=== PATIENT | female | born 1980 | race Caucasian/White ===

== ENCOUNTER → 2023-04-18 | Outpatient (CLI) | payer OTHER, SELFPAY ==
--- NOTE | 2023-04-18 13:20 | US_ITS ---
INDICATION: MENORRHAGIA EXAMINATION: Ultrasound US Pelvis Non OB Complete With Transvaginal Imaging TECHNIQUE: Transabdominal and transvaginal pelvic ultrasound was performed. Grayscale, spectral waveform, and color flow Doppler evaluation of the adnexa. COMPARISON: None. FINDINGS: UTERUS: Anteverted. The uterus measures 9.3 x 5.4 x 4.7 cm. Heterogenous myometrium with focal hypoechoic lesions, likely fibroids measuring up to 1 cm and 0.8 cm. Cervical nabothian cysts present. The endometrial stripe measures 8 mm in AP diameter which is within normal limits. RIGHT OVARY: 3.1 x 2.1 x 1.7 cm. Non-enlarged, normal echogenicity. No Doppler waveforms obtained. LEFT OVARY: 4.0 x 3.7 x 3.0 cm.. Largely cystic lesion with internal echogenic focus measuring up to 3.0 cm. No Doppler waveforms obtained. FREE FLUID: None. US/Pelvic (Non ) IMPRESSION: Fibroid uterus. Cystic lesion left ovary measuring up to 3.0 cm. Findings may represent a hemorrhagic cyst but dermoid cannot be entirely excluded. Recommend short-term sonographic follow-up in 4-6 weeks. Otherwise chronic logical consultation may be useful. Electronically Signed: Bartolome Cristobal MD at 17:03 EDT ,
== END | disposition home or self-care (01) ==
PROVIDERS: PCP Student in an Organized Health Care Education/Training Program; Referring Provider Obstetrics & Gynecology Gynecology; Visit Provider Obstetrics & Gynecology Gynecology
DX: N92.0 Excessive and frequent menstruation with regular cycle (principal); N93.0 Postcoital and contact bleeding
CPT/HCPCS: 76830; 76856

== ENCOUNTER → 2023-05-31 | Outpatient (CLI) | payer OTHER, SELFPAY ==
--- NOTE | 2023-05-31 08:21 | US_ITS ---
STUDY: ULTRASOUND OF THE FEMALE PELVIS - COMPLETE REASON FOR EXAM: Female, 42 years old. lto cyst f/u LMP: Unknown TECHNIQUE: Transabdominal and Transvaginal TECHNICAL QUALITY: Adequate. COMPARISON: Comparison is made with prior study dated April 18, 2023. FINDINGS: The uterus is anteverted and is in a midline position. The uterus measures 9.3 cm x 5.3 cm x 5.3 cm. There is a Nabothian cyst of the cervix. The endometrium measures 8 mm in thickness, and is heterogeneous (striated). There is no demonstrated endometrial mass. 2 subcentimeter fibroids are seen within the body of the uterus. I.U.D. - The patient does not have an I.U.D. The right ovary is visualized. The right ovary measures 1.9 cm x 1.7 cm x 1.8 cm. There is no right ovarian cyst or ovarian mass. There is no visualized right adnexal mass or complex lesion. There is normal arterial and normal venous vascularity. The left ovary is visualized. The left ovary measures 3.2 cm x 2.5 cm x 2.6 cm. A dominant follicle is seen in the left ovary. It measures 1.6 cm x 1.4 cm x 1.4 cm. There is no visualized left adnexal mass or complex lesion. There is normal arterial and normal venous vascularity. There is no fluid in the cul-de-sac. The pre void volume of the bladder was 137 ml. US/Pelvic (Non ) IMPRESSION: Interval decrease in size of the left ovarian cyst. A dominant follicle is seen measuring 1.6 x 1.4 cm x 1.4 cm. Electronically Signed: Albert Hughes MD at 8:47 EDT ,
== END | disposition home or self-care (01) ==
PROVIDERS: PCP Student in an Organized Health Care Education/Training Program; Referring Provider Obstetrics & Gynecology Gynecology; Visit Provider Obstetrics & Gynecology Gynecology
DX: N92.0 Excessive and frequent menstruation with regular cycle (principal); N83.202 Unspecified ovarian cyst, left side
CPT/HCPCS: 76830; 76856

== ENCOUNTER 2023-12-07 07:02 | Day surgery (SDC) | payer OTHER, SELFPAY ==
--- NOTE | 2023-11-28 10:07 | EKG12_ITS ---
Test Reason : PRE OP Blood Pressure : / mmHG Vent. Rate : 082 BPM Atrial Rate : 082 BPM P-R Int : 134 ms QRS Dur : 076 ms QT Int : 380 ms P-R-T Axes : 026 017 013 degrees QTc Int : 443 ms Normal sinus rhythm Normal ECG Confirmed by Moe Watkins ([id number]), commissioning editor LAZARUS MACE ([id number]) on 11/29/2023 6:36:21 AM Referred By: Natasha Kohli Confirmed By:Moe Watkins
[2023-11-28 11:15] LABS: Hematocrit 40.6 % (37-47); Hemoglobin 13.7 g/dL (12.0-15.0); Mean Corp Hgb Conc 33.7 g/dL (32-36); Mean Corpuscular Hgb 32.7 pg (27.0-32.0); Mean Corpuscular Volume 96.9 fL (81-99); Mean Platelet Vol. 10.1 fl (6.2-12.0); Platelet Count 236 K/mm3 (150-450); RBC Distribution Width CV 12.1 % (11.6-14.6); RBC Distribution Width SD 42.8 fl (35.1-43.9); Red Blood Count 4.19 M/mm3 (4.2-5.4); White Blood Count 7.8 K/mm3 (4.4-11.0)
[2023-11-28 11:24] LABS: Prothrombin Time (Protime)PT. 13.1 SECONDS (11.7-14.9)
[2023-11-28 11:41] LABS: AST(SGOT) 179 U/L (15-37); Alanine Aminotransfer ALT/SGPT 196 U/L (13-56); Albumin, Serum 4.4 g/dL (3.2-5.0); Alkaline Phosphatase 80 U/L (45-117); Anion Gap 8 (5-15); BUN 11 mg/dL (7-18); BUN/Creat Ratio 14.1 RATIO (10-20); Bilirubin, Direct 0.47 mg/dL (0.00-0.30); Calcium,Total 9.6 mg/dL (8.5-10.1); Chloride 101 mmol/L (98-107); Creatinine, Serum 0.78 mg/dL (0.55-1.02); EST Glomerular Filtration Rate 87 mL/min (>60); Est Glom Filt Rate - Afr Amer 105 mL/min (>60); Globulin 3.7 g/dL (2.2-4.2); Glucose 95 mg/dL (74-106); Magnesium 1.8 mg/dL (1.6-2.6); Potassium 3.6 mmol/L (3.5-5.1); Protein, Total 8.1 g/dL (6.4-8.2); Sodium Level 135 mmol/L (136-145)
--- NOTE | 2023-11-29 17:05 | HP.PCM.OB_ITS ---
History and Physical Date of Admission: 12/07/23 Pre-Op History and Physical HPI: The patient is a 43 year old female presenting for pre-operative visit. She is scheduled for TLH, Bilateral salpingectomy, cystoscopy, for Adenomyosis, AUB, Uterine Fibroids on 12/07/23. Procedure discussed along with risks, benefits and complications. Other alternatives discussed for management. Consent form signed? Yes. PAST MEDICAL HISTORY Diagnosis Date ? Appendicitis 1999 ? CVA (cerebral vascular accident) (HCC) unknown when ? Gallstones PAST SURGICAL HISTORY Procedure Laterality Date ? APPENDECTOMY 1999 Current Outpatient Medications Medication Sig Dispense Refill ? lisinopril (ZESTRIL) 20 mg tablet Take 1 tablet by mouth once daily. 90 tablet 1 ? Ascorbic Acid (VITAMIN C) 1,000 mg tablet Take 1,000 mg by mouth once daily. ? Folic Acid 20 mg cap Take 1 capsule by mouth once daily. ? Magnesium 250 mg tab Take 250 mg by mouth once daily. ? ALPRAZolam (XANAX) 0.5 mg tablet Take 1 tablet by mouth at bedtime as needed for up to 90 days. 30 tablet 2 ? omeprazole (PRILOSEC) 10 mg capsule Take 1 capsule by mouth once daily. 30 capsule 3 ? aspirin, enteric coated (ASPIRIN, ENTERIC COATED) 81 mg EC tablet Take 81 mg by mouth once daily. ? Biotin 10 mg tab Take by mouth. No current facility-administered medications for this visit. ALLERGIES: Amitriptyline, Bactrim [Sulfamethoxazole-Trimethoprim], Melatonin, Nifedipine, Prednisone, Sertraline, Sulfa (Sulfonamide Antibiotics), and Beta- Blockers (Beta-Adrenergic Blocking Agts) PERSONAL HISTORY: Social History Tobacco Use ? Smoking status: Former Types: Cigarettes Quit date: 2002 Years since quittin.2 ? Smokeless tobacco: Never Vaping Use ? Vaping Use: Never used Substance Use Topics ? Alcohol use: Yes ? Drug use: Never FAMILY HISTORY: FAMILY HISTORY Problem Relation Age of Onset ? Cancer Father CLS, stable ? Bipolar disorder Mother ? Heart disease Paternal Grandfather ? Hypertension Paternal Grandfather ? No Ocular Disease No Family History REVIEW OF SYMPTOMS: negative except as noted above PHYSICAL EXAMINATION: VITALS: Blood pressure 134/60, height 5' 5 (1.651 m), weight 168 lb (76.2 kg), last menstrual period 11/16/2023. GENERAL: The patient is well nourished, well hydrated in no acute distress. , The patient is oriented to time, place, and person. NECK: full range of motion LUNGS: Clear to auscultation bilaterally. no wheezes, rhonchi or rales HEART: Normal heart sounds and No murmurs or gallops IMPRESSION: 43yo with AUB, Adenomyosis, Fibroid uterus PLAN: TLH, Hysteroscopy, cystoscopy Pt has been counseled on risks/benefits and alternatives of surgery including but not limited to anesthesia, bleeding, infection, injury to pelvic structures including bowel, bladder, ureters and vessels. Pt wishes to proceed with surgery at this time. Risk for transfusion reviewed. Risk for cuff dehiscence and other post op complications reviewed. Pre and post op instructions reviewed I have reviewed and updated past medical and surgical history, medications and allergies Natasha Kohli MD
[2023-12-07] VITALS (19 sets, daily range): BP systolic 82–131; BP diastolic 60–96; PULSE 70–132; RESP 11–28; TEMP 36.1–37.2; O2SAT 90–100; BMI 27.3
[2023-12-07] MEDS: Magnesium 2 GM for ERAS IV (07:50)
[2023-12-07] MEDS: Phenazopyridine 95 MG Tablet 190 MG PO (07:50)
[2023-12-07] MEDS: Gabapentin 600 MG Tablet PO (07:50)
[2023-12-07] MEDS: Acetaminophen 500 MG Tablet 1000 MG PO (07:50)
[2023-12-07] MEDS: Celecoxib 200 MG Capsule 400 MG PO (07:50)
[2023-12-07 07:55] LABS: Internal QC Validated? YES +Cl - CLEAR BKGD; Record Kit Lot#,Urine Preg HCG0000718086
[2023-12-07 07:58] LABS: Pregnancy, Urine Negative Negative
[2023-12-07] MEDS: Lactated Ringers 1,000 ML 15 ML IV ×2 (08:18→10:16)
[2023-12-07] MEDS: Enoxaparin 40 MG/0.4 ML Syringe SC (08:20)
--- NOTE | 2023-12-07 08:47 | OP.PCM_ITS ---
Report of Operation Date of Procedure: 12/07/23 Pre-Operative Diagnosis: AUB, Adenomyosis, Fibroid Uterus Post-Operative Diagnosis: same Surgery/Procedure Performed:: TLH, Bilateral salpingectomy, Cystoscopy Description of Surgical Findings:: normal tubes and ovaries bilaterally. Dr. Sidhu assisted in manipulation of camera and retraction of tissue. There was no qualified resident. Surgeon: Natasha Kohli nitroglycerin supervisor: Mary Sidhu Type of Anesthesia: General and Local Special Medications: 0.5% marcaine Specimen's removed: uterus, cervix, bilateral fallopian tubes Drains: none Estimated Blood Loss (mL): 25 Fluids Replaced: 1300 Description of Procedure: Patient take to OR and prepped and draped in usual sterile fashion in dorsal lithotomy position with her arms tucked in a neurologically safe and neutral position. The uterus sounded to 8.5 cm. The m48/m60 tank driver uterine manipulator was sutured into place at 3/9:00 position and ugarte were placed. Attention was turned to the abdomen. All port sites were infiltrated with 0.5% marcaine before the incisions were made. The anterior abdominal wall was tented up with towel clamps and using a direct entry approach a 5 mm intraumbili axel port was placed. Intraperitoneal placement was confirmed with the laparoscope and the pneumoperitoneum was created. The patient was placed in Trendelenburg and 5 mm right and left lower quadrant ports were placed under direct visualization. Air seal rapid insufflator was used. The bowel was swept away. Ovaries appeared normal. The mesosalpinx starting at fimbriated end were grasped, clamped, sealed and transected with the Ligasure. The round ligaments were divided. The anterior peritoneum was dissected down to create the bladder flap with blunt dissection and the LigaSure. The uterine arteries were isolated, clamped, sealed and cut. There was minimal back bleeding from the uterus. Straight bites on uterine artieries performed to drop them off the cuff. The m48/m60 tank driver was used as guide to create colpotomy using monopolar tip of ligasure. once specimen was removed attention was turned to vaginal portion. The specimen was handed off. The cuff was closed with interrupted 0-vicryl figure of 8 sutures. Cystoscopy was performed bilateral ureters were visualized with good efflux. bladder was intact. ugarte replaced and sponge stick placed in vagina. The pneumoperitoneum was recreated and the cuff and pedicles were hemostatic. Hemoblast was placed over cuff and pedicles. The skin incisions were closed with skin glue and 3-0 monocryl in the LLQ port site. The vaginal sweep was completed by me. Grafts/Implants Used: none Grafts/Implants Used: none Procedure Start Time: 09:15 Procedure Stop Time: 10:34 Complications none Admit VTE Documentation VTE Present on Admission: Yes VTE Mechan Device Prophylaxis: SCD's VTE Pharm Prophylaxis ordered?: Yes
--- NOTE | 2023-12-07 09:00 | HYST_PTH ---
PATIENT: ASHANTI HOBBS LOC: [facility] [place] U#:[id number] AGE/SX: 43/F ROOM: RE12/07/[address]: Dr. Natasha Cruz, MDDOB: 1980 BED: DIS: 12/07/2023 SPEC #: [id number] RECD: 12/07/23 13:03 STATUS: [place] #: [id number] IMTIAZ: 12/07/23 09:[address]: Natasha Cruz DEPT: SURGICAL PATHOLOGY RECD BY: Shannan Escamilla ENTERED: 12/07/23 13:32 SP TYPE: HYSTERECT OTHR DR: Dr. Ezequiel Zazutea, DO Tissues: Uterus, NOS Procedures: Surgery Specimen Level V HEADER OPERATION: Hysterectomy. TLH, Bilateral salpingectomy, cystoscopy PRE-OP DIAGNOSIS: Adenomyosis, AUB, uterine fibroids TISSUE SUBMITTED: Uterus, cervix, bilateral tubes MICROSCOPIC DIAGNOSIS Uterus, hysterectomy: Cervix - Nabothian cysts and mild chronic inflammation. Endometrium - Proliferative endometrium. Myometrium - Leiomyoma and adenomyosis. Right and left fallopian tube - Complete cross sections of fallopian tubes One benign para tubal cyst. CHRIS/ 12/08/23 MICROSCOPIC DESCRIPTION Slides are reviewed. GROSS DESCRIPTION Received in fixative is one container labeled with the patient's name and designated uterus, cervix, bilateral tubes. The specimen consists of a hysterectomy specimen consisting of uterus with cervix and detached bilateral fallopian tubes. The uterus with cervix weighs 107 gm and measures 9.5 x 7.5 x 5.0 cm. The serosal surface is bartholomew glistening. The ectocervical mucosa is unremarkable. The external os is oval in contour. The endocervical canal measures 3.0 cm in length and the endocervical mucosa is bartholomew glistening and unremarkable. The triangular endometrial cavity measures 4.5 cm in length and 3.0 cm in width. The endometrium is bartholomew, glistening with out any mass lesions and measures 0.1 cm in thickness. Section of the uterine wall reveal a nodular mass measuring 1.0cm in diameter. Uterine wall measures up to 2.0cm in thickness. Right lateral wall, a bartholomew nodule is noted measuring 0.5cm in diameter. Sections of this nodule reveal bartholomew-white solid cut surfaces. Fallopian tubes are not identified as right or left and measures 5.0cm in length and 0.5cm in diameter and 6.5cm in length and 0.5cm in diameter. Fimbrial end is identified. Sections reveal unremarkable cut surfaces. A paratubal cyst is noted adjacent to one fallopian tube measuring 0.8cm in greatest dimension. Crutch Maker sections are submitted in nine cassettes as follows: 1 - anterior cervix, 2 - posterior cervix, 3 & 4 - anterior uterine wall, 5 & 6 - posterior uterine wall, 7- intramural nodular mass at the lateral wall of the uterus both masses are submitted in entirety, 8- one fallopian tube with adjacent paratubal cyst, 9- second fallopian tube SJ: 12/07/23 TC:1 CPT: 01156
[2023-12-07] MEDS: Cefazolin 2 GM in 0.9% Normal Saline (100mL Bag) 100 ML IV (09:10)
[2023-12-07] MEDS: Bupivacaine Mpf 0.5% 30 ML VIAL (09:15)
[2023-12-07 09:28] LABS: Bedside Glucose 105 mg/dL (74-106)
[2023-12-07] MEDS: Ondansetron 4 MG/2 ML Vial IV (10:30)
--- NOTE | 2023-12-07 10:35 | DCINST_ITS ---
Discharge Instructions Diet Discharge Diet: No restrictions Activity Discharge Activity: May Not Drive (while taking narcotics. may drive when pain controlled. ) and May Shower May shower in (days): 1 May resume sexual activity in: 6-8 weeks Weight Bearing Status: Full weight bearing Lifting Restrictions: 20 Additional Activity Instructions:: NOTHING IN THE VAGINA x 6-8 weeks. Dressing / Incision Call your doctor if your incision/area has: Continuous Slow Oozing, Sudden Increased Bleeding, Increased Pain/ Swelling, Increased Redness, Foul Smelling Discharge and Swelling at the incision site Call your doctor if you observe: Fever of 101 or Higher, Inability to have a bowel movement, Using more than 1 pad per hour and Uncontrolled pain Change Dressing in: leave in place till F/U (you have skin glue over incision sites- do not pick off) Cleanse incision/area with: Soap & Water, Keep Dressing Clean & Dry and - (you may let soap and water run over incision sites and dab dry. ) Follow Up Care Please Follow Up With: Natasha Kohli MD When: 2 weeks as scheduled for post op visit Test Results: Test results from this visit will be discussed in further detail at your follow- up appointment, if applicable. Discharge Plan Admission Attending Provider: Natasha Kohli Primary Care Provider: Ezequiel Zazueta Discharge Orders/Prescriptions Prescriptions: New oxycodone-acetaminophen 5-325 mg Tablet 1 - 2 tab PO Q6H PRN PRN (Reason: Pain Score 4-10) 5 Days Qty: 10 0RF ibuprofen 600 mg tablet 600 mg PO Q6H PRN PRN (Reason: Pain) Qty: 30 0RF simethicone 80 mg tablet,chewable 80 mg PO BID Qty: 30 0RF docusate sodium [Colace] 100 mg capsule 100 mg PO BID Qty: 30 0RF Continued alprazolam 0.5 mg tablet 0.5 mg PO DAILY lisinopril 20 mg tablet 20 mg PO DAILY omeprazole 10 mg capsule,delayed release(DR/EC) 10 mg PO DAILY biotin-folic acid-B compC-zinc 3-0.8 mg tablet 1 tab PO DAILY Referrals / Follow Up: Ezequiel Zazueta DO [Primary Care Provider] - Disposition Disposition (needs filled in before D/C Order can be placed): Home, Self Care
== END 2023-12-07 16:33 | disposition home or self-care (01) ==
LOC: SDC 07:04 → AC 07:12
PROVIDERS: Anesthesiology; PCP Student in an Organized Health Care Education/Training Program; Referring Provider Obstetrics & Gynecology; Visit Provider Obstetrics & Gynecology
PROC: 0UT94ZZ Resection of Uterus, Percutaneous Endoscopic Approach (ICD-10-PCS; CPT 58571; principal; 2023-12-07 08:40)
DX: N88.8 Other specified noninflammatory disorders of cervix uteri (principal); N93.9 Abnormal uterine and vaginal bleeding, unspecified; D25.9 Leiomyoma of uterus, unspecified; N80.03 Adenomyosis of the uterus; Z87.891 Personal history of nicotine dependence; Z79.899 Other long term (current) drug therapy; F41.9 Anxiety disorder, unspecified; K21.9 Gastro-esophageal reflux disease without esophagitis; I10 Essential (primary) hypertension; N83.8 Other noninflammatory disorders of ovary, fallopian tube and broad ligament; Z86.73 Personal history of transient ischemic attack (TIA), and cerebral infarction without residual deficits
CPT/HCPCS: 58571; 00840; 36415; 80048; 80076; 81025; 82962; 83735; 85027; 85610; 85730; 86850; 86900; 86901; 88307; 93005; J7120; J1940; J2405

== ENCOUNTER 2024-09-29 10:13 | Emergency (ER) | payer OTHER, SELFPAY ==
[2024-09-29 10:15] VITALS: BP 120/99; PULSE 100; RESP 18; TEMP 36.3; O2SAT 100; BMI 23.1
[2024-09-29 10:52] LABS: Bedside Glucose 94 mg/dL (74-106)
--- NOTE | 2024-09-29 10:56 | EX.ED.DYSGE1 ---
HPI History of Present Illness Chief Complaint: Numb/Ting Informant: patient Onset/Context/Timing Onset: Today Context: Sudden Onset Timing: Continuous Quality: Numbness and weakness Location: Right hand and forearm Worsened by: Nothing Relieved by: Nothing Narrative Narrative: Patient presents with right hand weakness that began this morning. Patient states that she woke up with numbness and weakness in her right forearm and hand at approximately 3:30 AM. Patient states it has been constant all morning. Patient denies any extremity weakness in her upper arm or shoulder. Patient denies any headaches. Patient states nothing makes her symptoms better and nothing makes them worse. Patient denies any paresthesias or weakness of her left upper extremity or bilateral lower extremities. [facility] Medical History (Updated 09/29/24 @ 12:[address] Vineet Esteves, DO) Wears glasses Anxiety Alcohol use Migraine headache TIA (transient ischemic attack) Vestibular neuritis Vertigo Gastric reflux Smoker Hypertension Home Medications ?Medication ?Instructions ?Recorded ?Last Taken ?Type alprazolam 0.5 mg tablet 0.5 mg PO DAILY 11/23/23 12/06/23 History biotin-folic acid-vitamin B 1 tab PO DAILY 11/23/23 12/07/23 History complex with C-zinc 3 mg-0.8 mg tablet lisinopril 20 mg tablet 20 mg PO DAILY 11/23/23 12/07/23 History omeprazole 10 mg capsule,delayed 10 mg PO DAILY 11/23/23 12/07/23 History release docusate sodium 100 mg capsule 100 mg PO BID #30 caps 12/07/23 Unknown Rx (Colace) ibuprofen 600 mg tablet 600 mg PO Q6H PRN PRN Pain #30 12/07/23 Unknown Rx TABLETS oxycodone-acetaminophen 5 mg-325 1 - 2 tab PO Q6H PRN PRN Pain 12/07/23 Unknown Rx mg tablet Score 4-10 5 days #10 tabs simethicone 80 mg chewable tablet 80 mg PO BID #30 tabs 12/07/23 Unknown Rx topiramate 50 mg tablet 50 mg PO Q12H weight loss 09/29/24 Unknown History Allergy/AdvReac Type Severity Reaction Status Date / Time Beta-Blockers Allergy Severe Other Verified 09/29/24 10:18 (Beta-Adrenergic Bloc prednisone Allergy Severe Hives Verified 09/29/24 10:18 Sulfa (Sulfonamide Allergy Severe Hives Verified 09/29/24 10:18 Antibiotics) sulfamethoxazole (From Allergy Severe Hives Verified 09/29/24 10:18 Bactrim) trimethoprim (From Bactrim) Allergy Severe Hives Verified 09/29/24 10:18 melatonin AdvReac Intermediate Nausea/Vom/ Verified 09/29/24 10:18 Diarrhea Serotonin 5HT-3 Antagonists AdvReac Intermediate Other Verified 09/29/24 10:18 Surgical History (Updated 09/29/24 @ 10:[address] Vineet Esteves, ) History of hysterectomy History of dental surgery Hx of wisdom tooth extraction Hx of appendectomy Social History Smoking Status: Current some day smoker tobacco type: cigarettes ROS ROS ED Constitutional Constitutional ED: Denies chills or fever(s) Eyes Eyes: Denies blurry vision or change in vision ENT ENT ED: Reports rhinorrhea; Denies sore throat Cardiovascular Cardiovascular: Denies chest pain or palpitations Respiratory/Chest Respiratory/Chest: Denies cough or dyspnea Gastrointestinal Gastrointestinal: Denies nausea or vomiting Genitourinary Genitourinary ED: Denies dysuria or hematuria Musculoskeletal Musculoskeletal: Denies back pain or neck pain Integumentary Denies abscess or rash Neurologic Neurologic: Reports paresthesias RUE; Denies headache(s) or weakness Allergic/Immunologic Allergic/Immunologic ED: Denies mouth swelling or urticaria EXAM Physical Exam Const Vital Signs: 09/29/24 10:15 09/29/24 12:14 Temperature 97.3 F L Temperature Source Temporal Pulse Rate 100 67 Respiratory Rate 18 Blood Pressure 120/99 H 112/83 H Blood Pressure Mean 106 92 Pulse Ox 100 Oxygen Delivery Method Room Air Positive well nourished and well developed General Appearance ED: well developed and NAD HEENT Reports moist mucous membranes Neck supple and no JVD Resp normal respiratory effort and clear to auscultation bilaterally Cardio regular rate and regular rhythm GI non-tender and non-distended Palpation: soft Neuro oriented x3, CN's II-XII intact bilaterally and no sensory deficits noted Neuro Narrative: There is decreased strength with managing partner and palmar abductors on the right. Strength is 5/5 in the bicep and tricep on the right. Strength is 5/5 left upper extremity and bilateral lower extremities. There are no sensory deficits noted. Sensorium / Orientation: alert Psych mental status grossly normal MDM MDM MDM Narrative Medical decision making narrative: Differential diagnosis includes peripheral neuropathy, cervical radiculopathy, electrolyte abnormality, and stroke. CT scan of the brain will be obtained to assess for stroke and intracranial bleeding. CT scan of the cervical spine will be obtained to assess for cervical radiculopathy. CBC will be obtained to assess for leukocytosis and anemia. Basic metabolic profile will be obtained to assess for electrolyte abnormality and renal function. Lab Data Attestation: I reviewed the patient's lab results. Lab results narrative: CBC was reviewed. There is a mild anemia with a hemoglobin of 11.3 and hematocrit 34.5. Basic metabolic profile was reviewed. Potassium is low at 2.7. The remainder is within normal limits. BGT was reviewed and was normal at 94. Labs: Laboratory Results - last 24 hr 09/29/24 09/29/24 10:33 10:43 WBC 6.8 RBC 3.33 L Hgb 11.3 L Hct 34.5 L MCV 103.6 H MCH 33.9 H MCHC 32.8 RDW Std Deviation 50.2 H RDW Coeff of Amish 13.2 Plt Count 154 MPV 9.9 Immature Gran % (Auto) 0.300 Neut % (Auto) 68.2 Lymph % (Auto) 24.9 [place] % (Auto) 4.7 Eos % (Auto) 1.3 Baso % (Auto) 0.6 Absolute Neuts (auto) 4.6 Absolute Lymphs (auto) 1.69 Nucleated RBC % 0 Sodium 140 Potassium 2.7 L* Chloride 107 Carbon Dioxide 20.0 L Anion Gap 13 BUN 11 Creatinine 0.69 Estim Creat Clear Calc 99.43 Est GFR (MDRD) Af Amer 120 Est GFR (MDRD) Non-Af 99 BUN/Creatinine Ratio 16.0 Glucose 109 H Calcium 8.4 L POC Glucose 94 Radiography Diagnostic Testing: Clinical Impression(s) from Imaging Studies Brain CT 09/29/24 11:03 IMPRESSION: No CT evidence of acute intracranial pathology. Reading Location: [facility] Cervical Spine CT 09/29/24 11:04 IMPRESSION: No acute CT process in the cervical spine. One or more dose reduction techniques were used (e.g., Automated exposure control, adjustment of the mA and/or kV according to patient size, use of iterative reconstruction technique). Reading Location: [facility] CT scan of the brain was obtained. There is no acute intracranial abnormality. This was interpreted by the radiologist and was also independently reviewed by myself. CT scan of the cervical spine was obtained. There is no acute fracture or spondylolisthesis. There is no soft tissue swelling. This was interpreted by the radiologist and was also independently reviewed by myself. Treatment and Re-Evaluation :: Patient was given a dose of oral and IV potassium here. Patient was advised of her findings. Patient was advised that this is most likely a neuropraxia and that it should resolve. Follow-up with her primary care physician in 5 to 7 days. Patient was instructed to return if worse in any way. Patient understood and was agreeable with the plan. All questions were answered. Discharge Plan Triage Chief Complaint: Numb/Ting ED Provider: Vineet Esteves Dx/Rx/DC Orders Clinical Impression: Neuropraxia of right upper extremity, Hypokalemia Instructions: ED Hypokalemia, ED Neuropathy, Peripheral Prescriptions: No Action alprazolam 0.5 mg tablet 0.5 mg PO DAILY lisinopril 20 mg tablet 20 mg PO DAILY omeprazole 10 mg capsule,delayed release(DR/EC) 10 mg PO DAILY biotin-folic acid-B compC-zinc 3-0.8 mg tablet 1 tab PO DAILY oxycodone-acetaminophen 5-325 mg Tablet 1 - 2 tab PO Q6H PRN PRN (Reason: Pain Score 4-10) 5 Days Qty: 10 0RF ibuprofen 600 mg tablet 600 mg PO Q6H PRN PRN (Reason: Pain) Qty: 30 0RF simethicone 80 mg tablet,chewable 80 mg PO BID Qty: 30 0RF docusate sodium [Colace] 100 mg capsule 100 mg PO BID Qty: 30 0RF topiramate 50 mg tablet 50 mg PO Q12H Primary Care Provider: Ezequiel Zazueta Referrals: Ezequiel Zazueta DO [Primary Care Provider] - Print Language: Malaysian Disposition Disposition: Home, Self Care
--- NOTE | 2024-09-29 11:03 | CT_ITS ---
EXAM: BRAIN/HEAD WITHOUT CONTRAST CLINICAL HISTORY: Trauma COMPARISON: None. TECHNIQUE: Noncontrast images of the head with multiplanar reconstructions. Dose reduction techniques were used including intermediate exposure control (AEC),iterative reconstruction technique, and/or mA and/or KV dose adjustments based on patient's size. FINDINGS: CT HEAD FINDINGS: No acute intracranial hemorrhage, mass, mass effect, midline shift or pathologic extra-axial fluid collection. No hydrocephalus. Age- appropriate cerebral volume and white matter. Visualized paranasal sinuses and mastoid air cells are clear. The calvarium is grossly intact. CT/Brain/Head without Contrast IMPRESSION: No CT evidence of acute intracranial pathology. Reading Location: [facility]
--- NOTE | 2024-09-29 11:04 | CT_ITS ---
PROCEDURE: SPINE CERVICAL WITHOUT CONTRAS REASON FOR EXAM: Trauma TECHNIQUE: Cervical spine CT without contrast. COMPARISON: None. FINDINGS: Alignment: Normal Vertebrae: No acute fracture Soft Tissues: Unremarkable C1-2: Normal alignment. Dens appears intact. C2-3: Unremarkable C3-4: Unremarkable C4-5: Unremarkable C5-6: Unremarkable C6-7: Unremarkable C7-T1: Unremarkable CT/Spine Cervical without Contras IMPRESSION: No acute CT process in the cervical spine. One or more dose reduction techniques were used (e.g., Automated exposure contr ol, adjustment of the mA and/or kV according to patient size, use of iterative reconstruction technique). Reading Location: [facility]
[2024-09-29 11:22] LABS: Absolute Lymphocyte Count 1.69 X10^3/uL (0.83-4.51); Absolute Neutrophil Count 4.6 X10^3/uL (2.0-7.7); Basophil# 0.04 X10^3/uL; Basophil% 0.6 % (0-1); Eosinophil# 0.09 X10^3/uL; Eosinophils% 1.3 % (0-5); Hematocrit 34.5 % (37-47); Hemoglobin 11.3 g/dL (12.0-15.0); Lymphocyte # 1.69 X10^3/ul (0.83-4.51); Lymphocyte % 24.9 % (19-41); Mean Corp Hgb Conc 32.8 g/dL (32-36); Mean Corpuscular Hgb 33.9 pg (27.0-32.0); Mean Corpuscular Volume 103.6 fL (81-99); Mean Platelet Vol. 9.9 fl (6.2-12.0); Monocyte# 0.32 X10^3/uL; Monocyte% 4.7 % (0-10); NRBC Flagged by Analyzer 0 % (0-5); Neutrophil # 4.63 X10^3/uL (2.7-7.7); Neutrophil % 68.2 % (47-70); Platelet Count 154 K/mm3 (150-450); RBC Distribution Width CV 13.2 % (11.6-14.6); RBC Distribution Width SD 50.2 fl (35.1-43.9); Red Blood Count 3.33 M/mm3 (4.2-5.4); White Blood Count 6.8 K/mm3 (4.4-11.0)
[2024-09-29 11:26] LABS: Anion Gap 13 (5-15); BUN 11 mg/dL (7-18); Calcium,Total 8.4 mg/dL (8.5-10.1); Chloride 107 mmol/L (98-107); Creatinine, Serum 0.69 mg/dL (0.55-1.02); EST Glomerular Filtration Rate 99 mL/min (>60); Est Glom Filt Rate - Afr Amer 120 mL/min (>60); Estimated Creatinine Clearance 99.43 ml/min; Glucose 109 mg/dL (74-106); Potassium 2.7 mmol/L (3.5-5.1); Sodium Level 140 mmol/L (136-145)
--- NOTE | 2024-09-29 11:49 | ED.RN ---
pt refused CT scan d/t severe claustrophobia. Dr. Esteves notified
[2024-09-29 12:14] VITALS: BP 112/83; PULSE 67
[2024-09-29] MEDS: Potassium Chloride 10mEq/100mL 10 MEQ/100 ML IV.SOLN. 100 MEQ IV BOLUS (12:35)
[2024-09-29] MEDS: Potassium Chloride Oral Tablet 20 MEQ 40 MEQ PO (12:35)
[2024-09-29 13:40] VITALS: BP 106/84; PULSE 90; RESP 15; TEMP 36.6; O2SAT 100
== END 2024-09-29 13:45 | disposition home or self-care (01) ==
PROVIDERS: Emergency Provider Emergency Medicine; PCP Student in an Organized Health Care Education/Training Program; Visit Provider Emergency Medicine
DX: G56.91 Unspecified mononeuropathy of right upper limb (principal); E87.6 Hypokalemia; I10 Essential (primary) hypertension; F17.210 Nicotine dependence, cigarettes, uncomplicated; Z79.899 Other long term (current) drug therapy
CPT/HCPCS: 70450; 72125; 80048; 82962; 85025; 96365; 99282; A4216

== ENCOUNTER 2024-10-17 15:00 | Outpatient (RCR) | payer OTHER, SELFPAY ==
--- NOTE | 2024-10-11 08:27 | HP.OTEVAL_ITS ---
Patient's Visit Information Visit Information Visit Information: ASHANTI HOBBS is a 44 year old F, referred to Occupational Therapy by Dr. Ryder Bell, , with a diagnosis of radial nerve lesion. Date of Evaluation: 10/09/24 Occupational Therapist: Linette Florez, LIZBETH/Fabrice, CHT Subjective Subjective: This 44 year old female was seen for OT eval with dx of right radial nerve lesion. pt states she woke up with the inability to move her right arm 09/28/24. pt states she thought it would go away. went to ER had MRI done. Went to see Dr. bell and was referred to OT. pts insurance does not cover OT services pt is self-pay- pt currently has not use of right UE due to radial nerve compression. pt also reports pain and shooting pains that do not go away with alive or Tylenol Pain right UE: Current Pain Intensity: 7 Pain Intensity Range: 4 and 7 ROM ROM Comments: pt demo full right shoulder and elbow ROM. forearm supination and pronation limited no wrist ext therapist holding wrist in N and supporting MCP at N pt demo min ability to extend digits at PIP Level no thumb extension ability at this time. Quick DASH-Disab of Arm,Shoulder& Hand Quick DASH Score: [id number] Goals Goal:ROM equal to unaffected hand: Yes Goal:Rn Maternal Child/Pinch strength at least 75% of unaffected hand: Yes Goal:No pain with affected hand use: Yes Goal:PIP Circumferences equal to unaffected hand: Yes Goal:Full use of affected hand in daily activities including work: Yes Other Goal: orthosis use: pt will demo understanding of using a variety of bracing to support wrist/ digits to decrease risk of extensor mechanisms from stretching out by end of 2nd session. pt will demo understanding of radial nerve glides to support movement/health of tissue around nerve by end of 3rd visit. Rehabilitation General Assessment: pt demo with positive radial nerve lesion and demo need for skilled OT services 2-3 x week for 12 weeks. Due to pts limited functional use of right dominate hand /grasp/pinch pt demo need of custom low profile orthosis to support wrist- and assist in partial grasp/pinch of right dominate hand for increase use with ADLs. Today therapist sam. wrist cock up for pt to wear at night also gave pt soft wrist cock-up for pt to interchange between the two as the orthosis one is very ridged. Therapist ed. pt on dx and recovery- pt emotional and reports frustration. therapist attempted to work with pt in POC- will use US for increase circulation, bracing and use of radial nerve palsy orthosis. pt demo understanding and agree to POC. Due to pts insurance does not cover Occupational therapy services pt is self pay- therapist will guide pt in radial neve glides soft tissue mobility and what to expect at nerve heals. Pt demo understanding and agree to POC. Rehabilitation Potential: Good Anticipated Interventions Anticipated Interventions: A/AAROM/PROM, Strengthening, Triggerpoint Release, Modalities, Orthoses, Joint Protection/Energy Conservation, Ergonomic Education, Education re assistive Equipment, Education re Diagnosis, Caregiver Training and Home Program Other Interventions: nerve glides Visit Plan Frequency: 2-3x /Week Duration: 3 Months General Plan: get pt in low profile radial nerve palsy orthosis- ed. pt on supporting wrist/digits to avoid extensor mechanism from stretching ed. pt on symptoms and or movement of radial nerve return Radial neve glides strengthen when appropriate TEXT: Thank you for the opportunity to evaluate your patient. For Medicare and Medicare HMO plans, please review the plan of care and approve it. It will need to be FAXED BACK to us at [phone] for Medicare purposes. Please let me know if there are questions or concerns regarding this plan of care. Physician Demarco schwarz: Date:
--- NOTE | 2024-11-20 16:19 | HP.OTDCNRP_ITS ---
Patient Information Patient Information: ASHANTI HOBBS was seen in my office for initial evaluation on 10/09/24. The following Plan of Care was established for this patient: POC Established Initial Frequency: 2-3x /Week Initial Duration: 3 Months Plan: radial nerve glide US x 50% 10 min 1.2 3.3 mhz to right forearm dorsal Anticipated Interventions Anticipated Interventions: A/AAROM/PROM, Strengthening, Triggerpoint Release, Modalities, Orthoses, Joint Protection/Energy Conservation, Ergonomic Education, Education re assistive Equipment, Education re Diagnosis, Caregiver Training and Home Program Other Interventions: nerve glides Last Seen Last Seen: This patient was last seen in our office 10/17/24. Pertinent comments regarding their Occupational therapy will appear below: pts insurance did not cover Occupational therapy services - therapist spoke with pt following her nerve conduction test and she was going to have an PT eval to cont.with her care as this is covered with her insurance. This center did provide pt with Benik radial nerve palsy orthosis she picked up on 11/01/24 and was to take it to the [facility] [place] to have fitted for her. pt is d.c from OT services as this is not covered by her insurance. At this point I will be discontinuing this patient from occupational therapy. I would be happy to see this patient again in the future if found appropriate by the physician. Thank you! Linette Florez, OTR/L, CHT
== END 2024-10-17 19:00 | disposition home or self-care (01) ==
LOC: OT 15:00
PROVIDERS: PCP Student in an Organized Health Care Education/Training Program; Referring Provider Student in an Organized Health Care Education/Training Program; Visit Provider Student in an Organized Health Care Education/Training Program
DX: G56.31 Lesion of radial nerve, right upper limb (principal)
CPT/HCPCS: 97035; 97140; 97166; 97530; 97760

== ENCOUNTER → 2024-12-10 | Outpatient (CLI) | payer OTHER, SELFPAY | END | disposition home or self-care (01) | LOC: LABSPEC 15:26 | PROVIDERS: PCP Student in an Organized Health Care Education/Training Program | DX: J01.90 Acute sinusitis, unspecified (principal) | CPT/HCPCS: 87070; 87077; 87186; 87205 ==

== ENCOUNTER → 2025-05-01 | Outpatient (CLI) | payer OTHER, SELFPAY ==
[2025-05-01 12:19] LABS: Glucose, Dipstick Normal (Normal); Ketone-Dipstick Negative (Negative); Leukocyte Esterase-Dipstick Negative /ul (Negative); Nitrite-Dipstick Negative (Negative); Occult Blood-Urine 10 /ul (Negative); Protein-Dipstick 15 mg/dl (Negative); Specific Gravity, Urine 1.025 (1.002-1.030); Urine Bilirubin Dipstick Negative (Negative)
[2025-05-01 12:21] LABS: Color, Urine Yellow (Yellow)
== END | disposition home or self-care (01) ==
PROVIDERS: PCP Student in an Organized Health Care Education/Training Program; Referring Provider Anesthesiology Pain Medicine; Visit Provider Anesthesiology Pain Medicine
DX: F11.20 Opioid dependence, uncomplicated (principal)
CPT/HCPCS: 81002

== ENCOUNTER 2025-05-05 03:02 | Emergency (ER) | payer OTHER, SELFPAY ==
[2025-05-05] VITALS (7 sets, daily range): BP systolic 103–117; BP diastolic 77–99; PULSE 60–111; RESP 10–17; TEMP 36.5–36.8; O2SAT 92–100; BMI 22.7
--- NOTE | 2025-05-05 03:07 | EKG12_ITS ---
Test Reason : DYSRHYTHMIA Blood Pressure : */* mmHG Vent. Rate : 72 BPM Atrial Rate : 72 BPM P-R Int : 148 ms QRS Dur : 80 ms QT Int : 428 ms P-R-T Axes : 36 22 36 degrees QTcB Int : 468 ms Normal sinus rhythm Normal ECG Confirmed by Moe Watkins ([id number]), newspaper photo editor MALLORY BECKWITH ([id number]) on 05/06/2025 10:17:37 AM Referred By: Confirmed By: Moe Watkins
--- OUTSIDE RECORDS SUMMARY | 2025-05-05 03:38 | XMS RPT_ITS | CCD ---
Author Organization [facility] Care Team Providers Care Production Coordinator Name Role Phone Arlyn Sprague PA-C Primary Care Provider [phone] PHYSICIAN, NONE Primary Care Unavailable HELLEN HERNANDEZ MD Attending Unavailable PHYSICIAN, NONE Primary Care Unavailable HELLEN HERNANDEZ MD Attending Unavailable HELLEN HERNANDEZ MD Attending Unavailable PHYSICIAN, NONE Primary Care Unavailable PHYSICIAN, NONE Primary Care Physician Unavailab Ezequiel Cagle DO Primary Care Provider Dr. Ezequiel Zazueta Primary Care Provider Dr. Moe Watkins Attending Provider Dr. Natasha Carlos Referring Provider Ezequiel Zazueta DO Primary Care Provider Selvin ASSISTANT THERAPY AIDE.Nichol BROOKS Unavailable Adela ASSISTANT THERAPY AIDE.Conor BROOKS Unavailable Dr. Ezequiel Zazueta DO Primary Care Provider [phone] Dr. Vineet Esteves DO Attending Provider Dr. Vineet Esteves DO Emergency Provider Dr. Ryder Ruth DO Attending Provider Dr. Ryder Ruth DO Referring Provider Vineet Wade Attending Provider Vineet Wade Referring Provider RYDER NEWTON Referring Unavailabl e EZEQUIEL ZAZUETA Primary Care Unavailable RYDER NEWTON Referring Unavailabl e EZEQUIEL ZAZUETA Primary Care Unavailable RYDER [place] Referring Unavailabl e ZAZUETA, EZEQUIEL L Primary Care Unavailable Katelin ASSISTANT THERAPY AIDE.GEOCHEMICAL MANAGER, Meghna Bruce Unavailable [phone] Zazueta, Ezequiel Primary Care Unavailable Ryder Ruth Referring Unavailable Ryder Ruth Attending Unavailable Zazueta, Ezequiel Primary Care Unavailable Vineet Esteves Attending Unavailable BasalAngie kelly Referring Unavailable BasaliAngie Attending Unavailable Zazueta, Ezequiel Primary Care Unavailable Zazueta, Ezequiel Primary Care Unavailable Lopez Vineet Referring Unavailable LopezVineet Attending Unavailable NICHOL MONTALVO Referring Unavailabl e ZAZUETA, EZEQUIEL L Primary Care Unavailable NICHOL MONTALVO Attending Unavailabl e ZAZUETA, EZEQUIEL L Primary Care Unavailable CONOR CHAPMAN Attending Unavailable ZAZUETA, EZEQUIEL L Primary Care Unavailable NATASHA DAVILA Attending Unavail able ZAZUETA, EZEQUIEL L Primary Care Unavailable ZAZUETA, EZEQUIEL L Primary Care Unavailable RYDER NEWTON Attending Unavailabl e SELF Referring Unavailable ADELACONOR HAMPTON Referring Unavailable ZAZUETA, EZEQUIEL L Primary Care Unavailable ZAZUETA, EZEQUIEL L Primary Care Unavailable KATELIN, MEGHNA BRUCE Referring Unavailable ZAZUETA, EZEQUIEL L Primary Care Unavailable NATASHA DAVILA Attending Unavail able KATELIN, MEGHNA BRUCE Attending Unavailable ZAZUETA, EZEQUIEL L Primary Care Unavailable ZAZUETA, EZEQUIEL L Primary Care Unavailable RYDER NEWTON Attending UnavailMEÑO Guerra Attending Unavailable ZAZUETA, EZEQUIEL L Primary Care Unavailable SELF Referring Unavailable ZAZUETA, EZEQUIEL L Primary Care Unavailable RYDER NE[place]ON Attending Unavailabl e ZAZUETA, EZEQUIEL L Primary Care Unavailable NATASHA DAVILA Attending Unavail able RYDER NEWTON Attending Unavailabl e SELF Referring Unavailable ZAZUETA, EZEQUIEL L Primary Care Unavailable Allergies Allergy Classification Reported Allergen(s) Allergy Type Date of Onset Reaction(s) Facility (20 sources) Sulfamethoxazole / Trimethoprim; Translations: [sulfamethoxazole-t rimethoprim] Drug Allergy 04-03-20 23 Weal (disorder), Swelling (morphologic abnormality), [facility] (20 sources) Sulfonamides (Antibiotic); Translations: [sulfa drugs] Drug allergy 04-03-20 23 Weal (disorder), Swelling (finding), [facility] (20 sources) predniSONE; Translations: [PREDNISONE] Drug Allergy 04-03-20 23 Other: See Comments [facility] (20 sources) Amitriptyline; Translations: [AMITRIPTYLINE] Drug Allergy 12-30-19 Other: See Comments [facility] (20 sources) beta-Blocking agent; Translations: [BETA-BLOCKERS (BETA-ADRENERGIC BLOCKING AGTS)] Drug Allergy 09-05-19 19 Other: See Comments, Swelling [facility] (20 sources) Melatonin; Translations: [MELATONIN] Drug Allergy 03-19-20 Other: See Comments [facility] (20 sources) NIFEdipine; Translations: [NIFEDIPINE] Drug Allergy 03-19-20 Other: See Comments [facility] (20 sources) Sertraline; Translations: [SERTRALINE] Drug Allergy 06-30-20 Other: See Comments [facility] (3 sources) Adrenergic Beta-Antagonists Allergy to substance 12-07-[address] [facility] Comment on above: TACHYCARDIA (3 sources) Sulfamethoxazole Drug Allergy 12-07-19 [facility] (5 sources) Sulfonamides (Antibiotic); Translations: [SULFA (SULFONAMIDE ANTIBIOTICS)] Allergy to substance 04-03-20 [facility] (3 sources) Trimethoprim Drug Allergy 12-07-19 [facility] (3 sources) Serotonin 5HT-3 Antagonists Propensity to adverse reactions 12-07-[address] [facility] Comment on above: INSANITY AGITATED (2 sources) Sulfamethoxazole / Trimethoprim; Translations: [SULFAMETHOXAZOLE-T RIMETHOPRIM] Drug Allergy 04-03-20 [facility] Other [facility] (5 sources) hydrOXYzine; Translations: [HYDROXYZINE] Drug Allergy 01-30-20 Diarrhea [facility] (1 source) Adrenergic Beta-Antagonists Drug allergy (disorder) 09-29-19 [facility] (1 source) Melatonin Drug Allergy 09-29-19 [facility] (1 source) predniSONE Drug Allergy 09-29-19 [facility] (1 source) Serotonin Drug Allergy 09-29-19 [facility] (1 source) Sulfamethoxazole Drug Allergy 09-29-19 [facility] (1 source) Sulfonamides (Antibiotic) Drug allergy (disorder) 09-29-19 [facility] (1 source) Trimethoprim Drug Allergy 09-29-19 [facility] Medications Current Medications Medication Drug Class(es) Dates Sig (Normalized) Sig (Original) acetaminophen 325 mg oral capsule (4 sources) take 1 capsule by mouth four times daily acetaminophen 325 mg cap Take 1 capsule by mouth four times daily. Active acetaminophen 325 mg / oxyCODONE hydrochloride 5 mg oral tablet (3 sources) Opioid Agonist Start: 12-07-2023 take 1-2 tablets by mouth every six hours as needed for pain Oxycodone-Acetamino phen 5-325 mg Tablet Active 1 - 2 {tbl} PO EVERY 6 HOURS NEEDED as needed for Pain Score 4-10 10 December 07, 2023 Start: 12-07-2023 take 1 tablet by corbin th every six hours as needed Oxycodone-Acetaminophen Active 1 - 2 TABLET PO EVERY 6 HOURS NEEDED 10 December 07, 2023 amoxicillin 500 mg oral capsule (3 sources) Penicillin-class Antibacterial Start: 11-07-2023 End: 11-17-2023 take 1 capsule by mouth twice daily amoxicillin (AMOXIL) 500 mg capsule Indications: Strep throat Take 1 capsule by mouth two times a day for 10 days. 20 capsule 0 11/07/2023 11/17/2023 Active Comment on above: Take 1 capsule by mo ut two times a day for 10 days. amoxicillin 875 mg / clavulanate 125 mg oral tablet (2 sources) Penicillin-class Antibacterial Start: 01-07-2024 End: 01-17-2024 amoxicillin-clavu lanate potassium (AUGMENTIN) 875-125 mg per tablet Take 1 tablet by mouth two times a day for 10 days. FOR 10 DAYS. 20 tablet 0 01/07/2024 01/17/2024 Active aspirin 81 mg chewable tablet (20 sources) Platelet Aggregation Inhibitor, Nonsteroidal Anti-inflammatory Drug Start: 01-31-2023 take 1 mg by mouth once daily aspirin 81 mg oral tablet, chewable mg = tab(s), Chewed, qDay, 0 Refill(s) Start Date: 01/31/23 Status: Ordered End: 01-29-2025 take 1 tablet by mouth once daily aspirin, enteric coated (ASPIRIN, ENTERIC COATED) 81 mg EC tablet Take 81 mg by mouth once daily. 01/29/2025 Discontinued (Discontinued by another Health Care Provider) Comment on above: Take 81 mg by mouth once daily. benoxinate hydrochloride 4 mg/ml / fluorescein sodium 2.5 mg/ml ophthalmic solution (1 source) Diagnostic Dye Start: 04-18-2023 End: 04-18-2023 fluorescein-lindsay xinate 0.25-0.4 % 1 Drop (FLURESS) biotin 1 mg oral tablet (20 sources) take 1 tablet by mouth once daily Biotin 1 mg tab Take 1 tablet by mouth once daily. Active End: 04-02-2024 Biotin 10 mg tab Take by corbin . 0 04/02/2024 Discontinued Comment on above: Take by mouth. Biotin-Folic Acid-B Compc-Zinc (1 source) Start: 11-23-19 take 1 tablet by mouth once daily Biotin-Folic Acid-B Compc-Zinc Active 1 TABLET PO DAILY November 23, 2023 12:00am Biotin-Folic Acid-B Compc-Zinc 3-0.8 mg tablet (2 sources) Start: 11-23-19 take 3 tablets by mouth once daily Biotin-Folic Acid-B Compc-Zinc 3-0.8 mg tablet Active 1 {tbl} PO DAILY November 23, 2023 12:00am calcium citrate 315 mg oral tablet (1 source) Start: 02-01-20 calcium (as calcium citrate) 315 mg oral tablet Oral, BID, 0 Refill(s) Start Date: 01/31/23 Status: Ordered Zyrtec (1 source) Histamine-1 Receptor Antagonist Start: 02-01-20 ZyrTEC qDay, 0 Refill(s) Start Date: 01/31/23 Status: Ordered ciprofloxacin 500 mg oral tablet (1 source) Quinolone Antimicrobial Start: 07-05-20 End: 07-08-20 24 take 1 tablet by mouth twice daily ciprofloxacin HCl (CIPRO) 500 mg tablet Take 1 tablet by mouth two times a day for 3 days. 6 tablet 07/05/2024 07/08/2024 Active docusate sodium 100 mg oral capsule (3 sources) Start: 12-07-19 take 1 capsule by mouth twice daily Docusate Sodium (Colace) 100 mg capsule Active 100 mg PO TWICE A DAY December 07, 2023 12:00am doxycycline hyclate 100 mg oral tablet (3 sources) Tetracycline-class Drug Start: 04-23-20 End: 04-30-20 take 1 tablet by mouth twice daily doxycycline (VIBRA-TABS) 100 mg tablet Take 1 tablet by mouth two times a day for 7 days. 14 tablet 04/23/2024 04/30/2024 Active DULoxetine 30 mg delayed release oral capsule (4 sources) Serotonin and Norepinephrine Reuptake Inhibitor Start: 01-30-20 End: 07-28-20 take 1 capsule by mouth once daily DULoxetine (CYMBALTA) 30 mg capsule Indications: PREETI (generalized anxiety disorder) , Sleep disturbances Take 1 capsule by mouth once daily. 90 capsule 1 01/29/2025 07/28/2025 Active folic acid 20 mg oral capsule (20 sources) End: 04-25-20 take 1 capsule by mouth once daily Folic Acid 20 mg cap Take 1 capsule by mouth once daily. 04/25/2024 Discontinued Comment on above: Take 1 capsule by [facility] once daily. ibuprofen 600 mg oral tablet (3 sources) Nonsteroidal Anti-inflammatory Drug Start: 12-07-19 take 1 tablet by mouth every six hours as needed for pain Ibuprofen 600 mg tablet Active 600 mg PO EVERY 6 HOURS NEEDED as needed for Pain December 07, 2023 12:00am magnesium oxide 250 mg oral tablet (1 source) Start: 02-01-20 take 1 mg by mouth once daily Magnesium 250 mg tablet mg = tab(s), Oral, qDay, 0 Refill(s) Start Date: 01/31/23 Status: Ordered metroNIDAZOLE 500 mg oral tablet (1 source) Nitroimidazole Antimicrobial Start: 12-23-19 End: 12-30-19 take 1 tablet by mouth twice daily metroNIDAZOLE (FLAGYL) 500 mg tablet Take 1 tablet by mouth two times a day for 7 days. 14 tablet 0 12/23/2023 12/30/2023 Active mupirocin 0.02 mg/mg topical ointment (3 sources) RNA Synthetase Inhibitor Antibacterial Start: 04-23-20 End: 04-28-20 mupirocin (BACTROBAN) 2 % ointment Apply to affected area three times a day for 5 days. 30 g 04/23/2024 04/28/2024 Active naltrexone hydrochloride 50 mg oral tablet (4 sources) Opioid Antagonist Start: 03-26-20 25 take 1 tablet by mouth once daily naltrexone 50 mg tablet Take 1 tablet by mouth once daily. 03/26/2025 Active Start: 01-29-2025 End: 02-28-2025 take 1 tablet by mouth once daily naltrexone 50 mg tablet Indications: will need managed by alcohol abuse counseling program or psychiatry Take 1 tablet by mouth once daily. 0 01/29/2025 02/28/2025 Active omeprazole 10 mg delayed release oral capsule (20 sources) Proton Pump Inhibitor Start: 06-05-2023 End: 03-11-2025 take 1 capsule by mouth once daily omeprazole (PRILOSEC) 10 mg capsule Take 1 capsule by mouth once daily. 90 capsule 1 09/12/2024 Active Start: 01-31-2023 take 1 capsule by [facility] once daily omeprazole 40 mg oral delayed release capsule TAKE 1 CAPSULE BY MOUTH EVERY DAY Start Date: 01/31/23 Status: Ordered End: 06-02-2023 take 1 capsule by mouth once daily omeprazole (PRILOSEC) 10 mg capsule Take 10 mg by mouth once daily. 0 06/02/2023 Discontinued Comment on above: Take 10 mg by mouth once daily. Take 1 capsule by [facility] once daily. phenazopyridine hydrochloride 200 mg oral tablet (3 sources) Start: 07-05-20 End: 09-12-19 take 1 tablet by mouth every eight hours as needed phenazopyridine (PYRIDIUM) 200 mg tablet Take 1 tablet by mouth three times a day as needed for pain. 6 tablet 07/05/2024 09/12/2024 Discontinued simethicone 80 mg chewable tablet (3 sources) Start: 12-07-19 24 take 1 tablet by mouth twice daily Simethicone 80 mg tablet,chewable Active 80 mg PO TWICE A DAY December 07, 2023 12:00am topiramate 50 mg oral tablet (20 sources) Start: 09-29-19 25 take 1 tablet by mouth every twelve hours Topiramate 50 mg tablet Active 50 mg PO Q12H September 29, 2024 1:00am Start: 02-12-2024 End: 10-28-2025 take 1 tablet by mouth twice daily topiramate (TOPAMAX) 50 mg tablet Take 1 tablet by mouth two times a day. 180 tablet 1 05/01/2025 10/28/2025 Active Start: 01-01-2024 End: 03-31-2024 take 1 tablet by mouth once daily at bedtime topiramate (TOPAMAX) 50 mg tablet Take 1 tablet by mouth daily at bedtime. 90 tablet 0 01/01/2024 02/12/2024 Discontinued traMADol hydrochloride 50 mg oral tablet (1 source) Opioid Agonist Start: 04-25-2024 End: 04-30-2024 take 1 tablet by mouth twice daily as needed for pain traMADol (ULTRAM) 50 mg tablet Indications: Blister of toe of left foot, subsequent encounter Take 1 tablet by mouth two times a day as needed for pain for up to 5 days. 10 tablet 04/25/2024 04/30/2024 Active traZODone hydrochloride 50 mg oral tablet (4 sources) Serotonin Reuptake Inhibitor Start: 01-29-2025 End: 07-28-2025 take 1-2 tablets by mouth once daily at bedtime traZODone (DESYREL) 50 mg tablet Indications: PREETI (generalized anxiety disorder) , Sleep disturbances Take 1-2 tablets by mouth daily at bedtime. 180 tablet 1 01/29/2025 07/28/2025 Active triamcinolone acetonide 1 mg/ml topical cream (13 sources) Corticosteroid Start: 04-03-2024 End: 09-12-2024 triamcinolone acetonide (KENALOG) 0.1 % cream Indications: Irritant contact dermatitis, unspecified trigger Apply 1 application to affected area three times a day. Apply sparingly to area for rash/itching. 60 g 1 04/03/2024 09/12/2024 Discontinued valACYclovir 1000 mg oral tablet (20 sources) Herpesvirus Nucleoside Analog DNA Polymerase Inhibitor, Herpes Simplex Virus Nucleoside Analog DNA Polymerase Inhibitor, Herpes Zoster Virus Nucleoside Analog DNA Polymerase Inhibitor Start: 05-20-2024 End: 09-18-2024 take 2 tablets by mouth twice daily valACYclovir (VALTREX) 1 gram tablet Take 2 tablets by mouth two times a day. For 1 day. 4 tablet 2 09/18/2024 Active 24 hr venlafaxine 37.5 mg extended release oral capsule (1 source) Serotonin and Norepinephrine Reuptake Inhibitor Start: 01-31-2023 take 1 capsule by mouth once daily venlafaxine 37.5 mg oral capsule, extended release TAKE 1 CAPSULE BY MOUTH EVERY DAY Start Date: 01/31/23 Status: Ordered Completed/Discontinued Medications Medication Drug Class(es) Dates Sig (Normalized) Sig (Original) ALPRAZolam 0.5 mg oral tablet (20 sources) Benzodiazepine Start: 10-02-2024 End: 03-31-2025 take 2 tablets by mouth once daily as needed ALPRAZolam (XANAX) 0.5 mg tablet Indications: Panic attacks , Sleep disturbances , Hand weakness Take 2 tablets by mouth once daily as needed for up to 180 days. 90 tablet 1 10/02/2024 01/29/2025 Discontinued (Discontinued by another Health Care Provider) Start: 02-11-2024 End: 04-10-2024 take 1 tablet by mouth every 30 days at bedtime as needed ALPRAZolam (XANAX) 0.5 mg tablet Indications: Sleep disturbances , Panic attacks Take 1 tablet by mouth at bedtime as needed for up to 30 days. 30 tablet 0 03/11/2024 04/03/2024 Discontinued Start: 11-23-2023 End: 02-03-2024 take 1 tablet by mouth every twenty-four hours as needed for anxiety and anxiety ALPRAZolam (XANAX) 0.5 mg tablet Indications: Situational anxiety Take 1 tablet by mouth at bedtime as needed for up to 30 days. 30 tablet 1 01/04/2024 02/03/2024 Active Start: 11-23-2023 End: 03-11-2025 take 1 tablet by mouth once daily as needed ALPRAZolam (XANAX) 0.5 mg tablet Indications: Panic attacks , Sleep disturbances Take 1 tablet by mouth once daily as needed for up to 180 days. 90 tablet 1 09/12/2024 10/02/2024 Discontinued Start: 09-14-2023 End: 12-13-2023 take 1 tablet by mouth at bedtime as needed ALPRAZolam (XANAX) 0.5 mg tablet Indications: Multiple environmental allergies , Sleep disturbances Take 1 tablet by mouth at bedtime as needed for up to 90 days. 30 tablet 2 09/14/2023 12/13/2023 Active Start: 04-03-2023 End: 09-30-2023 take 0.5 tablet by mouth at bedtime as needed ALPRAZolam (XANAX) 0.5 mg tablet Indications: Panic attacks Take 0.5 tablets by mouth at bedtime as needed (for panic attacks as needed) for up to 180 days. 10 tablet 0 04/03/2023 09/30/2023 Active End: 04-03-2023 take 0.25 mg by mouth every twenty-four hours as needed ALPRAZolam (XANAX) 0.5 mg tablet Take 0.25 mg by mouth at bedtime as needed (for panic attacks as needed). 0 04/03/2023 Discontinued Comment on above: Take 0.25 mg by mout h at bedtime as needed (for panic attacks as needed). Take 0.5 tablets by mouth at bedtime as needed (for panic attacks as needed) for up to 180 days. Take 1 tablet by corbin th at bedtime as needed for up to 90 days. ascorbic acid 1000 mg oral tablet (20 sources) Vitamin C End: 04-02-20 take 1 tablet by mouth once daily Ascorbic Acid (VITAMIN C) 1,000 mg tablet Take 1,000 mg by mouth once daily. 0 04/02/2024 Discontinued Comment on above: Take 1,000 mg by corbin th once daily. gabapentin 100 mg oral capsule (5 sources) Anti-epileptic Agent Start: 11-08-19 End: 05-06-20 take 1 capsule by mouth three times daily gabapentin (NEURONTIN) 100 mg capsule Indications: Pain of right upper extremity Take 1 capsule by mouth three times a day for 180 days. 90 capsule 5 11/07/2024 12/09/2024 Discontinued (Changing Therapy/Dosage Form) hydrOXYzine hydrochloride 50 mg oral tablet (14 sources) Antihistamine Start: 11-29-19 24 End: 04-02-20 take 1 tablet by mouth every eight hours as needed hydrOXYzine HCl (ATARAX) 50 mg tablet Take 1 tablet by mouth three times a day as needed for anxiety. 30 tablet 0 11/29/2023 04/02/2024 Discontinued Comment on above: Take 1 tablet by corbin th three times a day as needed for anxiety. lisinopril 20 mg oral tablet (20 sources) Angiotensin Converting Enzyme Inhibitor Start: 07-05-20 End: 01-30-20 take 1 tablet by mouth once daily lisinopril (ZESTRIL) 20 mg tablet Indications: Hypertension, essential take 1 tablet by mouth once daily 90 tablet 1 12/25/2024 01/29/2025 Discontinued (Discontinued by another Health Care Provider) Start: 06-05-2023 take 1 tablet by corbin th once daily lisinopril (ZESTRIL) 20 mg tablet Indications: Hypertension, essential Take 1 tablet by mouth once daily. 30 tablet 1 06/05/2023 Active Start: 01-31-2023 End: 06-02-2023 take 1 tablet by mouth once daily lisinopril 20 mg oral tablet TAKE 1 TABLET BY MOUTH EVERY DAY Start Date: 01/31/23 Status: Ordered Comment on above: Take 20 mg by mouth once daily. Take 1 tablet by corbin th once daily. TAKE 1 TABLET BY OCRBIN TH EVERY DAY Magnesium (20 sources) End: 01-29-2025 take 1 tablet by mouth once daily Magnesium 250 mg tab Take 250 mg by mouth once daily. 01/29/2025 Discontinued (Discontinued by Patient) take 1 tablet by mouth once galina y Magnesium 250 mg tab Take 250 mg by mouth once daily. Active take 1 tablet by mouth once galina y Magnesium 250 mg tab Take 250 mg by mouth once daily. 0 Active Comment on above: Take 250 mg by mouth once daily. Naloxone (1 source) Opioid Antagonist End: 01-29-2025 naloxone HCl (NALOXONE, BULK, MISC) 01/29/2025 Discontinued (Duplicate Entry) Niacinamide (4 sources) End: 05-01-2025 niacinamide (NICOTINAMIDE MISC) 250 mg two times a day. 05/01/2025 Discontinued niacinamide (NEREIDA OTINAMIDE MISC) 250 mg two times a day. Active pregabalin 100 mg oral capsule (12 sources) Start: 12-16-2024 End: 06-14-2025 take 1 capsule by mouth three times daily pregabalin (LYRICA) 100 mg capsule Indications: Radial nerve palsy, right , Pain of right upper extremity Take 1 capsule by mouth three times a day for 180 days. 90 capsule 5 12/16/2024 05/01/2025 Discontinued Start: 12-09-2024 End: 01-08-2025 take 1 capsule by mouth three times daily pregabalin (LYRICA) 50 mg capsule Indications: Abnormal EMG , Radial nerve palsy, right Take 1 capsule by mouth three times a day for 30 days. 90 capsule 12/09/2024 12/16/2024 Discontinued Problems Active Problems Problem Classification Problem Date Documented Date Episodic/Chronic Acute cerebrovascular disease (1 source) Cerebrovascular accident 01-31-2023 Chronic Alcohol-related disorders (2 sources) Alcohol abuse; Translations: [Alcohol abuse, uncomplicated] Onset: 05-01-2025 01-29-2025 Chronic Allergic reactions (1 source) Irritant contact dermatitis; Translations: [Irritant contact dermatitis, unspecified cause] 04-03-2024 Episodic Anxiety disorders (20 sources) Generalized anxiety disorder; Translations: [Panic attack] Onset: 12-06-2023 01-31-2023 Chronic Benign neoplasm of uterus (2 sources) Uterine leiomyoma; Translations: [Leiomyoma of uterus, unspecified] 10-30-2023 Episodic Blindness and vision defects (3 sources) Bilateral regular astigmatism; Translations: [Regular astigmatism, bilateral] 04-18-2023 Episodic Cardiac dysrhythmias (20 sources) Irregular heart beat; Translations: [Cardiac arrhythmia, unspecified] Onset: 01-17-2022 01-17-2022 Chronic Conditions associated with dizziness or vertigo (2 sources) Vertigo; Translations: [Dizziness and giddiness] Episodic Disorders of lipid metabolism (20 sources) Mixed hyperlipidemia; Translations: [Mixed hyperlipidemia] Onset: 12-06-2023 12-06-2023 Chronic Endometriosis (2 sources) Uterine adenomyosis; Translations: [Adenomyosis] 10-30-2023 Chronic Esophageal disorders (4 sources) Gastroesophageal reflux disease without esophagitis; Translations: [Gastro-esophageal reflux disease without esophagitis] Onset: 07-05-2024 01-01-2024 Chronic Essential hypertension (13 sources) Hypertensive disorder; Translations: [Essential hypertension] Onset: 07-05-2024 01-31-2023 Chronic Genitourinary symptoms and ill-defined conditions (5 sources) Dysuria; Translations: [Dysuria] Onset: 05-01-2025 07-05-2024 Episodic Headache; including migraine (1 source) Headache; Translations: [Nonintractable headache, unspecified chronicity pattern, unspecified headache type] Episodic Inflammation; infection of eye (except that caused by tuberculosis or sexually transmitteddisease) (1 source) Bilateral punctate keratitis of eyes; 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, bilateral] 04-18-2023 Chronic Menstrual disorders (3 sources) Excessive and frequent menstruation with regular cycle; Translations: [Menorrhagia] Onset: 01-31-2023 Chronic Other aftercare (1 source) Long-term current use of drug therapy; Translations: [Other fci (current) drug therapy] 10-29-2024 Episodic Other aftercare (1 source) Other fci (current) drug therapy; Translations: [Encounter for long-term (current) use of medications] Onset: 05-01-2025 Episodic Other circulatory disease (1 source) History of cerebrovascular accident without residual deficits; Translations: [Personal history of transient ischemic attack (TIA), and cerebral infarction without residual deficits] 04-03-2023 Episodic Other connective tissue disease (2 sources) Weakness of hand; Translations: [Other symptoms and signs involving the musculoskeletal system] 10-02-2024 Episodic Other connective tissue disease (2 sources) Pain in right arm; Translations: [Pain in right arm] 11-07-2024 Episodic Other connective tissue disease (1 source) Disorder of shoulder; Translations: [Other muscle spasm] 12-09-2024 Episodic Other female genital disorders (2 sources) Postcoital and contact bleeding; Translations: [Postcoital and contact bleeding] Onset: 01-31-2023 Chronic Other female genital disorders (1 source) Postcoital bleeding; Translations: [Postcoital and contact bleeding] Chronic Other female genital disorders (4 sources) Abnormal uterine bleeding; Translations: [Abnormal uterine and vaginal bleeding, unspecified] 10-25-2023 Chronic Other female genital disorders (1 source) Vaginal discharge; Translations: [Other specified noninflammatory disorders of vagina] 12-22-2023 Episodic Other hematologic conditions (1 source) Hematocrit - PCV abnormal; Translations: [Other abnormality of red blood cells] 01-04-2024 Episodic Other injuries and conditions due to external causes (2 sources) Injury of nerve of upper extremity; Translations: [Injury of unspecified nerve at shoulder and upper arm level, right arm, initial encounter] 10-07-2024 Episodic Other liver diseases (20 sources) Elevated liver enzymes level; Translations: [Abnormal levels of other serum enzymes] Onset: 12-06-2023 04-19-2023 Episodic Other nervous system disorders (6 sources) Right radial neuropathy; 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, right upper limb] 10-28-2024 Chronic Other nervous system disorders (1 source) Radial neuropathy; 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, unspecified upper limb] 11-08-2024 Chronic Other nervous system disorders (3 sources) Right radial nerve palsy; 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, right upper limb] 12-09-2024 Chronic Other nervous system disorders (2 sources) Lesion of radial nerve, right upper limb; Translations: [Radial neuropathy, right] Onset: 11-08-2024 Chronic Other nervous system disorders (3 sources) Postoperative pain ; Translations: [Other acute postprocedural pain] 12-07-2023 Episodic Other nutritional; endocrine; and metabolic disorders (6 sources) Body mass index 25-29 - overweight; Translations: [Overweight] 01-01-2024 Episodic Other screening for suspected conditions (not mental disorders or infectious disease) (20 sources) Encounter for screening for malignant neoplasm of cervix; Translations: [Thyroid function tests abnormal] Onset: 01-31-2023 Episodic Other skin disorders (1 source) Non-scarring alopecia; Translations: [Nonscarring hair loss, unspecified] Episodic Other skin disorders (1 source) Eruption; Translations: [Rash and other nonspecific skin eruption] 04-23-2024 Episodic Residual codes; unclassified (1 source) Viral syndrome; Translations: [Other general symptoms and signs] 11-07-2023 Episodic Residual codes; unclassified (3 sources) Postoperative state; Translations: [Other specified postprocedural states] 12-22-2023 Episodic Residual codes; unclassified (6 sources) Disturbance in sleep behavior; Translations: [Sleep disorder, unspecified] 03-11-2024 Episodic Residual codes; unclassified (2 sources) Personal history of other medical treatment; Translations: [Other follow-up examination] Onset: 05-01-2025 01-29-2025 Episodic Substance-related disorders (1 source) Opioid dependence, uncomplicated; Translations: [Opioid dependence, uncomplicated] Onset: 05-01-2025 Chronic Superficial injury; contusion (1 source) Blister of foot; Translations: [Blister (nonthermal), left lesser toe(s), subsequent encounter] 04-25-2024 Episodic Past or Other Problems Problem Classification Problem Date Documented Date Episodic/Chronic Fluid and electrolyte disorders (4 sources) Hypokalemia; Translations: [Hypokalemia] Onset: 10-02-2024 10-02-2024 Episodic Malaise and fatigue (20 sources) Fatigue; Translations: [Other fatigue] Onset: 12-06-2023 12-06-2023 Episodic Other connective tissue disease (1 source) Other symptoms and signs involving the musculoskeletal system; Translations: [Hand weakness] Onset: 10-28-2024 Episodic Other hematologic conditions (20 sources) MCV - raised; Translations: [Other abnormality of red blood cells] Onset: 12-06-2023 12-06-2023 Episodic Other hematologic conditions (1 source) Other abnormality of red blood cells; Translations: [Elevated MCV] Onset: 12-06-2023 Episodic Other liver diseases (1 source) Abnormal levels of other serum enzymes; Translations: [Elevated liver enzymes] Onset: 12-06-2023 Episodic Other nervous system disorders (1 source) Anesthesia of skin; Translations: [Anesthesia of skin] Onset: 10-16-2024 Episodic Other nutritional; endocrine; and metabolic disorders (1 source) Overweight; Translations: [Overweight (BMI 25.0-29.9)] Onset: 07-05-2024 Episodic Other upper respiratory infections (3 sources) Streptococcal sore throat; Translations: [Streptococcal pharyngitis] Onset: 12-16-2024 11-07-2023 Episodic Residual codes; unclassified (1 source) Sleep disorder, unspecified; Translations: [Sleep disturbances] Onset: 10-02-2024 Episodic Unclassified (1 source) Patient encounter status 11-26-2024 Results Test Name Value Interpretation Reference Range Facility [id number] 05-02-2025 [facility] Misc. 2 COMMENT Normal . [facility] Comment on above: Order Comment: [id number] 1 OPIATE UR RT Result Comment: Test Ordered: [id number] Opiates, Urine Opiates Negative ng/mL UI Reference Range: Rchpal=734 Opiate test includes Codeine, Morphine, Hydromorphone, Hydrocodone. Performed at: [facility] [address] [place], [place] [address] Director Of Valuation: Jasmeet Viera PhD, Phone: [phone] Performed at: [facility] [address] [id number] Director Of Valuation: Ruddy Roque PhD, Phone: [phone] Performed By: #### L 400.2010, L3410.9994 #### [facility] [address] [place], [address] 25(OH)D3 [facility] 2024 25-hydroxyvitamin D3 [Mass/Vol] 90.9 ng/mL High 31.0-80.0 [facility] Comment on above: Order Comment: Speci men Type: BLOOD SPECIMEN Ordering Facility: Address: [address] [place] [address] Result Comment: Clas sification of 25 [place] Vitamin D status: Deficiency/Insufficiency: < or = 30 ng/ml. Sufficiency/Optimal Levels: 31-80 ng/mL Toxicity: > 100 ng/mL. Test performed by chemiluminescent immunoassay. Performed By: #### 1 989-3 #### [facility] CLIA [id number] [address] [place] [address] [place] Bacteria Ur Culton 5 Bacteria identified Cx Nom (U) ORGANISM ID: 1 10,000 -<50,000 CFU/ml Streptococcus agalactiae (group b streptococcus) Susceptibility testing not performed on beta hemolytic streptococci due to predictable susceptibility to penicillin and other beta lactams. For testing, call Microbiology within 72 hours. Normal [facility] Comment on above: Performed By: #### 6 30-4 ####[facility] [id number] [place] [address] [place] CBC W Auto Differential pane l (Bld)on 05-01-2025 Basophils (Bld) [#/Vol] 0.05 10*3/uL Normal <0.11 [facility] Comment on above: Order Comment: Speci men Type: BLOOD SPECIMENOrdering Facility: Address: [address] [place] [address] Performed By: #### 5 7021-8 ####[facility] SILVERWNCLIA [id number] [place] [address] [place] Basophils/100 WBC (Bld) 0.7 % Normal [facility] Comment on above: Order Comment: Speci men Type: BLOOD SPECIMENOrdering Facility: Address: [address] [place] [address] Performed By: #### 5 7021-8 ####[facility] H[facility]ITALLYNNELIA [id number] [place] [address] [place] Differential cell count method Nom (Bld) Auto Normal [facility] Comment on above: Order Comment: Speci men Type: BLOOD SPECIMENOrdering Facility: Address: [address] [place] [address] Performed By: #### 5 7021-8 ####[facility]IA [id number] [place] [address] [place] Eosinophils (Bld) [#/Vol] 0.09 10*3/uL Normal <0.46 [facility] Comment on above: Order Comment: Speci men Type: BLOOD SPECIMENOrdering Facility: Address: [address] [place] [address] Performed By: #### 5 7021-8 ####[facility] MILLWNCLIA [id number] [place] [address] [place] Eosinophils/100 WBC (Bld) 1.2 % Normal [facility] Comment on above: Order Comment: Speci men Type: BLOOD SPECIMENOrdering Facility: Address: [address] [place] [address] Performed By: #### 5 7021-8 ####[facility] MILLBLACKWATERNCLIA [id number] [place] [address] [place] Erythrocyte distribution width (RBC) [Ratio] 12.6 % Normal 11.5-15.0 [facility] Comment on above: Order Comment: Speci men Type: BLOOD SPECIMENOrdering Facility: Address: [address] [place] [address] Performed By: #### 5 7021-8 ####[facility]ITALCARL [id number] [place] [address] [place] Hematocrit (Bld) [Volume fraction] 39.0 % Normal 36.0-46.0 [facility] Comment on above: Order Comment: Speci men Type: BLOOD SPECIMENOrdering Facility: Address: [address] [place] [address] Performed By: #### 5 7021-8 ####[facility]PITALORI [id number] [place] [address] [place] Hemoglobin (Bld) [Mass/Vol] 13.2 g/dL Normal 11.5-15.5 [facility] Comment on above: Order Comment: Speci men Type: BLOOD SPECIMENOrdering Facility: Address: [address] [place] [address] Performed By: #### 5 7021-8 ####[facility] HOSPITALGRETEL [id number] [place] [address] [place] Immature granulocytes (Bld) [#/Vol] 0.03 10*3/uL Normal <0.10 [facility] Comment on above: Order Comment: Speci men Type: BLOOD SPECIMENOrdering Facility: Address: [address] [place] [address] Performed By: #### 5 7021-8 ####[facility] HOSPITALNCLI [id number] [place] [address] [place] Immature granulocytes/100 WBC (Bld) 0.4 % Normal [facility] Comment on above: Order Comment: Speci men Type: BLOOD SPECIMENOrdering Facility: Address: [address] [place] [address] Performed By: #### 5 7021-8 ####[facility] [id number] [place] [address] [place] Lymphocytes (Bld) [#/Vol] 2.36 10*3/uL Normal 1.00-4.00 [facility] Comment on above: Order Comment: Speci men Type: BLOOD SPECIMENOrdering Facility: Address: [address] [place] [address] Performed By: #### 5 7021-8 ####[facility] [id number] [place] [address] [place] Lymphocytes/100 WBC (Bld) 31.7 % Normal [facility] Comment on above: Order Comment: Speci men Type: BLOOD SPECIMENOrdering Facility: Address: [address] [place] [address] Performed By: #### 5 7021-8 ####[facility] [id number] [place] [address] [place] MCH (RBC) [Entitic mass] 31.1 pg Normal 26.0-34.0 [facility] Comment on above: Order Comment: Speci men Type: BLOOD SPECIMENOrdering Facility: Address: [address] [place] [address] Performed By: #### 5 7021-8 ####[facility] [id number] [place] [address] [place] MCHC (RBC) [Mass/Vol] 33.8 g/dL Normal 30.5-36.0 [facility] Comment on above: Order Comment: Speci men Type: BLOOD SPECIMENOrdering Facility: Address: [address] [place] [address] Performed By: #### 5 7021-8 ####[facility]ITALA [id number] [place] [address] [place] MCV (RBC) [Entitic vol] 92.0 fL Normal 80.0-100.0 [facility] Comment on above: Order Comment: Speci men Type: BLOOD SPECIMENOrdering Facility: Address: [address] [place] [address] Performed By: #### 5 7021-8 ####[facility] [id number] [place] [address] [place] Monocytes (Bld) [#/Vol] 0.57 10*3/uL Normal <0.87 [facility] Comment on above: Order Comment: Speci men Type: BLOOD SPECIMENOrdering Facility: Address: [address] [place] [address] Performed By: #### 5 7021-8 ####[facility] [id number] [place] [address] [place] Monocytes/100 WBC (Bld) 7.7 % Normal [facility] Comment on above: Order Comment: Speci men Type: BLOOD SPECIMENOrdering Facility: Address: [address] [place] [address] Performed By: #### 5 7021-8 ####[facility] HOSPITALLIA [id number] [place] [address] [place] Neutrophils (Bld) [#/Vol] 4.35 10*3/uL Normal 1.45-7.50 [facility] Comment on above: Order Comment: Speci men Type: BLOOD SPECIMENOrdering Facility: Address: [address] [place] [address] Performed By: #### 5 7021-8 ####[facility] HOSPITALNCLIA [id number] [place] [address] [place] Neutrophils/100 WBC (Bld) 58.3 % Normal [facility] Comment on above: Order Comment: Speci men Type: BLOOD SPECIMENOrdering Facility: Address: [address] [place] [address] Performed By: #### 5 7021-8 ####[facility] SILVERBLACKWATERGRETEL [id number] [place] [address] [place] Nucleated RBC (Bld) [#/Vol] 10*3/uL Normal <0.01 [facility] Comment on above: Order Comment: Speci men Type: BLOOD SPECIMENOrdering Facility: Address: [address] [place] [address] Performed By: #### 5 7021-8 ####[facility] HOSPITALLYNNEHank [id number] [place] [address] [place] Nucleated RBC/100 WBC (Bld) [Ratio] 0.0 /100 WBC Normal [facility] Comment on above: Order Comment: Speci men Type: BLOOD SPECIMENOrdering Facility: Address: [address] [place] [address] Performed By: #### 5 7021-8 ####[facility] HOSPITALGRETEL [id number] [place] [address] [place] Platelet mean volume (Bld) [Entitic vol] 9.0 fL Normal 9.0-12.7 [facility] Comment on above: Order Comment: Speci men Type: BLOOD SPECIMENOrdering Facility: Address: [address] [place] [address] Performed By: #### 5 7021-8 ####[facility] HOSPITALNCLIA [id number] [place] [address] [place] Platelets (Bld) [#/Vol] 252 10*3/uL Normal 150-400 [facility] Comment on above: Order Comment: Speci men Type: BLOOD SPECIMENOrdering Facility: Address: [address] [place] [address] Performed By: #### 5 7021-8 ####[facility] HOSPITALNCLIA [id number] [place] [address] [place] RBC (Bld) [#/Vol] 4.24 10*6/uL Normal 3.90-5.20 [facility] Comment on above: Order Comment: Speci men Type: BLOOD SPECIMENOrdering Facility: Address: [address] [place] [address] Performed By: #### 5 7021-8 ####[facility] HOSPITALNCLIA [id number] [place] [address] [place] WBC (Bld) [#/Vol] 7.45 10*3/uL Normal 3.70-11.00 [facility] Comment on above: Order Comment: Speci men Type: BLOOD SPECIMENOrdering Facility: Address: [address] [place] [address] Performed By: #### 5 7021-8 ####[facility] HOSPITALNCLIA [id number] [place] [address] [place] CNOVon 05-01-2025 CNOV Office Visit (OBGYWM) ---- RENEE GALLARDO ([id number]) 1980 F [place] Date Time Provider Department 05/01/25 9:50 AM NATASHA DAVILA OBGYWGallito During your visit today, we recorded the following information about you: Pulse Blood pressure Weight 82/minute 116/78 62.1 kg Natasha Davila MD 05/01/2025 11:27 AM Signed Some documentation from previous visit of 10/29/2024 was copied and pasted, documentation has been reviewed and edited as necessary for today's visit. Patient Summary: Renee is a 44 year old Female who presents for follow-up evaluation of obesity/weight management to treat and prevent related co-morbidities. In our previous visits we have discussed lifestyle intervention including a nutrition recommendations and physical activity optimization. Her last office visit was 6 months ago. Assessment/plan from last visit: -reviewed importance of regular meals- focusing on balanced nutrition 90g / day - discussed only taking evening dose as needed of topiramate - continue lisinopril for HTN - follow up with PCP for routine care and medication adjustments as needed - weight maintenance at this time - repeat CMP ordered today- check LFTs and kidney function - stress- discussed finding alternatives to manage -Topiramate refills ordered- doing well. - continue xanax for anxiety per pcp, - continue with licensed life and health agent Interval History PT specifies the following items as new or significant updates since the last appointment: -has stopped drinking ETOH completely- went to a rehab and is feeling great. Was put on naltrexone. Wonders if she should stay on it. - is worried naltrexone will make her lose too much weight - feels like she has more energy - doing yoga 4 x day - struggling with protein b/c she does not crave it. Loves whole foods- fruits and vegetables. - happy that weight is staying stable. -c/o urinary frequency - no pain no fevers. Weight loss since last vist: 5 lbs Total weight lost 33 lbs - Last Wt 05/01/25: 137 lb 10/29/24: 142 lb 07/05/24 : 149 lb 04/02/24: 161 lb 02/12/24 : 168 lb Starting weight: 01/01/24 : 170 lb (77.1 kg) Goal weight: - 15 lbs weight loss -20 lbs 5% weight loss = 162 lbs, 10% weight loss = 153 lbs 19%= 137lb Anti-obesity medications: Topiramate. Benefit:decreased food craving , decreased ETOH Adverse effects: none Naltrexone only -managed by psychiatry Benefit: ETOH Adverse effects:none Weight promoting medications: alprazolam Previous Diet (initial appointment): Wakes up: Drinkes water all day- 6 large aldo's. Latte occasionally once per week Does not eat breakfast Lunch- salad, lean protein, rice, quinoa, soap, fish, Snacks- fruit, anya, dried pineapple, sesame sticks Dinner 5:30-7:30- meat, veggie, pasta (one per week) Snacks: cheese Diet/Nutrition overview: Fluids: water, 4-5 ETOH drinks mixed with Juices. Quality of diet: 24hr recall suggests healthy diet. Characterization of diet:skip meals. Sandstone Inspector Repairer of impaired eating habits:denies Eating Disorder no Preferred foods: Cravings: guamanian food Dietary changes: (cell core, digestive warrior) B - smoothie with fruit, vegetables, protein powder plant - banana- pb, green smoothie, mixed greens S - L - fruits and vegetables S - D - same - vegetable or salad S - Fluids - water , ETOH at times Eating 3 meals a day, including breakfast Increasing servings of fruit Increasing servings of vegetables Controlling portions Limiting processed foods Increasing protein Reducing carbohydrates Current Barriers: none Exercise: still moving during the day- but no dedicated exercise Stress: stable Sleep: improved- 8-10 hrs - decreased but better than was at - 3-4 hours. RYAN NO ; CPAP NO stable- HAS ANIMALS that move and wake her up all night CrCl cannot be calculated (Patient's most recent lab result is older than the maximum 180 days allowed.). PAST MEDICAL HISTORY Diagnosis Date 1999 CVA (cerebral vascular accident) (HCC) unknown when Gallstones Current Outpatient Medications Medication Sig Dispense Refill naltrexone 50 mg tablet Take 1 tablet by mouth once daily. acetaminophen 325 mg cap Take 1 capsule by mouth four times daily. Biotin 1 mg tab Take 1 tablet by mouth once daily. DULoxetine (CYMBALTA) 30 mg capsule Take 1 capsule by mouth once daily. 90 capsule 1 traZODone (DESYREL) 50 mg tablet Take 1-2 tablets by mouth daily at bedtime. 180 tablet 1 valACYclovir (VALTREX) 1 gram tablet Take 2 tablets by mouth two times a day. For 1 day. 4 tablet 2 omeprazole (PRILOSEC) 10 mg capsule Take 1 capsule by mouth once daily. 90 capsule 1 topiramate (TOPAMAX) 50 mg tablet Take 1 tablet by mouth two times a day. 180 tablet 1 No current facility-administer ed medications for this visit. ROS- denies Brain fog, paraesthesia (more content not included)... Normal [facility] Comprehensive metabolic 2000 panelon 05-01-2025 Albumin [Mass/Vol] 4.7 g/dL Normal 3.9-4.9 [facility] Comment on above: Order Comment: Speci men Type: BLOOD SPECIMENOrdering Facility: Address: [address] [place] [address] Performed By: #### 2 4323-8 ####[facility] MILLTOWNCLIA [id number] [place] [address] [place] ALP [Catalytic activity/Vol] 56 U/L Normal 34-123 [facility] Comment on above: Order Comment: Speci men Type: BLOOD SPECIMENOrdering Facility: Address: [address] [place] [address] Performed By: #### 2 4323-8 ####[facility] MILLTOWNCLIA [id number] [place] [address] [place] ALT [Catalytic activity/Vol] 12 U/L Normal 7-38 [facility] Comment on above: Order Comment: Speci men Type: BLOOD SPECIMENOrdering Facility: Address: [address] [place] [address] Performed By: #### 2 4323-8 ####[facility] ZEYNEP MILLTOWNCLIA [id number] [place] [address] [place] Anion gap [Moles/Vol] 8 mmol/L Normal 8-15 [facility] Comment on above: Order Comment: Speci men Type: BLOOD SPECIMENOrdering Facility: Address: [address] [place] [address] Performed By: #### 2 4323-8 ####[facility] [id number] [place] [address] [place] AST [Catalytic activity/Vol] 13 U/L Normal 13-35 [facility] Comment on above: Order Comment: Speci men Type: BLOOD SPECIMENOrdering Facility: Address: [address] [place] [address] Performed By: #### 2 4323-8 ####[facility] [id number] [place] [address] [place] Bilirubin [Mass/Vol] 0.4 mg/dL Normal 0.2-1.3 [facility] Comment on above: Order Comment: Speci men Type: BLOOD SPECIMENOrdering Facility: Address: [address] [place] [address] Performed By: #### 2 4323-8 ####[facility] [id number] [place] [address] [place] Calcium [Mass/Vol] 10.0 mg/dL Normal 8.5-10.2 [facility] Comment on above: Order Comment: Speci men Type: BLOOD SPECIMENOrdering Facility: Address: [address] [place] [address] Performed By: #### 2 4323-8 ####[facility]ITALA [id number] [place] [address] [place] Chloride [Moles/Vol] 107 mmol/L Normal 98-107 [facility] Comment on above: Order Comment: Speci men Type: BLOOD SPECIMENOrdering Facility: Address: [address] [place] [address] Performed By: #### 2 4323-8 ####[facility] HOSPITALLIA [id number] [place] [address] [place] CO2 [Moles/Vol] 22 mmol/L Normal 22-30 [facility] Comment on above: Order Comment: Speci men Type: BLOOD SPECIMENOrdering Facility: Address: [address] [place] [address] Performed By: #### 2 4323-8 ####[facility] SILVERWNCLIA [id number] [place] [address] [place] Creatinine [Mass/Vol] 0.75 mg/dL Normal 0.58-0.96 [facility] Comment on above: Order Comment: Speci men Type: BLOOD SPECIMENOrdering Facility: Address: [address] [place] [address] Performed By: #### 2 4323-8 ####[facility] HOSPITALNCLIHank [id number] [place] [address] [place] eGFRcr SerPlBld CKD-EPI 2020 102 mL/min/1.73m??? Normal >=60 [facility] Comment on above: Order Comment: Speci men Type: BLOOD SPECIMENOrdering Facility: Address: [address] [place] [address] Result Comment: Tennille mated Glomerular Filtration Rate (eGFR) is calculated using the 2020 CKD-EPI creatinine equation. This equation utilizes serum creatinine, sex, and age as parameters. The creatinine assay has traceable calibration to isotope dilution-mass spectrometry. Refer to KDIGO guidelines for clinical interpretation. In patients with unstable renal function, e.g. those with acute kidney injury, the eGFR may not accurately reflect actual GFR. Performed By: #### 2 4323-8 ####[facility] HOSPITALNCLIA [id number] [place] [address] [place] Glucose [Mass/Vol] 92 mg/dL Normal 74-99 [facility] Comment on above: Order Comment: Speci men Type: BLOOD SPECIMENOrdering Facility: Address: [address] [place] [address] Result Comment: The [place] Diabetes Association (ADA) provides guidance for cutoff values for fasting glucose and random glucose. The ADA defines fasting as no caloric intake for at least 8 hours. Fasting plasma glucose results between 100 to 125 mg/dL indicate increased risk for diabetes (prediabetes). Fasting plasma glucose results greater than or equal to 126 mg/dL meet the criteria for diagnosis of diabetes. In the absence of unequivocal hyperglycemia, results should be confirmed by repeat testing. In a patient with classic symptoms of hyperglycemia or hyperglycemic crisis, random plasma glucose results greater than or equal to 200 mg/dL meet the criteria for diagnosis of diabetes. Reference: Standards of Medical Care in Diabetes 2016, [place] Diabetes Association. Diabetes Care. 2016.39(Suppl 1). Performed By: #### 2 4323-8 ####[facility] ZEYNEP MILLTOWNCLIA [id number] [place] [address] [place] Potassium [Moles/Vol] 3.8 mmol/L Normal 3.7-5.1 [facility] Comment on above: Order Comment: Speci men Type: BLOOD SPECIMENOrdering Facility: Address: [address] [place] [address] Performed By: #### 2 4323-8 ####[facility] MILLTOWNCLIA [id number] [place] [address] [place] Protein [Mass/Vol] 6.9 g/dL Normal 6.3-8.0 [facility] Comment on above: Order Comment: Speci men Type: BLOOD SPECIMENOrdering Facility: Address: [address] [place] [address] Performed By: #### 2 4323-8 ####[facility] MILLTOWNCLIA [id number] [place] [address] [place] Sodium [Moles/Vol] 137 mmol/L Normal 136-144 [facility] Comment on above: Order Comment: Speci men Type: BLOOD SPECIMENOrdering Facility: Address: [address] [place] [address] Performed By: #### 2 4323-8 ####[facility] MILLTOWNCLIA [id number] [place] [address] [place] Urea nitrogen [Mass/Vol] 12 mg/dL Normal 7-21 [facility] Comment on above: Order Comment: Roni cassidy Type: BLOOD SPECIMENOrdering Facility: Address: [address] [place] [address] Performed By: #### 2 4323-8 ####[facility] ZEYNEP [facility] [id number] [place] [address] [place] HbA1c (Bld)on 05-01-2025 Average glucose Estimated from glycated hemoglobin (Bld) [Mass/Vol] 100 mg/dL Normal [facility] Comment on above: Order Comment: Roni cassidy Type: BLOOD SPECIMENOrdering Facility: Address: [address] [place] [address] Result Comment: eAG: (Estimated average glucose) is a calculated value from HgbA1c and is retail service representative of the average blood glucose level in the last 2-3 month period. Performed By: #### 5 5454-3 ####[facility] LAB[facility] [id number] [place] [address] [place] HbA1c (Bld) [Mass fraction] 5.1 % Normal 4.3-5.6 [facility] Comment on above: Order Comment: Roni cassidy Type: BLOOD SPECIMENOrdering Facility: Address: [address] [place] [address] Result Comment: Amer [place] Diabetes Association guidelines indicate that patients with HgbA1c in the range 5.7-6.4% are at increased risk for development of diabetes, and intervention by lifestyle modification may be beneficial. HgbA1c greater or equal to 6.5% is considered diagnostic of diabetes. Performed By: #### 5 5454-3 ####[facility] [id number] [place] [id number] [place] Iron and Iron binding capaci ty panelon 05-01-2025 Iron [Mass/Vol] 61 ug/dL Normal 41-186 [facility] Comment on above: Order Comment: Speci men Type: BLOOD SPECIMEN Ordering Facility: Address: [address] [place] [address] Performed By: #### 1 989-3 #### [facility] CLIA [id number] [address] [place] [address] [place] Iron binding capacity [Mass/Vol] 232 ug/dL Normal 232-386 [facility] Comment on above: Order Comment: Speci men Type: BLOOD SPECIMEN Ordering Facility: Address: [address] [place] [address] Performed By: #### 1 989-3 #### [facility] CLIA [id number] [address] [place] [address] [place] Iron/TIBC [Molar ratio] 26.3 % Normal 15.0-57.0 [facility] Comment on above: Order Comment: Speci men Type: BLOOD SPECIMEN Ordering Facility: Address: [address] [place] [address] Performed By: #### 1 989-3 #### [facility] CLIA [id number] [address] [place] [address] [place] Lipid 1996 panelon 5 Cholesterol [Mass/Vol] 186 mg/dL Normal <200 [facility] Comment on above: Order Comment: Speci men Type: BLOOD SPECIMEN Ordering Facility: Address: [address] [place] [address] Result Comment: <200 mg/dL, Desirable 200-239 mg/dL, Borderline high >239 mg/dL, High Performed By: #### 1 989-3 #### [facility] CLIA [id number] [address] [place] [address] [place] Cholesterol in HDL [Mass/Vol] 63 mg/dL Normal >39 [facility] Comment on above: Order Comment: Speci men Type: BLOOD SPECIMEN Ordering Facility: Address: [address] [place] [address] Result Comment: 40-5 9 mg/dL, Acceptable >59 mg/dL, High: Negative risk factor for coronary heart disease <40 mg/dL, Low: Positive risk factor for coronary heart disease Performed By: #### 1 989-3 #### [facility] CLIA [id number] [address] [place] [address] [place] Cholesterol in LDL [Mass/Vol] 110 mg/dL High <100 [facility] Comment on above: Order Comment: Roni cassidy Type: BLOOD SPECIMEN Ordering Facility: Address: [address] [place] [address] Result Comment: <100 mg/dL, Optimal 100-129 mg/dL, Near optimal/above optimal 130-159 mg/dL, Borderline high 160-189 mg/dL, High >189 mg/dL, Very high Secondary prevention optimal LDL Cholesterol levels are recommended to be <70 mg/dL LDL cholesterol is calculated using the Mckeon-NIH equation. Performed By: #### 1 989-3 #### [facility] CLIA [id number] [address] [place] [address] [place] Cholesterol in LDL/Cholesterol in HDL [Mass ratio] 1.75 {ratio} Normal <2.54 [facility] Comment on above: Order Comment: Roni cassidy Type: BLOOD SPECIMEN Ordering Facility: Address: [address] [place] [address] Result Comment: Colin walton: 1. National Cholesterol Education Program ATP III Guideline At-A-Glance Quick Desk Reference: National Heart, Lung, and Blood [place]. National Institutes of Health. 2001: NIH Publication No. 01-3305. 2. An International Atherosclerosis Society position paper: global recommendations for the management of dyslipidemia: executive summary, Atherosclerosis. 2014: 232(2):410-413. Performed By: #### 1 989-3 #### [facility] CLIA [id number] [address] [place] [address] [place] Cholesterol in VLDL [Mass/Vol] 12 mg/dL Normal <30 [facility] Comment on above: Order Comment: Speci men Type: BLOOD SPECIMEN Ordering Facility: Address: [address] [place] [address] Performed By: #### 1 989-3 #### [facility] CLIA [id number] [address] [place] [address] [place] Cholesterol non HDL [Mass/Vol] 123 mg/dL Normal <130 [facility] Comment on above: Order Comment: Speci men Type: BLOOD SPECIMEN Ordering Facility: Address: [address] [place] [address] Result Comment: <130 mg/dL, Optimal 130-159 mg/dL, Near optimal/above optimal 160-189 mg/dL, Borderline high 190-219 mg/dL, High >219 mg/dL, Very high Secondary prevention optimal non HDL Cholesterol levels are recommended to be <100 mg/dL Performed By: #### 1 989-3 #### [facility] CLIA [id number] [address] [place] [address] [place] Cholesterol.total/Erma sterol in HDL [Mass ratio] 2.95 {ratio} Normal <5.10 [facility] Comment on above: Order Comment: Speci men Type: BLOOD SPECIMEN Ordering Facility: Address: [address] [place] [address] Performed By: #### 1 989-3 #### [facility] CLIA [id number] [address] [place] [address] [place] FASTING TIME 12 hrs Normal [facility] Comment on above: Order Comment: Speci men Type: BLOOD SPECIMEN Ordering Facility: Address: [address] [place] [address] Performed By: #### 1 989-3 #### [facility] CLIA [id number] [address] [place], [place] [address] [place] Triglyceride [Mass/Vol] 72 mg/dL Normal <150 [facility] Comment on above: Order Comment: Speci men Type: BLOOD SPECIMEN Ordering Facility: Address: [address] [place] [address] Result Comment: <150 mg/dL, Normal 150-199 mg/dL, Borderline high 200-499 mg/dL, High >499 mg/dL, Very high Performed By: #### 1 989-3 #### [facility] CLIA [id number] [address] [place] [address] [place] TSH SerPl-aCncon 05-01-2025 TSH Qn 0.691 m[IU]/L Normal 0.270-4.200 [facility] Comment on above: Order Comment: Roni cassidy Type: BLOOD SPECIMEN Ordering Facility: Address: [address] [place] [address] Result Comment: If t he patient is , TSH reference range varies by gestational period: First Trimester (weeks 9-12): 0.180-2.990 mIU/L Second Trimester: 0.110-3.980 mIU/L Third Trimester: 0.480-4.710 mIU/L Nathan Avina et al. A Practical Approach for the Verifications and Determination of Site- and Trimester-Specific Reference Intervals for Thyroid Function tests in . Thyroid, 2019:29:3:412-420. Tyson Telles, et al. 2017 Guidelines of the [place] Thyroid Association for the Diagnosis and Management of Thyroid Disease during and the . Thyroid, 2017:27:3:315-389. Performed By: #### 1 989-3 #### [facility] CLIA [id number] [address] [place] [address] [place] UA DIP, URINE (POC)on 2024 BILIRUBIN UA (POCT) Negative Negative [facility] CLARITY UA (POCT) Clear [facility] COLOR UA (POCT) Yellow [facility] GLUCOSE UA (POCT) Negative Negative mg/dL [facility] Hemoglobin Ql (U) [facility] Interpretation and review of laboratory results Abnormal [facility] KETONE UA (POCT) Negative Negative mg/dL [facility] LEUKOCYTES UA (POCT) Trace Abnormal Negative [facility] NITRITE UA (POCT) Negative Negative [facility] PH UA (POCT) 6.0 4.5 - 8.0 [facility] Protein Ql (U) Negative Negative mg/dL [facility] SPECIFIC GRAVITY UA (POCT) 1.025 1.005 - 1.030 [facility] UROBILINOGEN UA (POCT) 0.2 Elinor l E.U./dL [facility] Location:[facility], [address], [place], [address] [facility] POINT OF CARE [facility] Urinalysis, Routine (Dipstic k)on 05-01-2025 Clarity (U) Clear Normal Clear [facility] Comment on above: Order Comment: Urine , Random Performed By: #### L 400.2010, L3410.9994 #### [facility] [address] [place], [address] Color (U) Yellow Normal Yellow [facility] Comment on above: Order Comment: Urine , Random Performed By: #### L 400.2010, L3410.9994 #### [facility] [address] [place], [address] BILIRUBIN URINE Negative Normal Negative [facility] Comment on above: Order Comment: Urine , Random Performed By: #### L 400.2010, L3410.9994 #### [facility] [address] [place], [address] GLUCOSE, UR Normal Normal Normal [facility] Comment on above: Order Comment: Urine , Random Performed By: #### L 400.2010, L3410.9994 #### [facility] [address] [place], [address] KETONE UR Negative Normal Negative [facility] Comment on above: Order Comment: Urine , Random Performed By: #### L 400.2010, L3410.9994 #### [facility] [address] [place], [address] LEUK ESTERASE Negative Normal Negative [facility] Comment on above: Order Comment: Urine , Random Performed By: #### L 400.2010, L3410.9994 #### [facility] [address] [place], [address] Nitrite Ql (U) Negative Normal Negative [facility] Comment on above: Order Comment: Urine , Random Performed By: #### L 400.2010, L3410.9994 #### [facility] [address] [place], [address] OCCULT BLOOD-UR 10 /ul Abnormal Negative [facility] Comment on above: Order Comment: Urine , Random Performed By: #### L 400.2010, L3410.9994 #### [facility] [address] [place], [address] pH UR 6.0 Normal 5.0 - 8.0 [facility] Comment on above: Order Comment: Urine , Random Performed By: #### L 400.2010, L3410.9994 #### [facility] [address] [place], [address] PROT DIPSTX 15 mg/dl Abnormal Negative [facility] Comment on above: Order Comment: Urine , Random Performed By: #### L 400.2010, L3410.9994 #### [facility] [address] [place], [address] SP.GR. DIPSTX 1.025 Normal 1.002-1.030 [facility] Comment on above: Order Comment: Urine , Random Performed By: #### L 400.2010, L3410.9994 #### [facility] [address] [place], [address] UROBILI Normal Normal Normal [facility] Comment on above: Order Comment: Urine , Random Performed By: #### L 400.2010, L3410.9994 #### [facility] [address] [place], [address] Vit B12 SerPl-mCncon 025 Cobalamin (Vitamin B12) [Mass/Vol] 583 pg/mL Normal 232-1245 [facility] Comment on above: Order Comment: Speci men Type: BLOOD SPECIMEN Ordering Facility: Address: [address] [place] [address] Performed By: #### 1 989-3 #### [facility] CLIA [id number] [address] [place] [address] [facility] CNOVon 01-29-2025 CNOV Office Visit (FAMPWS) ---- RENEE GALLARDO ([id number]) 1980 F [place] Date Time Provider Department 01/29/25 10:00 AM MEGHNA THOMASON During your visit today, we recorded the following information about you: Pulse Respiration Blood pressure Weight 84/minute 12/minute 100/62 64.6 kg Meghna Thomason APRN.GEOCHEMICAL MANAGER 01/29/2025 1:44 PM Signed This is a 44 year old female who presents today with: wellness visit, discuss naltrexone prescribing HISTORY OF PRESENT ILLNESS: Renee is a 44-year-old female, with a history of alcohol use disorder, anxiety, and radial nerve palsy, presenting for a well visit and transition of care following a rehabilitation stay. Renee was discharged yesterday from a 3-week stay at [facility]. She is currently taking Cymbalta, which was initiated during her stay as a replacement for Xanax. She is also taking naltrexone, which is part of her discharge plan. Discharge notes and medication list reconciled with mimoOn list. She has a follow-up plan with her marketing database coordinator which included meetings and mental health counseling per patient. . She is trying to get in touch with [facility] for psychiatric follow-up. She reports that her alcohol use is a byproduct of emotional issues, and she is focusing on addressing these underlying issues. States I dont plan on drinking for a very long time. She denies any current use of Xanax and prefers to stay that way. She was taking trazodone 50 mg at bedtime for sleep and anxiety, with an additional 50 mg if still awake after an hour during her stay and wishes to continue (this was not on discharge med list but she did call nurse at [facility] and we verified doses she was on). Neuro/[place]- She has a history of radial nerve palsy and is under the care of Dr Posada (ortho) and Dr Newton (neuro), Her Lyrica dosage was increased to 100 mg TID on December 16, but she is currently taking 50 mg TID, which she reports is effective. She has a brace on her right wrist currently History of increased BMI: Carlos for weight management (next appt April)- has her on topiramate for decreased frood craving and decreased ETOH. Starting weight was 170# a year ago, she's now 142#. PDMP report reviewed Alprazolam is for panic attacks and insomnia (last filled in October for 60 tabs- no longer taking this, was started on cymbalta and took trazodone at rehabilitation and wants to continue this instead of alprazolam) Pregabalin 50mg three times daily (last filled 01/21 for 90 caps- never filled the 100mg order increase) Librium 18 day (3 day) supply January 08, for alcohol rehabilitation, no longer taking. PAST MEDICAL HISTORY: PAST MEDICAL HISTORY Diagnosis Date Appendicitis 1999 CVA (cerebral vascular accident) (HCC) unknown when Gallstones PAST SURGICAL HISTORY Procedure Laterality Date APPENDECTOMY 1999 HYSTERECTOMY 12/07/2023 [facility], cystoscopy SALPINGECTOMY Bilateral 12/07/2023 ALLERGIES Amitriptyline, Bactrim [Sulfamethoxazole-T rimethoprim], Hydroxyzine, Melatonin, Nifedipine, Prednisone, Sertraline, Sulfa (Sulfonamide Antibiotics), and Beta-Blockers (Beta-Adrenergic Blocking Agts) MEDICATIONS Current Outpatient Medications Medication Sig acetaminophen 325 mg cap Take 1 capsule by mouth four times daily. pregabalin (LYRICA) 100 mg capsule Take 1 capsule by mouth three times a day for 180 days. (Patient taking differently: Take 50 mg by mouth three times a day.) topiramate (TOPAMAX) 50 mg tablet Take 1 tablet by mouth two times a day. valACYclovir (VALTREX) 1 gram tablet Take 2 tablets by mouth two times a day. For 1 day. omeprazole (PRILOSEC) 10 mg capsule Take 1 capsule by mouth once daily. niacinamide (NICOTINAMIDE MISC) 250 mg two times a day. Biotin 1 mg tab Take 1 tablet by mouth once daily. DULoxetine (CYMBALTA) 30 mg capsule Take 1 capsule by mouth once daily. naltrexone 50 mg tablet Take 1 tablet by mouth once daily. traZODone (DESYREL) 50 mg tablet Take 1-2 tablets by mouth daily at bedtime. No current facility-administer ed medications for this visit. FAMILY HISTORY Problem Relation Age of Onset Cancer Father CLS, stable Bipolar disorder Mother Heart disease Paternal Grandfather Hypertension Paternal Grandfather No Ocular Disease No Family History Social History Tobacco Use Smoking status: Some Days Current packs/day: 0.00 Types: Cigarettes Last attempt to quit: 2002 Years since quittin.4 Smokeless tobacco: Never Vaping Use Vaping status: Never Used Substance Use Topics Alcohol use: Yes Drug use: Never REVIEW OF SYSTEMS PAIN ASSESSMENT: HISTORY OF CHRONIC PAIN OR CURRENTLY BEING TREATED FOR A CHRONIC PAIN CONDITION: Yes, CONDITION: right radial nerve palsy TREATING PROVIDER: Dr Newton (neuro), Dr Posada (ortho) DURATION: Sep 2024 LAST SEE (more content not included)... Normal [facility] 01-23-2025 [facility] Telephone (FAMPWS) ---- RENEE GALLARDO ([id number]) 1980 F [place] Date Time Provider Department 01/23/25 EZEQUIEL ZAZUETA [facility] During your visit today, we recorded the following information about you: Becky Yost 01/23/2025 3:34 PM Signed Patient calling in asking if office is able to prescribe her Naltrexone for her. She made an appt with Meghna Katelin for 01/30/25 just in case this is something she can prescribe. Please review and advise patient, she states it is okay to leave detailed voicemail. Becky Barger Ritika January 23, 2025 3:34 PM Shilpa Means LPN 01/27/2025 10:28 AM Signed Left detailed message on pts voice mail which pt states was ok to. With our phone number for any questions. Florinda Hull RN 01/27/2025 2:44 PM Signed Patient returns call and message below reviewed. Patient currently in-patient for alcohol detoxification. Discharging tomorrow. No longer takes benzodiazepines and Lyrica was prescribed as it is less likely to cause relapse as previous medication prescribed for nerve pain (reviewed notes but not see mention of this). Patient reports not sure of current dose of naltrexone prescribed. Will know when discharged. If provider is still uncomfortable would like to know who would be recommended to prescribe treatment. (I believe [facility] has been recommended to patients before). Florinda Hull RN Allergies As of Date: 01/23/2025 Noted Allergy Reaction AMITRIPTYLINE 12/29/2021 14 - Other: See Comments Comments: Nausea, diarrhea, dizziness Nausea, diarrhea, dizziness BACTRIM (SULFAMETHOXAZOLE-T RIMETH*04/03/2023 4 - Hives Comments: SWELLING AND HIVES MELATONIN 03/19/2020 14 - Other: See Comments NIFEDIPINE 03/19/2020 14 - Other: See Comments PREDNISONE 04/03/2023 14 - Other: See Comments Comments: HEART RACING SWEATING SERTRALINE 06/30/2018 14 - Other: See Comments SULFA (SULFONAMIDE ANTIBIOTICS) 04/03/2023 4 - Hives Comments: SWELLING BETA-BLOCKERS (BETA-ADRENERGIC BL*09/05/2018 14 - Other: See Comments 7 - Swelling Date Reviewed: 12/09/2024 Reviewed by: Meño Posada MD - Fully Assessed Reason for Visit: Patient Question [6087] Prescriptions as of 01/29/2025 - niacinamide (NICOTINAMIDE MISC) 250 mg two times a day. - acetaminophen 325 mg cap Take 1 capsule by mouth four times daily. - Biotin 1 mg tab Take 1 tablet by mouth once daily. - pregabalin (LYRICA) 100 mg capsule Take 1 capsule by mouth three times a day for 180 days. - topiramate (TOPAMAX) 50 mg tablet Take 1 tablet by mouth two times a day. - valACYclovir (VALTREX) 1 gram tablet Take 2 tablets by mouth two times a day. For 1 day. - omeprazole (PRILOSEC) 10 mg capsule Take 1 capsule by mouth once daily. Problem List As Of Date 01/23/2025 Noted Resolved Irregular heart beat [I49.9] 01/17/2022 Hyperlipidemia, mixed [E78.2] 12/06/2023 Borderline abnormal thyroid function test [R94.*12/06/2023 Elevated liver enzymes [R74.8] 12/06/2023 Situational anxiety [F41.8] 12/06/2023 Elevated MCV [R71.8] 12/06/2023 Fatigue [R53.83] 12/06/2023 Encounter Status:Closed by SHILPA MEANS on 01/27/25 [facility] Sofia 12-13-2024 [facility] Telephone (KEVINWS) ---- RENEE GALLARDO ([id number]) 1980 F [place] Date Time Provider Department 12/13/24 MEÑO POSADA During your visit today, we recorded the following information about you: Irene Garcia 12/13/2024 10:44 AM Signed Patient wanting to know if she is allowed to increased regiment for Lyrica from 3 to 4 times per day. Please contact patient to advise. Sangeetha Eric MA 12/16/2024 9:50 AM Signed Meño Posada MD You; [facility] days ago No, but the dosage can be increased if she is finding the medication helpful and more tolerable than Neurontin. BP Sangeetha Eric MA 12/16/2024 9:50 AM Signed I called and spoke with the patient. Message given from Dr. Posada. Patient states that she is not feeling like she needs to increase the dosage right now. The arm is feeling better. She will call back if she feels the need for an increase. Allergies As of Date: 12/13/2024 Noted Allergy Reaction AMITRIPTYLINE 12/29/2021 14 - Other: See Comments Comments: Nausea, diarrhea, dizziness Nausea, diarrhea, dizziness BACTRIM (SULFAMETHOXAZOLE-T RIMETH*04/03/2023 4 - Hives Comments: SWELLING AND HIVES MELATONIN 03/19/2020 14 - Other: See Comments NIFEDIPINE 03/19/2020 14 - Other: See Comments PREDNISONE 04/03/2023 14 - Other: See Comments Comments: HEART RACING SWEATING SERTRALINE 06/30/2018 14 - Other: See Comments SULFA (SULFONAMIDE ANTIBIOTICS) 04/03/2023 4 - Hives Comments: SWELLING BETA-BLOCKERS (BETA-ADRENERGIC BL*09/05/2018 14 - Other: See Comments 7 - Swelling Date Reviewed: 12/09/2024 Reviewed by: Meño Posada MD - Fully Assessed Reason for Visit: Medication Question [1478] Prescriptions as of 12/16/2024 - pregabalin (LYRICA) 50 mg capsule Take 1 capsule by mouth three times a day for 30 days. - topiramate (TOPAMAX) 50 mg tablet Take 1 tablet by mouth two times a day. - ALPRAZolam (XANAX) 0.5 mg tablet Take 2 tablets by mouth once daily as needed for up to 180 days. - valACYclovir (VALTREX) 1 gram tablet Take 2 tablets by mouth two times a day. For 1 day. - omeprazole (PRILOSEC) 10 mg capsule Take 1 capsule by mouth once daily. - lisinopril (ZESTRIL) 20 mg tablet Take 1 tablet by mouth once daily. - Magnesium 250 mg tab Take 250 mg by mouth once daily. - aspirin, enteric coated (ASPIRIN, ENTERIC COATED) 81 mg EC tablet Take 81 mg by mouth once daily. Problem List As Of Date 12/13/2024 Noted Resolved Irregular heart beat [I49.9] 01/17/2022 Hyperlipidemia, mixed [E78.2] 12/06/2023 Borderline abnormal thyroid function test [R94.*12/06/2023 Elevated liver enzymes [R74.8] 12/06/2023 Situational anxiety [F41.8] 12/06/2023 Elevated MCV [R71.8] 12/06/2023 Fatigue [R53.83] 12/06/2023 Encounter Status:Closed by SANGEETHA ERIC on 12/16/24 [facility] Telephone (NENMMN) ---- RENEE GALLARDO ([id number]) 1980 F [place] Date Time Provider Department 12/13/24 ARINA FERNÁNDEZ NEOHMN During your visit today, we recorded the following information about you: Arina Fernández RN 12/13/2024 10:42 AM Signed Pt called regarding todays appt I called her She is asking what the course of action is for todays appointment Asking about MRI orders/botox and cortisol injections Reporting much pain with situation Message forwarded to Dr Lamar Fernández RN B[facility] [place] Arina Fernández RN 12/13/2024 11:[address] Newton willing to change to VV per pt request Pt aware and grateful for change in appt type Dr Bowen will message his schedulers to adjust appointment Arina Fernández RN [facility] [place] Allergies As of Date: 12/13/2024 Noted Allergy Reaction AMITRIPTYLINE 12/29/2021 14 - Other: See Comments Comments: Nausea, diarrhea, dizziness Nausea, diarrhea, dizziness BACTRIM (SULFAMETHOXAZOLE-T RIMETH*04/03/2023 4 - Hives Comments: SWELLING AND HIVES MELATONIN 03/19/2020 14 - Other: See Comments NIFEDIPINE 03/19/2020 14 - Other: See Comments PREDNISONE 04/03/2023 14 - Other: See Comments Comments: HEART RACING SWEATING SERTRALINE 06/30/2018 14 - Other: See Comments SULFA (SULFONAMIDE ANTIBIOTICS) 04/03/2023 4 - Hives Comments: SWELLING BETA-BLOCKERS (BETA-ADRENERGIC BL*09/05/2018 14 - Other: See Comments 7 - Swelling Date Reviewed: 12/09/2024 Reviewed by: Meño Posada MD - Fully Assessed Prescriptions as of 12/16/2024 - pregabalin (LYRICA) 50 mg capsule Take 1 capsule by mouth three times a day for 30 days. - topiramate (TOPAMAX) 50 mg tablet Take 1 tablet by mouth two times a day. - ALPRAZolam (XANAX) 0.5 mg tablet Take 2 tablets by mouth once daily as needed for up to 180 days. - valACYclovir (VALTREX) 1 gram tablet Take 2 tablets by mouth two times a day. For 1 day. - omeprazole (PRILOSEC) 10 mg capsule Take 1 capsule by mouth once daily. - lisinopril (ZESTRIL) 20 mg tablet Take 1 tablet by mouth once daily. - Magnesium 250 mg tab Take 250 mg by mouth once daily. - aspirin, enteric coated (ASPIRIN, ENTERIC COATED) 81 mg EC tablet Take 81 mg by mouth once daily. Problem List As Of Date 12/13/2024 Noted Resolved Irregular heart beat [I49.9] 01/17/2022 Hyperlipidemia, mixed [E78.2] 12/06/2023 Borderline abnormal thyroid function test [R94.*12/06/2023 Elevated liver enzymes [R74.8] 12/06/2023 Situational anxiety [F41.8] 12/06/2023 Elevated MCV [R71.8] 12/06/2023 Fatigue [R53.83] 12/06/2023 Encounter Status:Closed by ARINA FERNÁNDEZ on 12/16/24 Normal [facility] Nasopharyngeal Cultureon NAC Staphylococcus aureus Amount Growth Rare Staphylococcus aureus: REACTION cefOXitin Susc Islt Doxycycline Islt TAMI <=0.5 S Clindamycin Islt TAMI 0.25 S Clindamycin.induced Susc Islt NEG Erythromycin Islt TAMI <=0.25 S Gentamicin Islt TAMI <=0.5 S Linezolid Islt TAMI 2 S Moxifloxacin Islt TAMI <=0.25 S Oxacillin Susc Islt 1 S Tetracycline Islt TAMI <=1 S TMP SMX Islt TAMI <=10 S Vancomycin Islt TAMI 1 S Normal [facility] Comment on above: Performed By: #### M 100.1999, M100.2500 ####[facility] [address] [place], [address] Gram Stainon 12-11-2024 GS Positive Normal [facility] Comment on above: Performed By: #### M 100.1999, M100.2500 ####[facility] [address] [place], [address] Gram stainOrdered By: Vineet thakkar on 12-10-2024 Microscopic observation Gram stain Nom (Unsp spec) [facility] Nasopharyngeal cultureOrdere d By: Vineet Lopez on 12-10-2024 Nasopharyngeal Culture Staphylococcus aureus Abnormal [facility] CNOVon 12-09-2024 CNOV Office Visit (TOLU) ---- RENEE GALLARDO ([id number]) 1980 F [place] Date Time Provider Department 12/09/24 1:30 PM MEÑO POSADA During your visit today, we recorded the following information about you: Meño Posada MD 12/09/2024 3:35 PM Signed Meño Posada MD Department of Orthopaedics Orthopaedics [address] [facility] [address] Dept: [phone] Dept December 09, 2024 CHIEF COMPLAINT: Pain, Numbness, and New of the Right Hand HPI Renee is a 44-year-old female presenting with right upper extremity weakness and tremors. Renee reports waking up on 2 with right upper extremity weakness, pain, and tremors. She initially thought she might have had a stroke but noted no other symptoms such as speech difficulties or gait abnormalities. She attempted to shake it awake but was unsuccessful, leading her to seek emergency care. She denies any prior issues with the arm and states she slept in her usual position, which she has maintained for 40 years. She mentions being told she missed a nerve cue or pain cue during sleep. She has been working with a diagnosis of radial nerve palsy and has undergone an EMG, which reportedly showed impingement high up in the arm. She has had virtual visits with a neuromuscular specialist, who indicated that the EMG did not show significant nerve damage but did describe it as a bad case. She reports persistent tremors in the arm, which she has been told is a sign of recovery. However, she also experiences hiccuping in the shoulder when the arm tremors subside. She was prescribed gabapentin approximately one month ago but dislikes how it makes her feel. She has been taking 100 mg, sometimes two at a time, usually at night. She inquires about switching to Lyrica. She also reports severe pain in the entire arm, which sometimes causes the left hand to shake. She describes the pain as feeling like bones that are muscles and states it keeps her up all night, affecting her mental well-being. She also mentions experiencing teeth chattering. She has been alternating between heat and ice for pain management. Will continue to monitor patient for Abnormal emg Radial nerve palsy, right (primary encounter diagnosis) Pain in right arm Muscle spasm of right shoulder, patient to schedule visit as per follow up discussed. ASSESSMENT: G56.31 Radial nerve palsy, right (primary encounter diagnosis) R94.131 Abnormal EMG M79.601 Pain in right arm M62.838 Muscle spasm of right shoulder 1. Abnormal EMG (R94.131) Radial nerve palsy, right (G56.31) EMG indicates severe radial nerve palsy with specific location of impingement identified. No radial nerve function observed with loss of wrist and thumb extension, and inability to functionally extend digits. Intact flexion of wrist and digits. Sensation intact in median and ulnar nerves with intact motor function of the thumb and without any intrinsic weakness. Contralateral side has normal shoulder, elbow, and wrist motion. Normal shoulder, elbow, wrist, and finger motor function at 5 out of 5. - Ordered ultrasound of the radial nerve to assess for potential mechanical entrapment or space-occupying lesion. - Discussed possibility of spontaneous resolution within the typical timeframe of 3 months. - Consider MRI if ultrasound findings suggest mechanical entrapment. - Follow-up with Dr. Newton to be rescheduled after ultrasound results are available. 2. Pain in right arm (M79.601) Severe pain reported throughout the entire arm, interfering with sleep and daily activities. Currently on gabapentin 100 mg, which is not well-tolerated due to sedation. - Discontinue gabapentin. - Initiate Lyrica at a moderate dose, prescription sent to [facility]. - Advised patient to use heat or ice as needed for comfort. 3. Muscle spasm of right shoulder (M62.838) Involuntary spasms observed in the right shoulder and trapezius, as well as various parts of the right extremity, including the brachium and forearm. Spasms may be compensatory due to radial nerve dysfunction. - Monitor for changes post-ultrasound and Lyrica initiation. - Reassess after ultrasound results to determine if further intervention is needed. FOLLOW UP INSTRUCTIONS: As above OBJECTIVE: Ms. Renee Gallardo is a pleasant 44 year old in no apparent distress. Gen:LMP 11/16/2023 nl development, non obese, no deformities ENT: Normocephalic, normal hearing, moist mucosa CV: Pulses:Radial= 2+ and symmetric, capillary refill < 2 secs, no peripheral edema/varicosities Skin: no rash, bruising or lesions. Good turgor. Psych: cooperative and appropriate, alert and oriented x 3, good mood and affect. Musculoskeletal: - Musculoskeletal: - Right Upper Extremity: - Involuntary spasms of the shoulder, trapezius, brac (more content not included)... Normal [facility] 12-09-2024 [facility] Telephone (RULTTB) ---- RENEE GALLARDO ([id number]) 1980 F [place] Date Time Provider Department 12/09/24 CHICHO POWELL During your visit today, we recorded the following information about you: Chicho Powell 12/09/2024 3:24 PM Addendum Visit Type: ANY MSK Visit Length: 45, 50 OR 60 MINUTES Order Name/Protocol: US NERVE RT; EVAL RT RADIAL NERVE AT LEVEL OF HUMERUS+FOREARM Preferred Provider: N/A Comment: Please ask if the patient has ever had any prior surgery to their RT ARM/FOREARM/WRIST/H AND. If so, upgrade the visit type to an MSK1 and notate the surgical hx in the Appointment Note. Location: Depending on the surgical hx, this patient can have this exam performed at any of our four locations. Slot held: N/A Roseline Guy 12/09/2024 3:42 PM Signed PT scheduled for MSK US on 12/26/24 at 8:15 AM at [facility] Simon 12/26/2024 7:02 AM Signed Patient called the MSK US Department back on 4:30 pm at 4:55PM to reschedule an appointment. Please give this patient a call back to ensure that they receive an appointment. Roseline Guy 12/26/2024 9:50 AM Signed Called patient on December 26, 2024 at 9:50 AM to schedule their MSK US exam. No answer, left VM, 1st attempt. Roseline Guy 12/27/2024 9:11 AM Addendum Called patient on December 27, 2024 at 9:11 AM to schedule their MSK US exam. No answer, left VM, 2nd attempt. Roseline Guy 12/30/2024 9:24 AM Signed Called patient on December 30, 2024 at 9:23 AM to schedule their MSK US exam. No answer, left VM, 3rd attempt. Allergies As of Date: 12/09/2024 Noted Allergy Reaction AMITRIPTYLINE 12/29/2021 14 - Other: See Comments Comments: Nausea, diarrhea, dizziness Nausea, diarrhea, dizziness BACTRIM (SULFAMETHOXAZOLE-T RIMETH*04/03/2023 4 - Hives Comments: SWELLING AND HIVES MELATONIN 03/19/2020 14 - Other: See Comments NIFEDIPINE 03/19/2020 14 - Other: See Comments PREDNISONE 04/03/2023 14 - Other: See Comments Comments: HEART RACING SWEATING SERTRALINE 06/30/2018 14 - Other: See Comments SULFA (SULFONAMIDE ANTIBIOTICS) 04/03/2023 4 - Hives Comments: SWELLING BETA-BLOCKERS (BETA-ADRENERGIC BL*09/05/2018 14 - Other: See Comments 7 - Swelling Date Reviewed: 12/09/2024 Reviewed by: Meño Posada MD - Fully Assessed Reason for Visit: Appointment Rescheduled [1024] Prescriptions as of 12/30/2024 - lisinopril (ZESTRIL) 20 mg tablet take 1 tablet by mouth once daily - pregabalin (LYRICA) 100 mg capsule Take 1 capsule by mouth three times a day for 180 days. - topiramate (TOPAMAX) 50 mg tablet Take 1 tablet by mouth two times a day. - ALPRAZolam (XANAX) 0.5 mg tablet Take 2 tablets by mouth once daily as needed for up to 180 days. - valACYclovir (VALTREX) 1 gram tablet Take 2 tablets by mouth two times a day. For 1 day. - omeprazole (PRILOSEC) 10 mg capsule Take 1 capsule by mouth once daily. - Magnesium 250 mg tab Take 250 mg by mouth once daily. - aspirin, enteric coated (ASPIRIN, ENTERIC COATED) 81 mg EC tablet Take 81 mg by mouth once daily. Problem List As Of Date 12/09/2024 Noted Resolved Irregular heart beat [I49.9] 01/17/2022 Hyperlipidemia, mixed [E78.2] 12/06/2023 Borderline abnormal thyroid function test [R94.*12/06/2023 Elevated liver enzymes [R74.8] 12/06/2023 Situational anxiety [F41.8] 12/06/2023 Elevated MCV [R71.8] 12/06/2023 Fatigue [R53.83] 12/06/2023 Encounter Status:Closed by ROSELINE GUY on 12/09/24 [facility] CNTHERAPYon 11-25-2024 CNTHERAPY OT/PT/Speech Visit (LDPT) ---- RENEE GALLARDO ([id number]) 1980 F [place] Date Time Provider Department 11/25/24 8:30 AM REAL DEAN LDPT Date Time Provider Department Center 11/25/2024 8:30 AM [id number], CHET LDPT [facility] Reason for Visit: Physical Therapy [503] PT Discharge [752] Primary Visit Diagnosis:Radial neuropathy, right [G56.31] Allergies As of Date: 11/25/2024 Noted Allergy Reaction AMITRIPTYLINE 12/29/2021 14 - Other: See Comments Comments: Nausea, diarrhea, dizziness Nausea, diarrhea, dizziness BACTRIM (SULFAMETHOXAZOLE-T RIMETH*04/03/2023 4 - Hives Comments: SWELLING AND HIVES MELATONIN 03/19/2020 14 - Other: See Comments NIFEDIPINE 03/19/2020 14 - Other: See Comments PREDNISONE 04/03/2023 14 - Other: See Comments Comments: HEART RACING SWEATING SERTRALINE 06/30/2018 14 - Other: See Comments SULFA (SULFONAMIDE ANTIBIOTICS) 04/03/2023 4 - Hives Comments: SWELLING BETA-BLOCKERS (BETA-ADRENERGIC BL*09/05/2018 14 - Other: See Comments 7 - Swelling Date Reviewed: 10/29/2024 Reviewed by: Donte Bentley MA - Fully Assessed Prescriptions as of 01/28/2025 - lisinopril (ZESTRIL) 20 mg tablet take 1 tablet by mouth once daily - pregabalin (LYRICA) 100 mg capsule Take 1 capsule by mouth three times a day for 180 days. - topiramate (TOPAMAX) 50 mg tablet Take 1 tablet by mouth two times a day. - ALPRAZolam (XANAX) 0.5 mg tablet Take 2 tablets by mouth once daily as needed for up to 180 days. - valACYclovir (VALTREX) 1 gram tablet Take 2 tablets by mouth two times a day. For 1 day. - omeprazole (PRILOSEC) 10 mg capsule Take 1 capsule by mouth once daily. - Magnesium 250 mg tab Take 250 mg by mouth once daily. - aspirin, enteric coated (ASPIRIN, ENTERIC COATED) 81 mg EC tablet Take 81 mg by mouth once daily. Normal [facility] OT D/C of Non Returning Pton 03-26-2025 OT D/C of Non Returning Pt [facility] Occupational [facility] [address] [place] [address] / REHABILITATION SERVICES DISCHARGE SUMMARY MR#: [id number] Acct: [id number] Name: RENEE GALLARDO Rep #: [id number] : 1980 44 From: Linette Florez OTR/L, CHT Referring Dr.: Dr. Ryder Ruth, Status: REG RCR Eval Date: Discharge Date: Patient Information Patient Information: RENEE GALLARDO was seen in my office for initial evaluation on 10/09/24. The following Plan of Care was established for this patient: POC Established Initial Frequency: 2-3x /Week Initial Duration: 3 Months Plan: radial nerve glide US x 50% 10 min 1.2 3.3 mhz to right forearm dorsal Anticipated Interventions Anticipated Interventions: A/AAROM/PROM, Strengthening, Triggerpoint Release, Modalities, Orthoses, Joint Protection/Energy Conservation, Ergonomic Education, Education re assistive Equipment, Education re Diagnosis, Caregiver Training and Home Program Other Interventions: nerve glides Last Seen Last Seen: This patient was last seen in our office 10/17/24. Pertinent comments regarding their Occupational therapy will appear below: pts insurance did not cover Occupational therapy services - therapist spoke with pt following her nerve conduction test and she was going to have an PT eval to cont.with her care as this is covered with her insurance. This center did provide pt with Benik radial nerve palsy orthosis she picked up on 11/01/24 and was to take it to the [facility] therapy center to have fitted for her. pt is d.c from OT services as this is not covered by her insurance. At this point I will be discontinuing this patient from occupational therapy. I would be happy to see this patient again in the future if found appropriate by the physician. Thank you! LIZBETH Romano/Fabrice, CHT 11/20/24 [id number] CC: Dr. Ezequiel Zazueta DO; Dr. Ryder Ruth DO MK Signed Normal [facility] CNTHERAPYon 11-15-2024 CNTHERAPY OT/PT/Speech Visit (LDPT) ---- RENEE GALLARDO ([id number]) 1980 F [place] Date Time Provider Department 11/15/24 12:45 PM REAL DEAN LDPT Date Time Provider Department Center 11/15/2024 12:45 PM [id number], CHET LDPT [facility] Reason for Visit: Physical Therapy [503] Primary Visit Diagnosis:Radial neuropathy, right [G56.31] Allergies As of Date: 11/15/2024 Noted Allergy Reaction AMITRIPTYLINE 12/29/2021 14 - Other: See Comments Comments: Nausea, diarrhea, dizziness Nausea, diarrhea, dizziness BACTRIM (SULFAMETHOXAZOLE-T RIMETH*04/03/2023 4 - Hives Comments: SWELLING AND HIVES MELATONIN 03/19/2020 14 - Other: See Comments NIFEDIPINE 03/19/2020 14 - Other: See Comments PREDNISONE 04/03/2023 14 - Other: See Comments Comments: HEART RACING SWEATING SERTRALINE 06/30/2018 14 - Other: See Comments SULFA (SULFONAMIDE ANTIBIOTICS) 04/03/2023 4 - Hives Comments: SWELLING BETA-BLOCKERS (BETA-ADRENERGIC BL*09/05/2018 14 - Other: See Comments 7 - Swelling Date Reviewed: 10/29/2024 Reviewed by: Donte Bentley MA - Fully Assessed Prescriptions as of 11/15/2024 - gabapentin (NEURONTIN) 100 mg capsule Take 1 capsule by mouth three times a day for 180 days. - topiramate (TOPAMAX) 50 mg tablet Take 1 tablet by mouth two times a day. - ALPRAZolam (XANAX) 0.5 mg tablet Take 2 tablets by mouth once daily as needed for up to 180 days. - valACYclovir (VALTREX) 1 gram tablet Take 2 tablets by mouth two times a day. For 1 day. - omeprazole (PRILOSEC) 10 mg capsule Take 1 capsule by mouth once daily. - lisinopril (ZESTRIL) 20 mg tablet Take 1 tablet by mouth once daily. - Magnesium 250 mg tab Take 250 mg by mouth once daily. - aspirin, enteric coated (ASPIRIN, ENTERIC COATED) 81 mg EC tablet Take 81 mg by mouth once daily. Normal [facility] CNTHERAPYon 11-08-2024 CNTHERAPY OT/PT/Speech Visit (LDPT) ---- RENEE GALLARDO ([id number]) 1980 F [place] Date Time Provider Department 11/08/24 1:30 PM REAL DEAN LDPT Date Time Provider Department Center 11/08/2024 1:30 PM [id number], CHET LDPT [facility] Reason for Visit: PT Eval [747] Visit Diagnosis:Radial neuropathy, right [G56.31] Allergies As of Date: 11/08/2024 Noted Allergy Reaction AMITRIPTYLINE 12/29/2021 14 - Other: See Comments Comments: Nausea, diarrhea, dizziness Nausea, diarrhea, dizziness BACTRIM (SULFAMETHOXAZOLE-T RIMETH*04/03/2023 4 - Hives Comments: SWELLING AND HIVES MELATONIN 03/19/2020 14 - Other: See Comments NIFEDIPINE 03/19/2020 14 - Other: See Comments PREDNISONE 04/03/2023 14 - Other: See Comments Comments: HEART RACING SWEATING SERTRALINE 06/30/2018 14 - Other: See Comments SULFA (SULFONAMIDE ANTIBIOTICS) 04/03/2023 4 - Hives Comments: SWELLING BETA-BLOCKERS (BETA-ADRENERGIC BL*09/05/2018 14 - Other: See Comments 7 - Swelling Date Reviewed: 10/29/2024 Reviewed by: Donte Bentley MA - Fully Assessed Prescriptions as of 11/08/2024 - gabapentin (NEURONTIN) 100 mg capsule Take 1 capsule by mouth three times a day for 180 days. - topiramate (TOPAMAX) 50 mg tablet Take 1 tablet by mouth two times a day. - ALPRAZolam (XANAX) 0.5 mg tablet Take 2 tablets by mouth once daily as needed for up to 180 days. - valACYclovir (VALTREX) 1 gram tablet Take 2 tablets by mouth two times a day. For 1 day. - omeprazole (PRILOSEC) 10 mg capsule Take 1 capsule by mouth once daily. - lisinopril (ZESTRIL) 20 mg tablet Take 1 tablet by mouth once daily. - Magnesium 250 mg tab Take 250 mg by mouth once daily. - aspirin, enteric coated (ASPIRIN, ENTERIC COATED) 81 mg EC tablet Take 81 mg by mouth once daily. Normal [facility] 10-29-2024 [facility] Office Visit (OBGYWM) ---- RENEE GALLARDO ([id number]) 1980 F [place] Date Time Provider Department 10/29/24 9:50 AM NATASHA DAVILA OBGYWM During your visit today, we recorded the following information about you: Pulse Blood pressure Weight 95/minute 136/86 64.4 kg Natasha Davila MD 10/29/2024 12:26 PM Signed Some documentation from previous visit of 07/05/2024 was copied and pasted, documentation has been reviewed and edited as necessary for today's visit. Patient Summary: Renee is a 44 year old Female who presents for follow-up evaluation of obesity/weight management to treat and prevent related co-morbidities. In our previous visits we have discussed lifestyle intervention including a nutrition recommendations and physical activity optimization. Her last office visit was 4 months ago. Assessment/plan from last visit: - Routine exercise reviewed- discussed tracker - ETOH and impact on health- working with licensed life and health agent and still cutting back. Discussed topiramate off label use for weight loss and ETOH- can increase but at this time doing well will keep at current dose. - LABS today from PCP - Discussed adding in Protein shake for breakfast - Poor sleep reviewed and impact it has on health/weight - continue lisinopril for HTN -Topiramate refills given Interval History PT specifies the following items as new or significant updates since the last appointment: - under a lot of stress right now but feels she is coping ok - has had some ETOH but feels she is doing well at controlling - sometimes scale gets down to 137lbs and she feels that is too thin for her- likes to be around 142lb - does not always take evening dose - still seeing licensed life and health agent - having right hand- radial neuropathy - painful Weight loss since last vist: 7 lbs Total weight lost 28 lbs - Last Wt 10/29/24: 142 lb 07/05/24 : 149 lb 04/02/24: 161 lb 02/12/24 : 168 lb Starting weight: 01/01/24 : 170 lb (77.1 kg) Goal weight: - 15 lbs weight loss -20 lbs 5% weight loss = 162 lbs, 10% weight loss = 153 lbs Anti-obesity medications: Topiramate. Benefit:decreased food craving , decreased ETOH Adverse effects: none Weight promoting medications: alprazolam Previous Diet (initial appointment): Wakes up: Drinkes water all day- 6 large aldo's. Latte occasionally once per week Does not eat breakfast Lunch- salad, lean protein, rice, quinoa, soap, fish, Snacks- fruit, anya, dried pineapple, sesame sticks Dinner 5:30-7:30- meat, veggie, pasta (one per week) Snacks: cheese Diet/Nutrition overview: Fluids: water, 4-5 ETOH drinks mixed with Juices. Quality of diet: 24hr recall suggests healthy diet. Characterization of diet:skip meals. Sandstone Inspector Repairer of impaired eating habits:denies Eating Disorder no Preferred foods: Cravings: guamanian food Dietary changes: (cell core, digestive warrior) B - smoothie with fruit, vegetables, protein powder plant - banana- pb, green smoothie, mixed greens S - L - not always, but tuna salad, apples, dill, dried cranberries, esteban crackers - roasted cauliflower emelia and lentin soups S - D - same - vegetable or salad with lean meat , Soup and fish , salami and cheese, crackers S - Fluids - water , ETOH at times Eating 3 meals a day, including breakfast Increasing servings of fruit Increasing servings of vegetables Controlling portions Limiting processed foods Increasing protein Reducing carbohydrates Current Barriers: none Exercise: still moving during the day- but no dedicated exercise Stress: stable Sleep: decreased but better than was at - 3-4 hours. RYAN NO ; CPAP NO stable- HAS ANIMALS that move and wake her up all night CrCl cannot be calculated (Patient's most recent lab result is older than the maximum 180 days allowed.). PAST MEDICAL HISTORY Diagnosis Date 1999 CVA (cerebral vascular accident) (HCC) unknown when Gallstones Current Outpatient Medications Medication Sig Dispense Refill ALPRAZolam (XANAX) 0.5 mg tablet Take 2 tablets by mouth once daily as needed for up to 180 days. 90 tablet 1 valACYclovir (VALTREX) 1 gram tablet Take 2 tablets by mouth two times a day. For 1 day. 4 tablet 2 omeprazole (PRILOSEC) 10 mg capsule Take 1 capsule by mouth once daily. 90 capsule 1 topiramate (TOPAMAX) 50 mg tablet Take 1 tablet by mouth two times a day. 180 tablet 1 lisinopril (ZESTRIL) 20 mg tablet Take 1 tablet by mouth once daily. 90 tablet 1 Magnesium 250 mg tab Take 250 mg by mouth once daily. (Patient not taking: Reported on 10/02/2024) aspirin, enteric coated (ASPIRIN, ENTERIC COATED) 81 mg EC tablet Take 81 mg by mouth once daily. No current facility-administer ed medications for this visit. ROS- denies Brain fog, paraesthesia , no stomach pain ROS/Fam Hx pertaining to AOMs: GEN: Fatigue:yes CV: h/o palp (more content not included)... Normal [facility] EMG(NEURO/NI)on 10-28-2024 Results can be seen in attached scanned documents. If you are a patient reviewing this test result, call the doctor who ordered the test with any questions. [facility] OT General Evaluationon 09-28 OT General Evaluation [facility] Occupational Therapy [facility] [address] [place] [address]. [address] [place] [address] / REHABILITATION SERVICES INITIAL EVALUATION MR#: [id number] Acct: [id number] Name: RENEE GALLARDO Rep #: [id number] : 1980 44 From: Linette NIEVES/Fabrice, ARIELT Referring Dr.: Dr. Ryder Ruth DO Status: REG RCR Insurance: [facility] [place] [id number] Eval Date: [facility] PACKAGE PLAN Patient's Visit Information Visit Information Visit Information: RENEE GALLARDO is a 44 year old F, referred to Occupational Therapy by Dr. Ryder Ruth DO, with a diagnosis of radial nerve lesion. Date of Evaluation: 10/09/24 Occupational Therapist: LIZBETH Romano/Fabrice, CHT Subjective Subjective: This 44 year old female was seen for OT eval with dx of right radial nerve lesion. pt states she woke up with the inability to move her right arm 09/28/24. pt states she thought it would go away. went to ER had MRI done. Went to see Dr. ruth and was referred to OT. pts insurance does not cover OT services pt is self-pay- pt currently has not use of right UE due to radial nerve compression. pt also reports pain and shooting pains that do not go away with alive or Tylenol Pain right UE: Current Pain Intensity: 7 Pain Intensity Range: 4 and 7 ROM ROM Comments: pt demo full right shoulder and elbow ROM. forearm supination and pronation limited no wrist ext therapist holding wrist in N and supporting MCP at N pt demo min ability to extend digits at PIP Level no thumb extension ability at this time. Quick DASH-Disab of Arm,Shoulder Hand Quick DASH Score: 93.3325 Goals Goal:ROM equal to unaffected hand: Yes Goal:Plumbing Warehouse Helper/Pinch strength at least 75% of unaffected hand: Yes Goal:No pain with affected hand use: Yes Goal:PIP Circumferences equal to unaffected hand: Yes Goal:Full use of affected hand in daily activities including work: Yes Other Goal: orthosis use: pt will demo understanding of using a variety of bracing to support wrist/ digits to decrease risk of extensor mechanisms from stretching out by end of 2nd session. pt will demo understanding of radial nerve glides to support movement/health of tissue around nerve by end of 3rd visit. Rehabilitation General Assessment: pt demo with positive radial nerve lesion and demo need for skilled OT services 2-3 x week for 12 weeks. Due to pts limited functional use of right dominate hand /grasp/pinch pt demo need of custom low profile orthosis to support wrist- and assist in partial grasp/pinch of right dominate hand for increase use with ADLs. Today therapist sam. wrist cock up for pt to wear at night also gave pt soft wrist cock-up for pt to interchange between the two as the orthosis one is very ridged. Therapist ed. pt on dx and recovery- pt emotional and reports frustration. therapist attempted to work with pt in POC- will use US for increase circulation, bracing and use of radial nerve palsy orthosis. pt demo understanding and agree to POC. Due to pts insurance does not cover Occupational therapy services pt is self pay- therapist will guide pt in radial neve glides soft tissue mobility and what to expect at nerve heals. Pt demo understanding and agree to POC. Rehabilitation Potential: Good Anticipated Interventions Anticipated Interventions: A/AAROM/PROM, Strengthening, Triggerpoint Release, Modalities, Orthoses, Joint Protection/Energy Conservation, Ergonomic Education, Education re assistive Equipment, Education re Diagnosis, Caregiver Training and Home Program Other Interventions: nerve glides Visit Plan Frequency: 2-3x /Week Duration: 3 Months General Plan: get pt in low profile radial nerve palsy orthosis- ed. pt on supporting wrist/digits to avoid extensor mechanism from stretching ed. pt on symptoms and or movement of radial nerve return Radial neve glides strengthen when appropriate TEXT: Thank you for the opportunity to evaluate your patient. For Medicare and Medicare HMO plans, please review the plan of care and approve it. It will need to be FAXED BACK to us at [phone] for Medicare purposes. Please let me know if there are questions or concerns regarding this plan of care. Physician Signature: __Date: 10/11/24 0827 CC: Dr. Ezequiel Zazueta DO; Dr. Ryder Ruth DO MK Signed For Medicare only, by signing this I certify the plan of care. _ Physicians Signature Date Normal [facility] CNOVon 10-02-2024 CN Office Visit (FAMPWS) ---- RENEE GALLARDO ([id number]) 1980 F Date Time Provider Department 10/02/24 1:00 PM [facility] During your visit today, we recorded the following information about you: Pulse Respiration Blood pressure Weight 90/minute 12/minute 112/62 64.9 kg Nichol Montalvo, LARISSA.GEOCHEMICAL MANAGER 10/02/2024 2:30 PM Signed Chief Complaint Patient presents with: hospital f/up HPI Renee Gallardo is a 44 year old female who presents here today for Above Complaints. Renee is an established patient of Dr. Marbin DO. Concerns today... ER follow-up --- [facility] ER visit on 09/29 d/t random R hand weakness. Woke up at 330 am with this. ER completed CT brain and CT cervical spine that were normal. CBC showed mild anemia of hgb 11.3. BMP was normal besides potassium of 2.7. Was replenished and discharged. Dx with neuropraxia. Today in office.. Pt reports hand weakness is the same as before. 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 No other neuro deficits. No weakness above the hand. No fall or injury. Pt does report increase in stressors and ER had told her this could be contributing. Reports dog is dying and numerous family member/friends being dx with cancer. Current utilizing rx of xanax 0.5 mg daily as needed. Has tried 6-7 different antidepressant (SSRI AND SNRIs) with no relief or unable to tolerate. Xanax works well for pt but she does feel like life is throwing a lot at her recently. Pt reports not taking potassium supplement, even since ER discharge. Does have supplement at home. Past medical history, appointments, medications, allergies reviewed. Previous Medical History PAST MEDICAL HISTORY Diagnosis Date Appendicitis 1999 CVA (cerebral vascular accident) (HCC) unknown when Gallstones Previous Surgical History PAST SURGICAL HISTORY Procedure Laterality Date APPENDECTOMY 1999 HYSTERECTOMY 12/07/2023 TLH, cystoscopy SALPINGECTOMY Bilateral 12/07/2023 Family History FAMILY HISTORY Problem Relation Age of Onset Cancer Father CLS, stable Bipolar disorder Mother Heart disease Paternal Grandfather Hypertension Paternal Grandfather No Ocular Disease No Family History Patient Allergies ALLERGIES Allergen Reactions Amitriptyline Other: See Comments Nausea, diarrhea, dizziness Nausea, diarrhea, dizziness Bactrim [Sulfametho* Hives SWELLING AND HIVES Melatonin Other: See Comments Nifedipine Other: See Comments Prednisone Other: See Comments HEART RACING SWEATING Sertraline Other: See Comments Sulfa (Sulfonamide * Hives SWELLING Beta-Blockers (Beta* Other: See Comments, Swelling Current Medications Current Outpatient Medications on File Prior to Visit Medication Sig valACYclovir (VALTREX) 1 gram tablet Take 2 tablets by mouth two times a day. For 1 day. ALPRAZolam (XANAX) 0.5 mg tablet Take 1 tablet by mouth once daily as needed for up to 180 days. omeprazole (PRILOSEC) 10 mg capsule Take 1 capsule by mouth once daily. topiramate (TOPAMAX) 50 mg tablet Take 1 tablet by mouth two times a day. lisinopril (ZESTRIL) 20 mg tablet Take 1 tablet by mouth once daily. aspirin, enteric coated (ASPIRIN, ENTERIC COATED) 81 mg EC tablet Take 81 mg by mouth once daily. Magnesium 250 mg tab Take 250 mg by mouth once daily. (Patient not taking: Reported on 10/02/2024) No current facility-administer ed medications on file prior to visit. Social History Social History Tobacco Use Smoking status: Former Current packs/day: 0.00 Types: Cigarettes Quit date: 2002 Years since quittin.1 Smokeless tobacco: Never Vaping Use Vaping status: Never Used Substance Use Topics Alcohol use: Yes Drug use: Never REVIEW OF SYSTEMS: as above Reviewed relevant PMHx, PSHx, Social Hx, current medications and allergies. Review of Symptoms REVIEW OF SYSTEMS See HPI. EXAM: BP 112/62 (BP Site: Left Arm, BP Position: Sitting, BP Cuff Size: Regular Adult) Pulse 90 Resp 12 Wt 64.9 kg (143 lb) LMP 11/16/2023 SpO2 98% BMI 23.80 kg/m? General Appearance: Well appearing, alert, in no acute distress, well-hydrated, well nourished.. Skin: Skin color, texture, turgor normal, no suspicious rashes or lesions. Head: Normocephalic, no masses, lesions, tenderness or abnormalities. Extremities: No deformities, edema, skin discoloration, clubbing or cyanosis. Good capillary refill. , Positive findings: joint location: R hand weakness. Peripheral Pulses: Normal, Capillary refill <2secs, strong peripheral pulses. Neurologic: Positive findings: decreased strength with baffle installer to R hand with muscular weakness 2/5. Strength 5/5 in bicep, tricep on the right and 5/5 entire LUE. Health Maintenance List Hepatitis B Vaccine(1 of 3 - 19+ 3-dose series) Never done Kyree (more content not included)... Normal [facility] Absolute neutrophil countOrd ered By: Vineet Esteves on 09-29-2024 Neutrophils (Bld) [#/Vol] 4.6 10*3/uL 2.0-7.7 [facility] Basic Metabolic Profile (BMP )on 09-29-2024 BUN/CRE 16.0 RATIO Normal 10-20 [facility] Comment on above: Performed By: #### L 500.2500, L100.0100 #### [facility] [address] [place], [address] CA,Total 8.4 mg/dL Low 8.5-10.1 [facility] Comment on above: Performed By: #### L 500.2500, L100.0100 #### [facility] [address] [place], [address] Chloride [Moles/Vol] 107 mmol/L Normal 98-107 [facility] Comment on above: Performed By: #### L 500.2500, L100.0100 #### [facility] [address] [place], [address] CO2 [Moles/Vol] 20.0 mmol/L Low 21.0-32.0 [facility] Comment on above: Performed By: #### L 500.2500, L100.0100 #### [facility] [address] [place], [address] Creatinine [Mass/Vol] 0.69 mg/dL Normal 0.55-1.02 [facility] Comment on above: Result Comment: The validity of the calculated GFR GFRAA in patients over 70 years has not been determined. Clinical correlation is essential. Performed By: #### L 500.2500, L100.0100 #### [facility] [address] [place], [address] ECRCL 99.43 ml/min Normal [facility] Comment on above: Performed By: #### L 500.2500, L100.0100 #### [facility] [address] [place], [address] EST GFR - AA 120 mL/min Normal >60 [facility] Comment on above: Result Comment: Afri can [place] GFR Calc Performed By: #### L 500.2500, L100.0100 #### [facility] [address] [place], [address] GAP 13 Normal 5-15 [facility] Comment on above: Performed By: #### L 500.2500, L100.0100 #### [facility] [address] [place], [address] GFR/1.73 sq M.predicted among non-blacks MDRD (S/P/Bld) [Vol rate/Area] 99 mL/min/{1.73_m2} Normal >60 [facility] Comment on above: Result Comment: Non- GFR Calc Performed By: #### L 500.2500, L100.0100 #### [facility] [address] [place], [address] Glucose [Mass/Vol] 109 mg/dL High 74-106 [facility] Comment on above: Result Comment: Fast ing Glucose result from 100 to 125 mg/dL suggests IMPAIRED HOMEOSTASIS per A.D.A. criteria. Performed By: #### L 500.2500, L100.0100 #### [facility] [address] [place], [address] Potassium [Moles/Vol] 2.7 mmol/L Invalid Interpretation Code 3.5-5.1 [facility] Comment on above: Result Comment: Crit ical Result(s) Called at: 11:25:22 09/29/2024 by: Erica Carlisle to Hina. Results read back by same. Performed By: #### L 500.2500, L100.0100 #### [facility] [address] [place], [address] Sodium [Moles/Vol] 140 mmol/L Normal 136-145 [facility] Comment on above: Performed By: #### L 500.2500, L100.0100 #### [facility] [address] [place], [address] Urea nitrogen [Mass/Vol] 11 mg/dL Normal 7-18 [facility] Comment on above: Performed By: #### L 500.2500, L100.0100 #### [facility] [address] [place], [address] Basophil percentageOrdered B y: Vineet Linn on 09-29-2024 Basophils/100 WBC (Bld) 0.6 % 0-1 [facility] Bedside Glucoseon 09-29-2024 FINGERSTICK GLU 94 mg/dL Normal 74-106 [facility] Comment on above: Result Comment: ROSELYN HAYLEE OF PATIENT CARE PER NURSING PROTOCOL Performed By: #### L 501.080 #### [facility] [address] [place], [place], [id number] Blood urea nitrogen (BUN)/cr eatinine ratioOrdered By: Vineet Esteves on 09-29-2024 Urea nitrogen/Creatinine [Mass ratio] 16.0 mg/mg 10-20 [facility] Brain/Head without Contrasto n 09-29-2024 Brain/Head without Contrast [facility] Imaging Services [address] [place] [address] Brain/Head without Contrast MR#: [id number] Acct: [id number] Name: RENEE GALLARDO Rep #: [id number] : 1980 F 44 From: Chaz Phillips MD PCP: Dr. Ezequiel Zazueta DO Status: REG ER Study: Brain/Head without Contrast Date of Exam: 10/22 Exam# [id number] Ordering Dr: Vineet Esteves DO EXAM: BRAIN/HEAD WITHOUT CONTRAST CLINICAL HISTORY: Trauma COMPARISON: None. TECHNIQUE: Noncontrast images of the head with multiplanar reconstructions. Dose reduction techniques were used including intermediate exposure control (AEC),iterative reconstruction technique, and/or mA and/or KV dose adjustments based on patient's size. FINDINGS: CT HEAD FINDINGS: No acute intracranial hemorrhage, mass, mass effect, midline shift or pathologic extra-axial fluid collection. No hydrocephalus. Age- appropriate cerebral volume and white matter. Visualized paranasal sinuses and mastoid air cells are clear. The calvarium is grossly intact. CT/Brain/Head without Contrast IMPRESSION: No CT evidence of acute intracranial pathology. Reading Location: [facility] CC: Dr. Vineet Esteves DO; Dr. Ezequiel Zazueta DO Conciliator: Signed Normal [facility] CBC W/Diff, Automatedon Absolute Lymph 1.69 X10 3/uL Normal 0.83-4.51 [facility] Comment on above: Performed By: #### L 500.2500, L100.0100 #### [facility] [address] [place], [address] Absolute Neut 4.6 X10 3/uL Normal 2.0-7.7 [facility] Comment on above: Performed By: #### L 500.2500, L100.0100 #### [facility] [address] [place], [address] Basophils/100 WBC (Bld) 0.6 % Normal 0-1 [facility] Comment on above: Performed By: #### L 500.2500, L100.0100 #### [facility] [address] [place], [address] Eosinophils/100 WBC (Bld) 1.3 % Normal 0-5 [facility] Comment on above: Performed By: #### L 500.2500, L100.0100 #### [facility] [address] [place], [address] Erythrocyte distribution width (RBC) [Ratio] 13.2 % Normal 11.6-14.6 [facility] Comment on above: Performed By: #### L 500.2500, L100.0100 #### [facility] [address] [place], [address] Hematocrit (Bld) [Volume fraction] 34.5 % Low 37-47 [facility] Comment on above: Performed By: #### L 500.2500, L100.0100 #### [facility] [address] [place], [address] Hemoglobin (Bld) [Mass/Vol] 11.3 g/dL Low 12.0-15.0 [facility] Comment on above: Performed By: #### L 500.2500, L100.0100 #### [facility] [address] [place], [address] IG% 0.300 Normal 0.0-0.9 [facility] Comment on above: Result Comment: IG% - Immature Granulocytes (promyelocytes, myelocytes and metamyelocytes) > 1% indicates that a LEFT SHIFT is Present. Performed By: #### L 500.2500, L100.0100 #### [facility] [address] [place], [address] Lymphocytes/100 WBC (Bld) 24.9 % Normal 19-41 [facility] Comment on above: Performed By: #### L 500.2500, L100.0100 #### [facility] [address] [place], [address] MCH (RBC) [Entitic mass] 33.9 pg High 27.0-32.0 [facility] Comment on above: Performed By: #### L 500.2500, L100.0100 #### [facility] [address] [place], [address] MCHC (RBC) [Mass/Vol] 32.8 g/dL Normal 32-36 [facility] Comment on above: Performed By: #### L 500.2500, L100.0100 #### [facility] [address] [place], [address] MCV (RBC) [Entitic vol] 103.6 fL High 81-99 [facility] Comment on above: Performed By: #### L 500.2500, L100.0100 #### [facility] [address] [place], [address] Monocytes/100 WBC (Bld) 4.7 % Normal 0-10 [facility] Comment on above: Performed By: #### L 500.2500, L100.0100 #### [facility] [address] [place], [address] Neutrophils/100 WBC (Bld) 68.2 % Normal 47-70 [facility] Comment on above: Performed By: #### L 500.2500, L100.0100 #### [facility] [address] [place], [address] Nucleated RBC (Bld) [#/Vol] 0 10*3/uL Normal 0-5 [facility] Comment on above: Performed By: #### L 500.2500, L100.0100 #### [facility] [address] [place], [address] Platelet mean volume (Bld) [Entitic vol] 9.9 fL Normal 6.2-12.0 [facility] Comment on above: Performed By: #### L 500.2500, L100.0100 #### [facility] [address] [place], [address] Platelets (Bld) [#/Vol] 154 10*3/uL Normal 150-450 [facility] Comment on above: Performed By: #### L 500.2500, L100.0100 #### [facility] [address] [place], [address] RBC (Bld) [#/Vol] 3.33 10*6/uL Low 4.2-5.4 [facility] Comment on above: Performed By: #### L 500.2500, L100.0100 #### [facility] [address] [place], [address] RDW SD 50.2 fl High 35.1-43.9 [facility] Comment on above: Performed By: #### L 500.2500, L100.0100 #### [facility] [address] [place], [address] WBC (Bld) [#/Vol] 6.8 10*3/uL Normal 4.4-11.0 [facility] Comment on above: Performed By: #### L 500.2500, L100.0100 #### [facility] [address] [place], [address] Carbon dioxide measurementOr dered By: Vineet Esteves on 09-29-2024 CO2 [Moles/Vol] 20.0 mmol/L Low 21.0-32.0 [facility] Chloride measurementOrdered By: Vineet Esteves on 09-29-2024 Chloride [Moles/Vol] 107 mmol/L 98-107 [facility] Emergency Department Summary on 09-29-2024 Emergency Department Summary [facility] Medical Records Department [address] [place] [address] Emergency Department Summary 09/29/24 MR#: [id number] Acct: [id number] Name: RENEE GALLARDO Rep #: [id number] : 1980 44 From: Vineet Esteves DO PCP: Dr. Ezequiel Zazueta DO Status:DEP ER Location: ED HPI History of Present Illness Chief Complaint: Numb/Ting Informant: patient Onset/Context/Timin g Onset: Today Context: Sudden Onset Timing: Continuous Quality: Numbness and weakness Location: Right hand and forearm Worsened by: Nothing Relieved by: Nothing Narrative Narrative: Patient presents with right hand weakness that began this morning. Patient states that she woke up with numbness and weakness in her right forearm and hand at approximately 3:30 AM. Patient states it has been constant all morning. Patient denies any extremity weakness in her upper arm or shoulder. Patient denies any headaches. Patient states nothing makes her symptoms better and nothing makes them worse. Patient denies any paresthesias or weakness of her left upper extremity or bilateral lower extremities. [facility] Medical History (Updated 09/29/24 @ 12:[address] Vineet Esteves, DO) Wears glasses Anxiety Alcohol use Migraine headache TIA (transient ischemic attack) Vestibular neuritis Vertigo Gastric reflux Smoker Hypertension Home Medications ???Medication ???Instructions ???Recorded ???Last Taken ???Type alprazolam 0.5 mg tablet 0.5 mg PO DAILY 11/23/23 12/06/23 History biotin-folic acid-vitamin B 1 tab PO DAILY 11/23/23 12/07/23 H istory complex with C-zinc 3 mg-0.8 mg tablet lisinopril 20 mg tablet 20 mg PO DAILY 11/23/23 12/07/23 H istory omeprazole 10 mg capsule,delayed 10 mg PO DAILY 11/23/23 12/07/23 H istory release docusate sodium 100 mg capsule 100 mg PO BID #30 caps 12/07/23 Un known Rx (Colace) ibuprofen 600 mg tablet 600 mg PO Q6H PRN PRN Pain #30 07/21 Unknown Rx TABLETS oxycodone-acetamino phen 5 mg-325 1 - 2 tab PO Q6H PRN PRN Pain 11/26 09/20 Unknown Rx mg tablet Score 4-10 5 days #10 tabs simethicone 80 mg chewable tablet 80 mg PO BID #30 tabs 12/07/23 Un known Rx topiramate 50 mg tablet 50 mg PO Q12H weight loss 09/29/24 Unknown History Allergy/AdvReac Type Severity Reaction Status Date / Time Beta-Blockers Allergy Severe Other Verified 09/29/24 10:18 (Beta-Adrenergic Bloc prednisone Allergy Severe Hives Verified 09/29/24 10:18 Sulfa (Sulfonamide Allergy Severe Hives Verified 09/29/24 10:18 Antibiotics) sulfamethoxazole (From Allergy Severe Hives Verified 09/29/24 10:18 Bactrim) trimethoprim (From Bactrim) Allergy Severe Hives Verified 09/29/24 10:18 melatonin AdvReac Intermediate Nausea/Vom/ Verified 09/29/24 10:18 Diarrhea Serotonin 5HT-3 Antagonists AdvReac Intermediate Other Verified 09/29/24 10:18 Surgical History (Updated 09/29/24 @ 10:[address] Vineet Esteves DO) History of hysterectomy History of dental surgery Hx of wisdom tooth extraction Hx of appendectomy Social History Smoking Status: Current some day smoker tobacco type: cigarettes ROS ROS ED Constitutional Constitutional ED: Denies chills or fever(s) Eyes Eyes: Denies blurry vision or change in vision ENT ENT ED: Reports rhinorrhea; Denies sore throat Cardiovascular Cardiovascular: Denies chest pain or palpitations Respiratory/Chest Respiratory/Chest: Denies cough or dyspnea Gastrointestinal Gastrointestinal: Denies nausea or vomiting Genitourinary Genitourinary ED: Denies dysuria or hematuria Musculoskeletal Musculoskeletal: Denies back pain or neck pain Integumentary Denies abscess or rash Neurologic Neurologic: Reports paresthesias RUE; Denies headache(s) or weakness Allergic/Immunologi c Allergic/Immunologi c ED: Denies mouth swelling or urticaria EXAM Physical Exam Const Vital Signs: 09/29/24 10:15 09/29/24 12:14 Temperature 97.3 F L Temperature Source Temporal Pulse Rate 100 67 Respiratory Rate 18 Blood Pressure 120/99 H 112/83 H Blood Pressure Mean 106 92 Pulse Ox 100 Oxygen Delivery Method Room Air Positive well nourished and well developed General Appearance ED: well developed and NAD HEENT Reports moist mucous membranes Neck supple and no JVD Resp normal respiratory effort and clear to auscultation bilaterally Cardio regular rate and regular rhythm GI non-tender and non-distended Palpation: soft Neuro oriented x3, CN's II-XII intact bilaterally and no sensory deficits noted Neuro Narrative: There is decreased strength with baffle installer and palmar abductors on the right. Strength is 5/5 in the bicep and tricep on the right. Strength is 5/5 left upper extremi (more content not included)... Normal [facility] Eosinophil percentageOrdered By: Vineet Esteves on 09-29-2024 Eosinophils/100 WBC (Bld) 1.3 % 0-5 [facility] Erythrocyte distribution wid th ratioOrdered By: Vineet Esteves on 09-29-2024 Erythrocyte distribution width (RBC) [Ratio] 13.2 % 11.6-14.6 [facility] Erythrocyte distribution wid th standard deviationOrdered By: Vineet Esteves on 09-29-2024 Erythrocyte distribution width (RBC) [Entitic vol] 50.2 fL High 35.1-43.9 [facility] Estimated glomerular filtrat ion rate (GFR) AmericanOrdered By: Vineet Esteves on 09-29-2024 Estimated GFR (MDRD) Amer 120 mL/min >60 [facility] Comment on above: GFR Calc Estimation of creatinine karen aranceOrdered By: Vineet Esteves on 09-29-2024 Estimated Creatinine Clearance Calc 99.43 ml/min [facility] Glomerular filtration rate ( GFR) estimationOrdered By: Vineet Esteves on 09-29-2024 Estimated GFR (MDRD) Non-Af Amer 99 mL/min >60 [facility] Comment on above: Non- GFR Calc Glucose measurementOrdered B y: Vineet Esteves on 09-29-2024 Glucose [Mass/Vol] 109 mg/dL High 74-106 [facility] Comment on above: Fasting Glucose resu lt from 100 to 125 mg/dL suggests IMPAIRED HOMEOSTASIS per A.D.A. criteria. Glucose measurement at [facility] deOrdered By: Vineet Estvees on 09-29-2024 Bedside Glucose (Misc Panel) 94 mg/dL 74-106 [facility] Comment on above: MANAGEMENT OF PATIEN T CARE PER NURSING PROTOCOL Hematocrit Auto (Bld) [Volum e fraction]Ordered By: Vineet Esteves on 09-29-2024 Hematocrit (Bld) [Volume fraction] 34.5 % Low 37-47 [facility] Hemoglobin measurementOrdere d By: Vineet Esteves on 09-29-2024 Hemoglobin (Bld) [Mass/Vol] 11.3 g/dL Low 12.0-15.0 [facility] Immature granulocytes/100 WB C Auto (Bld)Ordered By: Vineet Esteves on 09-29-2024 Immature granulocytes/100 WBC (Bld) 0.300 % 0.0-0.9 [facility] Comment on above: IG% - Immature Granu locytes (promyelocytes, myelocytes and metamyelocytes) > 1% indicates that a LEFT SHIFT is Present. Lymphocytes Auto (Unsp spec) [#/Vol]Ordered By: Vineet Esteves on 09-29-2024 Lymphocytes (Bld) [#/Vol] 1.69 10*3/uL 0.83-4.51 [facility] Lymphocytes/100 WBC Auto (Un sp spec)Ordered By: Vineet Esteves on 09-29-2024 Lymphocytes/100 WBC (Bld) 24.9 % 19-41 [facility] MCV (mean corpuscular volume ) determinationOrdered By: Vineet Esteves on 09-29-2024 MCV (RBC) [Entitic vol] 103.6 fL High 81-99 [facility] Mean corpuscular hemoglobin (MCH) determinationOrdered By: Vineet Esteves on 09-29-2024 MCH (RBC) [Entitic mass] 33.9 pg High 27.0-32.0 [facility] Mean corpuscular hemoglobin concentration (MCHC) determinationOrdered By: Vineet Esteves on 09-29-2024 MCHC (RBC) [Mass/Vol] 32.8 g/dL 32-36 [facility] Mean platelet volume determi nationOrdered By: Vineet Esteves on 09-29-2024 Platelet mean volume (Bld) [Entitic vol] 9.9 fL 6.2-12.0 [facility] Monocyte percentageOrdered B y: Vineet Esteves on 09-29-2024 Monocytes/100 WBC (Bld) 4.7 % 0-10 [facility] Neutrophil percentageOrdered By: Vineet Esteves on 09-29-2024 Neutrophils/100 WBC (Bld) 68.2 % 47-70 [facility] Nucleated red blood cell per centageOrdered By: Vineet Esteves on 09-29-2024 Nucleated RBC/100 WBC (Bld) [Ratio] 0 % 0-5 [facility] Platelet countOrdered By: Davie Esteves on 09-29-2024 Platelets (Bld) [#/Vol] 154 10*3/uL 150-450 [facility] Potassium measurementOrdered By: Vineet Esteves on 09-29-2024 Potassium [Moles/Vol] 2.7 mmol/L Low 3.5-5.1 [facility] Comment on above: Critical Result(s) C alled at: 11:25:22 09/29/2024 by: Erica Santamaria. Results read back by same. RBC Auto (Bld) [#/Vol]Ordere d By: Vineet Esteves on 09-29-2024 RBC (Bld) [#/Vol] 3.33 10*6/uL Low 4.2-5.4 [facility] Serum anion gap measurementO rdered By: Vineet Esteves on 09-29-2024 Anion gap [Moles/Vol] 13 mmol/L 5-15 [facility] Serum or plasma calcium ash urement (mass/volume)Ordered By: Vineet Esteves on 09-29-2024 Calcium [Mass/Vol] 8.4 mg/dL Low 8.5-10.1 [facility] Serum or plasma creatinine m easurement (mass/volume)Ordered By: Vineet Esteves on 09-29-2024 Creatinine [Mass/Vol] 0.69 mg/dL 0.55-1.02 [facility] Comment on above: The validity of the calculated GFR & GFRAA in patients over 70 years has not been determined. Clinical correlation is essential. Serum or plasma urea nitroge n measurement (mass/volume)Ordered By: Vineet Esteves on 09-29-2024 Urea nitrogen [Mass/Vol] 11 mg/dL 7-18 [facility] Sodium levelOrdered By: Vineet Esteves on 09-29-2024 Sodium [Moles/Vol] 140 mmol/L 136-145 [facility] Spine Cervical without Contr ason 09-29-2024 Spine Cervical without Contras [facility] Imaging Services [address] [place], [place] [address] Spine Cervical without Contras MR#: [id number] Acct: [id number] Name: RENEE GALLARDO Rep #: [id number] : 1980 F 44 From: Chaz Phillips MD PCP: Dr. Ezequiel Zazueta DO Status: REG ER Study: Spine Cervical without Contras Date of Exam: 0 09/29/24 Exam# [id number] Ordering Dr: Vineet Esteves DO PROCEDURE: SPINE CERVICAL WITHOUT CONTRAS REASON FOR EXAM: Trauma TECHNIQUE: Cervical spine CT without contrast. COMPARISON: None. FINDINGS: Alignment: Normal Vertebrae: No acute fracture Soft Tissues: Unremarkable C1-2: Normal alignment. Dens appears intact. C2-3: Unremarkable C3-4: Unremarkable C4-5: Unremarkable C5-6: Unremarkable C6-7: Unremarkable C7-T1: Unremarkable CT/Spine Cervical without Contras IMPRESSION: No acute CT process in the cervical spine. One or more dose reduction techniques were used (e.g., Automated exposure control, adjustment of the mA and/or kV according to patient size, use of iterative reconstruction technique). Reading Location: [facility] CC: Dr. Vineet Esteves DO; Dr. Ezequiel Zazueta DO Conciliator: Signed Normal [facility] White blood cell (WBC) count Ordered By: Vineet Esteves on 09-29-2024 WBC (Bld) [#/Vol] 6.8 10*3/uL 4.4-11.0 [facility]20[facility] RENEE GALLARDO ([id number]) 1980 F Date Time Provider Department 08/23/24 [facility] During your visit today, we recorded the following information about you: Bernice Taylor 08/23/2024 11:33 AM Signed Renee is calling Ezequiel Zazueta DO today with a Medication Question: Disp Refills Start End ALPRAZolam (XANAX) 0.5 mg tablet 30 tablet 2 04/03/2024 07/02/2024 Sig: Take 1 tablet by mouth once daily as needed for up to 90 days. Sent to pharmacy as: ALPRAZolam (XANAX) 0.5 mg tablet Class: Normal Route: ORAL Order: [id number] E-Prescribing Status: Receipt confirmed by pharmacy (04/03/2024 9:31 AM EDT) Patient is requesting to speak to the nurse. She stated she has questions because she will be going out of town soon. Please call her today. Patient has been identified by name and birthdate. Duration of symptoms: N/A Person calling: self Call patient at: at home [phone] (home) [phone] (cell) Was an appointment scheduled: No Closing statement: Results or non-symptom based questions: Thank you for calling [facility], your call will be returned within the next business day. Debra Deras MA 08/23/2024 3:45 PM Signed Per note patient had question for office on xanax. Left message for patient to call office back and speak to triage nurse. Not sure what question is to be asked if going out of state rx can not be filled due to controlled has to be remain in [place]. Patient needs scheduled follow up Patient has been identified by name and date of : yes Patient phones for refill(s): Requested Prescriptions Pending Prescriptions Disp Refills ALPRAZolam (XANAX) 0.5 mg tablet 30 tablet 2 Sig: Take 1 tablet by mouth once daily as needed for up to 90 days. Date of last office visit in primary care: 04/25/2024 Date of next office visit in primary care: Visit date not found Please advise. Thank you. Debra Soliz MA. Patt Vincent RN 08/23/2024 3:57 PM Signed Patient calls back and notified that she needs to set up appointment for refills on Xanax. Patient does have Xanax left. Patient just is going to be out of state and will run out of medication. Patient will discuss medication at next appointment. Patient is scheduled to see Nichol on 08/26/2024 to discuss medication. Patt Vincent RN Allergies As of Date: 08/23/2024 Noted Allergy Reaction AMITRIPTYLINE 12/29/2021 14 - Other: See Comments Comments: Nausea, diarrhea, dizziness Nausea, diarrhea, dizziness BACTRIM (SULFAMETHOXAZOLE-T RIMETH*04/03/2023 4 - Hives Comments: SWELLING AND HIVES MELATONIN 03/19/2020 14 - Other: See Comments NIFEDIPINE 03/19/2020 14 - Other: See Comments PREDNISONE 04/03/2023 14 - Other: See Comments Comments: HEART RACING SWEATING SERTRALINE 06/30/2018 14 - Other: See Comments SULFA (SULFONAMIDE ANTIBIOTICS) 04/03/2023 4 - Hives Comments: SWELLING BETA-BLOCKERS (BETA-ADRENERGIC BL*09/05/2018 14 - Other: See Comments 7 - Swelling Date Reviewed: 07/05/2024 Reviewed by: Donte Bentley MA - Fully Assessed Reason for Visit: Medication Question [7958] Cmt: Xanax Visit Diagnoses:Sleep disturbances [G47.9] Panic attacks [F41.0] Prescriptions as of 08/23/2024 - phenazopyridine (PYRIDIUM) 200 mg tablet Take 1 tablet by mouth three times a day as needed for pain. - topiramate (TOPAMAX) 50 mg tablet Take 1 tablet by mouth two times a day. - omeprazole (PRILOSEC) 10 mg capsule Take 1 capsule by mouth once daily. - valACYclovir (VALTREX) 1 gram tablet Take 2 tablets by mouth two times a day. For 1 day. - triamcinolone acetonide (KENALOG) 0.1 % cream Apply 1 application to affected area three times a day. Apply sparingly to area for rash/itching. - lisinopril (ZESTRIL) 20 mg tablet Take 1 tablet by mouth once daily. - Magnesium 250 mg tab Take 250 mg by mouth once daily. - aspirin, enteric coated (ASPIRIN, ENTERIC COATED) 81 mg EC tablet Take 81 mg by mouth once daily. Problem List As Of Date 08/23/2024 Noted Resolved Irregular heart beat [I49.9] 01/17/2022 Hyperlipidemia, mixed [E78.2] 12/06/2023 Borderline abnormal thyroid function test [R94.*12/06/2023 Elevated liver enzymes [R74.8] 12/06/2023 Situational anxiety [F41.8] 12/06/2023 Elevated MCV [R71.8] 12/06/2023 Fatigue [R53.83] 12/06/2023 Encounter Status:Closed by PATT VINCENT on 08/23/24 Normal [facility] Bacteria Ur Culton Bacteria identified Cx Nom (U) ORGANISM ID: 1 10,000 -<50,000 CFU/ml Mixed microbiota No further workup. Mixed microbiota can be due to???urine???contam ination with skin bacteria at time of collection or presence of a long-term urinary catheter. If a new culture is needed, please consider re-education of the patient on proper midstream collection technique or straight catheterization for???urine???colle ction. Normal [facility] Comment on above: Performed By: #### 6 30-4 #### [facility] CLIA [id number] [address] [place] [address] [place] CNOVon 07-05-2024 CNOV Office Visit (OBGYWM) ---- RENEE GALLARDO ([id number]) 1980 F Date Time Provider Department 07/05/24 8:50 AM NATASHA DAVILA OBMAE During your visit today, we recorded the following information about you: Temperature Pulse Blood pressure Weight 98.5 degrees 89/minute 114/72 67.6 kg Natasha Davila MD 07/05/2024 10:26 AM Signed Some documentation from previous visit of 04/02/2024 was copied and pasted, documentation has been reviewed and edited as necessary for today's visit. Patient Summary: Renee is a 43 year old Female who presents for follow-up evaluation of obesity/weight management to treat and prevent related co-morbidities. In our previous visits we have discussed lifestyle intervention including a nutrition recommendations and physical activity optimization. Her last office visit was 3 months ago. Assessment/plan from last visit: - Routine exercise reviewed- discussed tracker - ETOH and impact on health- working with licensed life and health agent and still cutting back. Discussed topiramate off label use for weight loss and ETOH- can increase but at this time doing well will keep at current dose. - LABS today from PCP - Discussed adding in Protein shake for breakfast - Poor sleep reviewed and impact it has on health/weight - continue lisinopril for HTN -Topiramate refills given Interval History PT specifies the following items as new or significant updates since the last appointment: - massive cleanse for one month- feels great. - eats soups, fish, takes supplements - went to [place] for trip happy she didn't gain weight - feels great with cleanse - very happy her LFTs are all back to normal - does not crave carbs- - feels anxiety is well controlled, working with licensed life and health agent - does not feel hungry - sleep is much better- using herbal tea at night time. -happy her BP is trending down - woke up with UTI symptoms- Pain and frequency Weight loss since last vist: 12 lbs Total weight lost 19 lbs - Last Wt 07/05/24 : 149 lb 04/02/24: 161 02/12/24 : 168 lb Starting weight: 01/01/24 : 170 lb (77.1 kg) 5% weight loss = 162 lbs, 10% weight loss = 153 lbs Anti-obesity medications: Topiramate. Benefit:decreased food craving , decreased ETOH Adverse effects: none Weight promoting medications: alprazolam Previous Diet (initial appointment): Wakes up: Drinkes water all day- 6 large aldo's. Latte occasionally once per week Does not eat breakfast Lunch- salad, lean protein, rice, quinoa, soap, fish, Snacks- fruit, anya, dried pineapple, sesame sticks Dinner 5:30-7:30- meat, veggie, pasta (one per week) Snacks: cheese Diet/Nutrition overview: Fluids: water, 4-5 ETOH drinks mixed with Juices. Quality of diet: 24hr recall suggests healthy diet. Characterization of diet:skip meals. Sandstone Inspector Repairer of impaired eating habits:denies Eating Disorder no Preferred foods: Cravings: guamanian food Dietary changes: (cell core, digestive warrior) B - smoothie with fruit, vegetables, protein powder plant S - L - Smoothie fruit, vegetables, protein powder S - D - same - vegetable or salad with lean meat , Soup and fish S - Fluids - water , ETOH nothing for the month (a few in [place]) , mood brew- helping sleep better Eating 3 meals a day, including breakfast Increasing servings of fruit Increasing servings of vegetables Controlling portions Limiting processed foods Increasing protein Reducing carbohydrates Current Barriers: none Exercise: still moving during the day- but no dedicated exercise Stress: stable Sleep: INCREASED- 9 hrs from - 3-4 hours. RYAN NO ; CPAP NO stable- HAS ANIMALS that move and wake her up all night Estimated Creatinine Clearance: 110.6 mL/min (based on SCr of 0.67 mg/dL). PAST MEDICAL HISTORY Diagnosis Date 1999 CVA (cerebral vascular accident) (HCC) unknown when Gallstones Current Outpatient Medications Medication Sig Dispense Refill omeprazole (PRILOSEC) 10 mg capsule Take 1 capsule by mouth once daily. 30 capsule 3 valACYclovir (VALTREX) 1 gram tablet Take 2 tablets by mouth two times a day. For 1 day. 4 tablet 2 ALPRAZolam (XANAX) 0.5 mg tablet Take 1 tablet by mouth once daily as needed for up to 90 days. 30 tablet 2 triamcinolone acetonide (KENALOG) 0.1 % cream Apply 1 application to affected area three times a day. Apply sparingly to area for rash/itching. 60 g 1 topiramate (TOPAMAX) 50 mg tablet Take 1 tablet by mouth two times a day. 180 tablet 1 lisinopril (ZESTRIL) 20 mg tablet Take 1 tablet by mouth once daily. 90 tablet 1 Magnesium 250 mg tab Take 250 mg by mouth once daily. aspirin, enteric coated (ASPIRIN, ENTERIC COATED) 81 mg EC tablet Take 81 mg by mouth once daily. No current facility-administer ed medications for this visit. ROS- denies Brain fog, paraesthesia , no stomach pain ROS/Fam (more content not included)... Normal [facility] UA DIP, URINE (POC)on 2023 BILIRUBIN UA (POCT) Negative Negative [facility] CLARITY UA (POCT) Clear [facility] COLOR UA (POCT) [facility] GLUCOSE UA (POCT) Negative Negative mg/dL [facility] Hemoglobin Ql (U) Large Abnormal Negative [facility] Interpretation and review of laboratory results Abnormal [facility] KETONE UA (POCT) 80 mg/dL Abnormal Negative [facility] LEUKOCYTES UA (POCT) Trace Abnormal Negative [facility] NITRITE UA (POCT) Negative Negative [facility] PH UA (POCT) 5.5 4.5 - 8.0 [facility] Protein Ql (U) >=300 Abnormal Negative mg/dL [facility] SPECIFIC GRAVITY UA (POCT) >=1.030 1.005 - 1.030 [facility] UROBILINOGEN UA (POCT) 0.2 Elinor l E.U./dL [facility] Location:[facility], [address], [place], [address] [facility] POINT OF CARE [facility] HAV IgM Ser Qlon 06-21-2024 HAV IgM Ql (S) Negative Normal Negative [facility] Comment on above: Order Comment: Speci men Type: BLOOD SPECIMEN Ordering Facility: Address: [address] [place] [address] Result Comment: No e vidence of recent infection with Hepatitis A virus. Performed By: #### 1 989-3 #### [facility] CLIA [id number] [address] [place] [address] [place] HBV core IgM Ser Qlon 2023 HBV core IgM Ql (S) Negative Normal Negative [facility] Comment on above: Order Comment: Speci men Type: BLOOD SPECIMEN Ordering Facility: Address: [address] [place] [address] Result Comment: No e vidence of recent infection with Hepatitis B virus. Should recent infection be suspected, repeat testing may be considered 3-4 weeks after this draw. Performed By: #### 1 989-3 #### [facility] CLIA [id number] [address] [place] [address] [place] HBV surface Ag Ser Qlon 05-29 HBV surface Ag Ql (S) Negative Normal Negative [facility] Comment on above: Order Comment: Speci men Type: BLOOD SPECIMEN Ordering Facility: Address: [address] [place] [address] Performed By: #### 1 989-3 #### [facility] CLIA [id number] [address] [place] [address] [place] HCV Ab Ser Qlon 06-21-2024 HCV Ab Ql (S) Negative Normal Negative [facility] Comment on above: Order Comment: Speci men Type: BLOOD SPECIMEN Ordering Facility: Address: [address] [place] [address] Result Comment: The result suggests no evidence of active infection with Hepatitis C virus. Should recent infection be suspected, repeat testing may be considered 4-6 weeks after this draw. Performed By: #### 1 989-3 #### [facility] CLIA [id number] [address] [place] [address] [place] Hepatic function 2000 panelo n 06-21-2024 Albumin [Mass/Vol] 4.5 g/dL Normal 3.9-4.9 [facility] Comment on above: Order Comment: Speci men Type: BLOOD SPECIMENOrdering Facility: Address: [address] [place] [address] Performed By: #### 2 4325-3 ####[facility] [id number] [place] [address] [place] ALP [Catalytic activity/Vol] 49 U/L Normal 34-123 [facility] Comment on above: Order Comment: Speci men Type: BLOOD SPECIMENOrdering Facility: Address: [address] [place] [address] Performed By: #### 2 4325-3 ####[facility] [id number] [place] [address] [place] ALT [Catalytic activity/Vol] 13 U/L Normal 7-38 [facility] Comment on above: Order Comment: Speci men Type: BLOOD SPECIMENOrdering Facility: Address: [address] [place] [address] Performed By: #### 2 4325-3 ####[facility] [id number] [place] [address] [place] AST [Catalytic activity/Vol] 15 U/L Normal 13-35 [facility] Comment on above: Order Comment: Speci men Type: BLOOD SPECIMENOrdering Facility: Address: [address] [place] [address] Performed By: #### 2 4325-3 ####[facility] [id number] [place] [address] [place] Bilirubin [Mass/Vol] 0.4 mg/dL Normal 0.2-1.3 [facility] Comment on above: Order Comment: Speci men Type: BLOOD SPECIMENOrdering Facility: Address: [address] [place] [address] Performed By: #### 2 4325-3 ####[facility] [id number] [place] [address] [place] Bilirubin.conjugated [Mass/Vol] mg/dL Normal <0.2 [facility] Comment on above: Order Comment: Speci men Type: BLOOD SPECIMENOrdering Facility: Address: [address] [place] [address] Performed By: #### 2 4325-3 ####[facility] [id number] [place] [address] [place] Protein [Mass/Vol] 7.1 g/dL Normal 6.3-8.0 [facility] Comment on above: Order Comment: Speci men Type: BLOOD SPECIMENOrdering Facility: Address: [address] [place] [address] Performed By: #### 2 4325-3 ####[facility] [id number] [address] [place] 05-20-2024 [facility] RENEE GALLARDO ([id number]) 1980 F Date Time Provider Department 05/20/24 [facility] During your visit today, we recorded the following information about you: Elli Mendenhall LPN 05/20/2024 1:20 PM Signed [facility] Hi! Is it possible to get an rx for the cold sore medicine I added? I don?t know why it wasn?t in my medical history, but I always have it on hand for when I travel to warm weather destinations just in case. I like didn?t spell it correctly, but would really appreciate it! [facility]. Elenita Brock PA-C 05/20/2024 1:40 PM Signed The following approved medication requests have been transmitted electronically. Requested Prescriptions Signed Prescriptions Disp Refills valACYclovir (VALTREX) 1 gram tablet 4 tablet 2 Sig: Take 2 tablets by mouth two times a day. For 1 day. Authorizing Provider: ELENITA BROCK PA-C Allergies As of Date: 05/20/2024 Noted Allergy Reaction AMITRIPTYLINE 12/29/2021 14 - Other: See Comments Comments: Nausea, diarrhea, dizziness Nausea, diarrhea, dizziness BACTRIM (SULFAMETHOXAZOLE-T RIMETH*04/03/2023 4 - Hives Comments: SWELLING AND HIVES MELATONIN 03/19/2020 14 - Other: See Comments NIFEDIPINE 03/19/2020 14 - Other: See Comments PREDNISONE 04/03/2023 14 - Other: See Comments Comments: HEART RACING SWEATING SERTRALINE 06/30/2018 14 - Other: See Comments SULFA (SULFONAMIDE ANTIBIOTICS) 04/03/2023 4 - Hives Comments: SWELLING BETA-BLOCKERS (BETA-ADRENERGIC BL*09/05/2018 14 - Other: See Comments 7 - Swelling Date Reviewed: 04/25/2024 Reviewed by: Conor Chapman APRN.GEOCHEMICAL MANAGER - Fully Assessed Order(s):valACYclov ir (VALTREX) 1 gram tabletTake 2 tablets by mouth two times a day. For 1 day.Disp: 4 tabletRfl: 2 Prescriptions as of 05/20/2024 - valACYclovir (VALTREX) 1 gram tablet Take 2 tablets by mouth two times a day. For 1 day. - ALPRAZolam (XANAX) 0.5 mg tablet Take 1 tablet by mouth once daily as needed for up to 90 days. - triamcinolone acetonide (KENALOG) 0.1 % cream Apply 1 application to affected area three times a day. Apply sparingly to area for rash/itching. - topiramate (TOPAMAX) 50 mg tablet Take 1 tablet by mouth two times a day. - omeprazole (PRILOSEC) 10 mg capsule Take 1 capsule by mouth once daily. - lisinopril (ZESTRIL) 20 mg tablet Take 1 tablet by mouth once daily. - Magnesium 250 mg tab Take 250 mg by mouth once daily. - aspirin, enteric coated (ASPIRIN, ENTERIC COATED) 81 mg EC tablet Take 81 mg by mouth once daily. Problem List As Of Date 05/20/2024 Noted Resolved Irregular heart beat [I49.9] 01/17/2022 Hyperlipidemia, mixed [E78.2] 12/06/2023 Borderline abnormal thyroid function test [R94.*12/06/2023 Elevated liver enzymes [R74.8] 12/06/2023 Situational anxiety [F41.8] 12/06/2023 Elevated MCV [R71.8] 12/06/2023 Fatigue [R53.83] 12/06/2023 Prescriptions ordered this encounter Disp Refills Start End VALACYCLOVIR 1 GRAM TABLET 4 ta* 2 05/20/2024 Route: ORAL Sig: Take 2 tablets by mouth two times a day. For 1 day. Encounter Status:Closed by ELLI MENDENHALL LPN on 05/20/24 Normal [facility] Laboratory - Chemistry and C hemistry - challengeOrdered By: Vineet Mackay on 12-07-2023 HCG ( test) Ql (U) Negative [facility] Comment on above: Very dilute urine sp ecimens, as indicated by a low specificgravity, may not contain retail service representative levels of hCG. If is still suspected, a first morning urinespecimen should be collected 48 hours later and tested. Thin prep Papanicolaou smear with manual screeningOrdered By: Gallito Cruz on 12-07-2023 Thin prep Papanicolaou smear with manual screening 105 mg/dL 74-106 [facility] Comment on above: MANAGEMENT OF PATIEN T CARE PER NURSING PROTOCOL Activated partial thrombopla stin time (aPTT) in platelet poor plasma by coagulation aOrdered By: Vineet Mackay on 11-28-2023 aPTT Coag (PPP) [Time] 28.0 s 24.1-36.2 [facility] Basophil percentageOrdered B y: Vineet Mackay on 11-28-2023 Bilirubin [Mass/Vol] 1.50 mg/dL 0.20-1.00 [facility] Comment on above: For patients on eltr ombopag therapy, use of Dimension [place] TBIL is not recommended. Chloride [Moles/Vol] 101 mmol/L 98-107 [facility] Glucose [Mass/Vol] 95 mg/dL 74-106 [facility] Hemoglobin (Bld) [Mass/Vol] 13.7 g/dL 12.0-15.0 [facility] Potassium [Moles/Vol] 3.6 mmol/L 3.5-5.1 [facility] Protein [Mass/Vol] 8.1 g/dL 6.4-8.2 [facility] Sodium [Moles/Vol] 135 mmol/L 136-145 [facility] WBC (Bld) [#/Vol] 7.8 10*3/uL 4.4-11.0 [facility] Determination of erythrocyte mean corpuscular volume (MCV)Ordered By: Vineet Mackay on 11-28-2023 MCV (RBC) [Entitic vol] 96.9 fL 81-99 [facility] Direct bilirubinOrdered By: Vineet Mackay on 11-28-2023 Bilirubin.direct [Mass/Vol] 0.47 mg/dL 0.00-0.30 [facility] Erythrocyte distribution wid th ratioOrdered By: Vineet Mackay on 11-28-2023 Erythrocyte distribution width (RBC) [Ratio] 12.1 % 11.6-14.6 [facility] Erythrocyte distribution wid th standard deviationOrdered By: Vineet Mackay on 11-28-2023 Erythrocyte distribution width (RBC) [Entitic vol] 42.8 fL 35.1-43.9 [facility] Hematocrit Auto (Bld) [Volum e fraction]Ordered By: Vineet Mackay on 11-28-2023 Hematocrit (Bld) [Volume fraction] 40.6 % 37-47 [facility] Laboratory - Chemistry and C hemistry - challengeOrdered By: Vineet Mackay on 11-28-2023 ALP [Catalytic activity/Vol] 80 U/L 45-117 [facility] ALT [Catalytic activity/Vol] 196 U/L 13-56 [facility] CO2 [Moles/Vol] 26.0 mmol/L 21.0-32.0 [facility] Globulin (S) [Mass/Vol] 3.7 g/dL 2.2-4.2 [facility] Magnesium [Mass/Vol] 1.8 mg/dL 1.6-2.6 [facility] Urea nitrogen/Creatinine [Mass ratio] 14.1 mg/mg 10-20 [facility] Laboratory - CoagulationOrde red By: Vineet Mackay on 11-28-2023 INR Coag (Bld) [Relative time] 1.0 {INR} [facility] PT Coag (PPP) [Time] 13.1 s 11.7-14.9 [facility] Laboratory - Hematology and Cell countsOrdered By: Vineet Mackay on 11-28-2023 MCH (RBC) [Entitic mass] 32.7 pg 27.0-32.0 [facility] MCHC (RBC) [Mass/Vol] 33.7 g/dL 32-36 [facility] Platelet mean volume (Bld) [Entitic vol] 10.1 fL 6.2-12.0 [facility] Platelets (Bld) [#/Vol] 236 10*3/uL 150-450 [facility] No Panel InformationOrdered By: Vineet Mackay on 11-28-2023 Estimated GFR (MDRD) Amer 105 mL/min >60 [facility] Comment on above: GFR Calc Estimated GFR (MDRD) Non-Af Amer 87 mL/min >60 [facility] Comment on above: Non- GFR Calc RBC Auto (Bld) [#/Vol]Ordere d By: Vineet Mackay on 11-28-2023 RBC (Bld) [#/Vol] 4.19 10*6/uL 4.2-5.4 [facility] Serum or plasma calcium ash urement (mass/volume)Ordered By: Vineet Mackay on 11-28-2023 Calcium [Mass/Vol] 9.6 mg/dL 8.5-10.1 [facility] Serum or plasma creatinine m easurement (mass/volume)Ordered By: Vineet Mackay on 11-28-2023 Creatinine [Mass/Vol] 0.78 mg/dL 0.55-1.02 [facility] Comment on above: The validity of the calculated GFR & GFRAA in patients over 70 years has not been determined. Clinical correlation is essential. Serum or plasma urea nitroge n measurement (mass/volume)Ordered By: Vineet Mackay on 11-28-2023 Urea nitrogen [Mass/Vol] 11 mg/dL 7-18 [facility] Thin prep Papanicolaou smear with manual screeningOrdered By: Vineet Mackay on 11-28-2023 Thin prep Papanicolaou smear with manual screening 4.4 g/dL 3.2-5.0 [facility] Thin prep Papanicolaou smear with manual screening 179 U/L 15-37 [facility] Thin prep Papanicolaou smear with manual screening 8 5-15 [facility] Influenza virus A and B RNA and SARS-CoV-2 (COVID-19) N gene panel YOLA+probe (Resp)on 11-08-2023 FLUAV RNA YOLA+probe Ql (Unsp spec) Not detected Not Detected [facility] FLUBV RNA YOLA+probe Ql (Unsp spec) Not detected Not Detected [facility] SARS-CoV-2 (COVID-19) RNA YOLA+probe Ql (Resp) Not detected See comment [facility] STREP A MOLECULAR (POC)on Procedural Control Valid [facility] Strep A (POCT) Positive Abnormal Negative [facility] UA DIP,URINE HCG (POC)on Beta HCG ( test) Ql (U) Negative Negative [facility] [employer] (POCT) Internal QC OK [facility] US Pelvison 10-30-2023 [facility] .Auto Diffon 02-20-2023 Basophil, Absolute 0.1 10 3/mcL Normal 0.0-0.2 [facility] ([place]) Comment on above: Performed By: #### E 2, LH, TESTO, T4, FSH, INSLN #### [place] [address] #### CBC, ADIFF, ANEU, TSH, FT3, GLU #### [address] [address] Basophils/100 WBC (Bld) 0.6 % Normal 0.0-2.5 [facility] ([place]) Comment on above: Performed By: #### E 2, LH, TESTO, T4, FSH, INSLN #### [place] [address] #### CBC, ADIFF, ANEU, TSH, FT3, GLU #### [address] [address] Eosinophil, Absolute 0.1 10 3/mcL Normal 0.0-0.4 [facility] ([place]) Comment on above: Performed By: #### E 2, LH, TESTO, T4, FSH, INSLN #### [place] [address] #### CBC, ADIFF, ANEU, TSH, FT3, GLU #### [address] [address] Eosinophils/100 WBC (Bld) 0.9 % Normal 0.0-7.0 [facility] ([place]) Comment on above: Performed By: #### E 2, LH, TESTO, T4, FSH, INSLN #### [place] [address] #### CBC, ADIFF, ANEU, TSH, FT3, GLU #### [address] [address] Lymphocyte, Absolute 3.2 10 3/mcL Normal 0.8-3.9 [facility] ([place]) Comment on above: Performed By: #### E 2, LH, TESTO, T4, FSH, INSLN #### [place] [address] #### CBC, ADIFF, ANEU, TSH, FT3, GLU #### [address] [address] Lymphocytes/100 WBC (Bld) 27.5 % Normal 10.0-50.0 [facility] ([place] Comment on above: Performed By: #### E 2, LH, TESTO, T4, FSH, INSLN #### [place] [address] #### CBC, ADIFF, ANEU, TSH, FT3, GLU #### [address] [address] Monocyte, Absolute 0.7 10 3/mcL Normal 0.2-1.0 [facility] ([place]) Comment on above: Performed By: #### E 2, LH, TESTO, T4, FSH, INSLN #### [place] [address] #### CBC, ADIFF, ANEU, TSH, FT3, GLU #### [address] [address] Monocytes/100 WBC (Bld) 5.7 % Normal 1.7-13.0 [facility] ([place]) Comment on above: Performed By: #### E 2, LH, TESTO, T4, FSH, INSLN #### [place] [address] #### CBC, ADIFF, ANEU, TSH, FT3, GLU #### [address] [address] Neutrophils/100 WBC (Bld) 65.3 % Normal 37.0-80.0 [facility] ([place] Comment on above: Performed By: #### E 2, LH, TESTO, T4, FSH, INSLN #### [place] [address] #### CBC, ADIFF, ANEU, TSH, FT3, GLU #### [address] [address] .NEUABSon 02-20-2023 Neutrophil, Absolute 7.5 10 3/mcL High 2.9-6.2 [facility] ([place]) Comment on above: Performed By: #### E 2, LH, TESTO, T4, FSH, INSLN #### [place] [address] #### CBC, ADIFF, ANEU, TSH, FT3, GLU #### [address] [address] CBCon 02-20-2023 Erythrocyte distribution width (RBC) [Ratio] 13.9 % Normal 11.5-14.5 [facility] ([place] Comment on above: Performed By: #### E 2, LH, TESTO, T4, FSH, INSLN #### [place] [address] #### CBC, ADIFF, ANEU, TSH, FT3, GLU #### [place] [id number] Hematocrit (Bld) [Volume fraction] 36.8 % Low 37.0-47.0 [facility] ([place] Comment on above: Performed By: #### E 2, LH, TESTO, T4, FSH, INSLN #### [place] [address] #### CBC, ADIFF, ANEU, TSH, FT3, GLU #### [place] [address] Hgb 12.7 G/dL Normal 12.0-16.0 [facility] ([place] Comment on above: Performed By: #### E 2, LH, TESTO, T4, FSH, INSLN #### [place] [address] #### CBC, ADIFF, ANEU, TSH, FT3, GLU #### [address] [address] MCH (RBC) [Entitic mass] 34.2 pg High 27.0-31.2 [facility] ([place] Comment on above: Performed By: #### E 2, LH, TESTO, T4, FSH, INSLN #### [place] [address] #### CBC, ADIFF, ANEU, TSH, FT3, GLU #### [place] [address] MCHC 34.5 G/dL Normal 33.0-37.0 [facility] ([place] Comment on above: Performed By: #### E 2, LH, TESTO, T4, FSH, INSLN #### [place] [address] #### CBC, ADIFF, ANEU, TSH, FT3, GLU #### [address] [address] MCV (RBC) [Entitic vol] 99.1 fL High 80.0-94.0 [facility] ([place]) Comment on above: Performed By: #### E 2, LH, TESTO, T4, FSH, INSLN #### [place] [address] #### CBC, ADIFF, ANEU, TSH, FT3, GLU #### [address] [address] Platelet 276 10 3/mcL Normal 130-400 Count includes the [facility] ([place]) Comment on above: Performed By: #### E 2, LH, TESTO, T4, FSH, INSLN #### [place] [address] #### CBC, ADIFF, ANEU, TSH, FT3, GLU #### [address] [address] Platelet mean volume (Bld) [Entitic vol] 8.5 fL Normal 7.4-10.4 Count includes the [facility] ([place]) Comment on above: Performed By: #### E 2, LH, TESTO, T4, FSH, INSLN #### [place] [address] #### CBC, ADIFF, ANEU, TSH, FT3, GLU #### [address] [address] RBC 3.71 10 6/mcL Low 4.20-5.40 [facility] ([place]) Comment on above: Performed By: #### E 2, LH, TESTO, T4, FSH, INSLN #### [place] [address] #### CBC, ADIFF, ANEU, TSH, FT3, GLU #### [address] [address] WBC 11.5 10 3/mcL High 4.6-10.8 [facility] ([place]) Comment on above: Performed By: #### E 2, LH, TESTO, T4, FSH, INSLN #### [address] [address] #### CBC, ADIFF, ANEU, TSH, FT3, GLU #### [address] [address] E2on 02-20-2023 Estradiol Level 38.25 pg/mL Normal [facility] ([place]) Comment on above: Result Comment: No te - New Reference Range in effect 20 Adult Female E2 Reference Ranges: Follicular phase 19.5 - 144.2 pg/mL Midcycle 63.9 - 356.7 pg/mL Luteal phase 55.8 - 214.2 pg/mL Post menopausal 0 - 33.2 pg/mL Performed By: #### E 2, LH, TESTO, T4, FSH, INSLN #### [place] [address] #### CBC, ADIFF, ANEU, TSH, FT3, GLU #### [address] [address] FSHon 02-20-2023 FSH 5.5 mIU/mL Normal [facility] ([place]) Comment on above: Result Comment: Adul t Female FSH Reference Ranges (07/21/99): Follicular phase 2.5 - 10.2 mIU/mL Midcycle phase 3.4 - 33.4 mIU/mL Luteal phase 1.5 - 9.1 mIU/mL Post menopausal 23.0 -116.3 mIU/mL Adult Male: 1.4 - 18.1 mIU/mL Performed By: #### E 2, LH, TESTO, T4, FSH, INSLN #### [address] [address] #### CBC, ADIFF, ANEU, TSH, FT3, GLU #### [address] [address] FT3on 02-20-2023 Free T3 [Mass/Vol] 2.46 pg/mL Normal 2.30-4.00 [facility] ([place]) Comment on above: Performed By: #### E 2, LH, TESTO, T4, FSH, INSLN #### [address] [address] #### CBC, ADIFF, ANEU, TSH, FT3, GLU #### [address] [address] GLUon 02-20-2023 Glucose [Mass/Vol] 86 mg/dL Normal 70-105 [facility] ([place]) Comment on above: Performed By: #### E 2, LH, TESTO, T4, FSH, INSLN #### [address] [address] #### CBC, ADIFF, ANEU, TSH, FT3, GLU #### [address] [address] INSLNon 02-20-2023 Insulin 12.52 munit/L Normal 2.60-37.60 [facility] ([place]) Comment on above: Performed By: #### E 2, LH, TESTO, T4, FSH, INSLN #### [place] [address] #### CBC, ADIFF, ANEU, TSH, FT3, GLU #### [address] [address] LABORATORYOrdered By: Jose R De Souza on 02-20-2023 Basophil, Absolute 0.1 103/mcL Invalid Interpretation Code 0.0 - 0.2 10^3/mcL AO Workflow SS Basophils/100 WBC (Bld) 0.6 % Invalid Interpretation Code 0.0 - 2.5 % AO Workflow SS Eosinophil, Absolute 0.1 103/mcL Invalid Interpretation Code 0.0 - 0.4 10^3/mcL AO Workflow SS Eosinophils/100 WBC (Bld) 0.9 % Invalid Interpretation Code 0.0 - 7.0 % AO Workflow SS Erythrocyte distribution width (RBC) [Ratio] 13.9 % Invalid Interpretation Code 11.5 - 14.5 % AO Workflow SS Hematocrit (Bld) [Volume fraction] 36.8 % Invalid Interpretation Code 37.0 - 47.0 % AO Workflow SS Hemoglobin (Bld) [Mass/Vol] 12.7 G/dL Invalid Interpretation Code 12.0 - 16.0 G/dL AO Workflow SS Lymphocyte, Absolute 3.2 103/mcL Invalid Interpretation Code 0.8 - 3.9 10^3/mcL AO Workflow SS Lymphocytes/100 WBC (Bld) 27.5 % Invalid Interpretation Code 10.0 - 50.0 % AO Workflow SS MCH (RBC) [Entitic mass] 34.2 pg Invalid Interpretation Code 27.0 - 31.2 pg AO Workflow SS MCHC 34.5 G/dL Invalid Interpretation Code 33.0 - 37.0 G/dL AO Workflow SS MCV (RBC) [Entitic vol] 99.1 fL Invalid Interpretation Code 80.0 - 94.0 fL AO Workflow SS Monocyte, Absolute 0.7 103/mcL Invalid Interpretation Code 0.2 - 1.0 10^3/mcL AO Workflow SS Monocytes/100 WBC (Bld) 5.7 % Invalid Interpretation Code 1.7 - 13.0 % AO Workflow SS Neutrophil, Absolute 7.5 103/mcL Invalid Interpretation Code 2.9 - 6.2 10^3/mcL AO Workflow SS Neutrophils/100 WBC (Bld) 65.3 % Invalid Interpretation Code 37.0 - 80.0 % AO Workflow SS Platelet mean volume (Bld) [Entitic vol] 8.5 fL Invalid Interpretation Code 7.4 - 10.4 fL AO Workflow SS Platelets (Bld) [#/Vol] 276 103/mcL Invalid Interpretation Code 130 - 400 10^3/mcL AO Workflow SS RBC (Bld) [#/Vol] 3.71 106/mcL Invalid Interpretation Code 4.20 - 5.40 10^6/mcL AO Workflow SS WBC (Bld) [#/Vol] 11.5 103/mcL Invalid Interpretation Code 4.6 - 10.8 10^3/mcL AO Workflow SS LABORATORYOrdered By: SYSTEM SYSTEM on 02-20-2023 E2 [Mass/Vol] 38.25 pg/mL Invalid Interpretation Code ADM SS Follitropin Qn 5.5 m[IU]/mL Invalid Interpretation Code ADM SS Free T3 [Mass/Vol] 2.46 pg/mL Invalid Interpretation Code 2.30 - 4.00 pg/mL AO ADM SS Glucose [Mass/Vol] 86 mg/dL Invalid Interpretation Code 70 - 105 mg/dL AO ADM SS Insulin Qn 12.52 munit/L Invalid Interpretation Code 2.60 - 37.60 mU/L AH ADM SS Lutropin Qn 4.2 m[IU]/mL Invalid Interpretation Code AH ADM SS T4 [Mass/Vol] 7.2 ug/dL Invalid Interpretation Code 4.5 - 10.9 mcg/dL AH ADM SS Testosterone [Mass/Vol] 15.59 ng/dL Invalid Interpretation Code AH ADM SS TSH Qn 1.72 m[IU]/L Invalid Interpretation Code 0.36 - 3.74 mcIU/mL AO ADM SS LHon 02-20-2023 LH 4.2 mIU/mL Normal [facility] ([place]) Comment on above: Result Comment: No te - New Reference Range in effect 20Adult Female LH Reference Ranges: Follicular phase 1.9 - 12.5 mIU/mL Midcycle phase 8.7 - 76.3 mIU/mL Luteal phase 0.5 - 16.9 mIU/mL Post menopausal 5.0 - 55.2 mIU/mL Performed By: #### E 2, LH, TESTO, T4, FSH, INSLN #### [place] [address] #### CBC, ADIFF, ANEU, TSH, FT3, GLU #### [address] [address] T4on 02-20-2023 T4 [Mass/Vol] 7.2 ug/dL Normal 4.5-10.9 [facility] ([place]) Comment on above: Result Comment: No te - New Reference Range in effect 20 Performed By: #### E 2, LH, TESTO, T4, FSH, INSLN #### [place] [address] #### CBC, ADIFF, ANEU, TSH, FT3, GLU #### [address] [address] TESTOon 02-20-2023 Testosterone Lvl 15.59 ng/dL Normal [facility] ([place]) Comment on above: Result Comment: Norm al Reference Ranges for Females: Female Premenopause Age 21-60 9.01-47.94 ng/dL Female Postmenopause Age 45-89 <7.00-45.62 ng/dL Performed By: #### E 2, LH, TESTO, T4, FSH, INSLN #### [address] [address] #### CBC, ADIFF, ANEU, TSH, FT3, GLU #### [address] [address] TSHon 02-20-2023 TSH Qn 1.72 m[IU]/L Normal 0.36-3.74 Count includes the [facility] ([place]) Comment on above: Performed By: #### E 2, LH, TESTO, T4, FSH, INSLN #### [address] [address] #### CBC, ADIFF, ANEU, TSH, FT3, GLU #### [address] [address] [employer] Cytology Reporton 2022 [employer] Cytology Report . Pathology Reports Accession: Collected Date/Time: Received Date/Time: Pathologist: [id number] 01/31/2023 11:22 EDT 01/31/2023 18:00 EDT [employer] Cytology Report SPECIMEN: Specimen Description: Liquid Prep w/ HPV Specimen: Cervical/Endocervic al Screening or Diagnostic: Screening RELEVANT HISTORY: LMP: 01/13/2023 SPECIMEN ADEQUACY: SATISFACTORY FOR EVALUATION Endocervical/Transf ormational zone component present INTERPRETATION/RESU LTS: NEGATIVE FOR INTRAEPITHELIAL LESION OR MALIGNANCY HIGH RISK HPV TESTING: Event Code Result HPV Interp See Interp HPVN HPV Interp Text: High Risk HPV Typing: NEGATIVE HPV types 16, 18, 31, 33, 35, 39, 45, 51, 52, 56, 58, 59, 66 and 68 DNA were undetectable or below the pre-set threshold. The rio High-Risk HPV DNA Test is not intended for use as a screening device for Pap normal women under age 30 and is not intended to substitute for regular Pap screening. The rio High-Risk HPV DNA Test is designed to augment existing methods for the detection of cervical disease and should be used in conjunction with clinical information derived from other diagnostic and screening tests, physical examinations and full medical history in accordance with appropriate patient management procedures. NOTE: A negative result does not preclude the presence of HPV infection because results depend on adequate specimen collection, absence of inhibitors and sufficient DNA to be detected. As of: 02/08/23 15:55 EDT COMMENT: This Pap Test was successfully processed and evaluated with the assistance of the [employer] ThinPrep Test Imaging System. Pathology Reports Accession: Collected Date/Time: Received Date/Time: Pathologist: [id number] 01/31/2023 11:22 EDT 01/31/2023 18:00 EDT Electronically Signed by Pathology report verified by [facility] Screened by: DW Electronically signed by Shellie Hoyt Sign-Out Date: 02/08/2023 15:55 Performing Lab: [facility], [address] [place] [address] Pathology Dept Disclaimer The Pap test is a screening test for cervical cancer. As evidenced by published data, it is subject to both inherent false negative and false positive results. Your patient's results should be interpreted in context with pertinent clinical history including gynecological examination. Normal [facility] ([place]) HPVon 02-08-2023 HPV Interp Normal See [facility] HPVN [facility] ([place]) Comment on above: Order Comment: Order placed by AP_HPV_ORDER rule from [id number] Result Comment: High Risk HPV Typing: NEGATIVE HPV types 16, 18, 31, 33, 35, 39, 45, 51, 52, 56, 58, 59, 66 and 68 DNA were undetectable or below the pre-set threshold. The rio High-Risk HPV DNA Test is not intended for use as a screening device for Pap normal women under age 30 and is not intended to substitute for regular Pap screening. The rio High-Risk HPV DNA Test is designed to augment existing methods for the detection of cervical disease and should be used in conjunction with clinical information derived from other diagnostic and screening tests, physical examinations and full medical history in accordance with appropriate patient management procedures. NOTE: A negative result does not preclude the presence of HPV infection because results depend on adequate specimen collection, absence of inhibitors and sufficient DNA to be detected. See Interp HPVN Performed By: #### H PV #### [facility] [address] [place] [address] HPV Source Cervix Normal [facility] ([place]) Comment on above: Order Comment: Order placed by AP_HPV_ORDER rule from [id number] Performed By: #### H PV #### [facility] [address] [place] [address] Vital Signs Date Time Vital Sign Value Performing Clinician Facility 05-01-2025 09:52-0400 Body mass index (BMI) [Ratio] 22.8 kg/m2 Natasha Carlos MD Work Phone: [facility] 05-01-2025 09:52-0400 Body weight 62.14 kg Natasha Carlos MD Work Phone: [facility] 05-01-2025 09:52-0400 Diastolic blood pressure 78 mm[Hg] Natasha Carlos MD Work Phone: [facility] 05-01-2025 09:52-0400 Heart rate 82 /min Natasha Carlos MD Work Phone: [facility] 05-01-2025 09:52-0400 SaO2% (BldA) [Mass fraction] 95 % Natasha Carlos MD Work Phone: [facility] 05-01-2025 09:52-0400 Systolic blood pressure 116 mm[Hg] Natasha Carlos MD Work Phone: [facility] 01-29-2025 10:08-0400 Body mass index (BMI) [Ratio] 23.71 kg/m2 Meghna Thomason APRN.GEOCHEMICAL MANAGER Work Phone: [facility] 01-29-2025 10:08-0400 Body weight 64.64 kg Meghna Thomason ASSISTANT THERAPY AIDE.GEOCHEMICAL MANAGER Work Phone: [facility] 01-29-2025 10:08-0400 Diastolic blood pressure 62 mm[Hg] Meghna Thomason APRN.GEOCHEMICAL MANAGER Work Phone: [facility] 01-29-2025 10:08-0400 Heart rate 84 /min Meghna Katelin ASSISTANT THERAPY AIDE.GEOCHEMICAL MANAGER Work Phone: [facility] 01-29-2025 10:08-0400 Respiratory rate 12 /min Meghna Katelin ASSISTANT THERAPY AIDE.GEOCHEMICAL MANAGER Work Phone: [facility] 01-29-2025 10:08-0400 SaO2% (BldA) [Mass fraction] 98 % Meghna Katelin ASSISTANT THERAPY AIDE.GEOCHEMICAL MANAGER Work Phone: [facility] 01-29-2025 10:08-0400 Systolic blood pressure 100 mm[Hg] Meghna Katelin ASSISTANT THERAPY AIDE.GEOCHEMICAL MANAGER Work Phone: [facility] 10-29-2024 09:45-0500 Body mass index (BMI) [Ratio] 23.63 kg/m2 Natasha Carlos MD Work Phone: [facility] 10-29-2024 09:45-0500 Body weight 64.41 kg Natasha Carlos MD Work Phone: [facility] 10-29-2024 09:45-0500 Diastolic blood pressure 86 mm[Hg] Natasha Carlos MD Work Phone: [facility] 10-29-2024 09:45-0500 Heart rate 95 /min Natasha Carlos MD Work Phone: [facility] 10-29-2024 09:45-0500 SaO2% (BldA) [Mass fraction] 97 % Natasha Carlos MD Work Phone: [facility] 10-29-2024 09:45-0500 Systolic blood pressure 136 mm[Hg] Natasha Carlos MD Work Phone: [facility] 10-02-2024 13:04-0500 Body mass index (BMI) [Ratio] 23.8 kg/m2 Nichol Montalvo ASSISTANT THERAPY AIDE.GEOCHEMICAL MANAGER Work Phone: [facility] 10-02-2024 13:04-0500 Body weight 64.86 kg Nichol Montalvo ASSISTANT THERAPY AIDE.GEOCHEMICAL MANAGER Work Phone: [facility] 10-02-2024 13:04-0500 Diastolic blood pressure 62 mm[Hg] Nichol Montalvo ASSISTANT THERAPY AIDE.GEOCHEMICAL MANAGER Work Phone: [facility] 10-02-2024 13:04-0500 Heart rate 90 /min Nichol Montalvo ASSISTANT THERAPY AIDE.GEOCHEMICAL MANAGER Work Phone: [facility] 10-02-2024 13:04-0500 Respiratory rate 12 /min Nichol Montalvo ASSISTANT THERAPY AIDE.GEOCHEMICAL MANAGER Work Phone: [facility] 10-02-2024 13:04-0500 SaO2% (BldA) [Mass fraction] 98 % Nichol Montalvo ASSISTANT THERAPY AIDE.GEOCHEMICAL MANAGER Work Phone: [facility] 10-02-2024 13:04-0500 Systolic blood pressure 112 mm[Hg] Nichol Montalvo ASSISTANT THERAPY AIDE.GEOCHEMICAL MANAGER Work Phone: [facility] 09-29-2024 13:40-0500 Body temperature 97.9 [degF] Dr. Ezequiel Zazueta DO Work Phone: [facility] 09-29-2024 13:40-0500 Diastolic blood pressure 84 mm[Hg] Dr. Ezequiel Zazueta DO Work Phone: [phone] [place] [address] 09-29-2024 13:40-0500 Heart rate 90 /min Dr. Ezequiel Zazueta DO Work Phone: [facility] 09-29-2024 13:40-0500 Respiratory rate 15 /min Dr. Ezequiel Zazueta DO Work Phone: [phone] [place] [address] 09-29-2024 13:40-0500 SaO2% (BldA) [Mass fraction] 100 % Dr. Ezequiel Zazueta DO Work Phone: [facility] 09-29-2024 13:40-0500 Systolic blood pressure 106 mm[Hg] Dr. Ezequiel Zazueta DO Work Phone: [phone] [place] [address] 09-29-2024 10:15-0500 Body height 167.[address] Ezequiel Zazueta DO Work Phone: [facility] 09-29-2024 10:15-0500 Body mass index (BMI) [Ratio] 23.1 kg/m2 Dr. Ezequiel Zazueta DO Work Phone: [facility] 09-29-2024 10:15-0500 Body weight 64.[address] Ezequiel Zazueta DO Work Phone: [facility] 07-05-2024 08:57-0500 Body mass index (BMI) [Ratio] 24.79 kg/m2 Natasha Carlos MD Work Phone: [facility] 07-05-2024 08:57-0500 Body temperature 98.49 [degF] Natasha Carlos MD Work Phone: [facility] 07-05-2024 08:57-0500 Body weight 67.59 kg Natasha Carlos MD Work Phone: [facility] 07-05-2024 08:57-0500 Diastolic blood pressure 72 mm[Hg] Natasha Carlos MD Work Phone: [facility] 07-05-2024 08:57-0500 Heart rate 89 /min Natasha Carlos MD Work Phone: [facility] 07-05-2024 08:57-0500 SaO2% (BldA) [Mass fraction] 93 % Natasha Carlos MD Work Phone: [facility] 07-05-2024 08:57-0500 Systolic blood pressure 114 mm[Hg] Natasha Carlos MD Work Phone: [facility] 04-25-2024 07:03-0400 Body temperature 96.91 [degF] Conor Chapman APRN.CNP Work Phone: [facility] 04-25-2024 07:03-0400 Diastolic blood pressure 84 mm[Hg] Conor Adela ASSISTANT THERAPY AIDE.GEOCHEMICAL MANAGER Work Phone: [facility] 04-25-2024 07:03-0400 Heart rate 78 /min Conor Adela ASSISTANT THERAPY AIDE.GEOCHEMICAL MANAGER Work Phone: [facility] 04-25-2024 07:03-0400 Respiratory rate 16 /min Conor Adela ASSISTANT THERAPY AIDE.GEOCHEMICAL MANAGER Work Phone: [facility] 04-25-2024 07:03-0400 SaO2% (BldA) [Mass fraction] 100 % Conor Adela ASSISTANT THERAPY AIDE.GEOCHEMICAL MANAGER Work Phone: [facility] 04-25-2024 07:03-0400 Systolic blood pressure 120 mm[Hg] Conor Adela ASSISTANT THERAPY AIDE.GEOCHEMICAL MANAGER Work Phone: [facility] 04-23-2024 18:34-0400 Body mass index (BMI) [Ratio] 26.82 kg/m2 Saeed Pendlebury ASSISTANT THERAPY AIDE.GEOCHEMICAL MANAGER Work Phone: [facility] 04-23-2024 18:34-0400 Body temperature 97 [degF] Saeed Pendlebury ASSISTANT THERAPY AIDE.GEOCHEMICAL MANAGER Work Phone: [facility] 04-23-2024 18:34-0400 Body weight 73.1 kg [facility] ASSISTANT THERAPY AIDE.GEOCHEMICAL MANAGER Work Phone: [facility] 04-23-2024 18:34-0400 Diastolic blood pressure 80 mm[Hg] Saeed Pendlebury ASSISTANT THERAPY AIDE.GEOCHEMICAL MANAGER Work Phone: [facility] 04-23-2024 18:34-0400 Heart rate 80 /min Saeed Pendlebury ASSISTANT THERAPY AIDE.GEOCHEMICAL MANAGER Work Phone: [facility] 04-23-2024 18:34-0400 Respiratory rate 16 /min Saeed Pendlebury ASSISTANT THERAPY AIDE.GEOCHEMICAL MANAGER Work Phone: [facility] 04-23-2024 18:34-0400 SaO2% (BldA) [Mass fraction] 100 % Saeed Pendlebury ASSISTANT THERAPY AIDE.GEOCHEMICAL MANAGER Work Phone: [facility] 04-23-2024 18:34-0400 Systolic blood pressure 128 mm[Hg] Saeed Patricio ASSISTANT THERAPY AIDE.GEOCHEMICAL MANAGER Work Phone: [facility] 04-03-2024 09:38-0400 Diastolic blood pressure 88 mm[Hg] Cnoor Maeman ASSISTANT THERAPY AIDE.GEOCHEMICAL MANAGER Work Phone: [facility] Comment on above: recheck bp 04-03-2024 09:38-0400 Systolic blood pressure 132 mm[Hg] Conor Adela ASSISTANT THERAPY AIDE.GEOCHEMICAL MANAGER Work Phone: [facility] Comment on above: recheck bp 04-03-2024 09:01-0400 Body mass index (BMI) [Ratio] 26.79 kg/m2 Conor Chapman ASSISTANT THERAPY AIDE.GEOCHEMICAL MANAGER Work Phone: [facility] 04-03-2024 09:01-0400 Body temperature 98.2 [degF] Conor Chapman ASSISTANT THERAPY AIDE.GEOCHEMICAL MANAGER Work Phone: [facility] 04-03-2024 09:01-0400 Body weight 73.03 kg Conor Maeman ASSISTANT THERAPY AIDE.GEOCHEMICAL MANAGER Work Phone: [facility] 04-03-2024 09:01-0400 Heart rate 101 /min Conor Chapman ASSISTANT THERAPY AIDE.GEOCHEMICAL MANAGER Work Phone: [facility] 04-03-2024 09:01-0400 Respiratory rate 16 /min Conor Chapman ASSISTANT THERAPY AIDE.GEOCHEMICAL MANAGER Work Phone: [facility] 04-03-2024 09:01-0400 SaO2% (BldA) [Mass fraction] 100 % Conor Adela ASSISTANT THERAPY AIDE.GEOCHEMICAL MANAGER Work Phone: [facility] 04-02-2024 08:05-0400 Body mass index (BMI) [Ratio] 26.89 kg/m2 Natasha Carlos MD Work Phone: [facility] 04-02-2024 08:05-0400 Body weight 73.3 kg Natashamartin Carlos MD Work Phone: [facility] 04-02-2024 08:05-0400 Diastolic blood pressure 74 mm[Hg] Natasha Carlos MD Work Phone: [facility] 04-02-2024 08:05-0400 Heart rate 80 /min Natashamartin Carlos MD Work Phone: [facility] 04-02-2024 08:05-0400 Respiratory rate 16 /min Natashaartur Carlos MD Work Phone: [facility] 04-02-2024 08:05-0400 Systolic blood pressure 120 mm[Hg] Natashaartur Carlos MD Work Phone: [facility] 02-12-2024 11:32-0400 Body mass index (BMI) [Ratio] 27.96 kg/m2 Natashamartin Carlos MD Work Phone: [facility] 02-12-2024 11:32-0400 Body weight 76.2 kg Natashamartin Carlos MD Work Phone: [facility] 02-12-2024 11:32-0400 Diastolic blood pressure 80 mm[Hg] Natashamartin Carlos MD Work Phone: [facility] 02-12-2024 11:32-0400 Heart rate 88 /min Natashaartur Carlos MD Work Phone: [facility] 02-12-2024 11:32-0400 SaO2% (BldA) [Mass fraction] 100 % Natashaartur Carlos MD Work Phone: [facility] 02-12-2024 11:32-0400 Systolic blood pressure 122 mm[Hg] Natasha Carlos MD Work Phone: [facility] 01-15-2024 09:03-0400 Body mass index (BMI) [Ratio] 28.12 kg/m2 Natasha Neyhart Carlos MD Work Phone: [facility] 01-15-2024 09:03-0400 Body weight 76.66 kg Natasha Carlos MD Work Phone: [facility] 01-15-2024 09:03-0400 Diastolic blood pressure 82 mm[Hg] aNtasha Carlos MD Work Phone: [facility] 01-15-2024 09:03-0400 Systolic blood pressure 130 mm[Hg] Natasha Carlos MD Work Phone: [facility] 01-08-2024 10:38-0400 Body mass index (BMI) [Ratio] 28.12 kg/m2 Natasha Carlos MD Work Phone: [facility] 01-08-2024 10:38-0400 Body temperature 98.49 [degF] Natasha Carols MD Work Phone: [facility] 01-08-2024 10:38-0400 Body weight 76.66 kg Natasha Carlos MD Work Phone: [facility] 01-08-2024 10:38-0400 Diastolic blood pressure 64 mm[Hg] Natasha Carlos MD Work Phone: [facility] 01-08-2024 10:38-0400 Systolic blood pressure 108 mm[Hg] Natasha Carlos MD Work Phone: [facility] 01-01-2024 10:12-0400 Body mass index (BMI) [Ratio] 28.29 kg/m2 Natasha Carlos MD Work Phone: [facility] 01-01-2024 10:12-0400 Body weight 77.11 kg Natasha Carlos MD Work Phone: [facility] 01-01-2024 10:12-0400 Diastolic blood pressure 80 mm[Hg] Natasha Carlos MD Work Phone: [facility] 01-01-2024 10:12-0400 Heart rate 73 /min Natasha Carlos MD Work Phone: [facility] 01-01-2024 10:12-0400 SaO2% (BldA) [Mass fraction] 100 % Natasha Carlos MD Work Phone: [facility] 01-01-2024 10:12-0400 Systolic blood pressure 134 mm[Hg] Natasha Carlos MD Work Phone: [facility] 12-22-2023 07:54-0400 Diastolic blood pressure 76 mm[Hg] Natasha Carlos MD Work Phone: [facility] 12-22-2023 07:54-0400 Systolic blood pressure 128 mm[Hg] Natasha Carlos MD Work Phone: [facility] 12-07-2023 14:35-0400 Body temperature 99 [degF] Dr. Ezequiel Zazueta Work Phone: [phone] [place] [address] 12-07-2023 14:35-0400 Diastolic blood pressure 72 mm[Hg] Dr. Ezequiel Zazueta Work Phone: [phone] [place] [address] 12-07-2023 14:35-0400 Heart rate 92 /min Dr. Ezequiel Zazueta Work Phone: [facility] 12-07-2023 14:35-0400 Respiratory rate 16 /min Dr. Ezequiel Zazueta Work Phone: [facility] 12-07-2023 14:35-0400 SaO2% (BldA) [Mass fraction] 96 % Dr. Ezequiel Zazueta Work Phone: [facility] 12-07-2023 14:35-0400 Systolic blood pressure 102 mm[Hg] Dr. Ezequiel Zazueta Work Phone: [facility] 12-07-2023 14:15-0400 Inhaled oxygen flow rate 2 L/min Dr. Ezequiel Zazueta Work Phone: [facility] 12-07-2023 08:11-0400 Body height 167.[address] Ezequiel Zazueta Work Phone: [facility] 12-07-2023 08:11-0400 Body mass index (BMI) [Ratio] 27.3 kg/m2 Dr. Ezequiel Zazueta Work Phone: [facility] 12-07-2023 08:11-0400 Body weight 76.[address] Ezequiel Zazueta Work Phone: [facility] 12-06-2023 09:16-0400 Body temperature 97.7 [degF] Ezequiel Zazueta DO Work Phone: [facility] 12-06-2023 09:16-0400 Diastolic blood pressure 80 mm[Hg] Ezequiel Martinirison DO Work Phone: [facility] 12-06-2023 09:16-0400 Heart rate 88 /min Ezequiel Zazueta DO Work Phone: [facility] 12-06-2023 09:16-0400 Respiratory rate 12 /min Ezequiel Zazueta DO Work Phone: [facility] 12-06-2023 09:16-0400 Systolic blood pressure 110 mm[Hg] Ezequiel Zazueta DO Work Phone: [facility] 11-29-2023 15:31-0400 Body height 165.1 cm Natasha Carlos MD Work Phone: [facility] 11-29-2023 15:31-0400 Body weight 76.2 kg Natasha Carlos MD Work Phone: [facility] 11-29-2023 15:31-0400 Diastolic blood pressure 60 mm[Hg] Natasha Carlos MD Work Phone: [facility] 11-29-2023 15:31-0400 Systolic blood pressure 134 mm[Hg] Natasha Carlos MD Work Phone: [facility] 11-07-2023 12:24-0400 Body temperature 97.81 [degF] Avril Praisler-Wood ASSISTANT THERAPY AIDE.GEOCHEMICAL MANAGER Work Phone: [facility] 11-07-2023 12:24-0400 Diastolic blood pressure 89 mm[Hg] Avril Praisler-Wood ASSISTANT THERAPY AIDE.GEOCHEMICAL MANAGER Work Phone: [facility] 11-07-2023 12:24-0400 Heart rate 88 /min Avril Praisler-Wood ASSISTANT THERAPY AIDE.GEOCHEMICAL MANAGER Work Phone: [facility] 11-07-2023 12:24-0400 Respiratory rate 20 /min Avril Praisler-Wood ASSISTANT THERAPY AIDE.GEOCHEMICAL MANAGER Work Phone: [facility] 11-07-2023 12:24-0400 SaO2% (BldA) [Mass fraction] 99 % Avril Praisler-Wood ASSISTANT THERAPY AIDE.GEOCHEMICAL MANAGER Work Phone: [facility] 11-07-2023 12:24-0400 Systolic blood pressure 133 mm[Hg] Avril Praisler-Wood ASSISTANT THERAPY AIDE.GEOCHEMICAL MANAGER Work Phone: [facility] 10-30-2023 08:33-0500 Body weight 70.31 kg Natasha Carlos MD Work Phone: [facility] 10-30-2023 08:33-0500 Diastolic blood pressure 84 mm[Hg] Natasha Carlos MD Work Phone: [facility] 10-30-2023 08:33-0500 Systolic blood pressure 132 mm[Hg] Natasha Carlos MD Work Phone: [facility] 04-03-2023 07:11-0400 Body height 167 cm Nichol Montalvo ASSISTANT THERAPY AIDE.GEOCHEMICAL MANAGER Work Phone: [facility] 04-03-2023 07:11-0400 Diastolic blood pressure 64 mm[Hg] Nichol Montalvo ASSISTANT THERAPY AIDE.GEOCHEMICAL MANAGER Work Phone: [facility] 04-03-2023 07:11-0400 Heart rate 64 /min Nichol Selvin DIAS.GEOCHEMICAL MANAGER Work Phone: [facility] 04-03-2023 07:11-0400 Respiratory rate 16 /min Nichol Montalvo APRN.GEOCHEMICAL MANAGER Work Phone: [facility] 04-03-2023 07:11-0400 Systolic blood pressure 112 mm[Hg] Nichol Selvin DIAS.GEOCHEMICAL MANAGER Work Phone: [facility] Encounters Encounter Date Encounter Type Care Provider Facility Start: 05-01-2025 Encounter for genera l adult medical examination without abnormal findings NICHOL MONTALVO [facility] Start: 05-01-2025 End: 05-01-2025 ambulatory [facility] Facility:[facility] Start: 05-01-2025 End: 05-01-2025 Patient encounter procedure Natasha Carlos MD Work Phone: OB/Gynecology Comment on above: Hypercholesteremia ( Primary Dx); Malaise and fatigue; Anxiety neurosis; Hypertension, unspecified type; Elevated liver enzymes; Dysuria; Urinary frequency; Overweight (BMI 25.0-29.9) Start: 02-21-2025 End: 02-21-2025 ambulatory Ryder Newton MD Work Phone: Neurology Comment on above: Radial neuropathy, r ight (Primary Dx) Start: 02-21-2025 End: 02-21-2025 Telemedicine consultation with patient Ryder Newton MD Work Phone: Neurology Start: 01-29-2025 End: 01-30-2025 E-mail encounter from caregiver Meghna Bruce Katelin DIAS.GEOCHEMICAL MANAGER Work Phone: [facility] Start: 01-29-2025 End: 01-29-2025 Patient encounter status Meghna Thomason APRN.GEOCHEMICAL MANAGER Work Phone: [facility] Work Phone: Start: 01-29-2025 End: 01-29-2025 Periodic preventive med est patient 40-64yrs Meghna Barrera Katelin DIAS.GEOCHEMICAL MANAGER Work Phone: [facility] Comment on above: Wellness examination (Primary Dx); Elevated MCV; PREETI (generalized anxiety disorder); Status post alcohol detoxification; Alcohol abuse; Elevated liver enzymes; Hyperlipidemia, mixed; Sleep disturbances; Screening for diabetes mellitus; Elevated vitamin B12 level Start: 01-29-2025 End: 01-30-2025 ambulatory Meghna Thomason LARISSA.GEOCHEMICAL MANAGER Work Phone: [facility] Comment on above: Naltexone Start: 01-23-2025 End: 01-27-2025 Telephone encounter Ezequiel Zazueta DO Work Phone: [facility] Comment on above: Patient Question Start: 12-25-2024 End: 12-25-2024 Refill Nichol Montalvo APRN.GEOCHEMICAL MANAGER Work Phone: [facility] Comment on above: Refill Request Start: 12-13-2024 End: 12-13-2024 Telemedicine consultation with patient Ryder Newton MD Work Phone: Neurology Start: 12-13-2024 End: 12-13-2024 ambulatory Ryder Newton MD Work Phone: Neurology Comment on above: Radial nerve palsy, right (Primary Dx) Start: 12-13-2024 End: 12-16-2024 Telephone encounter Meño Posada MD Work Phone: Orthopaedics Comment on above: Medication Question Start: 12-10-2024 End: 12-10-[address] Ezequiel Zazueta DO Work Phone: [facility] Work Phone: Start: 12-10-2024 End: 12-10-2024 Patient encounter procedure Vineet PRINCE -Laboratory, Specimen Work Phone: Start: 12-09-2024 End: 12-09-2024 Telephone encounter Chich[facility] Comment on above: Appointment Start: 12-09-2024 End: 12-16-2024 ambulatory Meño Posada MD Work Phone: Orthopaedics Comment on above: Cortisone shot optio n? Start: 12-09-2024 End: 12-09-2024 Patient encounter procedure Meño Posada MD Work Phone: Orthopaedics Comment on above: Radial nerve palsy, right (Primary Dx); Abnormal EMG; Pain in right arm; Muscle spasm of right shoulder Start: 11-26-2024 End: 12-27-2024 ambulatory Ezequiel Zazueta DO Work Phone: [facility] Start: 11-25-2024 End: 11-25-2024 ambulatory Real Dean PT Work Phone: [facility] Comment on above: Radial neuropathy, r ight (Primary Dx) Start: 11-15-2024 End: 11-15-2024 ambulatory Real Dean PT Work Phone: [facility] Comment on above: Radial neuropathy, r ight (Primary Dx) Start: 11-08-2024 End: 11-08-2024 ambulatory Real Dean PT Work Phone: [facility] Comment on above: Radial neuropathy, r ight Start: 11-07-2024 End: 11-07-2024 ambulatory Ryder Newton MD Work Phone: Neurology Comment on above: Pain of right upper extremity (Primary Dx); Radial nerve palsy Start: 11-07-2024 End: 11-07-2024 Telemedicine consultation with patient Ryder Newton MD Work Phone: Neurology Start: 10-30-2024 End: 10-31-2024 Follow-up encounter Nichol Montalvo APRN.CNP Work Phone: [facility] [place] Comment on above: Abnormal EMG (Primar y Dx) Start: 10-29-2024 End: 10-29-2024 ambulatory EZEQUIEL ZAZUETA Facility:[facility] Start: 10-29-2024 End: 10-29-2024 Patient encounter procedure Natasha Carlos MD Work Phone: OB/Gynecology Comment on above: Hypercholesteremia ( Primary Dx); Malaise and fatigue; Anxiety neurosis; Hypertension, unspecified type; Elevated liver enzymes; Overweight (BMI 25.0-29.9); Encounter for long-term (current) use of medications Start: 10-28-2024 End: 10-31-2024 E-mail encounter from caregiver Ryder Newtno MD Work Phone: Neurology Start: 10-28-2024 End: 10-31-2024 Follow-up encounter Ryder Newton MD Work Phone: Neurology Comment on above: Follow up Start: 10-28-2024 End: 10-28-2024 Telemedicine consultation with patient Ryder Newton MD Work Phone: Neurology Start: 10-28-2024 End: 10-28-2024 ambulatory Ryder Newton MD Work Phone: Neurology Comment on above: Radial neuropathy, r ight (Primary Dx) Start: 10-28-2024 End: 10-28-2024 Patient encounter procedure Emg 1 Neur Favian Mc (Max Weight: 850) Neurology Start: 10-18-2024 End: 10-22-2024 ambulatory Ezequiel Zazueta DO Work Phone: [facility] Comment on above: Diarrhea Start: 10-17-2024 End: 10-17-[address] Ezequiel Zazueta DO Work Phone: [facility] Work Phone: Start: 10-17-2024 End: 10-17-[address] Ryder Ruth DO -Occupational Therapy Work Phone: Start: 10-02-2024 End: 10-02-2024 Office outpatient visit 25 minutes Nichol Montalvo APRN.GEOCHEMICAL MANAGER Work Phone: [facility] Comment on above: Hand weakness (Prima ry Dx); Panic attacks; Sleep disturbances; Hypokalemia Start: 10-02-2024 End: 10-02-2024 ambulatory NICHOL MONTALVO Facility:[facility] Start: 09-29-2024 End: 09-29-2024 Emergency department patient visit Dr. Vineet Esteves DO -Emergency Department Work Phone: Start: 09-17-2024 End: 09-18-2024 Refill Natasha Carlos MD Work Phone: OB/Gynecology Comment on above: Refill Request Start: 09-12-2024 End: 09-12-2024 ambulatory Conor Chapman LARISSA.GEOCHEMICAL MANAGER Work Phone: [facility] [place] Comment on above: Panic attacks (Prima ry Dx); Sleep disturbances Start: 09-12-2024 End: 09-12-2024 Telemedicine consultation with patient Conor Chapman APRN.GEOCHEMICAL MANAGER Work Phone: [facility] Start: 08-23-2024 End: 08-23-2024 Telephone encounter Ezequiel Zazueta DO Work Phone: [facility] Comment on above: Medication Question (Xanax) Start: 07-05-2024 End: 07-05-2024 ambulatory NATASHA CARLOS Facility:[facility] Start: 07-05-2024 End: 07-05-2024 Patient encounter procedure Natasha Carlos MD Work Phone: OB/Gynecology Comment on above: Hypercholesteremia ( Primary Dx); Malaise and fatigue; Anxiety neurosis; Hypertension, unspecified type; Elevated liver enzymes; Dysuria; Urinary frequency; Overweight (BMI 25.0-29.9) Start: 06-21-2024 End: 06-26-2024 ambulatory Nichol Montalvo APRN.GEOCHEMICAL MANAGER Work Phone: [facility] Comment on above: My test results Start: 06-07-2024 End: 06-07-2024 ambulatory Nichol Montalvo ASSISTANT THERAPY AIDE.GEOCHEMICAL MANAGER Work Phone: [facility] Comment on above: Omeprazole Refill Request Start: 05-20-2024 End: 05-20-2024 ambulatory Nicholjinny Montalvo APRN.GEOCHEMICAL MANAGER Work Phone: [facility] Comment on above: Valcylovar Start: 05-20-2024 End: 05-20-2024 Telephone encounter Ezequiel Zazueta DO Work Phone: [facility] Start: 04-25-2024 End: 04-25-2024 Patient encounter procedure Conor Chapman APRN.GEOCHEMICAL MANAGER Work Phone: [facility] Comment on above: Blister of toe of le ft foot, subsequent encounter (Primary Dx) Start: 04-24-2024 End: 04-25-2024 Telephone encounter Ezequiel Zazueta DO Work Phone: [facility] Comment on above: Question Start: 04-23-2024 End: 04-23-2024 Office outpatient visit 25 minutes Saeed Patricio APRN.GEOCHEMICAL MANAGER Work Phone: [facility] Comment on above: Rash (Primary Dx) Start: 04-06-2024 End: 04-15-2024 Telephone encounter Ezequiel Zazueta DO Work Phone: [facility] Comment on above: Medication Problem Start: 04-03-2024 End: 04-03-2024 Patient encounter procedure Conor Chapman APRN.GEOCHEMICAL MANAGER Work Phone: [facility] Comment on above: Irritant contact anne marie matitis, unspecified trigger (Primary Dx); Sleep disturbances; Panic attacks; Elevated LFTs Start: 04-02-2024 End: 04-02-2024 Patient encounter procedure Natasha Carlos MD Work Phone: OB/Gynecology Comment on above: Hypercholesteremia ( Primary Dx); Malaise and fatigue; Gastroesophageal reflux disease without esophagitis; Anxiety neurosis; Hypertension, unspecified type; Elevated liver enzymes; Overweight (BMI 25.0-29.9) Start: 03-11-2024 Refill Conor tapia APRN.GEOCHEMICAL MANAGER Work Phone: [facility] Comment on above: Refill Request Start: 02-12-2024 End: 02-12-2024 Refill Ezequiel Castilloon DO Work Phone: [facility] Comment on above: Refill Request Hypercholesteremia ( Primary Dx); Malaise and fatigue; Gastroesophageal reflux disease without esophagitis; Anxiety neurosis; Hypertension, unspecified type; Elevated liver enzymes; Overweight (BMI 25.0-29.9) Start: 01-15-2024 End: 01-15-2024 Patient encounter procedure Natasha Carlos MD Work Phone: OB/Gynecology Comment on above: Post-operative state (Primary Dx) Start: 01-08-2024 End: 01-08-2024 Patient encounter procedure Natasha Carlos MD Work Phone: OB/Gynecology Comment on above: Post-operative state (Primary Dx) Start: 01-04-2024 Refill Nicholjinny Montalvo APRN.GEOCHEMICAL MANAGER Work Phone: [facility] Comment on above: Refill Request (Johanne ent called) Start: 01-04-2024 Telephone encounter Ezequiel woodstrisha DO Work Phone: [facility] Comment on above: Results Start: 01-01-2024 End: 01-01-2024 Patient encounter procedure Natasha Carlos MD Work Phone: OB/Gynecology Comment on above: Hypercholesteremia ( Primary Dx); Malaise and fatigue; Gastroesophageal reflux disease without esophagitis; Hypertension, unspecified type; Elevated liver enzymes; Overweight (BMI 25.0-29.9) Start: 12-24-2023 ambulatory Ezequiel Avina Anahi to DO Work Phone: [facility] Comment on above: Blood panel Start: 12-22-2023 End: 12-22-2023 Patient encounter procedure Natasha Carlos MD Work Phone: OB/Gynecology Comment on above: Post-operative state (Primary Dx); Vaginal discharge; Encounter for screening mammogram for malignant neoplasm of breast; Screening for diabetes mellitus; Encounter for vitamin deficiency screening Start: 12-13-2023 Telephone encounter Natasha Carlos MD Work Phone: OB/Gynecology Start: 12-07-2023 End: 12-07-2023 Admission to same day surgery center Dr. Ezequiel Zazueta Work Phone: [facility] Start: 12-07-2023 End: 12-07-[address] Ezequiel Zazueta Work Phone: [facility] Work Phone: Start: 12-06-2023 End: 12-06-2023 Patient encounter procedure Ezequiel Zazueta DO Work Phone: [facility] Comment on above: Elevated liver enzym es (Primary Dx); Borderline abnormal thyroid function test; Hyperlipidemia, mixed; Situational anxiety; Elevated MCV; Fatigue, unspecified type Start: 11-29-2023 End: 11-29-2023 Patient encounter procedure Natasha Carlos MD Work Phone: OB/Gynecology Comment on above: Abnormal uterine ble eding (AUB) (Primary Dx); Adenomyosis; Uterine leiomyoma, unspecified location Start: 11-28-2023 End: 11-28-2023 Non-patient / Non-visit Dr. Ezequiel Zazueta Work Phone: [facility] Work Phone: Start: 11-08-2023 Refill Nichol Montalvo APRN.GEOCHEMICAL MANAGER Work Phone: [facility] Comment on above: Refill Request Start: 11-07-2023 End: 11-07-2023 Patient encounter procedure Avril Victor APRN.GEOCHEMICAL MANAGER Work Phone: [facility] Comment on above: Sore throat (Primary Dx); Flu-like symptoms; Strep throat Start: 11-03-2023 Telephone encounter Natasha Carlos MD Work Phone: OB/Gynecology Comment on above: Procedure (Hysterect olamide) Start: 10-30-2023 End: 10-30-2023 ambulatory Ob Ultrasound Work Phone: OB/Gynecology Comment on above: DUB Start: 10-30-2023 End: 10-30-2023 Patient encounter procedure Natasha Carlos MD Work Phone: OB/Gynecology Comment on above: Abnormal uterine ble eding (AUB) (Primary Dx); Adenomyosis; Uterine leiomyoma, unspecified location Start: 10-25-2023 Telephone encounter Natasha Carlos MD Work Phone: OB/Gynecology Start: 06-08-2023 Telephone encounter Ezequiel Reeves mitzy DO Work Phone: [facility] Comment on above: Rx issue Start: 06-06-2023 Telephone encounter Jaqueline dent OD Work Phone: Ophthalmology Comment on above: refax info Start: 06-02-2023 Refill Ezequiel to DO Work Phone: [facility] Comment on above: Refill Request Start: 05-03-2023 Telephone encounter Nichol to ASSISTANT THERAPY AIDE.GEOCHEMICAL MANAGER Work Phone: [facility] Comment on above: Results Start: 04-19-2023 Telephone encounter Nichol to ASSISTANT THERAPY AIDE.GEOCHEMICAL MANAGER Work Phone: [facility] Comment on above: Results Start: 04-18-2023 End: 04-18-2023 ambulatory [facility] Work Phone: Start: 04-18-2023 End: 04-18-2023 Patient encounter procedure Jaqueline Lam OD Work Phone: Ophthalmology Comment on above: Punctate keratitis, bilateral (Primary Dx); Regular astigmatism of both eyes; Hypermetropia, bilateral; Presbyopia Start: 04-03-2023 End: 04-03-2023 Patient encounter procedure Nichol Montalvo ASSISTANT THERAPY AIDE.GEOCHEMICAL MANAGER Work Phone: [facility] Comment on above: Wellness examination (Primary Dx); Panic attacks; Vertigo; History of CVA (cerebrovascular accident) without residual deficits; Hypertension, essential Start: 04-03-2023 End: 04-03-2023 Patient encounter status Nicholjinny Montalvo ASSISTANT THERAPY AIDE.GEOCHEMICAL MANAGER Work Phone: [facility] Work Phone: Start: 02-20-2023 End: 02-21-2023 ambulatory HELLEN HERNANDEZ MD Facility:B Start: 02-20-2023 End: 02-20-2023 Patient encounter procedure HELLEN HERNANDEZ MD [facility] Start: 01-31-2023 ambulatory NONE PHYSICIAN Facility :B Start: 01-31-2023 End: 02-05-2023 ambulatory NONE PHYSICIAN Facility:B Start: 01-31-2023 End: 02-05-2023 Encounter for gynecological examination (general) (routine) without abnormal findings HELLEN HERNANDEZ MD Facility:B Start: 04-19-2022 Orders Only Corwin espana MD Work Phone: [facility] Comment on above: Vertigo (Primary Dx) ; Nonintractable headache, unspecified chronicity pattern, unspecified headache type Procedures Date Procedure Procedure Detail Performing Clinician Start: 05-01-2025 Urnls dip stick/tabl et rgnt auto w/o microscopy Natasha Carlos MD Work Phone: Start: 12-10-2024 Gram stain microscopy Marquis Zazueta DO Work Phone: Start: 12-10-2024 Respiratory microbia l culture Dr. Ezequiel Zazueta DO Work Phone: Start: 10-28-2024 Nerve conduction driss dies 5-6 studies Nichol Montalvo ASSISTANT THERAPY AIDE.GEOCHEMICAL MANAGER Work Phone: Start: 09-29-2024 CT cervical spine wi thout contrast Dr. Ezequiel Zazueta DO Work Phone: Start: 09-29-2024 CT of head without contrast Dr. Ezequiel Zazueta DO Work Phone: Start: 07-05-2024 Urnls dip stick/tabl et rgnt auto w/o microscopy Natasha Carlos MD Work Phone: Start: 12-07-[address] Ezequiel Zazueta Work Phone: Start: 12-06-2023 Adult depression scr eening assessment Natasha Carlos MD Work Phone: Start: 11-07-2023 COVID & INFLUENZA A/ B NAAT, ROUTINE Avril Victor ASSISTANT THERAPY AIDE.GEOCHEMICAL MANAGER Work Phone: Start: 11-07-2023 STREP A MOLECULAR (POC) [facility] Provider Start: 10-30-2023 UA DIP,URINE HCG (POC) Natasha Carlos MD Work Phone: Start: 10-30-2023 Us pelvic nonobstetr ic real-time image complete Natasha Carlos MD Work Phone: Start: 04-18-2023 Pelvic echography Start: 04-18-2023 Transvaginal echography Start: 08-28-2008 Appendectomy HELLEN FRANCO MD Plan of Treatment Date Care Activity Detail Author Start: 08-28-2027 HPV TESTING HPV TESTING [facility] Start: 08-28-2027 PAP TESTING PAP TESTING [facility] Start: 08-28-2027 Screening for malignant neoplasm of cervix [facility] Start: 08-28-2026 Urine microalbumin profile [facility] Comment on above: Postponed from 2001 (Postponed To Appropriate Date) Postponed from 05/01 (Postponed To Appropriate Date) Start: 01-29-2026 Annual PCP Team Chronic Disease Visit Annual PCP Team Chronic Disease Visit [facility] Start: 01-29-2026 BP Controlled (<130/80) BP Controlled (<130/80) [facility] Start: 01-29-2026 Hepatitis B Vaccine (1 of 3 - 19+ 3-dose series) Hepatitis B Vaccine (1 of 3 - 19+ 3-dose series) [facility] Comment on above: Postponed from 2001 (Declined at t his time) Start: 01-29-2026 Pneumococcal vaccination Pneumococcal Vaccine (1 of 2 - PCV) [facility] Comment on above: Postponed from 2001 (Declined at t his time) Start: 10-06-2025 End: 10-06-2025 Patient encounter procedure 10/06/2025 10:50 AM EST Office Visit OB/Gynecology [address] [place] [address] Natasha Davila MD [address] [place] [address] weight management follow up OB/Gynecology Comment on above: weight management follow up Start: 10-02-2025 Annual PCP Team Chronic Disease Visit Annual PCP Team Chronic Disease Visit [facility] Start: 10-02-2025 BP Controlled (<130/80) BP Controlled (<130/80) [facility] Start: 10-02-2025 Covid-19 Vaccine () Covid-19 Vaccine () [facility] Comment on above: Postponed from 04/28/2024 (Declined at t his time) Start: 09-12-2025 Annual PCP Team Chronic Disease Visit Annual PCP Team Chronic Disease Visit [facility] Start: 08-28-2025 Screening for malignant neoplasm of cervix Cervical Cancer Screening [facility] Start: 07-05-2025 BP Controlled (<130/80) BP Controlled (<130/80) [facility] Start: 05-01-2025 End: 05-01-2025 Patient encounter procedure 05/01/2025 9:50 AM EDT Office Visit OB/Gynecology [address] [place] [address] Natasha Davila MD [address] [place] [address] weight management follow up OB/Gynecology Comment on above: weight management follow up Start: 04-28-2025 Influenza vaccination [facility] Start: 04-25-2025 Annual PCP Team Chronic Disease Visit Annual PCP Team Chronic Disease Visit [facility] Start: 04-03-2025 Annual PCP Team Chronic Disease Visit Annual PCP Team Chronic Disease Visit [facility] Start: 04-02-2025 BP Controlled (<130/80) BP Controlled (<130/80) [facility] Start: 03-31-2025 End: 07-31-2025 25-hydroxyvitamin D3 [Mass/volume] in Serum or Plasma VITAMIN D 25 HYDROXY Lab Routine Wellness examination PREETI (generalized anxiety disorder) Sleep disturbances Expected: 03/31/2025, Expires: 07/31/2025 [facility] Comment on above: Expected: 03/31/2025, Expires: Start: 03-31-2025 End: 07-31-2025 CBC W Auto Differential panel - Blood COMPLETE BLOOD COUNT AND DIFFERENTIAL Lab Routine Wellness examination Elevated MCV Expected: 03/31/2025, Expires: 07/31/2025 [facility] Comment on above: Expected: 03/31/2025, Expires: Start: 03-31-2025 End: 07-31-2025 Cobalamin (Vitamin B12) [Mass/volume] in Serum or Plasma VITAMIN B12 Lab Routine Wellness examination Elevated vitamin B12 level Expected: 03/31/2025, Expires: 07/31/2025 [facility] Comment on above: Expected: 03/31/2025, Expires: Start: 03-31-2025 End: 07-31-2025 Comprehensive metabolic 2000 panel - Serum or Plasma COMPREHENSIVE METABOLIC PANEL Lab Routine Wellness examination Status post alcohol detoxification Alcohol abuse Elevated liver enzymes Hyperlipidemia, mixed Expected: 03/31/2025, Expires: 07/31/2025 [facility] Work Phone: Comment on above: Expected: 03/31/2025, Expires: Start: 03-31-2025 End: 07-31-2025 Hemoglobin A1c in Blood HEMOGLOBIN A1C Lab Routine Wellness examination Screening for diabetes mellitus Expected: 03/31/2025, Expires: 07/31/2025 [facility] Comment on above: Expected: 03/31/2025, Expires: Start: 03-31-2025 End: 07-31-2025 Iron and Iron binding capacity panel - Serum or Plasma IRON AND TIBC Lab Routine Wellness examination Elevated MCV Expected: 03/31/2025, Expires: 07/31/2025 [facility] Comment on above: Expected: 03/31/2025, Expires: Start: 03-31-2025 End: 07-31-2025 Lipid 1996 panel - Serum or Plasma LIPID PANEL, FASTING Lab Routine Wellness examination Elevated liver enzymes Hyperlipidemia, mixed Expected: 03/31/2025, Expires: 07/31/2025 [facility] Comment on above: Expected: 03/31/2025, Expires: Start: 03-31-2025 End: 07-31-2025 Thyrotropin [Units/volume] in Serum or Plasma THYROID STIMULATING HORMONE Lab Routine Wellness examination PREETI (generalized anxiety disorder) Sleep disturbances Expected: 03/31/2025, Expires: 07/31/2025 [facility] Comment on above: Expected: 03/31/2025, Expires: Start: 02-24-2025 Influenza vaccination Influenza Vaccine (#1) [facility] Comment on above: Postponed from 04/28/2024 (Declined at t his time) Start: 02-21-2025 End: 02-21-2025 Patient encounter procedure 02/21/2025 4:00 PM EDT Office Visit Neurology [address] [place] [address] Ryder Newton MD [address] [place] [address] 2 month follow up Neurology Comment on above: 2 month follow up Start: 01-29-2025 End: 01-29-2025 Patient encounter procedure 01/29/2025 10:00 AM EDT Office Visit Family [facility] [address] [place] [address] Meghna Thomason APRN.GEOCHEMICAL MANAGER [address] [place] [address] discuss Naltrexone [facility] Comment on above: discuss Naltrexone Start: 01-09-2025 End: 01-09-2025 Patient encounter procedure 01/09/2025 4:00 PM EDT Office Visit Neurology [address] [place] [address] Ryder Newton MD [address] [place] [address] Right wrist drop, follow-up 10 weeks Neurology Comment on above: Right wrist drop, follow-up 10 weeks Start: 01-07-2025 BP Controlled (<130/80) BP Controlled (<130/80) [facility] in Start: 12-26-2024 End: 12-26-2024 Patient encounter procedure Radiology Comment on above: US NERVE RT; EVAL RT RADIAL NERVE AT LEV EL OF HUMERUS+FOREARM 12/25 @ 4:52pm - Johanne ent called to cancel. AC unable to transfer pt/no ans. Please call patient to reschedule. Start: 12-13-2024 End: 12-13-2024 Patient encounter procedure 12/13/2024 4:00 PM EDT Office Visit Neurology [address] [place] [address] Ryder Newton MD [address] [place] [address] Right wrist drop, follow-up 10 weeks Neurology Comment on above: Right wrist drop, follow-up 10 weeks Start: 12-09-2024 End: 12-09-2024 Patient encounter procedure 12/09/2024 1:30 PM EDT Office Visit Orthopaedics [address] [place] [address] Meño Posada MD [address] [place] [address] Right hand numbness and weakness Orthopaedics Comment on above: Right hand numbness and weakness Start: 12-05-2024 Annual PCP Team Chronic Disease Visit Annual PCP Team Chronic Disease Visit [facility] Start: 12-05-2024 Depression Screening Depression Screening [facility] Start: 12-02-2024 End: 12-02-2024 ambulatory 12/02/2024 11:30 AM EDT OT/PT/Speech Visit [facility] [address] [place] [address] Cheo Real, PT [address] [place], [place] [id number] Radial nerve palsy [facility] Comment on above: Radial nerve palsy Start: 11-25-2024 End: 11-25-2024 ambulatory 11/25/2024 8:30 AM EDT OT/PT/Speech Visit [facility] [address] [place] [address] Dean, Real, PT [address] [place], [place] [id number] Radial nerve palsy [facility] Comment on above: Radial nerve palsy Start: 11-15-2024 End: 11-15-2024 ambulatory 11/15/2024 8:30 AM EDT OT/PT/Speech Visit [facility] [address] [place] [address] Cheo, Real, PT [address] [place], [place] [phone] Radial nerve palsy [facility] Comment on above: Radial nerve palsy Start: 11-08-2024 End: 11-08-2024 ambulatory [facility] Comment on above: Radial nerve palsy Start: 10-31-2024 End: 10-31-2024 Patient encounter procedure 10/31/2024 10:20 AM EST Office Visit Orthopaedic Surgery [facility] [address] [place] [address] Meño Posada MD [address] [place] [address] Right hand numbness and weakness Orthopaedic Surgery [facility] Comment on above: Right hand numbness and weakness Start: 10-29-2024 End: 01-28-2025 Comprehensive metabolic 2000 panel - Serum or Plasma COMPREHENSIVE METABOLIC PANEL Lab Routine Encounter for long-term (current) use of medications Expected: 10/29/2024, Expires: 01/28/2025 [facility] Work Phone: Comment on above: Expected: 10/29/2024, Expires: Start: 10-29-2024 End: 10-29-2024 Patient encounter procedure 10/29/2024 9:50 AM EST Office Visit OB/Gynecology [address] [place] [address] Natasha Davila MD [address] [place] [address] weight management follow up OB/Gynecology Comment on above: weight management follow up Start: 10-28-2024 End: 10-28-2024 ambulatory Neurology Comment on above: R UE RADIAL NERVE PALSY Start: 10-07-2024 End: 10-07-2024 ambulatory 10/07/2024 2:50 PM EST Procedure Neurology [address] [facility] [place] [address] Hand weakness [R29.898 Neurology Comment on above: Hand weakness [R29.898 Start: 10-02-2024 End: 01-01-2025 Comprehensive metabolic 2000 panel - Serum or Plasma COMPREHENSIVE METABOLIC PANEL Lab Routine Hand weakness Hypokalemia Expected: 10/02/2024, Expires: 01/01/2025 [facility] Comment on above: Expected: 10/02/2024, Expires: Start: 09-29-2024 [facility] Start: 09-14-2024 Covid-19 Vaccine () Covid-19 Vaccine () [facility] Comment on above: Postponed from 04/28/2023 (Declined at t his time) Start: 08-26-2024 End: 08-26-2024 Patient encounter procedure 08/26/2024 8:40 AM EST Office Visit Family [facility] [address] [place] [address] Nichol Montalvo, ASSISTANT THERAPY AIDE.GEOCHEMICAL MANAGER [address] [place] [address] [facility] Comment on above: Medication Follow up Start: 07-05-2024 End: 07-05-2024 Patient encounter procedure 07/05/2024 8:50 AM EST Office Visit OB/Gynecology [address] [place] [address] Natasha Davila MD [address] [place] [address] Wt Management F/U OB/Gynecology Comment on above: Wt Management F/U Start: 06-22-2024 End: 06-22-2024 ambulatory 06/22/2024 10:00 AM EDT Results Only [facility] [address] [place] [address] Labs [facility] Comment on above: Labs Start: 05-23-2024 End: 05-23-2024 ambulatory 05/23/2024 2:00 PM EDT Results Only [facility] [address] [place] [address] Labs [facility] Comment on above: Labs Start: 05-04-2024 End: 08-03-2024 Acute hepatitis 2000 panel - Serum HEP ACUTE PANEL BL Lab Routine Elevated LFTs Expected: 05/04/2024, Expires: 08/03/2024 [facility] Comment on above: Expected: 05/04/2024, Expires: Start: 05-04-2024 End: 08-03-2024 Hepatic function 2000 panel - Serum or Plasma HEPATIC FUNCTION PNL Lab Routine Elevated LFTs Expected: 05/04/2024, Expires: 08/03/2024 [facility] Work Phone: Comment on above: Expected: 05/04/2024, Expires: Start: 04-28-2024 Covid-19 Vaccine ( season) Covid-19 Vaccine ( season) [facility] Start: 04-28-2024 Influenza vaccination [facility] Start: 04-25-2024 End: 04-25-2024 Patient encounter procedure 04/25/2024 7:00 AM EDT Office Visit Family Medicine [place] [address] [place] [address] Conor Chapman APRN.GEOCHEMICAL MANAGER [address] [place] [address] UC FOLLOW UP Family [facility] Comment on above: UC FOLLOW UP Start: 04-11-2024 End: 04-11-2024 Patient encounter procedure 04/11/2024 10:20 AM EDT Office Visit OB/Gynecology [address] [place] [address] Natasha Davila MD [address] [place] [address] Weight MGMT OB/Gynecology Comment on above: Weight MGMT Start: 04-03-2024 COVID-19 VACCINE (2 - Booster for Smita series) COVID-19 VACCINE (2 - Booster for Smita series) [facility] Comment on above: Postponed from 07/29/2021 (Declined at t his time) Start: 04-03-2024 HEPATITIS B (1 of 3 - 3-dose series) HEPATITIS B (1 of 3 - 3-dose series) [facility] Comment on above: Postponed from 1982 (Declined at t his time) Start: 04-03-2024 Hepatitis B Vaccine (1 of 3 - 19+ 3-dose series) Hepatitis B Vaccine (1 of 3 - 19+ 3-dose series) [facility] Comment on above: Postponed from 2001 (Declined at t his time) Start: 04-03-2024 Hepatitis B Vaccine (1 of 3 - 3-dose series) Hepatitis B Vaccine (1 of 3 - 3-dose series) [facility] Comment on above: Postponed from 1982 (Declined at t his time) Start: 04-03-2024 Mammography [facility] Comment on above: Postponed from 2022 (Declined at t his time) Start: 04-03-2024 Screening for malignant neoplasm of breast Mammogram Screening [facility] Comment on above: Postponed from 2022 (Declined at t his time) Start: 04-03-2024 End: 04-03-2024 Patient encounter procedure 04/03/2024 9:00 AM EDT Office Visit Family [facility] [place] [address] [facility] [place] [address] Conor Chapman APRN.GEOCHEMICAL MANAGER [address] [facility] [place] [address] folloow up with alprazolam Family [facility] Comment on above: folloow up with alprazolam Start: 04-02-2024 End: 04-02-2024 Patient encounter procedure OB/Gynecology Comment on above: weight management follow up- coming at 8 am Start: 03-14-2024 End: 03-14-2024 Patient encounter procedure 03/14/2024 8:40 AM EDT Office Visit Family Medicine [place] [address] [facility] [place] [address] Conor Chapman APRN.GEOCHEMICAL MANAGER [address] [facility] [place] [address] folloow up with alprazolam [facility] Comment on above: folloow up with alprazolam Start: 02-25-2024 Influenza vaccination Influenza Vaccine (#1) [facility] Comment on above: Postponed from 04/28/2023 (Declined at t his time) Start: 02-12-2024 End: 02-12-2024 Patient encounter procedure 02/12/2024 11:40 AM EDT Office Visit OB/Gynecology [address] [place] [address] Natasha Davila MD [address] [place] [address] weight management 1st follow up OB/Gynecology Comment on above: weight management 1st follow up Start: 02-05-2024 End: 02-05-2024 ambulatory 02/05/2024 9:00 AM EDT Results Only [place] [facility] [address] [facility] [place] [address] [facility] Start: 02-04-2024 End: 05-05-2024 C reactive protein [Mass/volume] in Serum or Plasma C-REACTIVE PROTEIN Lab Routine CRP elevated Expected: 02/04/2024, Expires: 05/05/2024 [facility] Comment on above: Expected: 02/04/2024, Expires: Start: 02-04-2024 End: 05-05-2024 CBC panel - Blood by Automated count COMPLETE BLOOD COUNT Lab Routine Elevated serum creatinine Expected: 02/04/2024, Expires: 05/05/2024 [facility] Comment on above: Expected: 02/04/2024, Expires: Start: 02-04-2024 End: 05-05-2024 Cobalamin (Vitamin B12) [Mass/volume] in Serum or Plasma VITAMIN B12 Lab Routine Elevated MCV Abnormal hematocrit Expected: 02/04/2024, Expires: 05/05/2024 [facility] Comment on above: Expected: 02/04/2024, Expires: Start: 02-04-2024 End: 05-05-2024 Comprehensive metabolic 2000 panel - Serum or Plasma COMPREHENSIVE METABOLIC PANEL Lab Routine Elevated LFTs Expected: 02/04/2024, Expires: 05/05/2024 [facility] Comment on above: Expected: 02/04/2024, Expires: Start: 02-04-2024 End: 05-05-2024 Folate [Mass/volume] in Serum or Plasma FOLATE, SERUM Lab Routine Elevated MCV Abnormal hematocrit Expected: 02/04/2024, Expires: 05/05/2024 [facility] Comment on above: Expected: 02/04/2024, Expires: Start: 01-15-2024 End: 01-15-2024 Patient encounter procedure 01/15/2024 9:20 AM EDT Office Visit OB/Gynecology [address] [place] [address] Natasha Davila MD [address] [place] [address] POST OP OB/Gynecology Comment on above: POST OP Start: 12-25-2023 End: 03-25-2024 Lipid 1996 panel - Serum or Plasma LIPID PANEL BASIC Lab Routine Hyperlipidemia, mixed Expected: 12/25/2023, Expires: 03/25/2024 [facility] Work Phone: Comment on above: Expected: 12/25/2023, Expires: Start: 12-22-2023 End: 03-22-2024 25-hydroxyvitamin D3 [Mass/volume] in Serum or Plasma [facility] Comment on above: Expected: 12/22/2023, Expires: Start: 12-22-2023 End: 03-22-2024 Hemoglobin A1c in Blood [facility] Comment on above: Expected: 12/22/2023, Expires: Start: 12-22-2023 End: 03-22-2024 Insulin [Units/volume] in Serum or Plasma [facility] Comment on above: Expected: 12/22/2023, Expires: Start: 12-07-2023 Patient discharge [facility] Start: 12-07-2023 Notification of physician [facility] Start: 12-07-2023 Ambulation without limitation [facility] Start: 12-07-2023 Medication education [facility] Start: 12-07-2023 Planned voiding [facility] Start: 12-07-2023 Procedure discontinued [facility] Start: 12-07-2023 Taking patient vital signs [facility] Start: 12-07-2023 Vital signs measurements [facility] Start: 12-07-2023 [facility] Start: 12-06-2023 End: 03-06-2024 C reactive protein [Mass/volume] in Serum or Plasma C-REACTIVE PROTEIN Lab Routine Borderline abnormal thyroid function test Expected: 12/06/2023, Expires: 03/06/2024 [facility] Work Phone: Comment on above: Expected: 12/06/2023, Expires: Start: 12-06-2023 End: 03-06-2024 CBC W Auto Differential panel - Blood COMPLETE BLOOD COUNT AND DIFFERENTIAL Lab Routine Elevated liver enzymes Expected: 12/06/2023, Expires: 03/06/2024 [facility] Work Phone: Comment on above: Expected: 12/06/2023, Expires: Start: 12-06-2023 End: 03-06-2024 Cobalamin (Vitamin B12) [Mass/volume] in Serum or Plasma VITAMIN B12 Lab Routine Elevated MCV Expected: 12/06/2023, Expires: 03/06/2024 [facility] Work Phone: Comment on above: Expected: 12/06/2023, Expires: Start: 12-06-2023 End: 03-06-2024 Comprehensive metabolic 2000 panel - Serum or Plasma COMPREHENSIVE METABOLIC PANEL Lab Routine Elevated liver enzymes Expected: 12/06/2023, Expires: 03/06/2024 [facility] Work Phone: Comment on above: Expected: 12/06/2023, Expires: Start: 12-06-2023 End: 03-06-2024 Lipid 1996 panel - Serum or Plasma LIPID PANEL BASIC Lab Routine Hyperlipidemia, mixed Expected: 12/06/2023, Expires: 03/06/2024 [facility] Work Phone: Comment on above: Expected: 12/06/2023, Expires: Start: 12-06-2023 End: 03-06-2024 Thyrotropin [Units/volume] in Serum or Plasma THYROID STIMULATING HORMONE Lab Routine Borderline abnormal thyroid function test Expected: 12/06/2023, Expires: 03/06/2024 [facility] Work Phone: Comment on above: Expected: 12/06/2023, Expires: Start: 12-06-2023 End: 03-06-2024 Thyroxine (T4) free [Mass/volume] in Serum or Plasma T4 FREE/FREE THYROXINE Lab Routine Borderline abnormal thyroid function test Expected: 12/06/2023, Expires: 03/06/2024 [facility] Work Phone: Comment on above: Expected: 12/06/2023, Expires: 4 Start: 12-06-2023 End: 03-06-2024 Triiodothyronine (T3) Free [Mass/volume] in Serum or Plasma T3, FREE Lab Routine Borderline abnormal thyroid function test Expected: 12/06/2023, Expires: 03/06/2024 [facility] Work Phone: Comment on above: Expected: 12/06/2023, Expires: 4 Start: 10-25-2023 End: 10-25-2024 US Pelvis PELVIC US [facility] Routine Abnormal uterine bleeding (AUB) Expected: 10/25/2023, Expires: 10/25/2024 [facility] Work Phone: Comment on above: Expected: 10/25/2023, Expires: 5 Start: 08-28-2023 Behavioral Health Screening Behavioral Health Screening [facility] Start: 08-28-2023 Depression Assessment Depression Assessment [facility] Start: 05-03-2023 End: 07-03-2023 Comprehensive metabolic 2000 panel - Serum or Plasma COMP METABOLIC PANEL Lab Routine Elevated liver enzymes Expected: 05/03/2023, Expires: 07/03/2023 [facility] Work Phone: Comment on above: Expected: 05/03/2023, Expires: 3 Start: 04-28-2023 Covid-19 Vaccine ( season) Covid-19 Vaccine () [facility] Start: 04-28-2023 Influenza vaccination [facility] Start: 04-03-2023 End: 06-03-2023 25-hydroxyvitamin D3 [Mass/volume] in Serum or Plasma VITAMIN D 25 HYDROXY Lab Routine Wellness examination Expected: 04/03/2023, Expires: 06/03/2023 [facility] Work Phone: Comment on above: Expected: 04/03/2023, Expires: 3 Start: 04-03-2023 End: 06-03-2023 CBC W Auto Differential panel - Blood CBC + DIFF Lab Routine Wellness examination Expected: 04/03/2023, Expires: 06/03/2023 [facility] Work Phone: Comment on above: Expected: 04/03/2023, Expires: Start: 04-03-2023 End: 06-03-2023 Comprehensive metabolic 2000 panel - Serum or Plasma COMP METABOLIC PANEL Lab Routine Wellness examination Expected: 04/03/2023, Expires: 06/03/2023 [facility] Work Phone: Comment on above: Expected: 04/03/2023, Expires: 3 Start: 04-03-2023 End: 06-03-2023 Hemoglobin A1c in Blood HGB A1C Lab Routine Wellness examination Expected: 04/03/2023, Expires: 06/03/2023 [facility] Work Phone: Comment on above: Expected: 04/03/2023, Expires: Start: 04-03-2023 End: 06-03-2023 Lipid 1996 panel - Serum or Plasma LIPID PANEL BASIC Lab Routine Wellness examination Expected: 04/03/2023, Expires: 06/03/2023 [facility] Work Phone: Comment on above: Expected: 04/03/2023, Expires: 3 Start: 04-03-2023 End: 06-03-2023 PAIN PANEL, UR QUANT PAIN PANEL, UR QUANT Lab Routine Panic attacks Expected: 04/03/2023, Expires: 06/03/2023 [facility] Work Phone: Comment on above: Expected: 04/03/2023, Expires: 3 Start: 04-03-2023 End: 06-03-2023 Thyrotropin [Units/volume] in Serum or Plasma TSH BLD Lab Routine Wellness examination Expected: 04/03/2023, Expires: 06/03/2023 [facility] Work Phone: Comment on above: Expected: 04/03/2023, Expires: 3 Start: 04-03-2023 End: 06-03-2023 TOX SCREEN ROUT UR TOX SCREEN ROUT UR Lab Routine Panic attacks Expected: 04/03/2023, Expires: 06/03/2023 [facility] Work Phone: Comment on above: Expected: 04/03/2023, Expires: Start: 2022 Screening for malignant neoplasm of breast Mammogram Screening [facility] Start: 04-28-2022 Influenza vaccination INFLUENZA (#1) [facility] Start: 2012 HPV TESTING HPV TESTING [facility] Start: 2009 HPV Vaccine (1 - 3-dose SCDM series) HPV Vaccine (1 - 3-dose SCDM series) [facility] Start: 2003 PAP TESTING PAP TESTING [facility] Start: 2001 Hepatitis B Vaccine (1 of 3 - 19+ 3-dose series) Hepatitis B Vaccine (1 of 3 - 19+ 3-dose series) [facility] Start: 2001 Pneumococcal vaccination Pneumococcal Vaccine (1 of 2 - PCV) [facility] Start: 2001 Urine microalbumin profile DTAP,TDAP,TD (1 - Tdap) [facility] Start: 2000 BP Controlled (<130/80) BP Controlled (<130/80) [facility] Start: 2000 HEPATITIS C SCREENING HEPATITIS C SCREENING [facility] Start: 2000 HIV SCREENING HIV SCREENING [facility] Start: 1994 Adult depression screening assessment DEPRESSION SCREENING [facility] Start: 01-28-1983 COVID-19 VACCINE (#1) COVID-19 VACCINE (#1) [facility] Start: 1982 HEPATITIS B (1 of 3 - 3-dose series) HEPATITIS B (1 of 3 - 3-dose series) [facility] Bacteria identified in Urine by Culture URINE CULTURE Microbiology Routine Urinary frequency Dysuria 07/05/2024 10:40 AM EST [facility] Work Phone: Bacteria identified in Urine by Culture BACTERIAL CULTURE, URINE Microbiology Routine Dysuria 05/01/2025 11:22 AM EDT [facility] Work Phone: BACTERIAL VAGINOSIS NAAT BACTERI AL VAGINOSIS NAAT Lab Routine Vaginal discharge 12/22/2023 8:42 AM EDT [facility] Choriogonadotropin.b eta subunit ( test) [Presence] in Serum or Plasma [facility] End: 01-20-2025 DBT Breast - bilateral screening [facility] SCREENING [facility] Routine Encounter for screening mammogram for malignant neoplasm of breast 1 Occurrences starting 12/22/2023 until 01/20/2025 [facility] Work Phone: Comment on above: 1 Occurrences starting 12/22/2023 until 01/20/2025 End: 12-26-2025 DBT Breast - bilateral screening [facility] SCREENING [facility] Radiology Routine Encounter for screening mammogram for breast cancer 1 Occurrences starting 11/26/2024 until 12/26/2025 [facility] Work Phone: Comment on above: 1 Occurrences starting 11/26/2024 until 12/26/2025 End: 10-02-2025 EMG(NEURO/NI) EMG(NEURO/NI) EMG Routine Hand weakness 1 Occurrences starting 10/02/2024 until 10/02/2025 [facility] Work Phone: Comment on above: 1 Occurrences starting 10/02/2024 until 10/02/2025 Endometrial bx w/wo endocervix bx w/o dilat spx ENDOMETRIAL BIOPSY Procedures Routine Abnormal uterine bleeding (AUB) Ordered: 10/25/2023 [facility] Work Phone: Comment on above: Ordered: 10/25/2023 Endometrial bx w/wo endocervix bx w/o dilat spx ENDOMETRIAL BIOPSY Procedures Routine Abnormal uterine bleeding (AUB) Ordered: 10/30/2023 [facility] Work Phone: Comment on above: Ordered: 10/30/2023 Patient Education ED Hypokalemia ED Neuropathy, Peripheral [facility] Work Phone: Patient referral [facility] Work Phone: SURGICAL PATHOLOGY SURGICAL PATH OLOGY Lab Routine Abnormal uterine bleeding (AUB) 10/30/2023 9:11 AM EST [facility] Work Phone: End: 02-02-2025 US Abdomen RUQ US ABD RIGHT UPPER QUADRANT Radiology Routine Elevated LFTs 1 Occurrences starting 01/04/2024 until 02/02/2025 [facility] Work Phone: Comment on above: 1 Occurrences starting 01/04/2024 until 02/02/2025 End: 01-08-2026 US Extremity - right limited US NERVE RIGHT Radiology Routine Abnormal EMG Radial nerve palsy, right 1 Occurrences starting 12/09/2024 until 01/08/2026 [facility] Work Phone: Comment on above: 1 Occurrences starting 12/09/2024 until 01/08/2026 [facility] Payers Date Payer Category Payer Unknown [id number] 2024 Self-pay 2024 Private Health Insurance [id number] 2015 Private Health Insurance [id number] 2015 Private Health Insurance [id number] 1982 Unknown [id number] 1982 Unknown [id number] 1982 Unknown [id number] [id number] [id number] Unknown [id number] [id number] [id number] Unknown [id number] [id number] Unknown [id number] [id number] [id number] Unknown [id number] Social History Date Type Detail Facility Start: [facility] Work Phone: Start: 1980 Sex Assigned At Not on file [facility] Start: 01-31-2023 End: 04-23-2024 Tobacco smoking status Ex-smoker (finding) [facility] Sex Assigned At Sex [facility] End: 08-28-2002 History of tobacco use Current smoker [facility] Work Phone: End: 08-28-2002 History of tobacco use Cigarette Smoker [facility] Work Phone: Start: 04-03-2023 End: 12-09-2024 Tobacco use and exposure Smokeless tobacco non-user [facility] Work Phone: Start: 04-03-2023 End: 05-01-2025 Alcohol intake Current drinker of alcohol (finding) [facility] Start: 04-01-2023 End: 04-03-2023 History of Social function [facility] Start: 04-01-2023 End: 04-03-2023 Social connection and isolation panel [facility] Start: 01-11-2022 How often do you att end faith or bahai services? Patient refused [facility] Do you belong to any clubs or organizations such as faith groups, unions, fraternal or athletic groups, or school groups? No [facility] Are you now , , , , never or living with a partner? [facility] How often to you hav e a drink containing alcohol? 4 or more times a week [facility] How many standard drinks containing alcohol do you have on a typical day? 5 or 6 [facility] How often do you hav e 6 or more drinks on 1 occasion? Weekly [facility] Do you feel stress - tense, restless, nervous, or anxious, or unable to sleep at night because your mind is troubled all the time - these days [OSQ] To some extent [facility] (I/We) worried paco er (my/our) food would run out before (I/we) got money to buy more. Never true [facility] Start: 1980 Sex Assigned At Female C [facility] Work Phone: Start: 04-03-2023 Gender identity Identifies as female gender (finding) [facility] Work Phone: Start: 09-29-2024 End: 12-09-2024 Tobacco smoking status NHIS Current some day smoker [facility] Start: 11-22-2024 End: 12-16-2024 Sex Female (finding) [facility] NEGATED: Highlighted row [facility] Medical Equipment Procedure Code Equipment Code Equipment Origin al Text Equipment Identifier Dates Laparoscopic abdominal hysterectomy Collagen haemostatic agent, non-antimicrobial ()[id number] FDA Start: 12-07-2023 Goals Date Patient Goal Desired Activity /State Mental Status Date Assessment Result Facility 09-29-2024 Cognitive function Level Of Cons ciousness Awake;Alert;Appropriate;Follow s Commands [facility] Work Phone: 12-07-2023 Cognitive function Touch/Shaking [facility] Work Phone: Clinical Notes 02-13-2023 to 05-01-2025 Patient InstructionsNatasha Davila MD - 05/01/2025 9:50 AM EDTBRyder thompson MD - 02/21/2025 4:00 PM EDTPatient Meghna Lerma APRN.GEOCHEMICAL MANAGER - 01/29/2025 9:59 AM EDT Note Date & Type Note Facility 05-01-2025 Instructions Natasha Davila MD - 05/01/2025 11:26 AM EDT Images from the original note were not included. Clear protein: SEEQ, Level up, 1st Phorm, Protein 2.0 VEGAN PROTEIN LIST SOY Tempeh: 17g protein 8g carbohydrate in 1/2 cup, Shelled Edamame: 9g Protein, 8g carbohydrate in 1/2cup Tofu: 9g protein,2 g carbohydrate per 3oz Soy Milk: 7g Protein, 15g carbohydrate in 1 cup Nutritional Yeast 8g Protein, 5g Carbohydrate in 2TBSP (16g) Seitan 30g Protein, 6.8g Carbohydrate in 1/2 cup Whole Grains Quinoa: 8g protein in 1cup Wild rice 6.5g protein in 1 cup Legumes Lentils 12g protein, 23g carbohydrate in 1/2 cup cooked Chickpea 6g protein, 17g carbohydrate in 1/2 cup cooked Black Beans 7g protein, 19g carbohydrate in 1/2 cup cooked Green Split peas 8g protein, 22g carbohydrate in 1/2 cup cooked Lopez Dobbins 8g protein, 20g carbohydrate in 1/2 cup cooked Seeds Pumpkin 8g protein, 3 carbohydrate in 1/4cup Hemp 9g protein, 3 carbohydrate in 3 Tablespoons Tahini 10g protein, 3 carbohydrate in 2 Tablespoons Victor Hugo 5g protein, 10g carbohydrate in 2 tablespoons Nuts Almonds 6g protein, 6g carbohydrate in 1/4cup Walnuts 4g protein, 4g carbohydrate in 1/4cup Cashew 4g protein, 9g carbohydrate in 1/4cup Peanuts 8g protein, 5g carbohydrate in 1/4cup Peanut butter 7g protein, 6g carbohydrate in 2 TBSP Potatoes Russet potato- 1 medium (173g) 4.5g protein, 37g carbohydrate Red Potato- 1 large (299g) 6.9g protein, 59g carbohydrate Sweet Potato - 1 medium (114g) 2.3g protein, 24g carbohydrate Sprouted grain bread Leandro bread- per slice 5g protein, 15g carbohydrate Vegetables Artichoke- 4.2g protein, 13g carbohydrate in 1 medium (128g) Green Peas- 8g protein, 21g carbohydrates in 1 cup Brussel Sprouts - 3g protein, 8g carbohydrate in 1 cup [place]- 4.3g protein, 19g carbohydrate in 1/2cup Spinach- 1g protein, 1g carbohydrate in 1 cup 3g carb8g carb 20g protein, 4 carbohydrate per scoop QUICK VEGAN PROTEIN PRODUCTS/SNACKS: NOT high in protein- BUT LOW CARB SUBSTITUTE FOR NOODLES Supplements that may improve energy/fatigue: B-complex vitamins- may support cellular energy and can reduce fatigueC CoQ10- (coenzyme Q10)-could enhance mitochondrial energy production, may reduce fatigue Iron (only if iron deficiency) Rhodiola Rosea-is an Adaptogen that may reduce fatigue and boost endurance, improve depression Ashwagandha-is an adaptogen that may support stress resistance and may improve energy levels indirectly. Supports cortisol balance and may help with Abdominal fat. Creatine- may increase physical performance and short bursts of energy. L-Carnitine- could assist in fat metabolism and may improve energy Magnesium Glycinate- may improve sleep,m muscle relaxation, blood sugar control and mood. Ginseng: an adaptogen that may improve fatigue *Adaptogens: are active ingredients in certain plants and mushrooms that may impact how your body deals with stress, anxiety and fatigue. For hormonal balance and Metabolic health: Dvaid-Inositol and P-Ynaiq-Lesmymlk-can improve insulin sensitivity, often used for PCOS- related weight management Magnesium- may support glucose metabolism and energy production Magnesium L-Threonate- improved sleep quality and brain health Magnesium Glycinate- calm, deeper sleep Magnesium Citrate- can aide in constipation relief Magnesium Malate- may help with chronic pain, fibromyalgia, and fatigue Greenwood 3 fatty acids (fish oils)- may reduce inflammation, supports metabolism, and may aid in fat loss Chromium Picolinate- may improve blood sugar control and reduce cravings Vitamin D- low levels can be associated with weight gain and fatigue. Can aid in bone health, depression, gut health etc. Berberine- may enhance insulin sensitivity, support weight loss and blood sugar balance. N-Acetyl Cysteine (NAC) - may support ovulation, reduce insulin resistance, antioxidant benefits. CoQ10 (Ubiquinone) - used as an antioxidant which protects your cells from damage. This supplement may help with migraines, heart failure and high blood pressure. Collagen Peptides- may help with joints, skin hair and nails (note this is not a complete protein and should not be used as your protein source) Probiotics- can help support a healthy gut microbiome, which can improve digestion and overall well-being. Fiber Supplement- may improve digestive health, help with weight management, and potentially lower cholesterol levels. Fish Oil- provides [place]wood 3- fatty acids which can be beneficial for heart health, reduce inflammation and support brain function. L-Carnitine- vital in transporting fatty acids in to cells for energy production. Some potential benefits are cardiovascular health, Brain function, Exercise performance and recovery, reduce fasting glucose levels. Red Yeast Rice- may help to lower cholesterol levels, particularly LDL (the bad choleasterol) it may also improve blood vessel function and decrease arterial stiffness. Not all supplements work for everyone and data can be limited. Some supplements may interfere with medications you are taking. What the Food Groups Do For You Aerodynamics Engineer are always stressing the importance of a balanced diet, and for good reason. Each food group--and each food within a given group--offers a different nutrient package. This doesn t mean that you have to cover each group in every meal. But over the course of a day, you should have something from each group. And over the longer term--say, a week or a month--you should strive to eat a variety of foods from within each group, particularly vegetables and fruits.Here s a quick overview of what each group has to offer--and how much we should all be consuming. Vegetables and fruits. Fruit and vegetable intake is associated with reduced risk of a number of chronic diseases, including cardiovascular disease, type 2 diabetes, certain kinds of cancer, and dementia. Some of these benefits come from the nutrients and fiber in produce. These include not only the obvious vitamins and minerals, but also phytochemicals ranging from the anti-carcinogenic isothiocyanates in cruciferous vegetables like broccoli and cauliflower to antioxidants like vitamin C and hesperetin in citrus fruits. Fiber, too, is associated with a host of benefits, including bowel health, increased insulin sensitivity, and slower digestion that makes you feel zamudio longer. Increasing your intake of fruits and vegetables may also improve your overall diet simply by displacing less healthy foods. The USDA now recommends daily consumption of 2 to 3 cups (roughly four to six half-cup servings) of vegetables and another 1 to 2 cups of fruit (three to four half-cup servings; see Table 1, page 9).Whole grains. Carbohydrates are primarily an energy source to fuel your body. But whole grains--such as quinoa, barley, and brown rice--do even more for you. Whole grains come packaged with their natural fiber, vitamins, minerals, and phytochemicals, so they deliver additional health benefits. Perhaps that s why research shows that people who eat whole grains tend to live longer and have a lower risk of chronic diseases, especially cardiovascular disease. By contrast, refined grains (such as white flour) have been stripped of their fiber-rich bran (the outer coating of the kernel) as well as the vitamin- and mineral-packed germ (see Figure 2, at left). For people up to age 50, the recommended intake is 38 grams for men and 25 grams for women (unless they are or , in which case the recommendation goes up to 28 grams and 29 grams, respectively). The recommendation is lower for people over age 50: 30 grams for men, and 21 grams for women. Dairy. Our first food as infants is milk, and dairy is associated with improved bone health, especially in children and adolescents. While adults don t need to consume dairy products, dairy foods offer protein and an array of vitamins and minerals, including calcium. Some dairy foods ([place] yogurt, cottage cheese, other cheeses) are better sources of protein than others (milk, regular yogurt), but keep in mind that many types of cheese are high in sodium and saturated fat. If you can t consume dairy or prefer not to, make sure you meet your calcium needs through other foods or supplements. Protein. You need protein in order to maintain your muscles, bones, skin, and every other organ and tissue in your body. Protein also helps you stay satisfied and manage hunger. Not only is protein important in your overall diet, but emerging research suggests that you should have some at all three meals, especially if you are older. However, keep in mind that while it s important to get enough protein, more is not necessarily better!Protein foods are a diverse group, including both animal sources (fish and seafood, meats, poultry, eggs, and dairy) and plant sources (soy products, pulses--that is, beans, lentils, chickpeas, and dry peas--and nuts and seeds). As with any food, quality counts: some protein-rich foods have more health benefits than others. [place] and other oily fish provide heart-healthy omega-3 fatty acids. Pulses and whole or minimally processed soy foods like tofu, tempeh, and edamame offer phytochemicals and fiber. On the other hand, fatty or processed meats come with excess saturated fat and other components that don t support optimal health. Fats and oils. Fat is an essential element of the diet. It s a major source of energy. In addition, the body requires fat to make cell membranes, provide a protective coating for nerves, maintain healthy skin and hair, and perform other vital functions.After some decades of thinking that we needed to limit fat to be healthy, scientists now know that it s not how much fat we eat (within reason), but the quality of the fat. For example, it s crystal clear that we need to avoid artificial trans fats--the hydrogenated vegetable oils that were once used in a variety of processed foods to help keep them from spoiling. Fortunately, those are largely gone from the food supply now, as the result of an FDA ruling in January 2018 banning them from foods sold in [place] grocery stores and restaurants. As for saturated fats--the kind found in animal products like meat and cheese--while limited amounts (less than 10% of daily calories) are fine for most people, they may contribute to a number of health problems, including increased LDL (bad) cholesterol and chronic inflammation, especially when eaten in excess.Most of the fat we eat should be unsaturated. This includes polyunsaturated fats from fatty fish like salmon, walnuts, sunflower seeds, flaxseeds, and some vegetable oils, as well as monounsaturated fats from nuts, peanuts, avocados, olive oil, and canola oil. Unsaturated fats have a number of benefits for health, especially cardiovascular health. A shorthand way of thinking of the different types of fats is this: if they are solid at room temperature, like the marbling in meats, they may lead to stiffer arteries (and therefore high blood pressure) as your body deposits them in arterial linings. If they are liquid at room temperature, like the olive oil you drizzle on your salad, they will help keep arteries more flexible. HOW DOES CHRONIC STRESS AFFECT EATING PATTERNS? Chronic stress can affect the body s use of calories and nutrients in various ways. It raises the body s metabolic needs and increases the use and excretion of many nutrients. If one does not eat a nutritious diet, a deficiency may occur.Stress also creates a chain reaction of behaviors that can negatively affect eating habits, leading to other health problems down the road. Stress places a greater demand on the body for oxygen, energy, and nutrients. Yet people who experience chronic stress may crave comforting foods such as highly processed snacks or sweets, which can be high in unhealthy fats, sugar, and calories but low in micronutrients. People feeling stress may lack the time or motivation to prepare nutritious, balanced meals, or may skip or forget to eat meals. Stress can disrupt sleep by causing aeronautical products sales engineer sleep or more frequent awakenings, which leads to fatigue during the day. In order to cope with daytime fatigue, people may use stimulants to increase energy such as with caffeine or high-calorie snack foods. The reverse may also be true that poor-quality sleep is itself a stressor. Studies have found that sleep restriction causes a significant increase in cortisol levels. During acute stress, adrenaline suppresses the appetite.But with chronic stress, elevated levels of cortisol may cause cravings, particularly for foods high in sugar, fat, and calories, which may then lead to weight gain. Cortisol favors the accumulation of fat in the belly area, also called central adiposity, which is associated with insulin resistance and an increased risk of type 2 diabetes, cardiovascular disease, and certain breast cancers.4,6-8 It also lowers levels of the hormone leptin (that promotes satiety) while increasing the hormone ghrelin (that increases appetite). https://cdn1.sph.[employer].edu/wp-co ntent/uploads/sites//Bipin zxryOamcmpAwken28-38.1.pdf Educational Podcasts: The Dr. Quintero Show- Real Conversations about Health and Weight Obesity: A Disease The Obesity Guide Podcast with Rhina Medina MD Conquer Your Weight, Morenita Arguello MD Docs who lift podcast, Carol Almeida Optimal Protein- Ladi Spina On the [facility] Obesity Medicine Podcast (especially if you are on an injection) documented in this encounter [facility] 05-01-2025 History of Present illness Narrative Images from the original note were not included. Some documentation from previous visit of 10/29/2024 was copied and pasted, documentation has been reviewed and edited as necessary for today's visit. Patient Summary: Renee is a 44 year old Female who presents for follow-up evaluation of obesity/weight management to treat and prevent related co-morbidities. In our previous visits we have discussed lifestyle intervention including a nutrition recommendations and physical activity optimization. Her last office visit was 6 months ago. Assessment/plan from last visit: -reviewed importance of regular meals- focusing on balanced nutrition 90g / day - discussed only taking evening dose as needed of topiramate - continue lisinopril for HTN - follow up with PCP for routine care and medication adjustments as needed - weight maintenance at this time - repeat CMP ordered today- check LFTs and kidney function - stress- discussed finding alternatives to manage -Topiramate refills ordered- doing well. - continue xanax for anxiety per pcp, - continue with licensed life and health agent Interval History PT specifies the following items as new or significant updates since the last appointment: -has stopped drinking ETOH completely- went to a rehab and is feeling great. Was put on naltrexone. Wonders if she should stay on it. - is worried naltrexone will make her lose too much weight - feels like she has more energy - doing yoga 4 x day - struggling with protein b/c she does not crave it. Loves whole foods- fruits and vegetables. - happy that weight is staying stable. -c/o urinary frequency - no pain no fevers. Weight loss since last vist: 5 lbs Total weight lost 33 lbs - Last Wt 05/01/25: 137 lb 10/29/24: 142 lb 07/05/24 : 149 lb 04/02/24: 161 lb 02/12/24 : 168 lb Starting weight: 01/01/24 : 170 lb (77.1 kg) Goal weight: - 15 lbs weight loss -20 lbs 5% weight loss = 162 lbs, 10% weight loss = 153 lbs 19%= 137lb Anti-obesity medications: Topiramate. Benefit:decreased food craving , decreased ETOH Adverse effects: none Naltrexone only -managed by psychiatry Benefit: ETOH Adverse effects:none Weight promoting medications: alprazolam Previous Diet (initial appointment): Wakes up: Drinkes water all day- 6 large aldo's. Latte occasionally once per week Does not eat breakfast Lunch- salad, lean protein, rice, quinoa, soap, fish, Snacks- fruit, anya, dried pineapple, sesame sticks Dinner 5:30-7:30- meat, veggie, pasta (one per week) Snacks: cheese Diet/Nutrition overview: Fluids: water, 4-5 ETOH drinks mixed with Juices. Quality of diet: 24hr recall suggests healthy diet. Characterization of diet:skip meals. Sandstone Inspector Repairer of impaired eating habits:denies Eating Disorder no Preferred foods: Cravings: guamanian food Dietary changes: (cell core, digestive warrior) B - smoothie with fruit, vegetables, protein powder plant - banana- pb, green smoothie, mixed greens S - L - fruits and vegetables S - D - same - vegetable or salad S - Fluids - water , ETOH at times Eating 3 meals a day, including breakfast Increasing servings of fruit Increasing servings of vegetables Controlling portions Limiting processed foods Increasing protein Reducing carbohydrates Current Barriers: none Exercise: still moving during the day- but no dedicated exercise Stress: stable Sleep: improved- 8-10 hrs - decreased but better than was at - 3-4 hours. RYAN NO ; CPAP NO stable- HAS ANIMALS that move and wake her up all night CrCl cannot be calculated (Patient's most recent lab result is older than the maximum 180 days allowed.). PAST MEDICAL HISTORY Diagnosis Date 1999 CVA (cerebral vascular accident) (HCC) unknown when Gallstones Current Outpatient Medications Medication Sig Dispense Refill naltrexone 50 mg tablet Take 1 tablet by mouth once daily. acetaminophen 325 mg cap Take 1 capsule by mouth four times daily. Biotin 1 mg tab Take 1 tablet by mouth once daily. DULoxetine (CYMBALTA) 30 mg capsule Take 1 capsule by mouth once daily. 90 capsule 1 traZODone (DESYREL) 50 mg tablet Take 1-2 tablets by mouth daily at bedtime. 180 tablet 1 valACYclovir (VALTREX) 1 gram tablet Take 2 tablets by mouth two times a day. For 1 day. 4 tablet 2 omeprazole (PRILOSEC) 10 mg capsule Take 1 capsule by mouth once daily. 90 capsule 1 topiramate (TOPAMAX) 50 mg tablet Take 1 tablet by mouth two times a day. 180 tablet 1 No current facility-administered medications for this visit. 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 Latest Ref Rng & Units 06/21/2024 CMP Protein, Total 6.3 - 8.0 g/dL 7.1 Albumin 3.9 - 4.9 g/dL 4.5 Bilirubin, Total 0.2 - 1.3 mg/dL 0.4 AST 13 - 35 U/L 15 ALT 7 - 38 U/L 13 Alkaline Phosphatase 34 - 123 U/L 49 Cholesterol, Total (mg/dL) Date Value 12/28/2023 260 HDL Cholesterol (mg/dL) Date Value 12/28/2023 77 LDL Cholesterol, Calculated (mg/dL) Date Value 12/28/2023 174 Triglyceride (mg/dL) Date Value 12/28/2023 47 Latest Ref Rng & Units 04/02/2024 CBC WBC 3.70 - 11.00 k/uL 6.33 RBC 3.90 - 5.20 m/uL 3.76 Hemoglobin 11.5 - 15.5 g/dL 12.4 Hematocrit 36.0 - 46.0 % 36.5 MCV 80.0 - 100.0 fL 97.1 MCH 26.0 - 34.0 pg 33.0 MCHC 30.5 - 36.0 g/dL 34.0 RDW-CV 11.5 - 15.0 % 12.2 Platelet Count 150 - 400 k/uL 165 MPV 9.0 - 12.7 fL 9.5 Vitamin D 25 Hydroxy Date Value Ref Range Status 12/22/2023 42.6 31.0 - 80.0 ng/mL Final 04/18/2023 36.8 31.0 - 80.0 ng/mL Final Comment: Classification of 25 OH Vitamin D status: Deficiency/Insufficiency: < or = 30 ng/ml. Sufficiency/Optimal Levels: 31-80 ng/mL Toxicity: > 100 ng/mL. Test performed by chemiluminescent immunoassay. TSH (mIU/L) Date Value 12/22/2023 1.160 04/18/2023 3.670 ) Hemoglobin A1C (%) Date Value 12/22/2023 4.8 04/18/2023 4.8 Insulin Date Value Ref Range Status 12/28/2023 6.9 3.0 - 25.0 mU/L Final Assessment/Plan: Renee Gallardo is a 44 year old with Overweight (Pre-obesity) who presented today for follow up for supervised weight loss to treat and prevent related co-morbidities. (E78.00) Hypercholesteremia (primary encounter diagnosis) (R53.81, R53.83) Malaise and fatigue (F41.1) Anxiety neurosis (I10) Hypertension, unspecified type (R74.8) Elevated liver enzymes (R30.0) Dysuria (R35.0) Urinary frequency (E66.3) Overweight (BMI 25.0-29.9) -reviewed importance of regular meals- focusing on balanced nutrition 90g / day - discussed using smoothies for protein etc. - discussed only taking evening dose as needed of topiramate - monitor BP- was taken off lisinopril - continue naltrexone per psychiatry- no ETOH at all- very happy with how she feels - has full labs pending from PCP- will monitor -Topiramate refills ordered- doing well. -continue trazadone as needed for sleep - continue with licensed life and health agent -protein importance reviewed - clear proteins reviewed -Urine dip today - An overall goal of 150-200 minutes per week of exercise has been effective in weight loss and maintenance. Prescription instructions reviewed with patient as applicable. Potential red flag symptoms discussed with the patient. Reviewed appropriate action plan to take if red flag symptoms occur. Patient agreeable to treatment plan. Medical Decision Making: Problems: Moderate: 2+ stable chronic illnesses Risk: Moderate: Drug management and Moderate risk from testing/treatment Medical Decision Making Level: 4 - Moderate Follow up in 6 months- September Natasha Cruz MD, FACOG, JENNY documented in this encounter [facility] 05-01-2025 Note HNO ID: [id number] Author: NATASHA DAVILA MD Service: ? Author Type: Physician Type: Progress Notes Filed: 05/01/2025 11:27 Note Text: Some documentation from previous visit of 10/29/2024 was copied and pasted, documentation has been reviewed and edited as necessary for today's visit. Patient Summary: Renee is a 44 year old Female who presents for follow-up evaluation of obesity/weight management to treat and prevent related co-morbidities. In our previous visits we have discussed lifestyle intervention including a nutrition recommendations and physical activity optimization. Her last office visit was 6 months ago. Assessment/plan from last visit: -reviewed importance of regular meals- focusing on balanced nutrition 90g / day - discussed only taking evening dose as needed of topiramate - continue lisinopril for HTN - follow up with PCP for routine care and medication adjustments as needed - weight maintenance at this time - repeat CMP ordered today- check LFTs and kidney function - stress- discussed finding alternatives to manage -Topiramate refills ordered- doing well. - continue xanax for anxiety per pcp, - continue with licensed life and health agent Interval History PT specifies the following items as new or significant updates since the last appointment: -has stopped drinking ETOH completely- went to a rehab and is feeling great. Was put on naltrexone. Wonders if she should stay on it. - is worried naltrexone will make her lose too much weight - feels like she has more energy - doing yoga 4 x day - struggling with protein b/c she does not crave it. Loves whole foods- fruits and vegetables. - happy that weight is staying stable. -c/o urinary frequency - no pain no fevers. Weight loss since last vist: 5 lbs Total weight lost 33 lbs - Last Wt 05/01/25: 137 lb 10/29/24: 142 lb 07/05/24 : 149 lb 04/02/24: 161 lb 02/12/24 : 168 lb Starting weight: 01/01/24 : 170 lb (77.1 kg) Goal weight: - 15 lbs weight loss -20 lbs 5% weight loss = 162 lbs, 10% weight loss = 153 lbs 19%= 137lb Anti-obesity medications: Topiramate. Benefit:decreased food craving , decreased ETOH Adverse effects: none Naltrexone only -managed by psychiatry Benefit: ETOH Adverse effects:none Weight promoting medications: alprazolam Previous Diet (initial appointment): Wakes up: Drinkes water all day- 6 large aldo's. Latte occasionally once per week Does not eat breakfast Lunch- salad, lean protein, rice, quinoa, soap, fish, Snacks- fruit, anya, dried pineapple, sesame sticks Dinner 5:30-7:30- meat, veggie, pasta (one per week) Snacks: cheese Diet/Nutrition overview: Fluids: water, 4-5 ETOH drinks mixed with Juices. Quality of diet: 24hr recall suggests healthy diet. Characterization of diet:skip meals. Sandstone Inspector Repairer of impaired eating habits:denies Eating Disorder no Preferred foods: Cravings: guamanian food Dietary changes: (cell core, digestive warrior) B - smoothie with fruit, vegetables, protein powder plant - banana- pb, green smoothie, mixed greens S - L - fruits and vegetables S - D - same - vegetable or salad S - Fluids - water , ETOH at times Eating 3 meals a day, including breakfast Increasing servings of fruit Increasing servings of vegetables Controlling portions Limiting processed foods Increasing protein Reducing carbohydrates Current Barriers: none Exercise: still moving during the day- but no dedicated exercise Stress: stable Sleep: improved- 8-10 hrs - decreased but better than was at - 3-4 hours. RYAN NO ; CPAP NO stable- HAS ANIMALS that move and wake her up all night CrCl cannot be calculated (Patient's most recent lab result is older than the maximum 180 days allowed.). PAST MEDICAL HISTORY Diagnosis Date 1999 CVA (cerebral vascular accident) (HCC) unknown when Gallstones Current Outpatient Medications Medication Sig Dispense Refill naltrexone 50 mg tablet Take 1 tablet by mouth once daily. acetaminophen 325 mg cap Take 1 capsule by mouth four times daily. Biotin 1 mg tab Take 1 tablet by mouth once daily. DULoxetine (CYMBALTA) 30 mg capsule Take 1 capsule by mouth once daily. 90 capsule 1 traZODone (DESYREL) 50 mg tablet Take 1-2 tablets by mouth daily at bedtime. 180 tablet 1 valACYclovir (VALTREX) 1 gram tablet Take 2 tablets by mouth two times a day. For 1 day. 4 tablet 2 omeprazole (PRILOSEC) 10 mg capsule Take 1 capsule by mouth once daily. 90 capsule 1 topiramate (TOPAMAX) 50 mg tablet Take 1 tablet by mouth two times a day. 180 tablet 1 No current facility-administered medications for this visit. ROS- denies Brain fog, paraesthesia , no stomach pain ROS/Fam Hx pertaining to AOMs: GEN: Fatigue:yes CV: h/o palpitations/cardiac arrhythmia, Chest pain anxiety HTN: yes PULM: Asthma:no GI: GERD:no ; Gallstones:yes ; Fatty liver disease:no Pancreatitis: no MSK: Joint Pain:no (more content not included)... [facility] 02-21-2025 History of Present illness Narrative I received consent from the patient to perform the visit as a virtual encounter. Individuals who were included in, or assisted with the encounter were: Renee Oquendogloria Newton MD Location: at home in [place], but following up today as an established patient for an established problem This is Ms. 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 Remarkably improved on follow up today. Seems to have near or essentially full wrist extension and finger extension on the right with just a bit of residual numbness. Plan Taper Lyrica. Currently prescribed Lyrica 50 mg 3 times daily. Take 50 mg twice daily for 1 week. If doing well without significant nerve pain, then take 50 mg daily for 1 week. If still doing well, then stop the medication Follow-up with me as needed Ryder Newton MD Staff, [facility] [place] HPI: This is Ms. Renee Gallardo, a 44 year old female who presents to the [facility] clinic for follow-up Review: Last seen 12/13/2024 This is Ms. 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 Again, would expect improvements over the next 2 to 3 months. Seems to be doing better today. Now able to extend the wrist with gravity eliminated. Able to extend the fingers at least somewhat toward gravity. Numbness is improving. Major issue right now is right arm pain (e.g. stabbing pain in the right tricep area). Plan --Ultrasound the radial nerve at the level of the humerus and forearm already kindly ordered by orthopedics --Perhaps if the patient continues to improve by the time ultrasound is complete, and if ultrasound does not suggest mechanical entrapment, MRI could be deferred (patient will apparently need anesthesia for MRI) --I will reach out to orthopedics about possibility of our office adjusting Lyrica dose for the patient and taking over the prescription --MyChart update in 2 weeks -- Tentative follow-up via Zoom in 8 weeks >>> Previous testing EMG 10/28/2024 Electrodiagnostic examination of the right upper extremity demonstrates: 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 The pathophysiology is predominantly demyelinating with intact distal radial motor and sensory amplitudes. Studies of the median and ulnar nerves are normal. >>> Saw orthopedics Ultrasound of radial nerve never completed >>> Recent stay in rehab for several weeks just underwent alcohol detoxification Today: Much better Hasn't done PT lately Strength is definitely better Can carry bags, lift things Numbness is better Pain is much better Brace occasionally Past history per chart review includes: (Per my 10/28/2024 clinic note) Past medical history, problem list: Appendicitis, CVA, gallstones, hyperlipidemia, situational anxiety, fatigue Past surgical history: Appendectomy, hysterectomy Family history: Bipolar disorder (mother) Social history: Former smoker OBJECTIVE: PHYSICAL EXAM: November 2024 visit -- Clearly has some good finger extension today on R Some wrist extension against gravity With gravity eliminated, does well Numbness near R thumb Today -- Neurological: Mental Status: Alert. Responds appropriately Speech fluent. Fingers fully extend on R Wrist essentially fully extends R This note was partially created using voice recognition software and is inherently subject to errors including those of syntax and sound-alike substitutions which may escape proofreading. In such instances, original meaning may be extrapolated by contextual derivation. I spent a total of 17 minutes on the date of the service which included time spent preparing to see the patient, talking to the patient/documenting in the chart, briefly examining the patient via the virtual platform, documenting in the chart after the visit, communicating with the patient by MyChart after the visit. documented in this encounter [facility] 02-21-2025 Note HNO ID: [id number] Author: RYDER NEWTON MD Service: ? Author Type: Physician Type: Progress Notes Filed: 02/21/2025 16:22 Note Text: I received consent from the patient to perform the visit as a virtual encounter. Individuals who were included in, or assisted with the encounter were: Renee Gallardo Ryder Newton MD Location: at home in [place], but following up today as an established patient for an established problem This is Ms. 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 Remarkably improved on follow up today. Seems to have near or essentially full wrist extension and finger extension on the right with just a bit of residual numbness. Plan Taper Lyrica. Currently prescribed Lyrica 50 mg 3 times daily. Take 50 mg twice daily for 1 week. If doing well without significant nerve pain, then take 50 mg daily for 1 week. If still doing well, then stop the medication Follow-up with me as needed Ryder Newton MD Staff, [facility] [place] HPI: This is Ms. Renee Gallardo, a 44 year old female who presents to the [facility] clinic for follow-up Review: Last seen 12/13/2024 This is Ms. 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 Again, would expect improvements over the next 2 to 3 months. Seems to be doing better today. Now able to extend the wrist with gravity eliminated. Able to extend the fingers at least somewhat toward gravity. Numbness is improving. Major issue right now is right arm pain (e.g. stabbing pain in the right tricep area). Plan --Ultrasound the radial nerve at the level of the humerus and forearm already kindly ordered by orthopedics --Perhaps if the patient continues to improve by the time ultrasound is complete, and if ultrasound does not suggest mechanical entrapment, MRI could be deferred (patient will apparently need anesthesia for MRI) --I will reach out to orthopedics about possibility of our office adjusting Lyrica dose for the patient and taking over the prescription --MyChart update in 2 weeks -- Tentative follow-up via Zoom in 8 weeks >>> Previous testing EMG 10/28/2024 Electrodiagnostic examination of the right upper extremity demonstrates: 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 The pathophysiology is predominantly demyelinating with intact distal radial motor and sensory amplitudes. Studies of the median and ulnar nerves are normal. >>> Saw orthopedics Ultrasound of radial nerve never completed >>> Recent stay in rehab for several weeks just underwent alcohol detoxification Today: Much better Hasn't done PT lately Strength is definitely better Can carry bags, lift things Numbness is better Pain is much better Brace occasionally Past history per chart review includes: (Per my 10/28/2024 clinic note) Past medical history, problem list: Appendicitis, CVA, gallstones, hyperlipidemia, situational anxiety, fatigue Past surgical history: Appendectomy, hysterectomy Family history: Bipolar disorder (mother) Social history: Former smoker OBJECTIVE: PHYSICAL EXAM: November 2024 visit -- Clearly has some good finger extension today on R Some wrist extension against gravity With gravity eliminated, does well Numbness near R thumb Today -- Neurological: Mental Status: Alert. Responds appropriately Speech fluent. Fingers fully extend on R Wrist essentially fully extends R This note was partially created using voice recognition software and is inherently subject to errors including those of syntax and sound-alike substitutions which may escape proofreading. In such instances, original meaning may be extrapolated by contextual derivation. I spent a total of 17 minutes on the date of the service which included time spent preparing to see the patient, talking to the patient/documenting in the chart, briefly examining the patient via the virtual platform, documenting in the chart after the visit, communicating with the patient by MyChart after the visit. [facility] 01-29-2025 Instructions Meghna Thomason APRN.TODD - 01/29/2025 10:08 AM EDT Get your mammogram done, it is already scheduled I will talk to Dr Zazueta about the naltrexone and mychart message Labs are ordered, can get anytime after March Berny will be followed and ordered by neurology and or Dr posada documented in this encounter [facility] 01-29-2025 Note HNO ID: [id number] Author: MEGHNA THOMASON APRN.CNP Service: ? Author Type: Nurse Practitioner Type: Progress Notes Filed: 01/29/2025 13:44 Note Text: This is a 44 year old female who presents today with: wellness visit, discuss naltrexone prescribing HISTORY OF PRESENT ILLNESS: Renee is a 44-year-old female, with a history of alcohol use disorder, anxiety, and radial nerve palsy, presenting for a well visit and transition of care following a rehabilitation stay. Renee was discharged yesterday from a 3-week stay at [facility]. She is currently taking Cymbalta, which was initiated during her stay as a replacement for Xanax. She is also taking naltrexone, which is part of her discharge plan. Discharge notes and medication list reconciled with [employer] med list. She has a follow-up plan with her marketing database coordinator which included meetings and mental health counseling per patient. . She is trying to get in touch with [facility] for psychiatric follow-up. She reports that her alcohol use is a byproduct of emotional issues, and she is focusing on addressing these underlying issues. States I dont plan on drinking for a very long time. She denies any current use of Xanax and prefers to stay that way. She was taking trazodone 50 mg at bedtime for sleep and anxiety, with an additional 50 mg if still awake after an hour during her stay and wishes to continue (this was not on discharge med list but she did call nurse at [facility] and we verified doses she was on). Neuro/[place]- She has a history of radial nerve palsy and is under the care of Dr Posada (ortho) and Dr Newton (neuro), Her Lyrica dosage was increased to 100 mg TID on December 16, but she is currently taking 50 mg TID, which she reports is effective. She has a brace on her right wrist currently History of increased BMI: Carlos for weight management (next appt April)- has her on topiramate for decreased frood craving and decreased ETOH. Starting weight was 170# a year ago, she's now 142#. PDMP report reviewed Alprazolam is for panic attacks and insomnia (last filled in October for 60 tabs- no longer taking this, was started on cymbalta and took trazodone at rehabilitation and wants to continue this instead of alprazolam) Pregabalin 50mg three times daily (last filled 01/21 for 90 caps- never filled the 100mg order increase) Librium 18 day (3 day) supply January 08, for alcohol rehabilitation, no longer taking. PAST MEDICAL HISTORY: PAST MEDICAL HISTORY Diagnosis Date Appendicitis 1999 CVA (cerebral vascular accident) (HCC) unknown when Gallstones PAST SURGICAL HISTORY Procedure Laterality Date APPENDECTOMY 1999 HYSTERECTOMY 12/07/2023 [facility], cystoscopy SALPINGECTOMY Bilateral 12/07/2023 ALLERGIES Amitriptyline, Bactrim [Sulfamethoxazole-Trimethoprim], Hydroxyzine, Melatonin, Nifedipine, Prednisone, Sertraline, Sulfa (Sulfonamide Antibiotics), and Beta-Blockers (Beta-Adrenergic Blocking Agts) MEDICATIONS Current Outpatient Medications Medication Sig acetaminophen 325 mg cap Take 1 capsule by mouth four times daily. pregabalin (LYRICA) 100 mg capsule Take 1 capsule by mouth three times a day for 180 days. (Patient taking differently: Take 50 mg by mouth three times a day.) topiramate (TOPAMAX) 50 mg tablet Take 1 tablet by mouth two times a day. valACYclovir (VALTREX) 1 gram tablet Take 2 tablets by mouth two times a day. For 1 day. omeprazole (PRILOSEC) 10 mg capsule Take 1 capsule by mouth once daily. niacinamide (NICOTINAMIDE MISC) 250 mg two times a day. Biotin 1 mg tab Take 1 tablet by mouth once daily. DULoxetine (CYMBALTA) 30 mg capsule Take 1 capsule by mouth once daily. naltrexone 50 mg tablet Take 1 tablet by mouth once daily. traZODone (DESYREL) 50 mg tablet Take 1-2 tablets by mouth daily at bedtime. No current facility-administered medications for this visit. FAMILY HISTORY Problem Relation Age of Onset Cancer Father CLS, stable Bipolar disorder Mother Heart disease Paternal Grandfather Hypertension Paternal Grandfather No Ocular Disease No Family History Social History Tobacco Use Smoking status: Some Days Current packs/day: 0.00 Types: Cigarettes Last attempt to quit: 2002 Years since quittin.4 Smokeless tobacco: Never Vaping Use Vaping status: Never Used Substance Use Topics Alcohol use: Yes Drug use: Never REVIEW OF SYSTEMS PAIN ASSESSMENT: HISTORY OF CHRONIC PAIN OR CURRENTLY BEING TREATED FOR A CHRONIC PAIN CONDITION: Yes, CONDITION: right radial nerve palsy TREATING PROVIDER: Dr Newton (neuro), Dr Posada (ortho) DURATION: Sep 2024 LAST SEEN: [facility] 12/13 neuro, ortho 12/09 TREATMENT INCLUDES(D) CONTROLLED SUBSTANCES/SCHEDULED MEDICATIONS: Yes, Drug; lyrica Dose; 50mg Schedule; tid Duration; no end date PAIN PANEL/TOXICOLOGY AVAILABLE: not reviewed today, n/a, she did receive while she was a (more content not included)... [facility] 01-29-2025 History of Present illness Narrative This is a 44 year old female who presents today with: wellness visit, discuss naltrexone prescribing HISTORY OF PRESENT ILLNESS: Renee is a 44-year-old female, with a history of alcohol use disorder, anxiety, and radial nerve palsy, presenting for a well visit and transition of care following a rehabilitation stay. Renee was discharged yesterday from a 3-week stay at [facility]. She is currently taking Cymbalta, which was initiated during her stay as a replacement for Xanax. She is also taking naltrexone, which is part of her discharge plan. Discharge notes and medication list reconciled with [facility] med list. She has a follow-up plan with her marketing database coordinator which included meetings and mental health counseling per patient. . She is trying to get in touch with [facility] for psychiatric follow-up. She reports that her alcohol use is a byproduct of emotional issues, and she is focusing on addressing these underlying issues. States I dont plan on drinking for a very long time. She denies any current use of Xanax and prefers to stay that way. She was taking trazodone 50 mg at bedtime for sleep and anxiety, with an additional 50 mg if still awake after an hour during her stay and wishes to continue (this was not on discharge med list but she did call nurse at [facility] and we verified doses she was on). Neuro/[place]- She has a history of radial nerve palsy and is under the care of Dr Posada (ortho) and Dr Newton (neuro), Her Lyrica dosage was increased to 100 mg TID on December 16, but she is currently taking 50 mg TID, which she reports is effective. She has a brace on her right wrist currently History of increased BMI: Carlos for weight management (next appt April)- has her on topiramate for decreased frood craving and decreased ETOH. Starting weight was 170# a year ago, she's now 142#. PDMP report reviewed Alprazolam is for panic attacks and insomnia (last filled in October for 60 tabs- no longer taking this, was started on cymbalta and took trazodone at rehabilitation and wants to continue this instead of alprazolam) Pregabalin 50mg three times daily (last filled 01/21 for 90 caps- never filled the 100mg order increase) Librium 18 day (3 day) supply January 08, for alcohol rehabilitation, no longer taking. PAST MEDICAL HISTORY: PAST MEDICAL HISTORY Diagnosis Date Appendicitis 1999 CVA (cerebral vascular accident) (HCC) unknown when Gallstones PAST SURGICAL HISTORY Procedure Laterality Date APPENDECTOMY 1999 HYSTERECTOMY 12/07/2023 [facility], cystoscopy SALPINGECTOMY Bilateral 12/07/2023 ALLERGIES Amitriptyline, Bactrim [Sulfamethoxazole-Trimethoprim], Hydroxyzine, Melatonin, Nifedipine, Prednisone, Sertraline, Sulfa (Sulfonamide Antibiotics), and Beta-Blockers (Beta-Adrenergic Blocking Agts) MEDICATIONS Current Outpatient Medications Medication Sig acetaminophen 325 mg cap Take 1 capsule by mouth four times daily. pregabalin (LYRICA) 100 mg capsule Take 1 capsule by mouth three times a day for 180 days. (Patient taking differently: Take 50 mg by mouth three times a day.) topiramate (TOPAMAX) 50 mg tablet Take 1 tablet by mouth two times a day. valACYclovir (VALTREX) 1 gram tablet Take 2 tablets by mouth two times a day. For 1 day. omeprazole (PRILOSEC) 10 mg capsule Take 1 capsule by mouth once daily. niacinamide (NICOTINAMIDE MISC) 250 mg two times a day. Biotin 1 mg tab Take 1 tablet by mouth once daily. DULoxetine (CYMBALTA) 30 mg capsule Take 1 capsule by mouth once daily. naltrexone 50 mg tablet Take 1 tablet by mouth once daily. traZODone (DESYREL) 50 mg tablet Take 1-2 tablets by mouth daily at bedtime. No current facility-administered medications for this visit. FAMILY HISTORY Problem Relation Age of Onset Cancer Father CLS, stable Bipolar disorder Mother Heart disease Paternal Grandfather Hypertension Paternal Grandfather No Ocular Disease No Family History Social History Tobacco Use Smoking status: Some Days Current packs/day: 0.00 Types: Cigarettes Last attempt to quit: 2002 Years since quittin.4 Smokeless tobacco: Never Vaping Use Vaping status: Never Used Substance Use Topics Alcohol use: Yes Drug use: Never REVIEW OF SYSTEMS PAIN ASSESSMENT: HISTORY OF CHRONIC PAIN OR CURRENTLY BEING TREATED FOR A CHRONIC PAIN CONDITION: Yes, CONDITION: right radial nerve palsy TREATING PROVIDER: Dr Newton (neuro), Dr Posada (ortho) DURATION: Sep 2024 LAST SEEN: [facility] 12/13 neuro, ortho 12/09 TREATMENT INCLUDES(D) CONTROLLED SUBSTANCES/SCHEDULED MEDICATIONS: Yes, Drug; lyrica Dose; 50mg Schedule; tid Duration; no end date PAIN PANEL/TOXICOLOGY AVAILABLE: not reviewed today, n/a, she did receive while she was at rehab OARRS: Yes, reviewed GENERAL: weight loss (intended, possible decrease from no alcohol x 3 weeks), malaise or fevers HEENT: Negative for frequent or significant headaches, No changes in hearing or vision, no nose bleeds or other nasal problems, allergies though with some ear fullness NECK: Negative for lumps, goiter, pain and significant neck swelling RESPIRATORY: Negative for cough, hemoptysis, wheezing, COPD, dyspnea or shortness of breath CARDIOVASCULAR: Negative for chest pain, leg swelling, hypertension, CHF or palpitations GI: No nausea, vomiting, or diarrhea : No history of dysuria, frequency or incontinence FARO DEALER: Negative for abnormal vaginal bleeding, abnormal vaginal discharge MUSCULOSKELETAL: Negative besides right wrist radial palsy SKIN: Negative for lesions, rash, and itching PSYCH: See HPI, +sleep disturbances, anxiety, alcohol abuse/recent rehab HEMATOLOGY/LYMPHOLOGY: Negative for prolonged bleeding, bruising easily or swollen nodes ENDOCRINE: Negative for cold or heat intolerance, polyuria, polydipsia and goiter NEURO: No history of headaches, syncope, paralysis, seizures or tremors EXAM: BP 100/62 (BP Site: Left Arm, BP Cuff Size: Regular Adult) Pulse 84 Resp 12 Wt 64.6 kg (142 lb 8 oz) LMP 11/16/2023 SpO2 98% BMI 23.71 kg/m PHYSICAL EXAM: General Appearance: Well appearing, alert, in no acute distress, well-hydrated, well nourished.. Skin: Skin color, texture, turgor normal, no suspicious rashes or lesions. Head: Normocephalic, no masses, lesions, tenderness or abnormalities. Eyes: Anicteric sclera. Pupils are equally round and reactive to light. Extraocular movements are intact. . Ears: External ears normal, canals clear. Slight effusion, worse on left. Consistent with allergy complaints Nose/Sinuses: Nares normal, septum midline, mucosa normal, no drainage or sinus tenderness. Oropharynx: Lips, mucosa, and tongue normal, teeth and gums normal, oropharynx normal. Lungs: Lungs clear to auscultation. No wheezing, rhonchi, rales.. Heart: RRR without murmur, gallop, or rubs. No ectopy. Extremities: No deformities, edema, skin discoloration, clubbing or cyanosis. Good capillary refill. . Musculoskeletal: No joint swelling, deformity, or tenderness. ASSESSMENT/PLAN: 1. Wellness examination - ICD9: V70.0, ICD10: Z00.00 (primary diagnosis) -wellness lab work any time after March 31 - COMPREHENSIVE METABOLIC PANEL - LIPID PANEL, FASTING - COMPLETE BLOOD COUNT AND DIFFERENTIAL - THYROID STIMULATING HORMONE - VITAMIN D 25 HYDROXY - HEMOGLOBIN A1C - VITAMIN B12 - IRON AND TIBC 2. Elevated MCV - ICD9: 790.09, ICD10: R71.8 - COMPLETE BLOOD COUNT AND DIFFERENTIAL - IRON AND TIBC 3. PREETI (generalized anxiety disorder) - ICD9: 300.02, ICD10: F41.1 - THYROID STIMULATING HORMONE - VITAMIN D 25 HYDROXY - DULOXETINE 30 MG CAPSULE,DELAYED RELEASE - TRAZODONE 50 MG TABLET - psychiatry and counseling encouraged 4. Status post alcohol detoxification - ICD9: V67.59, ICD10: Z92.89 - COMPREHENSIVE METABOLIC PANEL - NALTREXONE 50 MG TABLET- will need managed by psychiatry or a step/alcohol program. Encouraged [facility], patient stated she didn't want to go to a methadone clinic, educated on the different things they do there. She is waiting to hear back from psychiatry on a visit. Verified with Dr Zazueta who agrees it should be managed by specialist in that field. -AA meetings 5. Alcohol abuse - ICD9: 305.00, ICD10: F10.10 - COMPREHENSIVE METABOLIC PANEL - NALTREXONE 50 MG TABLET (see above) -AA meetings 6. Elevated liver enzymes - ICD9: 790.5, ICD10: R74.8 - COMPREHENSIVE METABOLIC PANEL - LIPID PANEL, FASTING 7. Hyperlipidemia, mixed - ICD9: 272.2, ICD10: E78.2 - COMPREHENSIVE METABOLIC PANEL - LIPID PANEL, FASTING -healthy diet, low fat, low cholesterol 8. Sleep disturbances - ICD9: 780.50, ICD10: G47.9 - THYROID STIMULATING HORMONE - VITAMIN D 25 HYDROXY - DULOXETINE 30 MG CAPSULE,DELAYED RELEASE - TRAZODONE 50 MG TABLET -psychiatry and counseling 9. Screening for diabetes mellitus - ICD9: V77.1, ICD10: Z13.1 - HEMOGLOBIN A1C 10. Elevated vitamin B12 level - ICD9: 790.99, ICD10: R79.89 - VITAMIN B12 Meghna Thomason APRN.GEOCHEMICAL MANAGER Discussed treatment plan and patient voices understanding. Patient's questions answered appropriately. Medications and potential side effects were discussed and patient voices understanding. Return to the office as scheduled or as needed for worsening/no improvement. Meghna Thomason APRN.GEOCHEMICAL MANAGER Recording using ambient [employer] software for draft documentation of the visit was discussed with the patient/authorized retail service representative; all questions welcomed and answered. Patient/authorized retail service representative agreed to proceed documented in this encounter [facility] 01-28-2025 Note HNO ID: [id number] Author: HOLA MONTEZ PT Service: ? Author Type: Physical Therapist Type: Progress Notes Filed: 01/28/2025 07:59 Note Text: 01/28/2025 [facility] PHYSICAL THERAPY DISCONTINUANCE OF CARE Plan of Care Period: Start of Care Date: 11/08/24 Last Visit Date: 11/25/2024 Therapy Program: Patient did not return for follow up care as planned. Please refer to last visit note for interventions provided for this episode of care. Assessment: Unable to formally assess goal achievement. Reason for Discontinuation of Care: Patient has not returned to therapy or scheduled additional follow-up appointments. PT completed eval plsu 2 PT visits. Pt did not return for further PT. Hola Montez, PT [facility] 01-27-2025 Telephone encounter Note Patient returns call and message below reviewed. Patient currently in-patient for alcohol detoxification. Discharging tomorrow. No longer takes benzodiazepines and Lyrica was prescribed as it is less likely to cause relapse as previous medication prescribed for nerve pain (reviewed notes but not see mention of this). Patient reports not sure of current dose of naltrexone prescribed. Will know when discharged. If provider is still uncomfortable would like to know who would be recommended to prescribe treatment. (I believe [facility] has been recommended to patients before). Florinda Hull RN [facility] 01-27-2025 Miscellaneous Notes Patient returns call and message below reviewed. Patient currently in-patient for alcohol detoxification. Discharging tomorrow. No longer takes benzodiazepines and Lyrica was prescribed as it is less likely to cause relapse as previous medication prescribed for nerve pain (reviewed notes but not see mention of this). Patient reports not sure of current dose of naltrexone prescribed. Will know when discharged. If provider is still uncomfortable would like to know who would be recommended to prescribe treatment. (I believe [facility] has been recommended to patients before). Florinda Hull, RN Left detailed message on pts voice mail which pt states was ok to. With our phone number for any questions. Patient calling in asking if office is able to prescribe her Naltrexone for her. She made an appt with Meghnacristina Thomason for 01/30/25 just in case this is something she can prescribe. Please review and advise patient, she states it is okay to leave detailed voicemail. Becky Yost January 23, 2025 3:34 PM documented in this encounter [facility] 01-27-2025 Telephone encounter Note Left detailed message on pts voice mail which pt states was ok to. With our phone number for any questions. [facility] 01-23-2025 Telephone encounter Note Patient calling in asking if office is able to prescribe her Naltrexone for her. She made an appt with Meghna Katelin for 01/30/25 just in case this is something she can prescribe. Please review and advise patient, she states it is okay to leave detailed voicemail. Becky Yost January 23, 2025 3:34 PM [facility] 12-25-2024 Telephone encounter Note Prescription Refill Information The patient has been identified by name and date of : Yes Caregiver verified no other encounters exist for this prescription request: Yes Caregiver confirmed with patient/requestor that no other refills are due, in the near future, with this provider at this time: Yes The last office visit in the department: 10/02/2024 Does the patient have a future office visit with this provider/department: Yes Requested Prescriptions Pending Prescriptions Disp Refills lisinopril (ZESTRIL) 20 mg tablet [Pharmacy Med Name: LISINOPRIL 20 MG TABLET] 90 tablet 1 Sig: take 1 tablet by mouth once daily Yumiko Levine MA December 25, 2024 12:17 PM [facility] 12-25-2024 Miscellaneous Notes Prescription Refill Information The patient has been identified by name and date of : Yes Caregiver verified no other encounters exist for this prescription request: Yes Caregiver confirmed with patient/requestor that no other refills are due, in the near future, with this provider at this time: Yes The last office visit in the department: 10/02/2024 Does the patient have a future office visit with this provider/department: Yes Requested Prescriptions Pending Prescriptions Disp Refills lisinopril (ZESTRIL) 20 mg tablet [Pharmacy Med Name: LISINOPRIL 20 MG TABLET] 90 tablet 1 Sig: take 1 tablet by mouth once daily Yumiko Levine MA December 25, 2024 12:17 PM documented in this encounter [facility] 12-16-2024 Telephone encounter Note I called and spoke with the patient. Message given from Dr. Posada. Patient states that she is not feeling like she needs to increase the dosage right now. The arm is feeling better. She will call back if she feels the need for an increase. [facility] 12-16-2024 Miscellaneous Notes I called and spoke with the patient. Message given from Dr. Posada. Patient states that she is not feeling like she needs to increase the dosage right now. The arm is feeling better. She will call back if she feels the need for an increase. Images from the original note were not included. Meño Posada MD You; tr Orthopaedic Pool2 days ago No, but the dosage can be increased if she is finding the medication helpful and more tolerable than Neurontin. BP Patient wanting to know if she is allowed to increased regiment for Lyrica from 3 to 4 times per day. Please contact patient to advise. documented in this encounter [facility] 12-16-2024 Telephone encounter Note Images from the original note were not included. Meño Posada MD You; Wstr Orthopaedic Pool2 days ago No, but the dosage can be increased if she is finding the medication helpful and more tolerable than Neurontin. BP [facility] 12-13-2024 History of Present illness Narrative I received consent from the patient to perform the visit as a virtual encounter. Individuals who were included in, or assisted with the encounter were: Renee Sami Newton MD Dad Location: home This is Ms. 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 Again, would expect improvements over the next 2 to 3 months. Seems to be doing better today. Now able to extend the wrist with gravity eliminated. Able to extend the fingers at least somewhat toward gravity. Numbness is improving. Major issue right now is right arm pain (e.g. stabbing pain in the right tricep area). Plan --Ultrasound the radial nerve at the level of the humerus and forearm already kindly ordered by orthopedics --Perhaps if the patient continues to improve by the time ultrasound is complete, and if ultrasound does not suggest mechanical entrapment, MRI could be deferred (patient will apparently need anesthesia for MRI) --I will reach out to orthopedics about possibility of our office adjusting Lyrica dose for the patient and taking over the prescription --MyChart update in 2 weeks -- Tentative follow-up via Zoom in 8 weeks Ryder Newton MD Staff, [facility] [place] HPI: This is Ms. Renee Gallardo, a 44 year old female who presents to the [facility] clinic for follow-up Review: Last seen 11/07/2024 This is Ms. 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 Would expect improvements over the next 2 to 3 months. Today we follow-up and discuss right arm pain. This seems to have flared up and persisted to some degree since our initial virtual visit 10 days ago. 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 The pathophysiology is predominantly demyelinating with intact distal radial motor and sensory amplitudes. Studies of the median and ulnar nerves are normal. Today: Has seen orthopedics Ultrasound ordered of radial nerve MRI discussed if ultrasound findings suggest mechanical entrapment Gabapentin discontinued Lyrica started Went PT Brace Lyrica helped immensely R wrist pain R tricep area pain Stabbing Past history per chart review includes: (Per my 10/28/2024 clinic note) Past medical history, problem list: Appendicitis, CVA, gallstones, hyperlipidemia, situational anxiety, fatigue Past surgical history: Appendectomy, hysterectomy Family history: Bipolar disorder (mother) Social history: Former smoker OBJECTIVE: PHYSICAL EXAM: Clearly has some good finger extension today on R Some wrist extension against gravity With gravity eliminated, does well Numbness near R thumb This note was partially created using voice recognition software and is inherently subject to errors including those of syntax and sound-alike substitutions which may escape proofreading. In such instances, original meaning may be extrapolated by contextual derivation. I spent a total of 27 minutes on the date of the service which included time spent talking to the patient/documenting in the chart, examining the patient via the virtual platform, documenting in the chart after the visit, reaching out to a colleague about the case. documented in this encounter [facility] 12-13-2024 Note HNO ID: [id number] Author: RYDER NEWTON MD Service: ? Author Type: Physician Type: Progress Notes Filed: 12/13/2024 16:25 Note Text: I received consent from the patient to perform the visit as a virtual encounter. Individuals who were included in, or assisted with the encounter were: Renee Gallardo Ryder Newton MD Dad Location: home This is Ms. 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 Again, would expect improvements over the next 2 to 3 months. Seems to be doing better today. Now able to extend the wrist with gravity eliminated. Able to extend the fingers at least somewhat toward gravity. Numbness is improving. Major issue right now is right arm pain (e.g. stabbing pain in the right tricep area). Plan --Ultrasound the radial nerve at the level of the humerus and forearm already kindly ordered by orthopedics --Perhaps if the patient continues to improve by the time ultrasound is complete, and if ultrasound does not suggest mechanical entrapment, MRI could be deferred (patient will apparently need anesthesia for MRI) --I will reach out to orthopedics about possibility of our office adjusting Lyrica dose for the patient and taking over the prescription --MyChart update in 2 weeks -- Tentative follow-up via Zoom in 8 weeks Ryder Newton MD Staff, [facility] [place] HPI: This is Ms. Renee Gallardo, a 44 year old female who presents to the [facility] clinic for follow-up Review: Last seen 11/07/2024 This is Ms. eRnee Gallardo, a 44 year old female who presents to the [facility] clinic for follow-up Impression Right wrist drop (radial nerve palsy) Right arm pain EMG recently demonstrated findings supportive of a diagnosis of a demyelinating radial nerve lesion in the right upper extremity, subacute, at the spiral groove. Would expect improvements over the next 2 to 3 months. Today we follow-up and discuss right arm pain. This seems to have flared up and persisted to some degree since our initial virtual visit 10 days ago. 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 The pathophysiology is predominantly demyelinating with intact distal radial motor and sensory amplitudes. Studies of the median and ulnar nerves are normal. Today: Has seen orthopedics Ultrasound ordered of radial nerve MRI discussed if ultrasound findings suggest mechanical entrapment Gabapentin discontinued Lyrica started Went PT Brace Lyrica helped immensely R wrist pain R tricep area pain Stabbing Past history per chart review includes: (Per my 10/28/2024 clinic note) Past medical history, problem list: Appendicitis, CVA, gallstones, hyperlipidemia, situational anxiety, fatigue Past surgical history: Appendectomy, hysterectomy Family history: Bipolar disorder (mother) Social history: Former smoker OBJECTIVE: PHYSICAL EXAM: Clearly has some good finger extension today on R Some wrist extension against gravity With gravity eliminated, does well Numbness near R thumb This note was partially created using voice recognition software and is inherently subject to errors including those of syntax and sound-alike substitutions which may escape proofreading. In such instances, original meaning may be extrapolated by contextual derivation. I spent a total of 27 minutes on the date of the service which included time spent talking to the patient/documenting in the chart, examining the patient via the virtual platform, documenting in the chart after the visit, reaching out to a colleague about the case. [facility] 12-13-[address] Newton willing to change to VV per pt request Pt aware and grateful for change in appt type Dr Bowen will message his schedulers to adjust appointment Arina Fernández RN BSN [facility] [place] [facility] Work Phone: 12-13-[address] Newton willing to change to VV per pt request Pt aware and grateful for change in appt type Dr Bowen will message his schedulers to adjust appointment Arina Fernández RN BSN [facility] [place] Pt called regarding todays appt I called her She is asking what the course of action is for todays appointment Asking about MRI orders/botox and cortisol injections Reporting much pain with situation Message forwarded to Dr Lamar Fernández RN BSN [facility] [place] documented in this encounter [facility] 12-13-2024 Telephone encounter Note Patient wanting to know if she is allowed to increased regiment for Lyrica from 3 to 4 times per day. Please contact patient to advise. [facility] 12-13-2024 Telephone encounter Note Pt called regarding todays appt I called her She is asking what the course of action is for todays appointment Asking about MRI orders/botox and cortisol injections Reporting much pain with situation Message forwarded to Dr Lamar Fernández RN BSN [facility] [place] [facility] 12-09-2024 Telephone encounter Note PT scheduled for MSK US on 12/26/24 at 8:15 AM at [place] [facility] 12-09-2024 Miscellaneous Notes PT scheduled for MSK US on 12/26/24 at 8:15 AM at [place] Visit Type: ANY MSK Visit Length: 45, 50 OR 60 MINUTES Order Name/Protocol: US NERVE RT; EVAL RT RADIAL NERVE AT LEVEL OF HUMERUS+FOREARM Preferred Provider: N/A Comment: Please ask if the patient has ever had any prior surgery to their RT ARM/FOREARM/WRIST/HAND. If so, upgrade the visit type to an MSK1 and notate the surgical hx in the Appointment Note. Location: Depending on the surgical hx, this patient can have this exam performed at any of our four locations. Slot held: N/A documented in this encounter [facility] 12-09-2024 Telephone encounter Note Visit Type: ANY MSK Visit Length: 45, 50 OR 60 MINUTES Order Name/Protocol: US NERVE RT; EVAL RT RADIAL NERVE AT LEVEL OF HUMERUS+FOREARM Preferred Provider: N/A Comment: Please ask if the patient has ever had any prior surgery to their RT ARM/FOREARM/WRIST/HAND. If so, upgrade the visit type to an MSK1 and notate the surgical hx in the Appointment Note. Location: Depending on the surgical hx, this patient can have this exam performed at any of our four locations. Slot held: N/A [facility] 12-09-2024 Note HNO ID: [id number] Author: MEÑO POSADA MD Service: ? Author Type: Physician Type: Progress Notes Filed: 12/09/2024 15:35 Note Text: Meño Posada MD Department of Orthopaedics Orthopaedics [address] [place] [address] Dept: [phone] Dept December 09, 2024 CHIEF COMPLAINT: Pain, Numbness, and New of the Right Hand RABIA Duran is a 44-year-old female presenting with right upper extremity weakness and tremors. Renee reports waking up on 09/29 with right upper extremity weakness, pain, and tremors. She initially thought she might have had a stroke but noted no other symptoms such as speech difficulties or gait abnormalities. She attempted to shake it awake but was unsuccessful, leading her to seek emergency care. She denies any prior issues with the arm and states she slept in her usual position, which she has maintained for 40 years. She mentions being told she missed a nerve cue or pain cue during sleep. She has been working with a diagnosis of radial nerve palsy and has undergone an EMG, which reportedly showed impingement high up in the arm. She has had virtual visits with a neuromuscular specialist, who indicated that the EMG did not show significant nerve damage but did describe it as a bad case. She reports persistent tremors in the arm, which she has been told is a sign of recovery. However, she also experiences hiccuping in the shoulder when the arm tremors subside. She was prescribed gabapentin approximately one month ago but dislikes how it makes her feel. She has been taking 100 mg, sometimes two at a time, usually at night. She inquires about switching to Lyrica. She also reports severe pain in the entire arm, which sometimes causes the left hand to shake. She describes the pain as feeling like bones that are muscles and states it keeps her up all night, affecting her mental well-being. She also mentions experiencing teeth chattering. She has been alternating between heat and ice for pain management. Will continue to monitor patient for Abnormal emg Radial nerve palsy, right (primary encounter diagnosis) Pain in right arm Muscle spasm of right shoulder, patient to schedule visit as per follow up discussed. ASSESSMENT: G56.31 Radial nerve palsy, right (primary encounter diagnosis) R94.131 Abnormal EMG M79.601 Pain in right arm M62.838 Muscle spasm of right shoulder 1. Abnormal EMG (R94.131) Radial nerve palsy, right (G56.31) EMG indicates severe radial nerve palsy with specific location of impingement identified. No radial nerve function observed with loss of wrist and thumb extension, and inability to functionally extend digits. Intact flexion of wrist and digits. Sensation intact in median and ulnar nerves with intact motor function of the thumb and without any intrinsic weakness. Contralateral side has normal shoulder, elbow, and wrist motion. Normal shoulder, elbow, wrist, and finger motor function at 5 out of 5. - Ordered ultrasound of the radial nerve to assess for potential mechanical entrapment or space-occupying lesion. - Discussed possibility of spontaneous resolution within the typical timeframe of 3 months. - Consider MRI if ultrasound findings suggest mechanical entrapment. - Follow-up with Dr. Newton to be rescheduled after ultrasound results are available. 2. Pain in right arm (M79.601) Severe pain reported throughout the entire arm, interfering with sleep and daily activities. Currently on gabapentin 100 mg, which is not well-tolerated due to sedation. - Discontinue gabapentin. - Initiate Lyrica at a moderate dose, prescription sent to [facility] [employer] [facility]. - Advised patient to use heat or ice as needed for comfort. 3. Muscle spasm of right shoulder (M62.838) Involuntary spasms observed in the right shoulder and trapezius, as well as various parts of the right extremity, including the brachium and forearm. Spasms may be compensatory due to radial nerve dysfunction. - Monitor for changes post-ultrasound and Lyrica initiation. - Reassess after ultrasound results to determine if further intervention is needed. FOLLOW UP INSTRUCTIONS: As above OBJECTIVE: Ms. Renee Gallardo is a pleasant 44 year old in no apparent distress. Gen:LMP 11/16/2023 nl development, non obese, no deformities ENT: Normocephalic, normal hearing, moist mucosa CV: Pulses:Radial= 2+ and symmetric, capillary refill < 2 secs, no peripheral edema/varicosities Skin: no rash, bruising or lesions. Good turgor. Psych: cooperative and appropriate, alert and oriented x 3, good mood and affect. Musculoskeletal: - Musculoskeletal: - Right Upper Extremity: - Involuntary spasms of the shoulder, trapezius, brachium, and forearm. - Wearing a functional brace on the hand. - Loss of wrist and thumb extension; digits unable to functionally extend. - Intact flexion of the wrist and digits. - Left Uppe (more content not included)... [facility] 12-09-2024 History of Present illness Narrative Meño Posada MD Department of Orthopaedics Orthopaedics [address] [facility] [address] Dept: [phone] Dept December 09, 2024 CHIEF COMPLAINT: Pain, Numbness, and New of the Right Hand RABIA Duran is a 44-year-old female presenting with right upper extremity weakness and tremors. Renee reports waking up on 09/29 with right upper extremity weakness, pain, and tremors. She initially thought she might have had a stroke but noted no other symptoms such as speech difficulties or gait abnormalities. She attempted to shake it awake but was unsuccessful, leading her to seek emergency care. She denies any prior issues with the arm and states she slept in her usual position, which she has maintained for 40 years. She mentions being told she missed a nerve cue or pain cue during sleep. She has been working with a diagnosis of radial nerve palsy and has undergone an EMG, which reportedly showed impingement high up in the arm. She has had virtual visits with a neuromuscular specialist, who indicated that the EMG did not show significant nerve damage but did describe it as a bad case. She reports persistent tremors in the arm, which she has been told is a sign of recovery. However, she also experiences hiccuping in the shoulder when the arm tremors subside. She was prescribed gabapentin approximately one month ago but dislikes how it makes her feel. She has been taking 100 mg, sometimes two at a time, usually at night. She inquires about switching to Lyrica. She also reports severe pain in the entire arm, which sometimes causes the left hand to shake. She describes the pain as feeling like bones that are muscles and states it keeps her up all night, affecting her mental well-being. She also mentions experiencing teeth chattering. She has been alternating between heat and ice for pain management. Will continue to monitor patient for Abnormal emg Radial nerve palsy, right (primary encounter diagnosis) Pain in right arm Muscle spasm of right shoulder, patient to schedule visit as per follow up discussed. ASSESSMENT: G56.31 Radial nerve palsy, right (primary encounter diagnosis) R94.131 Abnormal EMG M79.601 Pain in right arm M62.838 Muscle spasm of right shoulder 1. Abnormal EMG (R94.131) Radial nerve palsy, right (G56.31) EMG indicates severe radial nerve palsy with specific location of impingement identified. No radial nerve function observed with loss of wrist and thumb extension, and inability to functionally extend digits. Intact flexion of wrist and digits. Sensation intact in median and ulnar nerves with intact motor function of the thumb and without any intrinsic weakness. Contralateral side has normal shoulder, elbow, and wrist motion. Normal shoulder, elbow, wrist, and finger motor function at 5 out of 5. - Ordered ultrasound of the radial nerve to assess for potential mechanical entrapment or space-occupying lesion. - Discussed possibility of spontaneous resolution within the typical timeframe of 3 months. - Consider MRI if ultrasound findings suggest mechanical entrapment. - Follow-up with Dr. Newton to be rescheduled after ultrasound results are available. 2. Pain in right arm (M79.601) Severe pain reported throughout the entire arm, interfering with sleep and daily activities. Currently on gabapentin 100 mg, which is not well-tolerated due to sedation. - Discontinue gabapentin. - Initiate Lyrica at a moderate dose, [facility]. - Advised patient to use heat or ice as needed for comfort. 3. Muscle spasm of right shoulder (M62.838) Involuntary spasms observed in the right shoulder and trapezius, as well as various parts of the right extremity, including the brachium and forearm. Spasms may be compensatory due to radial nerve dysfunction. - Monitor for changes post-ultrasound and Lyrica initiation. - Reassess after ultrasound results to determine if further intervention is needed. FOLLOW UP INSTRUCTIONS: As above OBJECTIVE: Ms. Renee Gallardo is a pleasant 44 year old in no apparent distress. Gen:LMP 11/16/2023 nl development, non obese, no deformities ENT: Normocephalic, normal hearing, moist mucosa CV: Pulses:Radial= 2+ and symmetric, capillary refill < 2 secs, no peripheral edema/varicosities Skin: no rash, bruising or lesions. Good turgor. Psych: cooperative and appropriate, alert and oriented x 3, good mood and affect. Musculoskeletal: - Musculoskeletal: - Right Upper Extremity: - Involuntary spasms of the shoulder, trapezius, brachium, and forearm. - Wearing a functional brace on the hand. - Loss of wrist and thumb extension; digits unable to functionally extend. - Intact flexion of the wrist and digits. - Left Upper Extremity: - Normal shoulder, elbow, wrist, and finger motor function (5/5 strength). - Neurological: - Right Upper Extremity: - No radial nerve function. - Intact sensation in the median and ulnar nerves. - Intact motor function of the thumb without intrinsic weakness. - General: Mild distress. IMAGING: Labs: (No diagnostics in this category.) Imaging: - CT Scan: No abnormalities noted. Tests: - EMG/Nerve Conduction Study: Severe radial nerve involvement identified at a proximal location (impingement near the spiral groove), though not indicating extensive permanent nerve damage. Supporting Subjective Information Below: Past Medical History: PAST MEDICAL HISTORY Diagnosis Date Appendicitis 1999 CVA (cerebral vascular accident) (HCC) unknown when Gallstones Past Surgical History: PAST SURGICAL HISTORY Procedure Laterality Date APPENDECTOMY 1999 HYSTERECTOMY 12/07/2023 TL, cystoscopy SALPINGECTOMY Bilateral 12/07/2023 Family History: FAMILY HISTORY Problem Relation Age of Onset Cancer Father CLS, stable Bipolar disorder Mother Heart disease Paternal Grandfather Hypertension Paternal Grandfather No Ocular Disease No Family History Social History: Social History Tobacco Use Smoking status: Some Days Current packs/day: 0.00 Types: Cigarettes Last attempt to quit: 2002 Years since quittin.2 Smokeless tobacco: Never Vaping Use Vaping status: Never Used Substance Use Topics Alcohol use: Yes Drug use: Never Medications: Current Outpatient Medications Medication Sig topiramate (TOPAMAX) 50 mg tablet Take 1 tablet by mouth two times a day. ALPRAZolam (XANAX) 0.5 mg tablet Take 2 tablets by mouth once daily as needed for up to 180 days. valACYclovir (VALTREX) 1 gram tablet Take 2 tablets by mouth two times a day. For 1 day. omeprazole (PRILOSEC) 10 mg capsule Take 1 capsule by mouth once daily. lisinopril (ZESTRIL) 20 mg tablet Take 1 tablet by mouth once daily. aspirin, enteric coated (ASPIRIN, ENTERIC COATED) 81 mg EC tablet Take 81 mg by mouth once daily. pregabalin (LYRICA) 50 mg capsule Take 1 capsule by mouth three times a day for 30 days. Magnesium 250 mg tab Take 250 mg by mouth once daily. (Patient not taking: Reported on 10/02/2024) No current facility-administered medications for this visit. Allergies: Amitriptyline, Bactrim [Sulfamethoxazole-Trimethoprim], Melatonin, Nifedipine, Prednisone, Sertraline, Sulfa (Sulfonamide Antibiotics), and Beta-Blockers (Beta-Adrenergic Blocking Agts) ROS: General (negative for fatigue, malaise, weight loss/gain) HEENT (negative for headache, earache, recent vision changes, sinus pain, sore throat) Respiratory (no recent shortness of breath, hemoptysis) CV (negative for chest tightness, palpitations) Musculoskeletal (see HPI) Psych (no depression, anxiety) Constitutional: (+) sleep disturbance Musculoskeletal: (+) right arm pain Neurological: (+) involuntary muscle spasms, (+) right arm tremors, (+) teeth chattering Psychiatric: (+) emotional distress Recording using [employer] software for draft documentation of the visit was discussed with the patient/authorized retail service representative; all questions welcomed and answered. Patient/authorized retail service representative agreed to proceed Consult Time: I spent 45 minutes in this visit, with more than 50% of the time devoted to patient counseling. Meño Posada MD documented in this encounter [facility] 11-26-2024 Note Patient Outreach (FA MPWS) RENEE GALLARDO ([id number]) 1980 Chris FINK Date Time Provider Department 11/26/24 EZEQUIEL ZAZUETA During your visit today, we recorded the following information about you: Allergies As of Date: 11/26/2024 Noted Allergy Reaction AMITRIPTYLINE 12/29/2021 14 - Other: See Comments Comments: Nausea, diarrhea, dizziness Nausea, diarrhea, dizziness BACTRIM (SULFAMETHOXAZOLE-TRIMETH*04/03/20 4 - Hives Comments: SWELLING AND HIVES MELATONIN 03/19/2020 14 - Other: See Comments NIFEDIPINE 03/19/2020 14 - Other: See Comments PREDNISONE 04/03/2023 14 - Other: See Comments Comments: HEART RACING SWEATING SERTRALINE 06/30/2018 14 - Other: See Comments SULFA (SULFONAMIDE ANTIBIOTICS) 04/03/2023 4 - Hives Comments: SWELLING BETA-BLOCKERS (BETA-ADRENERGIC BL*09/05/2018 14 - Other: See Comments 7 - Swelling Date Reviewed: 10/29/2024 Reviewed by: Donte Bentley MA - Fully Assessed Visit Diagnosis:Encounter for screening mammogram for breast cancer [Z12.31] Order(s):[facility] SCREENING [facility]INO [[id number]] Order #: [id number] FUTURE Prescriptions as of 12/27/2024 - lisinopril (ZESTRIL) 20 mg tablet take 1 tablet by mouth once daily - pregabalin (LYRICA) 100 mg capsule Take 1 capsule by mouth three times a day for 180 days. - topiramate (TOPAMAX) 50 mg tablet Take 1 tablet by mouth two times a day. - ALPRAZolam (XANAX) 0.5 mg tablet Take 2 tablets by mouth once daily as needed for up to 180 days. - valACYclovir (VALTREX) 1 gram tablet Take 2 tablets by mouth two times a day. For 1 day. - omeprazole (PRILOSEC) 10 mg capsule Take 1 capsule by mouth once daily. - Magnesium 250 mg tab Take 250 mg by mouth once daily. - aspirin, enteric coated (ASPIRIN, ENTERIC COATED) 81 mg EC tablet Take 81 mg by mouth once daily. Problem List As Of Date 11/26/2024 Noted Resolved Irregular heart beat [I49.9] 01/17/2022 Hyperlipidemia, mixed [E78.2] 12/06/2023 Borderline abnormal thyroid function test [R94.*12/06/2023 Elevated liver enzymes [R74.8] 12/06/2023 Situational anxiety [F41.8] 12/06/2023 Elevated MCV [R71.8] 12/06/2023 Fatigue [R53.83] 12/06/2023 Encounter Status:Closed by UJLIA, PRODUSER on 12/27/24 [facility] 11-25-2024 Note HNO ID: [id number] Author: REAL DEAN PT Service: ? Author Type: Physical Therapist Type: Progress Notes Filed: 11/25/2024 09:25 Note Text: Episode Visit Count: 3 Therapist That Will Accept/Oversee The Plan Of Care: Cheo Start of Care Date: 11/08/24 Onset Date: 09/29/24 [facility]AB[facility]ATION AND SPORTS THERAPY PHYSICAL THERAPY TREATMENT NOTE ASSESSMENT: Renee Gallardo tolerated the session with decreased activity tolerance due to pain and fatigue. She demonstrated difficulty with RLE use when shoulders were squeezed. The patient will continue to benefit from ongoing skilled physical therapy to progress toward set goals. PLAN FOR NEXT VISIT: Re-assess posture continue to work posterior chain strengthening. SUBJECTIVE: Pt is not sleeping. She is blaming pain in arm and neck. As well pt is complaining of pain and shaking in other areas including L arm and R leg. Pt with weakness of RLE as well. She is wearing the brace less overall but is unsure of how much return she is getting in the RUE. Pain: Pain Pain Level: 8 Pain Location: Upper Arm - Right Post Treatment Pain Post Treatment Pain Level: 6 Post Treatment Pain Location: Upper Arm - Right OBJECTIVE MEASURES WITH LEVEL OF FUNCTION: UE and Cervical Strength R Wrist Extension: 3/5 R Wrist Flexion: 3+/5 R Thumb Extension (C8): 3+/5 Hand Strength R [employer] Helper Position 2 (lbs): 14 lbs TREATMENT: Therapeutic Exercise: 1: prone head and chest lift x 10 2: prone shoulder squeeze x 5x3 with arms off table 3: *prone SLR with shoulder squeeze R x 3x2 4: supine leg press 10x2 R, L 5: supine hip abduction orange t band x5 6: supine 8: shoulder press in seated against manual resist 10x2 9: finger extension with hand resting on knee x 5 Skilled Intervention: Patient was educated in proper exercise technique and purpose for exercises. Reviewed and educated patient on additions/changes for home exercise program as above (*). Therapeutic Activity: 1: went over appropriate sleeping posture Skilled Intervention: Education see above Billing Therapeutic Exercise Treatment Minutes: 40 Therapeutic Activity Treatment Minutes: 5 Skilled Treatment Time Minutes (timed and untimed codes): 45 Total Session Time (minutes): 45 Session Start Time : 829 Session Stop Time : 914 Real Dean, PT [facility] 11-25-2024 History of Present illness Narrative Episode Visit Count: 3 Therapist That Will Accept/Oversee The Plan Of Care: Cheo Start of Care Date: 11/08/24 Onset Date: 09/29/24 REHABILITATION AND SPORTS THERAPY PHYSICAL THERAPY TREATMENT NOTE ASSESSMENT: Renee Gallardo tolerated the session with decreased activity tolerance due to pain and fatigue. She demonstrated difficulty with RLE use when shoulders were squeezed. The patient will continue to benefit from ongoing skilled physical therapy to progress toward set goals. PLAN FOR NEXT VISIT: Re-assess posture continue to work posterior chain strengthening. SUBJECTIVE: Pt is not sleeping. She is blaming pain in arm and neck. As well pt is complaining of pain and shaking in other areas including L arm and R leg. Pt with weakness of RLE as well. She is wearing the brace less overall but is unsure of how much return she is getting in the RUE. Pain: Pain Pain Level: 8 Pain Location: Upper Arm - Right Post Treatment Pain Post Treatment Pain Level: 6 Post Treatment Pain Location: Upper Arm - Right OBJECTIVE MEASURES WITH LEVEL OF FUNCTION: UE and Cervical Strength R Wrist Extension: 3/5 R Wrist Flexion: 3+/5 R Thumb Extension (C8): 3+/5 Hand Strength R Plumbing Warehouse Helper Position 2 (lbs): 14 lbs TREATMENT: Therapeutic Exercise: 1: prone head and chest lift x 10 2: prone shoulder squeeze x 5x3 with arms off table 3: *prone SLR with shoulder squeeze R x 3x2 4: supine leg press 10x2 R, L 5: supine hip abduction orange t band x5 6: supine 8: shoulder press in seated against manual resist 10x2 9: finger extension with hand resting on knee x 5 Skilled Intervention: Patient was educated in proper exercise technique and purpose for exercises. Reviewed and educated patient on additions/changes for home exercise program as above (*). Therapeutic Activity: 1: went over appropriate sleeping posture Skilled Intervention: Education see above Billing Therapeutic Exercise Treatment Minutes: 40 Therapeutic Activity Treatment Minutes: 5 Skilled Treatment Time Minutes (timed and untimed codes): 45 Total Session Time (minutes): 45 Session Start Time : 829 Session Stop Time : 914 Real Dean PT documented in this encounter [facility] 11-15-2024 Note HNO ID: [id number] Author: REAL DEAN PT Service: ? Author Type: Physical Therapist Type: Progress Notes Filed: 11/15/2024 16:01 Note Text: Episode Visit Count: 2 Therapist That Will Accept/Oversee The Plan Of Care: Cheo Start of Care Date: 11/08/24 Onset Date: 09/29/24 REHABILITATION AND SPORTS THERAPY PHYSICAL THERAPY TREATMENT NOTE ASSESSMENT: Renee Gallardo tolerated the session with decreased symptoms. She demonstrated difficulty with holding wrist in neutral. The patient will continue to benefit from ongoing skilled physical therapy to progress toward set goals. Pt wrist control improved after treatment. PLAN FOR NEXT VISIT: Re-assess posture continue to work posterior chain strengthening. SUBJECTIVE: Pt feel she has more movement and control of R wrist but she is staying in the splint most of the time. She has an SI belt but is not sure she is using it correctly. Pain: Pain Pain Level: 8 Pain Location: Forearm - Right Post Treatment Pain Post Treatment Pain Level: 6 Post Treatment Pain Location: Arm - Right OBJECTIVE MEASURES WITH LEVEL OF FUNCTION: Hand Strength R Plumbing Warehouse Helper Position 2 (lbs): 13 lbs TREATMENT: Therapeutic Exercise: 1: C traction 2 min 2: C retraction in supine 10x2 3: supine head press 10x1 4: supine leg press 10x2 R, L 5: supine leg press purple t band x 10 R, L 6: seated C posture held against theraband x 10x2 purple t band 7: seated Rotation of torso 10x2 each direction with green theraband 8: shoulder press in seated against manual resist 10x2 9: finger extension with hand resting on knee x 5 Skilled Intervention: Patient was educated in proper exercise technique and purpose for exercises. Skilled judgment was used in selection of appropriate interventions. Therapeutic Activity: 1: Pt reviewed Si belt fit and pull of straps Skilled Intervention: Education see above Billing Therapeutic Exercise Treatment Minutes: 45 Therapeutic Activity Treatment Minutes: 10 Skilled Treatment Time Minutes (timed and untimed codes): 55 Total Session Time (minutes): 55 Session Start Time : 1240 Session Stop Time : 1335 Real Dean PT [facility] 11-15-2024 History of Present illness Narrative Episode Visit Count: 2 Therapist That Will Accept/Oversee The Plan Of Care: Cheo Start of Care Date: 11/08/24 Onset Date: 09/29/24 REHABILITATION AND SPORTS THERAPY PHYSICAL THERAPY TREATMENT NOTE ASSESSMENT: Renee Gallardo tolerated the session with decreased symptoms. She demonstrated difficulty with holding wrist in neutral. The patient will continue to benefit from ongoing skilled physical therapy to progress toward set goals. Pt wrist control improved after treatment. PLAN FOR NEXT VISIT: Re-assess posture continue to work posterior chain strengthening. SUBJECTIVE: Pt feel she has more movement and control of R wrist but she is staying in the splint most of the time. She has an SI belt but is not sure she is using it correctly. Pain: Pain Pain Level: 8 Pain Location: Forearm - Right Post Treatment Pain Post Treatment Pain Level: 6 Post Treatment Pain Location: Arm - Right OBJECTIVE MEASURES WITH LEVEL OF FUNCTION: Hand Strength R Plumbing Warehouse Helper Position 2 (lbs): 13 lbs TREATMENT: Therapeutic Exercise: 1: C traction 2 min 2: C retraction in supine 10x2 3: supine head press 10x1 4: supine leg press 10x2 R, L 5: supine leg press purple t band x 10 R, L 6: seated C posture held against theraband x 10x2 purple t band 7: seated Rotation of torso 10x2 each direction with green theraband 8: shoulder press in seated against manual resist 10x2 9: finger extension with hand resting on knee x 5 Skilled Intervention: Patient was educated in proper exercise technique and purpose for exercises. Skilled judgment was used in selection of appropriate interventions. Therapeutic Activity: 1: Pt reviewed Si belt fit and pull of straps Skilled Intervention: Education see above Billing Therapeutic Exercise Treatment Minutes: 45 Therapeutic Activity Treatment Minutes: 10 Skilled Treatment Time Minutes (timed and untimed codes): 55 Total Session Time (minutes): 55 Session Start Time : 1240 Session Stop Time : 1335 Real Dean PT documented in this encounter [facility] 11-08-2024 Note HNO ID: [id number] Author: DEAN, REAL, PT Service: ? 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 The patient presents with impairments in coordination, overall function, posture, range of motion, and strength. PROMIS? (Patient-Reported Outcomes Measurement Information System) scores were reviewed and identified as a rehabilitation concern. Prognosis for therapy is Good due to: current objective clinical presentation . The patient will benefit from skilled therapy services to meet the goals established for this plan of care as noted below. Goals for Episode of Care: established 11/08/24 Pt to regain normal use of RUE in 6 weeks Perform ADL's without pain. Increased strength of R hand baffle installer to 50 for improved function Improve SLR to 5/5 strength RLE Improve postural awareness. Normal gait. Patient Goals: To regain use of RUE. Time Frame for Goals and Treatment : 01/07/25 Planned Interventions, Frequency, and Duration: Current Frequency: 2x/week Duration: 8 weeks Total Number of Visits Planned: 12 Planned Treatment Interventions: Therapeutic exercise (64841), Neuromuscular re-education (48187), Manual therapy (37978), Therapeutic activities (93459), Self-residential management (79077), Gait Training (90727) PLAN FOR NEXT VISIT: See pt to work on improving posture especially in standing, review SI belt, strengthen core to stabilize the thoracic spine and assist C spine. Patient demonstrates good understanding of plan of care and treatment. The above goals and plan of care were discussed and agreed upon by patient/family. SUBJECTIVE: Pt went to sleep about a month ago and woke up with little to no use of her RUE and nn pain in the RUE. Chief complaint is inability to move fingers and wrist as well as pain in the R arm from lateral bicep area down to the fingers. Pt also has complaint of stiff neck and pain in thoracic spine and ribs from past that she has just been dealing with. Patient Goals: To regain use of RUE. Functional Limitations: lifting, physical activities, reaching overhead, use hand with arm at shoulder level Prior Level of Function: Independent without limitations Intake Information: Prescription present Previous Treatment: Occupational Therapy Pain: Pain Pain Level: 9 Pain Location: Forearm - Right, Wrist - Right, Arm - Right Description: Burning, Shooting Frequency: Continuous Post Treatment Pain Post Treatment Pain Level: 6 Post Treatment Pain Location: Arm - Right PROMIS Scales 11/07/2024 Higher is Better Self-Eff Symptom - T Score 35 (Low) Self-Eff Symptom - Percentile 7 Mobility - T Score 45 (within normal limits) Mobility - Percentile 31 T-scores: mean of general population = 50. 5 points is clinically meaningfully difference Percentiles provide an indication of how the patient's score ranks in relation to the general population. Higher percentile rankings indicate better function/quality of life. 50th percentile is the average of the general population and indicates half of respondents had a worse score. OBJECTIVE MEASURES WITH LEVEL OF FUNCTION: UE AROM R Wrist Extension: 0 Degrees R Wrist Flexion: 25 Degrees UE PROM R UE PROM: WNL L UE PROM: WNL UE Joint Mobility UE Joint Mobility Comment: Pt with tightness with SB C spine to L, pain and tenderness in T SPine throughout UE and Cervical Strength Strength Tested: Hand, Myotome Cervical/Shoulder Cervical Strength: 3+ L UE Strength: 5/5 R Shoulder Abduction (C5): 3+/5 R Shoulder Internal Rotation: 4+/5 R Shoulder External Rotation: 4/5 R Elbow Extension (C7): 4+/5 R Elbow Flexion (C6): 4-/5 R Wrist Extension: 3-/5 R Wrist Flexion: 3/5 (3+ after treatment) R Thumb Extension (C8): 3/5 Hand Strength R Plumbing Warehouse Helper Position 2 (lbs): 2 lbs (pt unable to make a fist initially, baffle installer improved to 2 after treatment) Special Tests - Elbow/Wrist/Hand Elbow/Wrist/Hand Special Tests: Comments Special Test Comments: performed repeated SB L of C spine which improved mobility and use of R wrist. C traction also helped mobility and pain. SI belt worn around pelvis with belt front to back on Left and back to front on R improved symptoms the most with return of AROM R UE. Pt gait pt has High iliac crest on R that was even in supine. We applied SI belt with above mentioned results. Education: Education Education Provided: Yes, see treatment interventions for education provided Education Mode/Type: Explanation/Discussion, (more content not included)... 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 The patient presents with impairments in coordination, overall function, posture, range of motion, and strength. PROMIS (Patient-Reported Outcomes Measurement Information System) scores were reviewed and identified as a rehabilitation concern. Prognosis for therapy is Good due to: current objective clinical presentation . The patient will benefit from skilled therapy services to meet the goals established for this plan of care as noted below. Goals for Episode of Care: established 11/08/24 Pt to regain normal use of RUE in 6 weeks Perform ADL's without pain. Increased strength of R hand baffle installer to 50 for improved function Improve SLR to 5/5 strength RLE Improve postural awareness. Normal gait. Patient Goals: To regain use of RUE. Time Frame for Goals and Treatment : 01/07/25 Planned Interventions, Frequency, and Duration: Current Frequency: 2x/week Duration: 8 weeks Total Number of Visits Planned: 12 Planned Treatment Interventions: Therapeutic exercise (37800), Neuromuscular re-education (79635), Manual therapy (43434), Therapeutic activities (43324), Self-residential management (92645), Gait Training (01683) PLAN FOR NEXT VISIT: See pt to work on improving posture especially in standing, review SI belt, strengthen core to stabilize the thoracic spine and assist C spine. Patient demonstrates good understanding of plan of care and treatment. The above goals and plan of care were discussed and agreed upon by patient/family. SUBJECTIVE: Pt went to sleep about a month ago and woke up with little to no use of her RUE and nn pain in the RUE. Chief complaint is inability to move fingers and wrist as well as pain in the R arm from lateral bicep area down to the fingers. Pt also has complaint of stiff neck and pain in thoracic spine and ribs from past that she has just been dealing with. Patient Goals: To regain use of RUE. Functional Limitations: lifting, physical activities, reaching overhead, use hand with arm at shoulder level Prior Level of Function: Independent without limitations Intake Information: Prescription present Previous Treatment: Occupational Therapy Pain: Pain Pain Level: 9 Pain Location: Forearm - Right, Wrist - Right, Arm - Right Description: Burning, Shooting Frequency: Continuous Post Treatment Pain Post Treatment Pain Level: 6 Post Treatment Pain Location: Arm - Right PROMIS Scales 11/07/2024 Higher is Better Self-Eff Symptom - T Score 35 (Low) Self-Eff Symptom - Percentile 7 Mobility - T Score 45 (within normal limits) Mobility - Percentile 31 T-scores: mean of general population = 50. 5 points is clinically meaningfully difference Percentiles provide an indication of how the patient's score ranks in relation to the general population. Higher percentile rankings indicate better function/quality of life. 50th percentile is the average of the general population and indicates half of respondents had a worse score. OBJECTIVE MEASURES WITH LEVEL OF FUNCTION: UE AROM R Wrist Extension: 0 Degrees R Wrist Flexion: 25 Degrees UE PROM R UE PROM: WNL L UE PROM: WNL UE Joint Mobility UE Joint Mobility Comment: Pt with tightness with SB C spine to L, pain and tenderness in T SPine throughout UE and Cervical Strength Strength Tested: Hand, Myotome Cervical/Shoulder Cervical Strength: 3+ L UE Strength: 5/5 R Shoulder Abduction (C5): 3+/5 R Shoulder Internal Rotation: 4+/5 R Shoulder External Rotation: 4/5 R Elbow Extension (C7): 4+/5 R Elbow Flexion (C6): 4-/5 R Wrist Extension: 3-/5 R Wrist Flexion: 3/5 (3+ after treatment) R Thumb Extension (C8): 3/5 Hand Strength R Plumbing Warehouse Helper Position 2 (lbs): 2 lbs (pt unable to make a fist initially, baffle installer improved to 2 after treatment) Special Tests - Elbow/Wrist/Hand Elbow/Wrist/Hand Special Tests: Comments Special Test Comments: performed repeated SB L of C spine which improved mobility and use of R wrist. C traction also helped mobility and pain. SI belt worn around pelvis with belt front to back on Left and back to front on R improved symptoms the most with return of AROM R UE. Pt gait pt has High iliac crest on R that was even in supine. We applied SI belt with above mentioned results. Education: Education Education Provided: Yes, see treatment interventions for education provided Education Mode/Type: Explanation/Discussion, Performance TREATMENT: PT Treatment Interventions: Therapeutic Activity, Therapeutic Exercise Evaluation Therapeutic Exercise: 1: seated SB L repeated 10x3 Skilled Intervention: Patient was educated in proper exercise technique and purpose for exercises. Skilled judgment was used in selection of appropriate interventions. Therapeutic Activity: 1: Pt fit with SI belt with straps pulling front to back on L and back to front on R. Pt to wear the belt when she is up and active. Skilled Intervention: Education on how to use the SI belt and effect on posture and effect on nn palsy. Billing * Evaluation High Complexity: 1 Unit Therapeutic Exercise Treatment Minutes: 3 Therapeutic Activity Treatment Minutes: 12 Skilled Treatment Time Minutes (timed and untimed codes): 40 Total Session Time (minutes): 40 Session Start Time : 1340 Session Stop Time : 1420 Real Dean PT documented in this encounter [facility] 11-07-2024 Note HNO ID: [id number] Author: RYDER NEWTON MD Service: ? Author Type: Physician Type: Progress Notes Filed: 11/08/2024 08:52 Note Text: I received consent from the patient to perform the visit as a virtual encounter. Individuals who were included in, or assisted with the encounter were: Renee Gallardo Ryder Newton MD Location: home Impression: This is Ms. 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 Would expect improvements over the next 2 to 3 months. Today we follow-up and discuss right arm pain. This seems to have flared up and persisted to some degree since our initial virtual visit 10 days ago. Plan Established with neurology physical therapy Start very low-dose gabapentin at 100 mg 3 times daily MyChart update in 4 weeks In person visit in approximately 8 weeks We will be following along closely, reach out with any questions or concerns Ryder Newton MD Staff, [facility] [place] HPI: This is Ms. Renee Gallardo, a 44 year old female who presents to the [facility] clinic for follow-up Review: Last seen 10/28/2024 This is Ms. 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 I would expect improvements over approximately the next 2 to 3 months. 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 The pathophysiology is predominantly demyelinating with intact distal radial motor and sensory amplitudes. Studies of the median and ulnar nerves are normal. Today: Terrible Hasn't slept in 6 days Pain Hard to describe Radiating up the arm into shoulder, neck Especially severe back of arm between shoulder and elbow Flare of nerve pain Got better Then EMG Then flared up again PT set to start tomorrow Didn't tolerate gabapentin Massive body sweats, thought she would Didn't like lidocaine OTC options were useless Ibuprofen Naproxen Past history per chart review includes: (Per my 10/28/2024 clinic note) Past medical history, problem list: Appendicitis, CVA, gallstones, hyperlipidemia, situational anxiety, fatigue Past surgical history: Appendectomy, hysterectomy Family history: Bipolar disorder (mother) Social history: Former smoker OBJECTIVE: PHYSICAL EXAM: Formal exam was not performed today via virtual visit Our time together was conversational This note was partially created using voice recognition software and is inherently subject to errors including those of syntax and sound-alike substitutions which may escape proofreading. In such instances, original meaning may be extrapolated by contextual derivation. I spent a total of 27 minutes on the date of the service which included time spent talking to the patient and family/documenting in the chart, placing an order in the chart. [facility] 11-07-2024 History of Present illness Narrative I received consent from the patient to perform the visit as a virtual encounter. Individuals who were included in, or assisted with the encounter were: Renee Gallardo Ryder Newton MD Location: home Impression: This is Ms. 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 Would expect improvements over the next 2 to 3 months. Today we follow-up and discuss right arm pain. This seems to have flared up and persisted to some degree since our initial virtual visit 10 days ago. Plan Established with neurology physical therapy Start very low-dose gabapentin at 100 mg 3 times daily MyChart update in 4 weeks In person visit in approximately 8 weeks We will be following along closely, reach out with any questions or concerns Ryder Newton MD Staff, [facility] [place] HPI: This is Ms. Renee Gallardo, a 44 year old female who presents to the [facility] clinic for follow-up Review: Last seen 10/28/2024 This is Ms. 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 I would expect improvements over approximately the next 2 to 3 months. 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 The pathophysiology is predominantly demyelinating with intact distal radial motor and sensory amplitudes. Studies of the median and ulnar nerves are normal. Today: Terrible Hasn't slept in 6 days Pain Hard to describe Radiating up the arm into shoulder, neck Especially severe back of arm between shoulder and elbow Flare of nerve pain Got better Then EMG Then flared up again PT set to start tomorrow Didn't tolerate gabapentin Massive body sweats, thought she would Didn't like lidocaine OTC options were useless Ibuprofen Naproxen Past history per chart review includes: (Per my 10/28/2024 clinic note) Past medical history, problem list: Appendicitis, CVA, gallstones, hyperlipidemia, situational anxiety, fatigue Past surgical history: Appendectomy, hysterectomy Family history: Bipolar disorder (mother) Social history: Former smoker OBJECTIVE: PHYSICAL EXAM: Formal exam was not performed today via virtual visit Our time together was conversational This note was partially created using voice recognition software and is inherently subject to errors including those of syntax and sound-alike substitutions which may escape proofreading. In such instances, original meaning may be extrapolated by contextual derivation. I spent a total of 27 minutes on the date of the service which included time spent talking to the patient and family/documenting in the chart, placing an order in the chart. [facility] [facility]24 Telephone encounter Note Pt called and is notified of providers results and instructions. Pt voices understanding. Edilia Servin RN [facility] 10-31-2024 Miscellaneous Notes Pt called and is notified of providers results and instructions. Pt voices understanding. Edilia Servin RN I apologize, I did not see that she already saw Neurology for this. I just looked at his note and I agree with neuro physical therapy. I am not very familiar with demyelinating nerve lesions which is why I wanted to send her to specialist which I am glad she already did. Continue with his recommendations. Thank you, Nichol Montalvo APRN.GEOCHEMICAL MANAGER Pt asking what abnormal means in detail? Reports she saw neurologist a couple days ago regarding her wrist pain and was told she needs to do physical therapy. Kaycee Murphy MA Please call patient and let her know EMG testing was abnormal and pt needs to see ortho to determine intervention/next steps. Referral placed. Please schedule. Thank you, Nichol Montalvo APRN.CNP documented in this encounter [facility] 10-31-2024 Telephone encounter Note I apologize, I did not see that she already saw Neurology for this. I just looked at his note and I agree with neuro physical therapy. I am not very familiar with demyelinating nerve lesions which is why I wanted to send her to specialist which I am glad she already did. Continue with his recommendations. Thank you, Nichol Montalvo APRN.CNP [facility] 10-31-2024 Telephone encounter Note Pt asking what abnormal means in detail? Reports she saw neurologist a couple days ago regarding her wrist pain and was told she needs to do physical therapy. Kaycee Murphy MA [facility] 10-30-2024 Telephone encounter Note Please call patient and let her know EMG testing was abnormal and pt needs to see ortho to determine intervention/next steps. Referral placed. Please schedule. Thank you, Nichol Montalvo APRN.GEOCHEMICAL MANAGER [facility] 10-29-2024 Instructions Natasha Davila MD - 10/29/2024 12:26 PM EST HOW DOES CHRONIC STRESS AFFECT EATING PATTERNS? Chronic stress can affect the body s use of calories and nutrients in various ways. It raises the body s metabolic needs and increases the use and excretion of many nutrients. If one does not eat a nutritious diet, a deficiency may occur.Stress also creates a chain reaction of behaviors that can negatively affect eating habits, leading to other health problems down the road. Stress places a greater demand on the body for oxygen, energy, and nutrients. Yet people who experience chronic stress may crave comforting foods such as highly processed snacks or sweets, which can be high in unhealthy fats, sugar, and calories but low in micronutrients. People feeling stress may lack the time or motivation to prepare nutritious, balanced meals, or may skip or forget to eat meals. Stress can disrupt sleep by causing aeronautical products sales engineer sleep or more frequent awakenings, which leads to fatigue during the day. In order to cope with daytime fatigue, people may use stimulants to increase energy such as with caffeine or high-calorie snack foods. The reverse may also be true that poor-quality sleep is itself a stressor. Studies have found that sleep restriction causes a significant increase in cortisol levels. During acute stress, adrenaline suppresses the appetite.But with chronic stress, elevated levels of cortisol may cause cravings, particularly for foods high in sugar, fat, and calories, which may then lead to weight gain. Cortisol favors the accumulation of fat in the belly area, also called central adiposity, which is associated with insulin resistance and an increased risk of type 2 diabetes, cardiovascular disease, and certain breast cancers.4,6-8 It also lowers levels of the hormone leptin (that promotes satiety) while increasing the hormone ghrelin (that increases appetite). https://cdn1.sph.[employer].edu/wp-co ntent/uploads/sites//Bipin klcfXbjrejXgmue24-95.1.pdf Creating a Mindful Eating Environment: 10 Mindless Eating Solutions If you're looking for easier ways to make healthy changes to your diet and lifestyle, consider these simple mindless eating solutions for staying on-track with nutrition: Serve Salad and Vegetables First. Before bringing out your main dish, serve salad and vegetables first to ensure you're eating enough of this important food group. This strategy will also help you eat less of the rest of your dish which is likely higher in calories, etc. Serve Your Main [facility] on the Stove or Counter. Studies show that we're likely to eat less if our food is placed on the stove or counter rather than right in front of us. Eat on Smaller Plates. Similar to the strategy mentioned above, studies show that you're likely to consume less food if you're eating from a smaller plate. This is likely due to the increase of smaller portion sizes. Turn off Your Television. Watching television as you eat can be highly distracting, and it affects your ability to eat mindfully. For example: you're less likely to notice when you're full, so you might consume excess calories. Keep Mostly Water On-hand. Calories from drinks can add up quickly, especially in fruit juices, alcohol and soft drinks. By minimizing the amounts of those drinks on-hand, you're more likely to consume water when you're thirsty - and water has amazing health benefits! Keep Your Kitchen Organized. An organized refrigerator, counter and cabinet space makes you more likely to find and choose the foods which are healthiest for you. On the contrary, a messy kitchen space may make you more apt to grab the first item you see. Pre-cut Your Fruits and Vegetables. Let's admit it: We're more likely to put off eating produce if we have to go through the burden of cutting it first. Pre-cut fruits and vegetables will eliminate this extra step. Have at Least Six Single Servings of Lean Protein On-hand. This includes lean meats such as turkey and chicken, yogurt, eggs, nuts, beans and legumes. By having plenty of lean protein on-hand, you can better manage your appetite and hunger levels. Keep All Snack Foods in One Inconvenient Cupboard. You're less likely to reach for unhealthy snack foods if they're not all gazing up at you from plain sight! Keep Only a Fruit Bowl on Your Counter. This way, if you're one to grab foods based off of their availability, you'll reach for healthier fruits rather than less healthy snack foods. https://www.obesityaction.org/comm unity/news/community-news/create-a -mgwkcjw-bwangd-nssucwtlznj/ What the Food Groups Do For You Aerodynamics Engineer are always stressing the importance of a balanced diet, and for good reason. Each food group--and each food within a given group--offers a different nutrient package. This doesn t mean that you have to cover each group in every meal. But over the course of a day, you should have something from each group. And over the longer term--say, a week or a month--you should strive to eat a variety of foods from within each group, particularly vegetables and fruits.Here s a quick overview of what each group has to offer--and how much we should all be consuming. Vegetables and fruits. Fruit and vegetable intake is associated with reduced risk of a number of chronic diseases, including cardiovascular disease, type 2 diabetes, certain kinds of cancer, and dementia. Some of these benefits come from the nutrients and fiber in produce. These include not only the obvious vitamins and minerals, but also phytochemicals ranging from the anti-carcinogenic isothiocyanates in cruciferous vegetables like broccoli and cauliflower to antioxidants like vitamin C and hesperetin in citrus fruits. Fiber, too, is associated with a host of benefits, including bowel health, increased insulin sensitivity, and slower digestion that makes you feel zamudio longer. Increasing your intake of fruits and vegetables may also improve your overall diet simply by displacing less healthy foods. The USDA now recommends daily consumption of 2 to 3 cups (roughly four to six half-cup servings) of vegetables and another 1 to 2 cups of fruit (three to four half-cup servings; see Table 1, page 9).Whole grains. Carbohydrates are primarily an energy source to fuel your body. But whole grains--such as quinoa, barley, and brown rice--do even more for you. Whole grains come packaged with their natural fiber, vitamins, minerals, and phytochemicals, so they deliver additional health benefits. Perhaps that s why research shows that people who eat whole grains tend to live longer and have a lower risk of chronic diseases, especially cardiovascular disease. By contrast, refined grains (such as white flour) have been stripped of their fiber-rich bran (the outer coating of the kernel) as well as the vitamin- and mineral-packed germ (see Figure 2, at left). For people up to age 50, the recommended intake is 38 grams for men and 25 grams for women (unless they are or , in which case the recommendation goes up to 28 grams and 29 grams, respectively). The recommendation is lower for people over age 50: 30 grams for men, and 21 grams for women. Dairy. Our first food as infants is milk, and dairy is associated with improved bone health, especially in children and adolescents. While adults don t need to consume dairy products, dairy foods offer protein and an array of vitamins and minerals, including calcium. Some dairy foods ([place] yogurt, cottage cheese, other cheeses) are better sources of protein than others (milk, regular yogurt), but keep in mind that many types of cheese are high in sodium and saturated fat. If you can t consume dairy or prefer not to, make sure you meet your calcium needs through other foods or supplements. Protein. You need protein in order to maintain your muscles, bones, skin, and every other organ and tissue in your body. Protein also helps you stay satisfied and manage hunger. Not only is protein important in your overall diet, but emerging research suggests that you should have some at all three meals, especially if you are older. However, keep in mind that while it s important to get enough protein, more is not necessarily better!Protein foods are a diverse group, including both animal sources (fish and seafood, meats, poultry, eggs, and dairy) and plant sources (soy products, pulses--that is, beans, lentils, chickpeas, and dry peas--and nuts and seeds). As with any food, quality counts: some protein-rich foods have more health benefits than others. [place] and other oily fish provide heart-healthy omega-3 fatty acids. Pulses and whole or minimally processed soy foods like tofu, tempeh, and edamame offer phytochemicals and fiber. On the other hand, fatty or processed meats come with excess saturated fat and other components that don t support optimal health. Fats and oils. Fat is an essential element of the diet. It s a major source of energy. In addition, the body requires fat to make cell membranes, provide a protective coating for nerves, maintain healthy skin and hair, and perform other vital functions.After some decades of thinking that we needed to limit fat to be healthy, scientists now know that it s not how much fat we eat (within reason), but the quality of the fat. For example, it s crystal clear that we need to avoid artificial trans fats--the hydrogenated vegetable oils that were once used in a variety of processed foods to help keep them from spoiling. Fortunately, those are largely gone from the food supply now, as the result of an FDA ruling in January 2018 banning them from foods sold in [place] grocery stores and restaurants. As for saturated fats--the kind found in animal products like meat and cheese--while limited amounts (less than 10% of daily calories) are fine for most people, they may contribute to a number of health problems, including increased LDL (bad) cholesterol and chronic inflammation, especially when eaten in excess.Most of the fat we eat should be unsaturated. This includes polyunsaturated fats from fatty fish like salmon, walnuts, sunflower seeds, flaxseeds, and some vegetable oils, as well as monounsaturated fats from nuts, peanuts, avocados, olive oil, and canola oil. Unsaturated fats have a number of benefits for health, especially cardiovascular health. A shorthand way of thinking of the different types of fats is this: if they are solid at room temperature, like the marbling in meats, they may lead to stiffer arteries (and therefore high blood pressure) as your body deposits them in arterial linings. If they are liquid at room temperature, like the olive oil you drizzle on your salad, they will help keep arteries more flexible. documented in this encounter [facility] 10-29-2024 History of Present illness Narrative Images from the original note were not included. Some documentation from previous visit of 07/05/2024 was copied and pasted, documentation has been reviewed and edited as necessary for today's visit. Patient Summary: Renee is a 44 year old Female who presents for follow-up evaluation of obesity/weight management to treat and prevent related co-morbidities. In our previous visits we have discussed lifestyle intervention including a nutrition recommendations and physical activity optimization. Her last office visit was 4 months ago. Assessment/plan from last visit: - Routine exercise reviewed- discussed tracker - ETOH and impact on health- working with licensed life and health agent and still cutting back. Discussed topiramate off label use for weight loss and ETOH- can increase but at this time doing well will keep at current dose. - LABS today from PCP - Discussed adding in Protein shake for breakfast - Poor sleep reviewed and impact it has on health/weight - continue lisinopril for HTN -Topiramate refills given Interval History PT specifies the following items as new or significant updates since the last appointment: - under a lot of stress right now but feels she is coping ok - has had some ETOH but feels she is doing well at controlling - sometimes scale gets down to 137lbs and she feels that is too thin for her- likes to be around 142lb - does not always take evening dose - still seeing licensed life and health agent - having right hand- radial neuropathy - painful Weight loss since last vist: 7 lbs Total weight lost 28 lbs - Last Wt 10/29/24: 142 lb 07/05/24 : 149 lb 04/02/24: 161 lb 02/12/24 : 168 lb Starting weight: 01/01/24 : 170 lb (77.1 kg) Goal weight: - 15 lbs weight loss -20 lbs 5% weight loss = 162 lbs, 10% weight loss = 153 lbs Anti-obesity medications: Topiramate. Benefit:decreased food craving , decreased ETOH Adverse effects: none Weight promoting medications: alprazolam Previous Diet (initial appointment): Wakes up: Drinkes water all day- 6 large aldo's. Latte occasionally once per week Does not eat breakfast Lunch- salad, lean protein, rice, quinoa, soap, fish, Snacks- fruit, anya, dried pineapple, sesame sticks Dinner 5:30-7:30- meat, veggie, pasta (one per week) Snacks: cheese Diet/Nutrition overview: Fluids: water, 4-5 ETOH drinks mixed with Juices. Quality of diet: 24hr recall suggests healthy diet. Characterization of diet:skip meals. Sandstone Inspector Repairer of impaired eating habits:denies Eating Disorder no Preferred foods: Cravings: guamanian food Dietary changes: (cell core, digestive warrior) B - smoothie with fruit, vegetables, protein powder plant - banana- pb, green smoothie, mixed greens S - L - not always, but tuna salad, apples, dill, dried cranberries, esteban crackers - roasted cauliflower emelia and lentin soups S - D - same - vegetable or salad with lean meat , Soup and fish , salami and cheese, crackers S - Fluids - water , ETOH at times Eating 3 meals a day, including breakfast Increasing servings of fruit Increasing servings of vegetables Controlling portions Limiting processed foods Increasing protein Reducing carbohydrates Current Barriers: none Exercise: still moving during the day- but no dedicated exercise Stress: stable Sleep: decreased but better than was at - 3-4 hours. RYAN NO ; CPAP NO stable- HAS ANIMALS that move and wake her up all night CrCl cannot be calculated (Patient's most recent lab result is older than the maximum 180 days allowed.). PAST MEDICAL HISTORY Diagnosis Date 1999 CVA (cerebral vascular accident) (HCC) unknown when Gallstones Current Outpatient Medications Medication Sig Dispense Refill ALPRAZolam (XANAX) 0.5 mg tablet Take 2 tablets by mouth once daily as needed for up to 180 days. 90 tablet 1 valACYclovir (VALTREX) 1 gram tablet Take 2 tablets by mouth two times a day. For 1 day. 4 tablet 2 omeprazole (PRILOSEC) 10 mg capsule Take 1 capsule by mouth once daily. 90 capsule 1 topiramate (TOPAMAX) 50 mg tablet Take 1 tablet by mouth two times a day. 180 tablet 1 lisinopril (ZESTRIL) 20 mg tablet Take 1 tablet by mouth once daily. 90 tablet 1 Magnesium 250 mg tab Take 250 mg by mouth once daily. (Patient not taking: Reported on 10/02/2024) aspirin, enteric coated (ASPIRIN, ENTERIC COATED) 81 mg EC tablet Take 81 mg by mouth once daily. No current facility-administered medications for this visit. 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 Latest Ref Rng & Units 06/21/2024 CMP Protein, Total 6.3 - 8.0 g/dL 7.1 Albumin 3.9 - 4.9 g/dL 4.5 Bilirubin, Total 0.2 - 1.3 mg/dL 0.4 AST 13 - 35 U/L 15 ALT 7 - 38 U/L 13 Alkaline Phosphatase 34 - 123 U/L 49 Cholesterol, Total (mg/dL) Date Value 12/28/2023 260 HDL Cholesterol (mg/dL) Date Value 12/28/2023 77 LDL Cholesterol (mg/dL) Date Value 12/28/2023 174 Triglyceride (mg/dL) Date Value 12/28/2023 47 Latest Ref Rng & Units 04/02/2024 CBC WBC 3.70 - 11.00 k/uL 6.33 RBC 3.90 - 5.20 m/uL 3.76 Hemoglobin 11.5 - 15.5 g/dL 12.4 Hematocrit 36.0 - 46.0 % 36.5 MCV 80.0 - 100.0 fL 97.1 MCH 26.0 - 34.0 pg 33.0 MCHC 30.5 - 36.0 g/dL 34.0 RDW-CV 11.5 - 15.0 % 12.2 Platelet Count 150 - 400 k/uL 165 MPV 9.0 - 12.7 fL 9.5 Vitamin D 25 Hydroxy Date Value Ref Range Status 12/22/2023 42.6 31.0 - 80.0 ng/mL Final 04/18/2023 36.8 31.0 - 80.0 ng/mL Final Comment: Classification of 25 OH Vitamin D status: Deficiency/Insufficiency: < or = 30 ng/ml. Sufficiency/Optimal Levels: 31-80 ng/mL Toxicity: > 100 ng/mL. Test performed by chemiluminescent immunoassay. TSH (mIU/L) Date Value 12/22/2023 1.160 04/18/2023 3.670 ) Hemoglobin A1C (%) Date Value 12/22/2023 4.8 04/18/2023 4.8 Insulin Date Value Ref Range Status 12/28/2023 6.9 3.0 - 25.0 mU/L Final Assessment/Plan: Renee Gallardo is a 44 year old with Overweight (Pre-obesity) who presented today for follow up for supervised weight loss to treat and prevent related co-morbidities. (E78.00) Hypercholesteremia (primary encounter diagnosis) (R53.81, R53.83) Malaise and fatigue (F41.1) Anxiety neurosis (I10) Hypertension, unspecified type (R74.8) Elevated liver enzymes (E66.3) Overweight (BMI 25.0-29.9) (Z79.899) Encounter for long-term (current) use of medications -reviewed importance of regular meals- focusing on balanced nutrition 90g / day - discussed only taking evening dose as needed of topiramate - continue lisinopril for HTN - follow up with PCP for routine care and medication adjustments as needed - weight maintenance at this time - repeat CMP ordered today- check LFTs and kidney function - stress- discussed finding alternatives to manage -Topiramate refills ordered- doing well. - continue xanax for anxiety per pcp, - continue with licensed life and health agent - An overall goal of 150-200 minutes per week of exercise has been effective in weight loss and maintenance. Prescription instructions reviewed with patient as applicable. Potential red flag symptoms discussed with the patient. Reviewed appropriate action plan to take if red flag symptoms occur. Patient agreeable to treatment plan. Medical Decision Making: Problems: Moderate: 2+ stable chronic illnesses Data: Unique test(s) ordered: 1 Risk: Moderate: Drug management Medical Decision Making Level: 4 - Moderate Follow up in 6 months- april Natasha Cruz MD, FACOG, JENNY documented in this encounter [facility] 10-29-2024 Note HNO ID: [id number] Author: NATASHA DAVILA MD Service: ? Author Type: Physician Type: Progress Notes Filed: 10/29/2024 12:26 Note Text: Some documentation from previous visit of 07/05/2024 was copied and pasted, documentation has been reviewed and edited as necessary for today's visit. Patient Summary: Renee is a 44 year old Female who presents for follow-up evaluation of obesity/weight management to treat and prevent related co-morbidities. In our previous visits we have discussed lifestyle intervention including a nutrition recommendations and physical activity optimization. Her last office visit was 4 months ago. Assessment/plan from last visit: - Routine exercise reviewed- discussed tracker - ETOH and impact on health- working with licensed life and health agent and still cutting back. Discussed topiramate off label use for weight loss and ETOH- can increase but at this time doing well will keep at current dose. - LABS today from PCP - Discussed adding in Protein shake for breakfast - Poor sleep reviewed and impact it has on health/weight - continue lisinopril for HTN -Topiramate refills given Interval History PT specifies the following items as new or significant updates since the last appointment: - under a lot of stress right now but feels she is coping ok - has had some ETOH but feels she is doing well at controlling - sometimes scale gets down to 137lbs and she feels that is too thin for her- likes to be around 142lb - does not always take evening dose - still seeing licensed life and health agent - having right hand- radial neuropathy - painful Weight loss since last vist: 7 lbs Total weight lost 28 lbs - Last Wt 10/29/24: 142 lb 07/05/24 : 149 lb 04/02/24: 161 lb 02/12/24 : 168 lb Starting weight: 01/01/24 : 170 lb (77.1 kg) Goal weight: - 15 lbs weight loss -20 lbs 5% weight loss = 162 lbs, 10% weight loss = 153 lbs Anti-obesity medications: Topiramate. Benefit:decreased food craving , decreased ETOH Adverse effects: none Weight promoting medications: alprazolam Previous Diet (initial appointment): Wakes up: Drinkes water all day- 6 large aldo's. Latte occasionally once per week Does not eat breakfast Lunch- salad, lean protein, rice, quinoa, soap, fish, Snacks- fruit, anya, dried pineapple, sesame sticks Dinner 5:30-7:30- meat, veggie, pasta (one per week) Snacks: cheese Diet/Nutrition overview: Fluids: water, 4-5 ETOH drinks mixed with Juices. Quality of diet: 24hr recall suggests healthy diet. Characterization of diet:skip meals. Sandstone Inspector Repairer of impaired eating habits:denies Eating Disorder no Preferred foods: Cravings: guamanian food Dietary changes: (cell core, digestive warrior) B - smoothie with fruit, vegetables, protein powder plant - banana- pb, green smoothie, mixed greens S - L - not always, but tuna salad, apples, dill, dried cranberries, esteban crackers - roasted cauliflower emelia and lentin soups S - D - same - vegetable or salad with lean meat , Soup and fish , salami and cheese, crackers S - Fluids - water , ETOH at times Eating 3 meals a day, including breakfast Increasing servings of fruit Increasing servings of vegetables Controlling portions Limiting processed foods Increasing protein Reducing carbohydrates Current Barriers: none Exercise: still moving during the day- but no dedicated exercise Stress: stable Sleep: decreased but better than was at - 3-4 hours. RYAN NO ; CPAP NO stable- HAS ANIMALS that move and wake her up all night CrCl cannot be calculated (Patient's most recent lab result is older than the maximum 180 days allowed.). PAST MEDICAL HISTORY Diagnosis Date 1999 CVA (cerebral vascular accident) (HCC) unknown when Gallstones Current Outpatient Medications Medication Sig Dispense Refill ALPRAZolam (XANAX) 0.5 mg tablet Take 2 tablets by mouth once daily as needed for up to 180 days. 90 tablet 1 valACYclovir (VALTREX) 1 gram tablet Take 2 tablets by mouth two times a day. For 1 day. 4 tablet 2 omeprazole (PRILOSEC) 10 mg capsule Take 1 capsule by mouth once daily. 90 capsule 1 topiramate (TOPAMAX) 50 mg tablet Take 1 tablet by mouth two times a day. 180 tablet 1 lisinopril (ZESTRIL) 20 mg tablet Take 1 tablet by mouth once daily. 90 tablet 1 Magnesium 250 mg tab Take 250 mg by mouth once daily. (Patient not taking: Reported on 10/02/2024) aspirin, enteric coated (ASPIRIN, ENTERIC COATED) 81 mg EC tablet Take 81 mg by mouth once daily. No current facility-administered medications for this visit. ROS- denies Brain fog, paraesthesia , no stomach pain ROS/Fam Hx pertaining to AOMs: GEN: Fatigue:yes CV: h/o palpitations/cardiac arrhythmia, Chest pain anxiety HTN: yes PULM: Asthma:no GI: GERD:no ; Gallstones:yes ; Fatty liver disease:no Pancreatitis: no MSK: Joint Pain:no : Nephrolithiasis: yes 24 yrs ago Symptoms of PCOS: no NEURO: Migraines/WALLACE: yes ; (more content not included)... [facility] 10-28-2024 History of Present illness Narrative I received consent from the patient to perform the visit as a virtual encounter. Individuals who were included in, or assisted with the encounter were: Renee Sami Newton MD Location: home This is Ms. 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 I would expect improvements over approximately the next 2 to 3 months. Plan - Neurology physical therapy - Follow-up with me in 10 weeks either in person or virtual Ryder Newton MD Staff, [facility] [place] HPI: This is Ms. 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 The pathophysiology is predominantly demyelinating with intact distal radial motor and sensory amplitudes. Studies of the median and ulnar nerves are normal. CC: This is my dominant hand About a month Learning to adapt R hand non functional Wrist drop Today: Everything is R arm Nothing else Weakness Numbness Near allodynia? Severe to be severe 10/03/2024 Slept on R side, R arm folded up under her This is her typical sleeping position Woke up 3:30 in the AM She is not better, not worse Constant 24/7 issue Feels better weightless in water Nothing else This has never happened before No family history of similar issues She is working with occupational therapy She is using wrist brace Splint ordered, still waiting Past history per chart review includes: Past medical history, problem list: Appendicitis, CVA, gallstones, hyperlipidemia, situational anxiety, fatigue Past surgical history: Appendectomy, hysterectomy Family history: Bipolar disorder (mother) Social history: Former smoker OBJECTIVE: PHYSICAL EXAM: Neurological: Mental Status: Alert. Speech fluent. Cranial Nerves: CNIII, IV, : Eyes cross midline CN V: Facial sensation intact bilaterally to touch per the patient. CN VII: Smile is symmetric range. CN VIII: Hearing intact to virtual platform. CN XI: Shoulder shrug present bilaterally. CN XII: Tongue protrusion full, midline. Motor: Moves left arm antigravity Performs a squat (multiple). R wrist drop As noted below, ambulates easily. Sensation: Intact to touch in the distal left upper and bilateral lower extremities per the patient. Disturbance of skin sensation, R UE Gait: Ambulates (limited exam) This note was partially created using voice recognition software and is inherently subject to errors including those of syntax and sound-alike substitutions which may escape proofreading. In such instances, original meaning may be extrapolated by contextual derivation. I spent a total of 36 minutes on the date of the service which included time spent preparing to see the patient, talking to the patient/documenting in the chart, examining the patient via the virtual platform, documenting in the chart after the visit, placing an order in the chart, communicating with the patient by MyChart after the visit, arranging for follow-up. documented in this encounter [facility] 10-28-2024 Note HNO ID: [id number] Author: RYDER NEWTON MD Service: ? Author Type: Physician Type: Progress Notes Filed: 10/28/2024 14:49 Note Text: I received consent from the patient to perform the visit as a virtual encounter. Individuals who were included in, or assisted with the encounter were: Renee Newton MD Location: home This is Ms. 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 I would expect improvements over approximately the next 2 to 3 months. Plan - Neurology physical therapy - Follow-up with me in 10 weeks either in person or virtual Ryder Newton MD Staff, [facility] [place] HPI: This is Ms. 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 The pathophysiology is predominantly demyelinating with intact distal radial motor and sensory amplitudes. Studies of the median and ulnar nerves are normal. CC: This is my dominant hand About a month Learning to adapt R hand non functional Wrist drop Today: Everything is R arm Nothing else Weakness Numbness Near allodynia? Severe to be severe 10/03/2024 Slept on R side, R arm folded up under her This is her typical sleeping position Woke up 3:30 in the AM She is not better, not worse Constant 24/7 issue Feels better weightless in water Nothing else This has never happened before No family history of similar issues She is working with occupational therapy She is using wrist brace Splint ordered, still waiting Past history per chart review includes: Past medical history, problem list: Appendicitis, CVA, gallstones, hyperlipidemia, situational anxiety, fatigue Past surgical history: Appendectomy, hysterectomy Family history: Bipolar disorder (mother) Social history: Former smoker OBJECTIVE: PHYSICAL EXAM: Neurological: Mental Status: Alert. Speech fluent. Cranial Nerves: CNIII, IV, : Eyes cross midline CN V: Facial sensation intact bilaterally to touch per the patient. CN VII: Smile is symmetric range. CN VIII: Hearing intact to virtual platform. CN XI: Shoulder shrug present bilaterally. CN XII: Tongue protrusion full, midline. Motor: Moves left arm antigravity Performs a squat (multiple). R wrist drop As noted below, ambulates easily. Sensation: Intact to touch in the distal left upper and bilateral lower extremities per the patient. Disturbance of skin sensation, R UE Gait: Ambulates (limited exam) This note was partially created using voice recognition software and is inherently subject to errors including those of syntax and sound-alike substitutions which may escape proofreading. In such instances, original meaning may be extrapolated by contextual derivation. I spent a total of 36 minutes on the date of the service which included time spent preparing to see the patient, talking to the patient/documenting in the chart, examining the patient via the virtual platform, documenting in the chart after the visit, placing an order in the chart, communicating with the patient by MyChart after the visit, arranging for follow-up. [facility] 10-28-2024 Note HNO ID: [id number] Author: SHERI AMAYA MD Service: ? Author Type: Physician Type: Progress Notes Filed: 10/28/2024 11:03 Note Text: UNIVERSAL PROTOCOL / SAFETY CHECKLIST Procedure to be Performed: EMG Sign In: A Moment of CARE was completed. Personnel directly involved with the procedure wore the appropriate PPE (Personal Protective Equipment). Patient/Surrogate Stated/Verified: Patient name, Date of , Relevant allergies, and The intended procedure Time Out Communication: Intended patient and procedure match the source documents. Correct side/site marked and visible. Sign Out: SIGN OUT (optional for EMERGENT procedures): Post-procedure follow-up management communicated and Plan of Care Visit completed when applicable. Tania Amaya MD [facility] 10-28-2024 History of Present illness Narrative UNIVERSAL PROTOCOL / SAFETY CHECKLIST Procedure to be Performed: EMG Sign In: A Moment of CARE was completed. Personnel directly involved with the procedure wore the appropriate PPE (Personal Protective Equipment). Patient/Surrogate Stated/Verified: Patient name, Date of , Relevant allergies, and The intended procedure Time Out Communication: Intended patient and procedure match the source documents. Correct side/site marked and visible. Sign Out: SIGN OUT (optional for EMERGENT procedures): Post-procedure follow-up management communicated and Plan of Care Visit completed when applicable. Tania Pugh [facility] Sheri Amaya MD documented in this encounter [facility] 10-22-2024 Telephone encounter Note Patient returns call and provider message reviewed with verbalized understanding. Patient reports that she is improving just still some weakness but much better. Florinda Hull RN [facility] 10-22-2024 Miscellaneous Notes Patient returns call and provider message reviewed with verbalized understanding. Patient reports that she is improving just still some weakness but much better. Florinda Hull RN Called and left a voicemail for the Patient to call back and ask for a nurse to receive the providers message. Edilia Servin RN Advise fluids, bland/BRAT diet and taking a probiotic. Please see how patient is feeling. If diarrhea is persisting or worsening, needs to be seen and evaluated. Some antibiotics can worsen diarrhea symptoms. Seek care sooner if severe or worsening symptoms including new fever >100, severe abdominal pain, blood in stools. Elenita Brock PA-C 10/22/2024 Pt reports she is having severe diarrhea- for 3 days. Has a mild headache. No nausea, vomiting or abdominal pain. Is drinking plenty of fluids. Started AB yesterday for sinus infection. Protocol recommends see provider in 24 hours. Pt states she cannot come in due to diarrhea. Reviewed protocol recommendations, and patient agreeable to try home care recommendations. Pt understands if signs of dehydration (ie: no urine over 12 hrs, dry mouth, lightheaded, weight loss) will need to be seen in ER for IV fluids. Pt agreeable. Reason for Disposition [1] SEVERE diarrhea (e.g., 7 or more times / day more than normal) AND [2] present > 24 hours (1 day) Answer Assessment - Initial Assessment Questions 1. DIARRHEA SEVERITY: Severe - more than 7 liquids stools daily 2. ONSET: 3 days ago 3. STOOL DESCRIPTION: Watery- brown- no blood 4. VOMITING: No 5. ABDOMEN PAIN: No 6. ABDOMEN PAIN SEVERITY: No 7. ORAL INTAKE: Pedialyte, electrolyte, 3 glasses a day, 2 aldo tumblers of water that equals about 2 1/2 cups each- nothing staying inside her. 8. HYDRATION: Weak-food goes through her, nerve palsy in right arm- started 2-3 weeks ago-slept on arm wrong but feels weaker now. No dizziness or dry mouth. Last urinated 10 min ago. 9. EXPOSURE: Not sure if has been exposed. No bad food. 10. ANTIBIOTIC USE: On AB right now for sinus infection- started yesterday. 11. OTHER SYMPTOMS: Headache- mild. 12. : No Protocols used: [id number] documented in this encounter [facility] 10-22-2024 Telephone encounter Note Called and left a voicemail for the Patient to call back and ask for a nurse to receive the providers message. Edilia Servin RN [facility] 10-22-2024 Telephone encounter Note Advise fluids, bland/BRAT diet and taking a probiotic. Please see how patient is feeling. If diarrhea is persisting or worsening, needs to be seen and evaluated. Some antibiotics can worsen diarrhea symptoms. Seek care sooner if severe or worsening symptoms including new fever >100, severe abdominal pain, blood in stools. Elenita Brock PA-C 10/22/2024 [facility] Work Phone: 10-18-2024 Telephone encounter Note Pt reports she is having severe diarrhea- for 3 days. Has a mild headache. No nausea, vomiting or abdominal pain. Is drinking plenty of fluids. Started AB yesterday for sinus infection. Protocol recommends see provider in 24 hours. Pt states she cannot come in due to diarrhea. Reviewed protocol recommendations, and patient agreeable to try home care recommendations. Pt understands if signs of dehydration (ie: no urine over 12 hrs, dry mouth, lightheaded, weight loss) will need to be seen in ER for IV fluids. Pt agreeable. Reason for Disposition [1] SEVERE diarrhea (e.g., 7 or more times / day more than normal) AND [2] present > 24 hours (1 day) Answer Assessment - Initial Assessment Questions 1. DIARRHEA SEVERITY: Severe - more than 7 liquids stools daily 2. ONSET: 3 days ago 3. STOOL DESCRIPTION: Watery- brown- no blood 4. VOMITING: No 5. ABDOMEN PAIN: No 6. ABDOMEN PAIN SEVERITY: No 7. ORAL INTAKE: Pedialyte, electrolyte, 3 glasses a day, 2 aldo tumblers of water that equals about 2 1/2 cups each- nothing staying inside her. 8. HYDRATION: Weak-food goes through her, nerve palsy in right arm- started 2-3 weeks ago-slept on arm wrong but feels weaker now. No dizziness or dry mouth. Last urinated 10 min ago. 9. EXPOSURE: Not sure if has been exposed. No bad food. 10. ANTIBIOTIC USE: On AB right now for sinus infection- started yesterday. 11. OTHER SYMPTOMS: Headache- mild. 12. : No Protocols used: [id number] [facility] 10-02-2024 Note HNO ID: [id number] Author: NICHOL MONTALVO APRN.GEOCHEMICAL MANAGER Service: ? Author Type: Nurse Practitioner Type: Progress Notes Filed: 10/02/2024 14:30 Note Text: Chief Complaint Patient presents with: hospital f/up HPI Renee Gallardo is a 44 year old female who presents here today for Above Complaints. Renee is an established patient of Dr. Marbin DO. Concerns today... ER follow-up --- [facility] ER visit on 09/29 d/t random R hand weakness. Woke up at 330 am with this. ER completed CT brain and CT cervical spine that were normal. CBC showed mild anemia of hgb 11.3. BMP was normal besides potassium of 2.7. Was replenished and discharged. Dx with neuropraxia. Today in office.. Pt reports hand weakness is the same as before. 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 No other neuro deficits. No weakness above the hand. No fall or injury. Pt does report increase in stressors and ER had told her this could be contributing. Reports dog is dying and numerous family member/friends being dx with cancer. Current utilizing rx of xanax 0.5 mg daily as needed. Has tried 6-7 different antidepressant (SSRI AND SNRIs) with no relief or unable to tolerate. Xanax works well for pt but she does feel like life is throwing a lot at her recently. Pt reports not taking potassium supplement, even since ER discharge. Does have supplement at home. Past medical history, appointments, medications, allergies reviewed. Previous Medical History PAST MEDICAL HISTORY Diagnosis Date Appendicitis 1999 CVA (cerebral vascular accident) (HCC) unknown when Gallstones Previous Surgical History PAST SURGICAL HISTORY Procedure Laterality Date APPENDECTOMY 1999 HYSTERECTOMY 12/07/2023 [facility], cystoscopy SALPINGECTOMY Bilateral 12/07/2023 Family History FAMILY HISTORY Problem Relation Age of Onset Cancer Father CLS, stable Bipolar disorder Mother Heart disease Paternal Grandfather Hypertension Paternal Grandfather No Ocular Disease No Family History Patient Allergies ALLERGIES Allergen Reactions Amitriptyline Other: See Comments Nausea, diarrhea, dizziness Nausea, diarrhea, dizziness Bactrim [Sulfametho* Hives SWELLING AND HIVES Melatonin Other: See Comments Nifedipine Other: See Comments Prednisone Other: See Comments HEART RACING SWEATING Sertraline Other: See Comments Sulfa (Sulfonamide * Hives SWELLING Beta-Blockers (Beta* Other: See Comments, Swelling Current Medications Current Outpatient Medications on File Prior to Visit Medication Sig valACYclovir (VALTREX) 1 gram tablet Take 2 tablets by mouth two times a day. For 1 day. ALPRAZolam (XANAX) 0.5 mg tablet Take 1 tablet by mouth once daily as needed for up to 180 days. omeprazole (PRILOSEC) 10 mg capsule Take 1 capsule by mouth once daily. topiramate (TOPAMAX) 50 mg tablet Take 1 tablet by mouth two times a day. lisinopril (ZESTRIL) 20 mg tablet Take 1 tablet by mouth once daily. aspirin, enteric coated (ASPIRIN, ENTERIC COATED) 81 mg EC tablet Take 81 mg by mouth once daily. Magnesium 250 mg tab Take 250 mg by mouth once daily. (Patient not taking: Reported on 10/02/2024) No current facility-administered medications on file prior to visit. Social History Social History Tobacco Use Smoking status: Former Current packs/day: 0.00 Types: Cigarettes Quit date: 2002 Years since quittin. Smokeless tobacco: Never Vaping Use Vaping status: Never Used Substance Use Topics Alcohol use: Yes Drug use: Never REVIEW OF SYSTEMS: as above Reviewed relevant PMHx, PSHx, Social Hx, current medications and allergies. Review of Symptoms REVIEW OF SYSTEMS See HPI. EXAM: BP 112/62 (BP Site: Left Arm, BP Position: Sitting, BP Cuff Size: Regular Adult) Pulse 90 Resp 12 Wt 64.9 kg (143 lb) LMP 11/16/2023 SpO2 98% BMI 23.80 kg/m? General Appearance: Well appearing, alert, in no acute distress, well-hydrated, well nourished.. Skin: Skin color, texture, turgor normal, no suspicious rashes or lesions. Head: Normocephalic, no masses, lesions, tenderness or abnormalities. Extremities: No deformities, edema, skin discoloration, clubbing or cyanosis. Good capillary refill. , Positive findings: joint location: R hand weakness. Peripheral Pulses: Normal, Capillary refill <2secs, strong peripheral pulses. Neurologic: Positive findings: decreased strength with baffle installer to R hand with muscular weakness 2/5. Strength 5/5 in bicep, tricep on the right and 5/5 entire LUE. Health Maintenance List Hepatitis B Vaccine(1 of 3 - 19+ 3-dose series) Never done Mammogram Screening Never done Influenza Vaccine(1) due on 02/24/2025 Covid-19 Vaccine( - 2023- season) due on 10/02/2025 DTaP,Tdap,Td Vaccine(4 - Td or Tdap) due on 08/28/2026 Depression Screening due on 12/05/2024 Cervical Cancer Screening due on 08/28/2025 (more content not included)... [facility] 10-02-2024 History of Present illness Narrative Chief Complaint Patient presents with: hospital f/up HPI Renee Gallardo is a 44 year old female who presents here today for Above Complaints. Renee is an established patient of Dr. Marbin DO. Concerns today... ER follow-up --- [facility] ER visit on 09/29 d/t random R hand weakness. Woke up at 330 am with this. ER completed CT brain and CT cervical spine that were normal. CBC showed mild anemia of hgb 11.3. BMP was normal besides potassium of 2.7. Was replenished and discharged. Dx with neuropraxia. Today in office.. Pt reports hand weakness is the same as before. 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 No other neuro deficits. No weakness above the hand. No fall or injury. Pt does report increase in stressors and ER had told her this could be contributing. Reports dog is dying and numerous family member/friends being dx with cancer. Current utilizing rx of xanax 0.5 mg daily as needed. Has tried 6-7 different antidepressant (SSRI & SNRIs) with no relief or unable to tolerate. Xanax works well for pt but she does feel like life is throwing a lot at her recently. Pt reports not taking potassium supplement, even since ER discharge. Does have supplement at home. Past medical history, appointments, medications, allergies reviewed. Previous Medical History PAST MEDICAL HISTORY Diagnosis Date Appendicitis 1999 CVA (cerebral vascular accident) (HCC) unknown when Gallstones Previous Surgical History PAST SURGICAL HISTORY Procedure Laterality Date APPENDECTOMY 1999 HYSTERECTOMY 12/07/2023 [facility], cystoscopy SALPINGECTOMY Bilateral 12/07/2023 Family History FAMILY HISTORY Problem Relation Age of Onset Cancer Father CLS, stable Bipolar disorder Mother Heart disease Paternal Grandfather Hypertension Paternal Grandfather No Ocular Disease No Family History Patient Allergies ALLERGIES Allergen Reactions Amitriptyline Other: See Comments Nausea, diarrhea, dizziness Nausea, diarrhea, dizziness Bactrim [Sulfametho* Hives SWELLING AND HIVES Melatonin Other: See Comments Nifedipine Other: See Comments Prednisone Other: See Comments HEART RACING SWEATING Sertraline Other: See Comments Sulfa (Sulfonamide * Hives SWELLING Beta-Blockers (Beta* Other: See Comments, Swelling Current Medications Current Outpatient Medications on File Prior to Visit Medication Sig valACYclovir (VALTREX) 1 gram tablet Take 2 tablets by mouth two times a day. For 1 day. ALPRAZolam (XANAX) 0.5 mg tablet Take 1 tablet by mouth once daily as needed for up to 180 days. omeprazole (PRILOSEC) 10 mg capsule Take 1 capsule by mouth once daily. topiramate (TOPAMAX) 50 mg tablet Take 1 tablet by mouth two times a day. lisinopril (ZESTRIL) 20 mg tablet Take 1 tablet by mouth once daily. aspirin, enteric coated (ASPIRIN, ENTERIC COATED) 81 mg EC tablet Take 81 mg by mouth once daily. Magnesium 250 mg tab Take 250 mg by mouth once daily. (Patient not taking: Reported on 10/02/2024) No current facility-administered medications on file prior to visit. Social History Social History Tobacco Use Smoking status: Former Current packs/day: 0.00 Types: Cigarettes Quit date: 2002 Years since quittin.1 Smokeless tobacco: Never Vaping Use Vaping status: Never Used Substance Use Topics Alcohol use: Yes Drug use: Never REVIEW OF SYSTEMS: as above Reviewed relevant PMHx, PSHx, Social Hx, current medications and allergies. Review of Symptoms REVIEW OF SYSTEMS See HPI. EXAM: BP 112/62 (BP Site: Left Arm, BP Position: Sitting, BP Cuff Size: Regular Adult) Pulse 90 Resp 12 Wt 64.9 kg (143 lb) LMP 11/16/2023 SpO2 98% BMI 23.80 kg/m General Appearance: Well appearing, alert, in no acute distress, well-hydrated, well nourished.. Skin: Skin color, texture, turgor normal, no suspicious rashes or lesions. Head: Normocephalic, no masses, lesions, tenderness or abnormalities. Extremities: No deformities, edema, skin discoloration, clubbing or cyanosis. Good capillary refill. , Positive findings: joint location: R hand weakness. Peripheral Pulses: Normal, Capillary refill <2secs, strong peripheral pulses. Neurologic: Positive findings: decreased strength with baffle installer to R hand with muscular weakness 2/5. Strength 5/5 in bicep, tricep on the right and 5/5 entire LUE. Health Maintenance List Hepatitis B Vaccine(1 of 3 - 19+ 3-dose series) Never done Mammogram Screening Never done Influenza Vaccine(1) due on 02/24/2025 Covid-19 Vaccine(2 - season) due on 10/02/2025 DTaP,Tdap,Td Vaccine(4 - Td or Tdap) due on 08/28/2026 Depression Screening due on 12/05/2024 Cervical Cancer Screening due on 08/28/2025 Annual PCP Team Chronic Disease Visit due on 10/02/2025 BP Controlled (<130/80) due on 10/02/2025 HPV Vaccine Aged Out Hepatitis C Screening Discontinued HIV Screening Discontinued ASSESSMENT/PLAN: 1. Hand weakness - ICD9: 728.87, ICD10: R29.898 (primary diagnosis) Increase xanax d/t possible stress/anxiety component. Get EMG. Take NSAIDs as needed. If no improvement in 1-2 weeks, need to consider MRI of brain and neurology consult. Pt agreeable. - ALPRAZOLAM 0.5 MG TABLET - EMG(NEURO/NI) - COMPREHENSIVE METABOLIC PANEL 2. Panic attacks - ICD9: 300.01, ICD10: F41.0 Increase xanax, see above. - ALPRAZOLAM 0.5 MG TABLET 3. Sleep disturbances - ICD9: 780.50, ICD10: G47.9 Increase xanax, see above. - ALPRAZOLAM 0.5 MG TABLET 4. Hypokalemia - ICD9: 276.8, ICD10: E87.6 Recheck potassium level with CMP -- check on Monday. Likely needs to restart daily potassium supplement. - COMPREHENSIVE METABOLIC PANEL RTO as needed. Prescription instructions reviewed with patient as applicable. Potential red flag symptoms discussed with the patient. Reviewed appropriate action plan to take if red flag symptoms occur. Patient agreeable to treatment plan. Nichol Ace APRN.GEOCHEMICAL MANAGER [id number] [place] [address] documented in this encounter [facility] 09-18-2024 Telephone encounter Note ordered [facility] 09-18-2024 Miscellaneous Notes ordered documented in this encounter [facility] 09-12-2024 Note HNO ID: [id number] Author: CONOR CHAPMAN APRN.CNP Service: ? Author Type: Nurse Practitioner Type: Progress Notes Filed: 09/12/2024 08:17 Note Text: VIRTUAL VISIT PROGRESS NOTE This is a virtual visit using PowerVision Zoom Video Visit. It required patient-provider interaction for the medical decision making as documented below. I have communicated my name and active licensure. The patient's identity and physical location were verified at the time of this visit. Either the patient or their legal retail service representative has been informed of the risks and benefits of -- and alternatives to -- treatment through a remote evaluation and consents to proceed with the evaluation remotely. Renee Gallardo is a 44 year old female seen for medication f/u. Xanax-0.5mg daily in the mornings, is very helpful-helps her to get through the day-doesn't have to white knuckle-doesn't need it to sleep, makes her day so much easier. Omeprazole-working well for her but for some reason has been unable to request a refill on PowerVision, requesting this today. HISTORY REVIEWED (electronic chart updated): PAST MEDICAL HISTORY Diagnosis Date Appendicitis 1999 CVA (cerebral vascular accident) (HCC) unknown when Gallstones PAST SURGICAL HISTORY Procedure Laterality Date APPENDECTOMY 1999 HYSTERECTOMY 12/07/2023 TLH, cystoscopy SALPINGECTOMY Bilateral 12/07/2023 FAMILY HISTORY Problem Relation Age of Onset Cancer Father CLS, stable Bipolar disorder Mother Heart disease Paternal Grandfather Hypertension Paternal Grandfather No Ocular Disease No Family History Social History Tobacco Use Smoking status: Former Current packs/day: 0.00 Types: Cigarettes Quit date: 2002 Years since quittin.0 Smokeless tobacco: Never Vaping Use Vaping status: Never Used Substance Use Topics Alcohol use: Yes Drug use: Never Current Outpatient Medications Medication Sig phenazopyridine (PYRIDIUM) 200 mg tablet Take 1 tablet by mouth three times a day as needed for pain. topiramate (TOPAMAX) 50 mg tablet Take 1 tablet by mouth two times a day. omeprazole (PRILOSEC) 10 mg capsule Take 1 capsule by mouth once daily. valACYclovir (VALTREX) 1 gram tablet Take 2 tablets by mouth two times a day. For 1 day. triamcinolone acetonide (KENALOG) 0.1 % cream Apply 1 application to affected area three times a day. Apply sparingly to area for rash/itching. (Patient not taking: Reported on 07/05/2024) lisinopril (ZESTRIL) 20 mg tablet Take 1 tablet by mouth once daily. Magnesium 250 mg tab Take 250 mg by mouth once daily. aspirin, enteric coated (ASPIRIN, ENTERIC COATED) 81 mg EC tablet Take 81 mg by mouth once daily. No current facility-administered medications for this visit. ALLERGIES Allergen Reactions Amitriptyline Other: See Comments Nausea, diarrhea, dizziness Nausea, diarrhea, dizziness Bactrim [Sulfametho* Hives SWELLING AND HIVES Melatonin Other: See Comments Nifedipine Other: See Comments Prednisone Other: See Comments HEART RACING SWEATING Sertraline Other: See Comments Sulfa (Sulfonamide * Hives SWELLING Beta-Blockers (Beta* Other: See Comments, Swelling REVIEW OF SYSTEMS: All other ROS: negative As noted in HPI PHYSICAL EXAMINATION: VIDEO EXAM: (if completed, performed via video enabled technology) Pleasant, cooperative, no SI/HI ASSESSMENT: (F41.0) Panic attacks (primary encounter diagnosis) (G47.9) Sleep disturbances PLAN: Refill Xanax, f/u in 6 months for this. Refill omeprazole. PDMP website checked and validated. All prescriptions have been APPROPRIATELY filled. No suspicious activity was identified. 09/12/2024 ino Chapman APRN.[facility] 09-12-2024 History of Present illness Narrative VIRTUAL VISIT PROGRESS NOTE This is a virtual visit using Slingrom Video Visit. It required patient-provider interaction for the medical decision making as documented below. I have communicated my name and active licensure. The patient's identity and physical location were verified at the time of this visit. Either the patient or their legal retail service representative has been informed of the risks and benefits of -- and alternatives to -- treatment through a remote evaluation and consents to proceed with the evaluation remotely. Renee Gallardo is a 44 year old female seen for medication f/u. Xanax-0.5mg daily in the mornings, is very helpful-helps her to get through the day-doesn't have to white knuckle-doesn't need it to sleep, makes her day so much easier. Omeprazole-working well for her but for some reason has been unable to request a refill on MyChart, requesting this today. HISTORY REVIEWED (electronic chart updated): PAST MEDICAL HISTORY Diagnosis Date Appendicitis 1999 CVA (cerebral vascular accident) (HCC) unknown when Gallstones PAST SURGICAL HISTORY Procedure Laterality Date APPENDECTOMY 1999 HYSTERECTOMY 12/07/2023 TL[facility], cystoscopy SALPINGECTOMY Bilateral 12/07/2023 FAMILY HISTORY Problem Relation Age of Onset Cancer Father CLS, stable Bipolar disorder Mother Heart disease Paternal Grandfather Hypertension Paternal Grandfather No Ocular Disease No Family History Social History Tobacco Use Smoking status: Former Current packs/day: 0.00 Types: Cigarettes Quit date: 2002 Years since quittin.0 Smokeless tobacco: Never Vaping Use Vaping status: Never Used Substance Use Topics Alcohol use: Yes Drug use: Never Current Outpatient Medications Medication Sig phenazopyridine (PYRIDIUM) 200 mg tablet Take 1 tablet by mouth three times a day as needed for pain. topiramate (TOPAMAX) 50 mg tablet Take 1 tablet by mouth two times a day. omeprazole (PRILOSEC) 10 mg capsule Take 1 capsule by mouth once daily. valACYclovir (VALTREX) 1 gram tablet Take 2 tablets by mouth two times a day. For 1 day. triamcinolone acetonide (KENALOG) 0.1 % cream Apply 1 application to affected area three times a day. Apply sparingly to area for rash/itching. (Patient not taking: Reported on 07/05/2024) lisinopril (ZESTRIL) 20 mg tablet Take 1 tablet by mouth once daily. Magnesium 250 mg tab Take 250 mg by mouth once daily. aspirin, enteric coated (ASPIRIN, ENTERIC COATED) 81 mg EC tablet Take 81 mg by mouth once daily. No current facility-administered medications for this visit. ALLERGIES Allergen Reactions Amitriptyline Other: See Comments Nausea, diarrhea, dizziness Nausea, diarrhea, dizziness Bactrim [Sulfametho* Hives SWELLING AND HIVES Melatonin Other: See Comments Nifedipine Other: See Comments Prednisone Other: See Comments HEART RACING SWEATING Sertraline Other: See Comments Sulfa (Sulfonamide * Hives SWELLING Beta-Blockers (Beta* Other: See Comments, Swelling REVIEW OF SYSTEMS: All other ROS: negative As noted in HPI PHYSICAL EXAMINATION: VIDEO EXAM: (if completed, performed via video enabled technology) Pleasant, cooperative, no SI/HI ASSESSMENT: (F41.0) Panic attacks (primary encounter diagnosis) (G47.9) Sleep disturbances PLAN: Refill Xanax, f/u in 6 months for this. Refill omeprazole. PDMP website checked and validated. All prescriptions have been APPROPRIATELY filled. No suspicious activity was identified. 09/12/2024 ino Chapman APRN.TODD documented in this encounter [facility] 08-23-2024 Telephone encounter Note Patient calls back and notified that she needs to set up appointment for refills on Xanax. Patient does have Xanax left. Patient just is going to be out of state and will run out of medication. Patient will discuss medication at next appointment. Patient is scheduled to see Nichol on 08/26/2024 to discuss medication. Patt Vincent RN [facility] 08-23-2024 Miscellaneous Notes Patient calls back and notified that she needs to set up appointment for refills on Xanax. Patient does have Xanax left. Patient just is going to be out of state and will run out of medication. Patient will discuss medication at next appointment. Patient is scheduled to see Nichol on 08/26/2024 to discuss medication. Patt Vincent RN Per note patient had question for office on xanax. Left message for patient to call office back and speak to triage nurse. Not sure what question is to be asked if going out of state rx can not be filled due to controlled has to be remain in [place]. Patient needs scheduled follow up Patient has been identified by name and date of : yes Patient phones for refill(s): Requested Prescriptions Pending Prescriptions Disp Refills ALPRAZolam (XANAX) 0.5 mg tablet 30 tablet 2 Sig: Take 1 tablet by mouth once daily as needed for up to 90 days. Date of last office visit in primary care: 04/25/2024 Date of next office visit in primary care: Visit date not found Please advise. Thank you. Debra Soliz MA. Renee is calling Ezequiel Zazueta DO today with a Medication Question: Disp Refills Start End ALPRAZolam (XANAX) 0.5 mg tablet 30 tablet 2 04/03/2024 07/02/2024 Sig: Take 1 tablet by mouth once daily as needed for up to 90 days. Sent to pharmacy as: ALPRAZolam (XANAX) 0.5 mg tablet Class: Normal Route: ORAL Order: [id number] E-Prescribing Status: Receipt confirmed by pharmacy (04/03/2024 9:31 AM EDT) Patient is requesting to speak to the nurse. She stated she has questions because she will be going out of town soon. Please call her today. Patient has been identified by name and birthdate. Duration of symptoms: N/A Person calling: self Call patient at: at home [phone] (home) [phone] (cell) Was an appointment scheduled: No Closing statement: Results or non-symptom based questions: Thank you for calling [facility], your call will be returned within the next business day. Bernice Jesus documented in this encounter [facility] 08-23-2024 Telephone encounter Note Per note patient had question for office on xanax. Left message for patient to call office back and speak to triage nurse. Not sure what question is to be asked if going out of state rx can not be filled due to controlled has to be remain in [place]. Patient needs scheduled follow up Patient has been identified by name and date of : yes Patient phones for refill(s): Requested Prescriptions Pending Prescriptions Disp Refills ALPRAZolam (XANAX) 0.5 mg tablet 30 tablet 2 Sig: Take 1 tablet by mouth once daily as needed for up to 90 days. Date of last office visit in primary care: 04/25/2024 Date of next office visit in primary care: Visit date not found Please advise. Thank you. Debra Soliz MA. [facility] 08-23-2024 Telephone encounter Note Renee is calling Ezequiel Zazueta DO today with a Medication Question: Disp Refills Start End ALPRAZolam (XANAX) 0.5 mg tablet 30 tablet 2 04/03/2024 07/02/2024 Sig: Take 1 tablet by mouth once daily as needed for up to 90 days. Sent to pharmacy as: ALPRAZolam (XANAX) 0.5 mg tablet Class: Normal Route: ORAL Order: [id number] E-Prescribing Status: Receipt confirmed by pharmacy (04/03/2024 9:31 AM EDT) Patient is requesting to speak to the nurse. She stated she has questions because she will be going out of town soon. Please call her today. Patient has been identified by name and birthdate. Duration of symptoms: N/A Person calling: self Call patient at: at home [phone] (home) [phone] (cell) Was an appointment scheduled: No Closing statement: Results or non-symptom based questions: Thank you for calling [facility], your call will be returned within the next business day. Bernice Jesus [facility] 07-05-2024 History of Present illness Narrative Images from the original note were not included. Some documentation from previous visit of 04/02/2024 was copied and pasted, documentation has been reviewed and edited as necessary for today's visit. Patient Summary: Renee is a 43 year old Female who presents for follow-up evaluation of obesity/weight management to treat and prevent related co-morbidities. In our previous visits we have discussed lifestyle intervention including a nutrition recommendations and physical activity optimization. Her last office visit was 3 months ago. Assessment/plan from last visit: - Routine exercise reviewed- discussed tracker - ETOH and impact on health- working with licensed life and health agent and still cutting back. Discussed topiramate off label use for weight loss and ETOH- can increase but at this time doing well will keep at current dose. - LABS today from PCP - Discussed adding in Protein shake for breakfast - Poor sleep reviewed and impact it has on health/weight - continue lisinopril for HTN -Topiramate refills given Interval History PT specifies the following items as new or significant updates since the last appointment: - massive cleanse for one month- feels great. - eats soups, fish, takes supplements - went to [place] for trip happy she didn't gain weight - feels great with cleanse - very happy her LFTs are all back to normal - does not crave carbs- - feels anxiety is well controlled, working with licensed life and health agent - does not feel hungry - sleep is much better- using herbal tea at night time. -happy her BP is trending down - woke up with UTI symptoms- Pain and frequency Weight loss since last vist: 12 lbs Total weight lost 19 lbs - Last Wt 07/05/24 : 149 lb 04/02/24: 161 02/12/24 : 168 lb Starting weight: 01/01/24 : 170 lb (77.1 kg) 5% weight loss = 162 lbs, 10% weight loss = 153 lbs Anti-obesity medications: Topiramate. Benefit:decreased food craving , decreased ETOH Adverse effects: none Weight promoting medications: alprazolam Previous Diet (initial appointment): Wakes up: Drinkes water all day- 6 large aldo's. Latte occasionally once per week Does not eat breakfast Lunch- salad, lean protein, rice, quinoa, soap, fish, Snacks- fruit, anya, dried pineapple, sesame sticks Dinner 5:30-7:30- meat, veggie, pasta (one per week) Snacks: cheese Diet/Nutrition overview: Fluids: water, 4-5 ETOH drinks mixed with Juices. Quality of diet: 24hr recall suggests healthy diet. Characterization of diet:skip meals. Sandstone Inspector Repairer of impaired eating habits:denies Eating Disorder no Preferred foods: Cravings: guamanian food Dietary changes: (cell core, digestive warrior) B - smoothie with fruit, vegetables, protein powder plant S - L - Smoothie fruit, vegetables, protein powder S - D - same - vegetable or salad with lean meat , Soup and fish S - Fluids - water , ETOH nothing for the month (a few in [place]) , mood brew- helping sleep better Eating 3 meals a day, including breakfast Increasing servings of fruit Increasing servings of vegetables Controlling portions Limiting processed foods Increasing protein Reducing carbohydrates Current Barriers: none Exercise: still moving during the day- but no dedicated exercise Stress: stable Sleep: INCREASED- 9 hrs from - 3-4 hours. RYAN NO ; CPAP NO stable- HAS ANIMALS that move and wake her up all night Estimated Creatinine Clearance: 110.6 mL/min (based on SCr of 0.67 mg/dL). PAST MEDICAL HISTORY Diagnosis Date 1999 CVA (cerebral vascular accident) (HCC) unknown when Gallstones Current Outpatient Medications Medication Sig Dispense Refill omeprazole (PRILOSEC) 10 mg capsule Take 1 capsule by mouth once daily. 30 capsule 3 valACYclovir (VALTREX) 1 gram tablet Take 2 tablets by mouth two times a day. For 1 day. 4 tablet 2 ALPRAZolam (XANAX) 0.5 mg tablet Take 1 tablet by mouth once daily as needed for up to 90 days. 30 tablet 2 triamcinolone acetonide (KENALOG) 0.1 % cream Apply 1 application to affected area three times a day. Apply sparingly to area for rash/itching. 60 g 1 topiramate (TOPAMAX) 50 mg tablet Take 1 tablet by mouth two times a day. 180 tablet 1 lisinopril (ZESTRIL) 20 mg tablet Take 1 tablet by mouth once daily. 90 tablet 1 Magnesium 250 mg tab Take 250 mg by mouth once daily. aspirin, enteric coated (ASPIRIN, ENTERIC COATED) 81 mg EC tablet Take 81 mg by mouth once daily. No current facility-administered medications for this visit. 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 Latest Ref Rng & Units 06/21/2024 CMP Protein, Total 6.3 - 8.0 g/dL 7.1 Albumin 3.9 - 4.9 g/dL 4.5 Bilirubin, Total 0.2 - 1.3 mg/dL 0.4 AST 13 - 35 U/L 15 ALT 7 - 38 U/L 13 Alkaline Phosphatase 34 - 123 U/L 49 Cholesterol, Total (mg/dL) Date Value 12/28/2023 260 HDL Cholesterol (mg/dL) Date Value 12/28/2023 77 LDL Cholesterol (mg/dL) Date Value 12/28/2023 174 Triglyceride (mg/dL) Date Value 12/28/2023 47 Latest Ref Rng & Units 04/02/2024 CBC WBC 3.70 - 11.00 k/uL 6.33 RBC 3.90 - 5.20 m/uL 3.76 Hemoglobin 11.5 - 15.5 g/dL 12.4 Hematocrit 36.0 - 46.0 % 36.5 MCV 80.0 - 100.0 fL 97.1 MCH 26.0 - 34.0 pg 33.0 MCHC 30.5 - 36.0 g/dL 34.0 RDW-CV 11.5 - 15.0 % 12.2 Platelet Count 150 - 400 k/uL 165 MPV 9.0 - 12.7 fL 9.5 Vitamin D 25 Hydroxy Date Value Ref Range Status 12/22/2023 42.6 31.0 - 80.0 ng/mL Final 04/18/2023 36.8 31.0 - 80.0 ng/mL Final Comment: Classification of 25 [place] Vitamin D status: Deficiency/Insufficiency: < or = 30 ng/ml. Sufficiency/Optimal Levels: 31-80 ng/mL Toxicity: > 100 ng/mL. Test performed by chemiluminescent immunoassay. TSH (mIU/L) Date Value 12/22/2023 1.160 04/18/2023 3.670 ) Hemoglobin A1C (%) Date Value 12/22/2023 4.8 04/18/2023 4.8 Insulin Date Value Ref Range Status 12/28/2023 6.9 3.0 - 25.0 mU/L Final Assessment/Plan: Renee Gallardo is a 43 year old yo with Overweight (Pre-obesity) who presented today for follow up for supervised weight loss to treat and prevent related co-morbidities. (E78.00) Hypercholesteremia (primary encounter diagnosis) (R53.81, R53.83) Malaise and fatigue (F41.1) Anxiety neurosis (I10) Hypertension, unspecified type (R74.8) Elevated liver enzymes (R30.0) Dysuria (R35.0) Urinary frequency (E66.3) Overweight (BMI 25.0-29.9) -continue cleanse as desired- discussed making sure getting whole foods and protein at 90g/day - water intake - Urinary symptoms- Urine 10dip and Ucx today- will start cipro and Pyridium - continue lisinopril for HTN - will start tracking BP at home and follow up with PCP for med adjustments as needed - discussed health benefits at 10% weight loss - LFTs normalization reviewed with patient -Topiramate refills ordered- doing well. - continue xanax for anxiety per pcp, - continue with licensed life and health agent - An overall goal of 150-200 minutes per week of exercise has been effective in weight loss and maintenance. Prescription instructions reviewed with patient as applicable. Potential red flag symptoms discussed with the patient. Reviewed appropriate action plan to take if red flag symptoms occur. Patient agreeable to treatment plan. Medical Decision Making: Problems: Moderate: 1+ chronic illnesses with change and Acute illness with systemic symptoms Data: Unique test(s) ordered: 3+ Risk: Moderate: Drug management and Moderate risk from testing/treatment Medical Decision Making Level: 4 - Moderate Follow up in 12 weeks- Appt made in October Natasha Cruz MD, FACOG, JENNY documented in this encounter [facility] 07-05-2024 Note HNO ID: [id number] Author: NATASHA DAVILA MD Service: ? Author Type: Physician Type: Progress Notes Filed: 07/05/2024 10:26 Note Text: Some documentation from previous visit of 04/02/2024 was copied and pasted, documentation has been reviewed and edited as necessary for today's visit. Patient Summary: Renee is a 43 year old Female who presents for follow-up evaluation of obesity/weight management to treat and prevent related co-morbidities. In our previous visits we have discussed lifestyle intervention including a nutrition recommendations and physical activity optimization. Her last office visit was 3 months ago. Assessment/plan from last visit: - Routine exercise reviewed- discussed tracker - ETOH and impact on health- working with licensed life and health agent and still cutting back. Discussed topiramate off label use for weight loss and ETOH- can increase but at this time doing well will keep at current dose. - LABS today from PCP - Discussed adding in Protein shake for breakfast - Poor sleep reviewed and impact it has on health/weight - continue lisinopril for HTN -Topiramate refills given Interval History PT specifies the following items as new or significant updates since the last appointment: - massive cleanse for one month- feels great. - eats soups, fish, takes supplements - went to [place] for trip happy she didn't gain weight - feels great with cleanse - very happy her LFTs are all back to normal - does not crave carbs- - feels anxiety is well controlled, working with licensed life and health agent - does not feel hungry - sleep is much better- using herbal tea at night time. -happy her BP is trending down - woke up with UTI symptoms- Pain and frequency Weight loss since last vist: 12 lbs Total weight lost 19 lbs - Last Wt 07/05/24 : 149 lb 04/02/24: 161 02/12/24 : 168 lb Starting weight: 01/01/24 : 170 lb (77.1 kg) 5% weight loss = 162 lbs, 10% weight loss = 153 lbs Anti-obesity medications: Topiramate. Benefit:decreased food craving , decreased ETOH Adverse effects: none Weight promoting medications: alprazolam Previous Diet (initial appointment): Wakes up: Drinkes water all day- 6 large aldo's. Latte occasionally once per week Does not eat breakfast Lunch- salad, lean protein, rice, quinoa, soap, fish, Snacks- fruit, anya, dried pineapple, sesame sticks Dinner 5:30-7:30- meat, veggie, pasta (one per week) Snacks: cheese Diet/Nutrition overview: Fluids: water, 4-5 ETOH drinks mixed with Juices. Quality of diet: 24hr recall suggests healthy diet. Characterization of diet:skip meals. Sandstone Inspector Repairer of impaired eating habits:denies Eating Disorder no Preferred foods: Cravings: guamanian food Dietary changes: (cell core, digestive warrior) B - smoothie with fruit, vegetables, protein powder plant S - L - Smoothie fruit, vegetables, protein powder S - D - same - vegetable or salad with lean meat , Soup and fish S - Fluids - water , ETOH nothing for the month (a few in [place]) , mood brew- helping sleep better Eating 3 meals a day, including breakfast Increasing servings of fruit Increasing servings of vegetables Controlling portions Limiting processed foods Increasing protein Reducing carbohydrates Current Barriers: none Exercise: still moving during the day- but no dedicated exercise Stress: stable Sleep: INCREASED- 9 hrs from - 3-4 hours. RYAN NO ; CPAP NO stable- HAS ANIMALS that move and wake her up all night Estimated Creatinine Clearance: 110.6 mL/min (based on SCr of 0.67 mg/dL). PAST MEDICAL HISTORY Diagnosis Date Appendicitis 1999 CVA (cerebral vascular accident) (HCC) unknown when Gallstones Current Outpatient Medications Medication Sig Dispense Refill omeprazole (PRILOSEC) 10 mg capsule Take 1 capsule by mouth once daily. 30 capsule 3 valACYclovir (VALTREX) 1 gram tablet Take 2 tablets by mouth two times a day. For 1 day. 4 tablet 2 ALPRAZolam (XANAX) 0.5 mg tablet Take 1 tablet by mouth once daily as needed for up to 90 days. 30 tablet 2 triamcinolone acetonide (KENALOG) 0.1 % cream Apply 1 application to affected area three times a day. Apply sparingly to area for rash/itching. 60 g 1 topiramate (TOPAMAX) 50 mg tablet Take 1 tablet by mouth two times a day. 180 tablet 1 lisinopril (ZESTRIL) 20 mg tablet Take 1 tablet by mouth once daily. 90 tablet 1 Magnesium 250 mg tab Take 250 mg by mouth once daily. aspirin, enteric coated (ASPIRIN, ENTERIC COATED) 81 mg EC tablet Take 81 mg by mouth once daily. No current facility-administered medications for this visit. ROS- denies Brain fog, paraesthesia , no stomach pain ROS/Fam Hx pertaining to AOMs: GEN: Fatigue:yes CV: h/o palpitations/cardiac arrhythmia, Chest pain anxiety HTN: yes PULM: Asthma:no GI: GERD:no ; Gallstones:yes ; Fatty liver disease:no Pancreatitis: no MSK: Joint Pain:no : Nephrolithiasis: yes 24 yrs ago Symptoms of PCOS (more content not included)... [facility] 06-25-2024 Telephone encounter Note Yes, her liver enzymes look great! Conor Chapman APRN.CNP [facility] 06-25-2024 Miscellaneous Notes Yes, her liver enzymes look great! Conor Chapman APRN.CNP documented in this encounter [facility] 06-07-2024 Telephone encounter Note Pt needs refilled today. Prescription Refill Information The patient has been identified by name and date of : Yes Caregiver verified no other encounters exist for this prescription request: Yes Caregiver confirmed with patient/requestor that no other refills are due, in the near future, with this provider at this time: Yes The last office visit in the department: 04/25/2024 Does the patient have a future office visit with this provider/department: No Requested Prescriptions Pending Prescriptions Disp Refills omeprazole (PRILOSEC) 10 mg capsule 30 capsule 3 Sig: Take 1 capsule by mouth once daily. Kaycee Murphy MA June 07, 2024 8:11 AM [facility] 06-07-2024 Miscellaneous Notes Pt needs refilled today. Prescription Refill Information The patient has been identified by name and date of : Yes Caregiver verified no other encounters exist for this prescription request: Yes Caregiver confirmed with patient/requestor that no other refills are due, in the near future, with this provider at this time: Yes The last office visit in the department: 04/25/2024 Does the patient have a future office visit with this provider/department: No Requested Prescriptions Pending Prescriptions Disp Refills omeprazole (PRILOSEC) 10 mg capsule 30 capsule 3 Sig: Take 1 capsule by mouth once daily. Kaycee Murphy MA June 07, 2024 8:11 AM documented in this encounter [facility] 06-07-2024 Telephone encounter Note See refill encounter Kaycee Murphy MA [facility] 06-07-2024 Miscellaneous Notes See refill encounter Kaycee Murphy MA documented in this encounter [facility] 05-20-2024 Telephone encounter Note The following approved medication requests have been transmitted electronically. Requested Prescriptions Signed Prescriptions Disp Refills valACYclovir (VALTREX) 1 gram tablet 4 tablet 2 Sig: Take 2 tablets by mouth two times a day. For 1 day. Authorizing Provider: ELENITA BROCK PA-C [facility] 05-20-2024 Miscellaneous Notes The following approved medication requests have been transmitted electronically. Requested Prescriptions Signed Prescriptions Disp Refills valACYclovir (VALTREX) 1 gram tablet 4 tablet 2 Sig: Take 2 tablets by mouth two times a day. For 1 day. Authorizing Provider: ELENITA BROCK PA-C Images from the original note were not included. Renee Galalrdo My Chart Rx Pool Hi! Is it possible to get an rx for the cold sore medicine I added? I don t know why it wasn t in my medical history, but I always have it on hand for when I travel to warm weather destinations just in case. I like didn t spell it correctly, but would really appreciate it! I use the [facility] on [address]. documented in this encounter [facility] 05-20-2024 Telephone encounter Note See telephone note [facility] Work Phone: 05-20-2024 Telephone encounter Note Images from the original note were not included. Renee Gallardo My Chart Rx Pool Hi! Is it possible to get an rx for the cold sore medicine I added? I don t know why it wasn t in my medical history, but I always have it on hand for when I travel to warm weather destinations just in case. I like didn t spell it correctly, but would really appreciate it! [facility] the [facility] on [address] [facility] Work Phone: 05-20-2024 Miscellaneous Notes See telephone note documented in this encounter [facility] 04-25-2024 Telephone encounter Note Patient was seen for follow up today. LUIS EDUARDO Stovall/ [facility] 04-25-2024 Miscellaneous Notes Patient was seen for follow up today. LUIS EDUARDO Stovall/ Patient calling, states that she got back from vacation and went to an for painful blisters on her feet. States that they diagnosed her with a staph infection. She wants to make sure the treatment makes sense. They prescribed Doxycyline 100 mg 1 tablet for 7 days and Mupirocin ointment to apply 3 times a day for 5 days. Also concerned with how painful it is and is asking if that is normal. Please advise. documented in this encounter [facility] 04-25-2024 History of Present illness Narrative Chief Complaint Patient presents with: Follow Up: [facility] 04/23 for a rash on feet. Currently taking doxy and using kenalog cream. HPI Renee Gallardo is a 43 year old female who presents here today for Above Complaints.. Per express care visit on 04/23/2024: HPI Nontoxic-appearing female presents urgent care chief complaint blisters on bilateral feet. Duration of symptoms 2 days. Associated symptoms bilateral feet blisters. Patient states she also does have a rash underneath her axillary region. Rash is stinging and burning. States blisters on her feet started after she wore sandals in [place]. Other risk factors son was recently diagnosed with staph skin infection. No OTC medication use. States pain is bothersome. No numbness no tingling. No decreased sensation. Denies any fever body aches chills productive cough chest pain shortness of breath pleuritic pain hemoptysis nausea vomiting abdominal pain change in bowel or bladder habits. Past medical history prescription medication use and allergies reviewed. Denies chance of . Is not breast-feeding. ASSESSMENT/PLAN: 1. Rash - ICD9: 782.1, ICD10: R21 Diagnosed with rash. Is suspicious of contact dermatitis from chemical irritant under axillary region. Diagnosed with rash on feet. Mechanical blisters from friction of sandals or superficial skin infection such as impetigo. Will use mupirocin and doxycycline. Follow-up with PCP 24 to 36 hours repeat wound evaluation. Like for like for prompt ER evaluation discussed. Patient was educated on supportive therapies. Patient will follow up with primary care provider as needed. Patient was instructed to immediately proceed to emergency room for any new, worsening, or symptoms lasting longer than anticipated. The patient's clinical presentation is otherwise unremarkable at this time. Based on exam and clinical finding, the patient is stable for discharge. Plan of care was discussed with patient. Patient verbalizes understanding and agrees to plan of care. This note was generated using [employer] software. It may contain errors in wording, punctuation, or spelling. Saeed Patricio APRN.GEOCHEMICAL MANAGER Currently: Left big toe and left second toe are raw and painful, throbbing, can't sleep-only got 2 hours of sleep last night due to the pain. Areas on her LLE and right foot seem to be healing up, drying. She is tolerating the oral doxycycline well. Putting mupirocin ointment on the areas, keeping the 2 open areas on her left toes covered with bandaids. Past medical history, appointments, medications, allergies reviewed. Previous Medical History PAST MEDICAL HISTORY 1999: Appendicitis No date: CVA (cerebral vascular accident) (HCC) Comment: unknown when No date: Gallstones Previous Surgical History PAST SURGICAL HISTORY 2000: APPENDECTOMY 12/07/2023: HYSTERECTOMY Comment: [facility], cystoscopy 12/07/2023: SALPINGECTOMY; Bilateral Family History FAMILY HISTORY Problem Relation Age of Onset Cancer Father CLS, stable Bipolar disorder Mother Heart disease Paternal Grandfather Hypertension Paternal Grandfather No Ocular Disease No Family History Patient Allergies ALLERGIES Allergen Reactions Amitriptyline Other: See Comments Nausea, diarrhea, dizziness Nausea, diarrhea, dizziness Bactrim [Sulfametho* Hives SWELLING AND HIVES Melatonin Other: See Comments Nifedipine Other: See Comments Prednisone Other: See Comments HEART RACING SWEATING Sertraline Other: See Comments Sulfa (Sulfonamide * Hives SWELLING Beta-Blockers (Beta* Other: See Comments, Swelling Current Medications Current Outpatient Medications on File Prior to Visit Medication Sig doxycycline (VIBRA-TABS) 100 mg tablet Take 1 tablet by mouth two times a day for 7 days. mupirocin (BACTROBAN) 2 % ointment Apply to affected area three times a day for 5 days. ALPRAZolam (XANAX) 0.5 mg tablet Take 1 tablet by mouth once daily as needed for up to 90 days. triamcinolone acetonide (KENALOG) 0.1 % cream Apply 1 application to affected area three times a day. Apply sparingly to area for rash/itching. topiramate (TOPAMAX) 50 mg tablet Take 1 tablet by mouth two times a day. omeprazole (PRILOSEC) 10 mg capsule Take 1 capsule by mouth once daily. lisinopril (ZESTRIL) 20 mg tablet Take 1 tablet by mouth once daily. Magnesium 250 mg tab Take 250 mg by mouth once daily. aspirin, enteric coated (ASPIRIN, ENTERIC COATED) 81 mg EC tablet Take 81 mg by mouth once daily. Folic Acid 20 mg cap Take 1 capsule by mouth once daily. (Patient not taking: Reported on 04/25/2024) No current facility-administered medications on file prior to visit. Social History Social History Tobacco Use Smoking status: Former Current packs/day: 0.00 Types: Cigarettes Quit date: 2002 Years since quittin.6 Smokeless tobacco: Never Vaping Use Vaping status: Never Used Substance Use Topics Alcohol use: Yes Drug use: Never Review of Symptoms REVIEW OF SYSTEMS See HPI, otherwise negative EXAM: BP 120/84 (BP Site: Left Arm, BP Position: Sitting, BP Cuff Size: Regular Adult) Pulse 78 Temp 36.1 C (96.9 F) Resp 16 LMP 11/16/2023 SpO2 100% General Appearance: Well appearing, alert, in no acute distress, well-hydrated, well nourished.. Skin: several scabbed areas to right foot and toes-no drainage, warmth, or redness. Left big and 2nd toes with 5mm open areas that are pink -wound bed, no drainage, warmth, or redness. Psychiatric: pleasant, cooperative. Health Maintenance List BP Controlled (<130/80) Never done Hepatitis B Vaccine(1 of 3 - 19+ 3-dose series) Never done Mammogram Screening Never done Covid-19 Vaccine(2 - 2022- season) due on 09/14/2024 DTaP,Tdap,Td Vaccine(4 - Td or Tdap) due on 08/28/2026 Influenza Vaccine(1) due on 04/28/2024 Depression Screening due on 12/05/2024 Annual PCP Team Chronic Disease Visit due on 04/03/2025 Cervical Cancer Screening due on 08/28/2025 HPV Vaccine Aged Out Hepatitis C Screening Discontinued HIV Screening Discontinued Data reviewed Previous records, office notes ASSESSMENT/PLAN: 1. Blister of toe of left foot, subsequent encounter - ICD9: V58.89, 917.2, ICD10: S90.425D All areas are healing well. Continue mupirocin ointment, complete doxycycline rx. Leave the open areas on left toes open to air for a couple hours daily. Ok to send [employer] message with picture if other concerns. - TRAMADOL 50 MG TABLET Conor Chapman APRN.CNP documented in this encounter [facility] 04-24-2024 Telephone encounter Note Patient calling, states that she got back from vacation and went to an for painful blisters on her feet. States that they diagnosed her with a staph infection. She wants to make sure the treatment makes sense. They prescribed Doxycyline 100 mg 1 tablet for 7 days and Mupirocin ointment to apply 3 times a day for 5 days. Also concerned with how painful it is and is asking if that is normal. Please advise. [facility] 04-23-2024 History of Present illness Narrative Images from the original note were not included. Subjective HPI Nontoxic-appearing female presents urgent care chief complaint blisters on bilateral feet. Duration of symptoms 2 days. Associated symptoms bilateral feet blisters. Patient states she also does have a rash underneath her axillary region. Rash is stinging and burning. States blisters on her feet started after she wore sandals in [place]. Other risk factors son was recently diagnosed with staph skin infection. No OTC medication use. States pain is bothersome. No numbness no tingling. No decreased sensation. Denies any fever body aches chills productive cough chest pain shortness of breath pleuritic pain hemoptysis nausea vomiting abdominal pain change in bowel or bladder habits. Past medical history prescription medication use and allergies reviewed. Denies chance of . Is not breast-feeding. .Patient presents with: Derm Problem: blisters on bilateral feet, painful x 1 day, redness under bilateral armpit area x 1 day PAST MEDICAL HISTORY 1999: Appendicitis No date: CVA (cerebral vascular accident) ([facility]) Comment: unknown when No date: Gallstones PAST SURGICAL HISTORY 2000: APPENDECTOMY 12/07/2023: HYSTERECTOMY Comment: [facility], cystoscopy 12/07/2023: SALPINGECTOMY; Bilateral ALLERGIES Amitriptyline, Bactrim [Sulfamethoxazole-Trimethoprim], Melatonin, Nifedipine, Prednisone, Sertraline, Sulfa (Sulfonamide Antibiotics), and Beta-Blockers (Beta-Adrenergic Blocking Agts) MEDICATIONS ALPRAZolam (XANAX) 0.5 mg tablet Take 1 tablet by mouth once daily as needed for up to 90 days. triamcinolone acetonide (KENALOG) 0.1 % cream Apply 1 application to affected area three times a day. Apply sparingly to area for rash/itching. topiramate (TOPAMAX) 50 mg tablet Take 1 tablet by mouth two times a day. omeprazole (PRILOSEC) 10 mg capsule Take 1 capsule by mouth once daily. lisinopril (ZESTRIL) 20 mg tablet Take 1 tablet by mouth once daily. Folic Acid 20 mg cap Take 1 capsule by mouth once daily. Magnesium 250 mg tab Take 250 mg by mouth once daily. aspirin, enteric coated (ASPIRIN, ENTERIC COATED) 81 mg EC tablet Take 81 mg by mouth once daily. FAMILY HISTORY Problem Relation Age of Onset Cancer Father CLS, stable Bipolar disorder Mother Heart disease Paternal Grandfather Hypertension Paternal Grandfather No Ocular Disease No Family History Social History Tobacco Use Smoking status: Former Current packs/day: 0.00 Types: Cigarettes Quit date: 2002 Years since quittin.6 Smokeless tobacco: Never Vaping Use Vaping status: Never Used Substance Use Topics Alcohol use: Yes Drug use: Never BP 128/80 Pulse 80 Temp 36.1 C (97 F) Resp 16 Wt 73.1 kg (161 lb 2.5 oz) LMP 11/16/2023 SpO2 100% BMI 26.82 kg/m Review of Systems Constitutional: Negative for chills, fever and malaise/fatigue. HENT: Negative for congestion, ear discharge, ear pain, sinus pain and sore throat. Eyes: Negative for blurred vision, pain, discharge and redness. Respiratory: Negative for cough, hemoptysis, sputum production, shortness of breath, wheezing and stridor. Cardiovascular: Negative for chest pain. Gastrointestinal: Negative for abdominal pain, diarrhea, nausea and vomiting. Musculoskeletal: Negative for myalgias. Skin: Positive for itching and rash. Neurological: Negative for dizziness and headaches. Objective Physical Exam Constitutional: General: She is not in acute distress. Appearance: She is not toxic-appearing. HENT: Head: Normocephalic. Nose: Nose normal. Eyes: Pupils: Pupils are equal, round, and reactive to light. Cardiovascular: Rate and Rhythm: Normal rate. Pulmonary: Effort: Pulmonary effort is normal. No respiratory distress. Musculoskeletal: Cervical back: Normal range of motion. Skin: General: Skin is warm and dry. Comments: Erythematous base rash noted under bilateral axillary region. Multiple 5 mm x 5 mm blisters noted on patient's toes. Area is painful. Some crusting noted. Some open areas of skin. Spares soles of feet. Neurovascular intact. 1 blister on knee. Neurological: General: No focal deficit present. Mental Status: She is alert. ASSESSMENT/PLAN: 1. Rash - ICD9: 782.1, ICD10: R21 Diagnosed with rash. Is suspicious of contact dermatitis from chemical irritant under axillary region. Diagnosed with rash on feet. Mechanical blisters from friction of sandals or superficial skin infection such as impetigo. Will use mupirocin and doxycycline. Follow-up with PCP 24 to 36 hours repeat wound evaluation. Like for like for prompt ER evaluation discussed. Patient was educated on supportive therapies. Patient will follow up with primary care provider as needed. Patient was instructed to immediately proceed to emergency room for any new, worsening, or symptoms lasting longer than anticipated. The patient's clinical presentation is otherwise unremarkable at this time. Based on exam and clinical finding, the patient is stable for discharge. Plan of care was discussed with patient. Patient verbalizes understanding and agrees to plan of care. This note was generated using [employer] software. It may contain errors in wording, punctuation, or spelling. Saeed Patricio APRN.TODD documented in this encounter [facility] 04-15-2024 Telephone encounter Note Pt informed, verbalized understanding. Kaycee Murphy MA [facility] 04-15-2024 Miscellaneous Notes Pt informed, verbalized understanding. Kaycee Murphy MA Left message for pt to call office. Vivi Agudelo LPN I would recommend a lotion such as CereVe or Cetaphil. Conor Chapman APRN.TODD Patient calling to let provider know that since starting the Triamcinolone cream she has been having insomnia. She feels it's related to the medication because she has not recently had insomnia. The rash has improved. Redness is gone but it is still a little itchy. She is asking if something non steroid can be prescribed? Charleen Jimenez RN documented in this encounter [facility] 04-10-2024 Telephone encounter Note Left message for pt to call office. Vivi Agudelo LPN [facility] 04-09-2024 Telephone encounter Note I would recommend a lotion such as CereVe or Cetaphil. Conor Chapman APRN.GEOCHEMICAL MANAGER [facility] 04-06-2024 Telephone encounter Note Patient calling to let provider know that since starting the Triamcinolone cream she has been having insomnia. She feels it's related to the medication because she has not recently had insomnia. The rash has improved. Redness is gone but it is still a little itchy. She is asking if something non steroid can be prescribed? Charleen Jimenez RN [facility] 04-03-2024 History of Present illness Narrative Chief Complaint Patient presents with: Medication Follow-up Rash: Red itchy rash zeny underarms x couple days, recent travel HPI Renee Gallardo is a 43 year old female who presents here today for Above Complaints.. Xanax-typically takes on a daily basis in the mornings. Has hx of feeling shaky, anxious all day long-this is the perfect dose and helps her to function very well all day long. Rash-Woke up a couple days ago with rash in both armpits. Has been in [facility], just ate some raw food. Was in [facility]. Woke up a couple days ago with rash in both armpits. Has a licensed life and health agent. Was just on vacation x3 weeks so quite a bit of alcohol intake. Knows her liver enzymes are elevated but has ordered milk thistle online to help with this. Past medical history, appointments, medications, allergies reviewed. Previous Medical History PAST MEDICAL HISTORY 1999: Appendicitis No date: CVA (cerebral vascular accident) (HCC) Comment: unknown when No date: Gallstones Previous Surgical History PAST SURGICAL HISTORY 1999: APPENDECTOMY 12/07/2023: HYSTERECTOMY Comment: [facility], cystoscopy 12/07/2023: SALPINGECTOMY; Bilateral Family History FAMILY HISTORY Problem Relation Age of Onset Cancer Father CLS, stable Bipolar disorder Mother Heart disease Paternal Grandfather Hypertension Paternal Grandfather No Ocular Disease No Family History Patient Allergies ALLERGIES Allergen Reactions Amitriptyline Other: See Comments Nausea, diarrhea, dizziness Nausea, diarrhea, dizziness Bactrim [Sulfametho* Hives SWELLING AND HIVES Melatonin Other: See Comments Nifedipine Other: See Comments Prednisone Other: See Comments HEART RACING SWEATING Sertraline Other: See Comments Sulfa (Sulfonamide * Hives SWELLING Beta-Blockers (Beta* Other: See Comments, Swelling Current Medications Current Outpatient Medications on File Prior to Visit Medication Sig topiramate (TOPAMAX) 50 mg tablet Take 1 tablet by mouth two times a day. ALPRAZolam (XANAX) 0.5 mg tablet Take 1 tablet by mouth at bedtime as needed for up to 30 days. omeprazole (PRILOSEC) 10 mg capsule Take 1 capsule by mouth once daily. lisinopril (ZESTRIL) 20 mg tablet Take 1 tablet by mouth once daily. Folic Acid 20 mg cap Take 1 capsule by mouth once daily. Magnesium 250 mg tab Take 250 mg by mouth once daily. aspirin, enteric coated (ASPIRIN, ENTERIC COATED) 81 mg EC tablet Take 81 mg by mouth once daily. No current facility-administered medications on file prior to visit. Social History Social History Tobacco Use Smoking status: Former Types: Cigarettes Quit date: 2002 Years since quittin.6 Smokeless tobacco: Never Vaping Use Vaping Use: Never used Substance Use Topics Alcohol use: Yes Drug use: Never Review of Symptoms REVIEW OF SYSTEMS See HPI, otherwise negative EXAM: BP 142/90 (BP Site: Left Arm, BP Position: Sitting, BP Cuff Size: Regular Adult) Pulse 101 Temp 36.8 C (98.2 F) Resp 16 Wt 73 kg (161 lb) LMP 11/16/2023 SpO2 100% BMI 26.79 kg/m General Appearance: Well appearing, alert, in no acute distress, well-hydrated, well nourished.. Skin: reddened areas to both underarms, somewhat dry, no pain to palpation, no warmth. Lungs: Lungs clear to auscultation. No wheezing, rhonchi, rales.. Heart: RRR without murmur, gallop, or rubs. No ectopy. Psychiatric: pleasant, cooperative. Health Maintenance List Mammogram Screening due on 04/03/2024 Hepatitis B Vaccine(1 of 3 - 19+ 3-dose series) due on 04/03/2024 Covid-19 Vaccine(2 - 2022- season) due on 09/14/2024 DTaP,Tdap,Td Vaccine(4 - Td or Tdap) due on 08/28/2026 Influenza Vaccine(1) due on 04/28/2024 Annual PCP Team Chronic Disease Visit due on 12/05/2024 Depression Screening due on 12/05/2024 BP Controlled (<130/80) due on 04/02/2025 Cervical Cancer Screening due on 08/28/2025 HPV Vaccine Aged Out Hepatitis C Screening Discontinued HIV Screening Discontinued Data reviewed Previous records, office notes, OAR[place] report PDMP website checked and validated. All prescriptions have been APPROPRIATELY filled. No suspicious activity was identified. 04/03/2024 by Conor Chapman CNP. ASSESSMENT/PLAN: 1. Irritant contact dermatitis, unspecified trigger - ICD9: 692.9, ICD10: L24.9 (primary diagnosis) - Topical steriod tx with Rx for steriod cream/ointment- see orders - discussed skin care of rash - follow up if symptoms persist or worsen. - TRIAMCINOLONE ACETONIDE 0.1 % TOPICAL CREAM 2. Sleep disturbances - ICD9: 780.50, ICD10: G47.9 - ALPRAZOLAM 0.5 MG TABLET 3. Panic attacks - ICD9: 300.01, ICD10: F41.0 - ALPRAZOLAM 0.5 MG TABLET 4. Elevated LFTs - ICD9: 790.6, ICD10: R79.89 - HEPATIC FUNCTION PNL - HEP ACUTE PANEL BL Conor Chapman APRN.GEOCHEMICAL MANAGER documented in this encounter [facility] 04-02-2024 History of Present illness Narrative Images from the original note were not included. Some documentation from previous visit of 02/12/2024 was copied and pasted, documentation has been reviewed and edited as necessary for today's visit. Patient Summary: Renee is a 43 year old Female who presents for follow-up evaluation of obesity/weight management to treat and prevent related co-morbidities. In our previous visits we have discussed lifestyle intervention including a nutrition recommendations and physical activity optimization. Her last office visit was 8 weeks ago. Assessment/plan from last visit: - reviewed increasing to BID dosing- reviewed decreasing consumption of sugary sweetened beverages that contain ETOH. - discussed Continued high protein and low carb, whole foods - Reviewed licensed life and health agent and counseling. Starting new habits. Reviewed meditation and exercise to help with anxiety. - Not candidate for Phentermine or Diethylpropion due to anxiety - ETOH and impact on weight, stress/anxiety and impact on weight reviewed Interval History PT specifies the following items as new or significant updates since the last appointment: - feels the twice daily dosing is working well- does not having cravings and alcohol consumption is less- she is more aware - does not get hungry until around 3pm -still working with licensed life and health agent - not tracking food -not mixing etoh with sugary drinks Weight loss since last vist: 7 lbs Total weight lost 9lbs - Last Wt 04/02/24: 161 02/12/24 : 168 lb Starting weight: 01/01/24 : 170 lb (77.1 kg) 5% weight loss = 162 lbs, 10% weight loss = 153 lbs Anti-obesity medications: Topiramate. Benefit:decreased food craving , decreased ETOH Adverse effects: none Weight promoting medications: xanax Previous Diet (initial appointment): Wakes up: Drinkes water all day- 6 large aldo's. Latte occasionally once per week Does not eat breakfast Lunch- salad, lean protein, rice, quinoa, soap, fish, Snacks- fruit, anya, dried pineapple, sesame sticks Dinner 5:30-7:30- meat, veggie, pasta (one per week) Snacks: cheese Diet/Nutrition overview: Fluids: water, 4-5 ETOH drinks mixed with Juices. Quality of diet: 24hr recall suggests healthy diet. Characterization of diet:skip meals. Sandstone Inspector Repairer of impaired eating habits:denies Eating Disorder no Preferred foods: Cravings: guamanian food Dietary changes: B - usually nothing S - L - Salad w/ chicken or turkey or salmon S - D - same - vegetable or salad with lean meat S - Fluids - Eating 3 meals a day, including breakfast Increasing servings of fruit Increasing servings of vegetables Controlling portions Limiting processed foods Increasing protein Reducing carbohydrates Current Barriers: poor sleep hygiene and inadequate sleep duration, ETOH Exercise: decreased Stress: increased Sleep: 3-4 hours. RYAN NO ; CPAP NO stable- HAS ANIMALS that move and wake her up all night Estimated Creatinine Clearance: 75.7 mL/min (A) (based on SCr of 0.98 mg/dL (H)). PAST MEDICAL HISTORY 2000: Appendicitis No date: CVA (cerebral vascular accident) (HCC) Comment: unknown when No date: Gallstones Current Outpatient Medications Medication Sig Dispense Refill ALPRAZolam (XANAX) 0.5 mg tablet Take 1 tablet by mouth at bedtime as needed for up to 30 days. 30 tablet 0 omeprazole (PRILOSEC) 10 mg capsule Take 1 capsule by mouth once daily. 30 capsule 3 topiramate (TOPAMAX) 50 mg tablet Take 1 tablet by mouth two times a day. 180 tablet 0 lisinopril (ZESTRIL) 20 mg tablet Take 1 tablet by mouth once daily. 90 tablet 1 aspirin, enteric coated (ASPIRIN, ENTERIC COATED) 81 mg EC tablet Take 81 mg by mouth once daily. hydrOXYzine HCl (ATARAX) 50 mg tablet Take 1 tablet by mouth three times a day as needed for anxiety. (Patient not taking: Reported on 12/22/2023) 30 tablet 0 Ascorbic Acid (VITAMIN C) 1,000 mg tablet Take 1,000 mg by mouth once daily. Folic Acid 20 mg cap Take 1 capsule by mouth once daily. Magnesium 250 mg tab Take 250 mg by mouth once daily. Biotin 10 mg tab Take by mouth. No current facility-administered medications for this visit. 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 Latest Ref Rng & Units 12/22/2023 CMP Sodium 136 - 144 mmol/L 141 Potassium 3.7 - 5.1 mmol/L 3.7 Chloride 97 - 105 mmol/L 106 CO2 22 - 30 mmol/L 24 Glucose 74 - 99 mg/dL 69 BUN 7 - 21 mg/dL 11 Creatinine 0.58 - 0.96 mg/dL 0.98 EGFR >=60 mL/min/1.73m 75 Protein, Total 6.3 - 8.0 g/dL 6.9 Albumin 3.9 - 4.9 g/dL 4.1 Calcium 8.5 - 10.2 mg/dL 9.5 Bilirubin, Total 0.2 - 1.3 mg/dL 0.2 AST 13 - 35 U/L 70 ALT 7 - 38 U/L 63 Alkaline Phosphatase 34 - 123 U/L 71 Cholesterol, Total (mg/dL) Date Value 12/28/2023 260 HDL Cholesterol (mg/dL) Date Value 12/28/2023 77 LDL Cholesterol (mg/dL) Date Value 12/28/2023 174 Triglyceride (mg/dL) Date Value 12/28/2023 47 Latest Ref Rng & Units 12/22/2023 CBC WBC 3.70 - 11.00 k/uL 10.54 RBC 3.90 - 5.20 m/uL 3.56 Hemoglobin 11.5 - 15.5 g/dL 11.7 Hematocrit 36.0 - 46.0 % 35.9 MCV 80.0 - 100.0 fL 100.8 MCH 26.0 - 34.0 pg 32.9 MCHC 30.5 - 36.0 g/dL 32.6 RDW-CV 11.5 - 15.0 % 12.2 Platelet Count 150 - 400 k/uL 314 MPV 9.0 - 12.7 fL 10.9 Baso% % 0.8 Abs Neut (ANC) 1.45 - 7.50 k/uL 6.60 Abs Lymph 1.00 - 4.00 k/uL 2.86 Abs Ocean <0.87 k/uL 0.71 Abs Eosin <0.46 k/uL 0.24 Abs Baso <0.11 k/uL 0.08 NRBC /100 WBC 0.0 Vitamin D 25 Hydroxy Date Value Ref Range Status 12/22/2023 42.6 31.0 - 80.0 ng/mL Final 04/18/2023 36.8 31.0 - 80.0 ng/mL Final Comment: Classification of 25 OH Vitamin D status: Deficiency/Insufficiency: < or = 30 ng/ml. Sufficiency/Optimal Levels: 31-80 ng/mL Toxicity: > 100 ng/mL. Test performed by chemiluminescent immunoassay. TSH (mIU/L) Date Value 12/22/2023 1.160 04/18/2023 3.670 ) Hemoglobin A1C (%) Date Value 12/22/2023 4.8 04/18/2023 4.8 Insulin Date Value Ref Range Status 12/28/2023 6.9 3.0 - 25.0 mU/L Final Assessment/Plan: Renee Gallardo is a 43 year old yo with Overweight (Pre-obesity) who presented today for follow up for supervised weight loss to treat and prevent related co-morbidities. (E78.00) Hypercholesteremia (primary encounter diagnosis) (R53.81, R53.83) Malaise and fatigue (K21.9) Gastroesophageal reflux disease without esophagitis (F41.1) Anxiety neurosis (I10) Hypertension, unspecified type (R74.8) Elevated liver enzymes (E66.3) Overweight (BMI 25.0-29.9) - Routine exercise reviewed- discussed tracker - ETOH and impact on health- working with licensed life and health agent and still cutting back. Discussed topiramate off label use for weight loss and ETOH- can increase but at this time doing well will keep at current dose. - LABS today from PCP - Discussed adding in Protein shake for breakfast - Poor sleep reviewed and impact it has on health/weight - continue lisinopril for HTN -Topiramate refills given - An overall goal of 150-200 minutes per week of exercise has been effective in weight loss and maintenance. Prescription instructions reviewed with patient as applicable. Potential red flag symptoms discussed with the patient. Reviewed appropriate action plan to take if red flag symptoms occur. Patient agreeable to treatment plan. Follow up in 12 weeks- July 05 I spent a total of 31 minutes on the date of the service which included preparing to see the patient, [id number] patient care, completing clinical documentation, obtaining and/or reviewing separately obtained history, performing a medically appropriate examination, counseling and educating the patient/family/caregiver, and ordering medications, tests, or procedures Natasha Cruz MD, FACOG, DABOM documented in this encounter [facility] 04-02-2024 Instructions Natasha Davila MD - 04/02/2024 7:57 AM EDT Nutrition Reminders: NO NAKED CARBS!! Protein >= Carbs for each meal (if you are going to eat 50g carbs for lunch you should eat 50g protein or more). If you do not eat your carbs for lunch you do not get to save them for dinner- you use them or lose them. Balance your Protein between meals. Unless told otherwise your Minimum protein each day is 30grams per meal but don t be afraid to eat more. Focus on WHOLE FOODS if you can as your Gut Microbiome will benefit and you will feel more satisfied - the only caviot to this is protein shakes if needed. Water intake should be a minimum of 64oz per day- but more is better (to an extent) unless you have a medical condition that requires you to keep it to a minimum. Nothing is off limits- this is not about restricting yourself- this about learning what your body can have and still respond well to and learning how to balance food and still feel good. Track your food, weigh your food, measure your portion sizes as most people underestimate their food by approximately 40%. You should be tracking your Carbohydrates and Protein daily. It s ok if you had a bad day- write it down and move on! Weigh yourself daily or at least 5 times per week, it will help to keep you accountable. If you are hungry- think about your stress level, your sleep (did you get 7.5-9hrs?) and your protein consumption- if you did not meet your goals then those could be contributing to your hunger. During weight loss phase it is ok to use two protein shakes per day and eating one meal along with it - studies have shown you will lose more weight and keep it off. Take a multivitamin daily Sit less Move more- Exercise including resistance training is very important for your health and if you are not getting routine exercise right now there will come a point when it will become an important piece of this process. HOW DOES CHRONIC STRESS AFFECT EATING PATTERNS? Chronic stress can affect the body s use of calories and nutrients in various ways. It raises the body s metabolic needs and increases the use and excretion of many nutrients. If one does not eat a nutritious diet, a deficiency may occur.Stress also creates a chain reaction of behaviors that can negatively affect eating habits, leading to other health problems down the road. Stress places a greater demand on the body for oxygen, energy, and nutrients. Yet people who experience chronic stress may crave comforting foods such as highly processed snacks or sweets, which can be high in unhealthy fats, sugar, and calories but low in micronutrients. People feeling stress may lack the time or motivation to prepare nutritious, balanced meals, or may skip or forget to eat meals. Stress can disrupt sleep by causing aeronautical products sales engineer sleep or more frequent awakenings, which leads to fatigue during the day. In order to cope with daytime fatigue, people may use stimulants to increase energy such as with caffeine or high-calorie snack foods. The reverse may also be true that poor-quality sleep is itself a stressor. Studies have found that sleep restriction causes a significant increase in cortisol levels. During acute stress, adrenaline suppresses the appetite.But with chronic stress, elevated levels of cortisol may cause cravings, particularly for foods high in sugar, fat, and calories, which may then lead to weight gain. Cortisol favors the accumulation of fat in the belly area, also called central adiposity, which is associated with insulin resistance and an increased risk of type 2 diabetes, cardiovascular disease, and certain breast cancers.4,6-8 It also lowers levels of the hormone leptin (that promotes satiety) while increasing the hormone ghrelin (that increases appetite). [email or web address]/wp-co ntent/uploads/[email or web address] [email or web address].pdf Educational Podcasts: The Dr. Quintero Show- Real Conversations about Health and Weight * May 15, 2023 what you need to know about Carbohydrates and Weight *April 24, 2023 Protein why we need it and how to eat more Protein *April 03, 2023 Menopause and Weight Gain- All the Details with Dr. Cheri Peck *March 13, 2023 The Science Behind Ultra Processed Food and Weight Gain *December 26, 2022 Effects of sleep and Stress of Weight and Health with Dr. Brit Tanner, DO * December 19, 2022 Recognizing and Resolving Emotional Eating with Dr. Medina Obesity: A Disease *December 19, 2022 Episode 80 Clinical conversations: The Role of Physical Activity in Weight Management * March 31, 2023 Episode 84 Clinical Conversations: NAFLD, The [place] Disease of Metabolic Syndrome *March 302019 Episode 20 Article Reviews: The Role Ultra Processed Diets Play in Weight Gain *March 11, 2020 Episode 21 Clinical Conversations: Breaking Weight Plateaus Why Is Protein So Important for Weight loss? consuming more protein not only reduces body weight but enhances body composition by decreasing fat mass while preserving fat-free mass During weight loss phase protein consumption (with normal kidney function) should be 1-1.6g protein per Kilogram of body weight (1kg=2.2lbs) On average Women need to Aim for a minimum 90g protein per day Consuming higher protein can also prevent weight regain after weight loss Protein consumption increases hormones responsible for satiety (feeling full)- these include Gut hormones like Glucagon-like peptide-1 (GLP-1), Cholecystokinin (CCK), Peptide Tyrosine-Tyrosine (PYY) and decreasing the Gut hormone responsible for causing hunger Ghrelin Protein has an increased thermogenesis effect of food- which means it take more calories to break down protein when consumed compared to carbohydrates or fats Protein also prevents a losing lean mass during weight loss (lose more fat and preserve fat free mass) which helps to increase resting energy expenditure (resting metabolic rate) Every pound of muscle santos ~ 6 kcal per pound/day vs fat santos ~ 2kcal per pound/day Carbohydrates - Why do You Crave Them? Eating too many refined carbohyrdates (sugar beverages, pastries, bread, pizza) which raises your blood glucose levels and therefore releasing insulin which in turn causes increase in hunger Carbohydrates suppress Ghrelin quickly but does not maintain the suppression for very long therefore hunger returns more quickly Consuming carbohydrates leads to a release of Dopamine feel good hormone in our brain So how do you Curb these cravings? Eating Whole Foods with more fiber - High fiber carbs are absorbed and digested slowly so it does not impact blood sugar levels as much and will help in making you feel zamudio for longer; fiber also is healthy for your gut bacteria and can help with constipation. Remember- carbohydrates are not the enemy but know what a proper serving size is, choose nutritious carbohydrates and space them out between meals. Always- eat your protein first followed by your non starchy vegetables followed by your carbohydrates- it will help your body with your glucose and insulin regulation Processed Foods vs Whole Foods- Impact on Weight: People who eat Ultra Processed food tend to consume about 500 calories more per day Ultra Processed foods are considered Calorie Dense so when a person feels full they have typically already over eaten and consumed more calories Whole Foods (unprocessed foods) tend to be more more filling and more Nutrient Dense Unprocessed foods can be more expensive and not realistic for everyone however when you have the choice to consume unprocessed vs Ultra processed foods always pick unprocessed. Why can't people stop eating Ultra Processed foods? They are economical and optimized for taste by motionID technologies - they are designed to make you want to keep eating them- they feed common cravings and bypass the mechanisms that tell your brain you are full Benefits of eating Whole Foods and cutting out Ultra Processed Foods Increased concentration and focus (decreased brain fog), improved mood, better sleep, Decrease in fatigue, improvement in gut health, decreased inflammation, Likely WEIGHT LOSS Why People Diet, Lose Weight and Gain It All Back Plus 4 ways to break the cycle + maintain your weight loss You -- and your diet -- have been firing on all cylinders. The weight is melting off, and you re feeling your best. But then there is that seemingly inevitable backslide, with pound after pound creeping back on despite your best efforts. It s the ultimate Catch-22. But before you beat yourself up, child day care provider and obesity specialist Jonathan Milton MD, has some welcome news: It s most likely not your fault. Your body is fighting to keep your weight as it was before the dieting, he says. But take heart -- it s possible to win the miner. What weight set point has to do with it Experts think as many as 80 to 95% of dieters gain back the weight they ve worked so hard to lose. Why? (WHY?!?) Dr. Milton says the culprit is your weight set point : the weight your body is programmed to be. Your weight set point is a combination of several factors, including your: Genetics. Hormones. Behavior. Environment. Weight set point and metabolism play for the same team: Your metabolism santos energy at a rate that will maintain your weight set point, even if that point is heavier than is healthy. Most of the time, weight gain is gradual, and that can raise your set point gradually, too, notes Dr. Milton. But certain lifestyle changes can lower it. The perils of yo-yo dieting Beware of the quick-fix, Dr. Milton warns. A fad diet won t change your set point. It s just restricting calories, he says. Your body is very efficient. You can successfully lose weight for a while, but at some point, your body simply adjusts to need fewer calories to function. Which means weight loss will eventually stop, unless you start eating even less than your diet calls for. (You can see where this is going.) Your body is also a survivor. As soon as calories drop, it starts doing everything in its power to prevent starvation, including: Ups the hunger hormone: Levels of the satiety hormone leptin (which controls how full you feel) decrease. Meanwhile, levels of the hunger hormone ghrelin increase. You feel hungrier, even after eating a normal meal. Makes you think, Oooh that looks good : Eating fewer calories alters how you think about and perceive food. Research shows dieters become hyper-focused on food and that it even smells and tastes better to them. These effects stick around for the long-term. Remember the television show The Biggest Loser? Contestants still felt the effects of their calorie deprivation six years later, making it harder to keep the weight off. Research tells us that yo-yo dieting can negatively affect your metabolism, Dr. Milton says. It doesn t matter the diet: low-carb, low-fat, ketogenic, whatever. We see rebound weight gain almost every time. How to lose weight without gaining it back To maintain weight loss for good, Dr. Milton advises focusing on these four areas: Diet. How can you create a healthy, long-term, zwahf-kqvc-ab diet? Learn what s healthy -- and what s not. (A forest pathology teacher or dietitian can help.) Practice portion control, even when eating healthy foods. Avoid empty calories, but treat yourself once in a while. Don t diet. Instead, focus on forming healthy habits for life. Exercise. Be an equal opportunity sample processor: Do both aerobic exercise (three to five times a week) and resistance training (two to three times nonconsecutively each week). Shoot for at least 25 to 35 minutes on most days. Exercise works best for staving off weight gain (not jumpstarting weight loss), so recognize that binging on exercise can be just as bad as binging on food. Exercise can make people super hungry, while it makes others tired and inactive, which can negate the activity they did, Dr. Milton explains. But it s also important to remember the cardiovascular benefits of exercise, independent of weight loss. Exercise is always good and important, he says. Stress. Stress not only causes some people to eat more, but it also raises levels of the stress hormone cortisol. If you have more cortisol, you end up with higher insulin and lower blood sugar levels, Dr. Milton says. (Cue the cravings.) To cope, put down the fork and try meditating or talking to a trusted friend. Sleep. Not getting enough sleep raises cortisol levels, too. It also affects decision-making (read: your ability to stick to healthy habits). Seven to nine hours every night is the magic number you need to help you manage stress. It also helps your body work with you -- and not against you -- when it comes to weight loss. [email or web address].org /joy-besxtw-maef-dezn-aphnbm-pil-g ghz-ve-kdg-back/ Why People Diet, Lose Weight and Gain It All Back - [facility] Disrupted Sleep Linked to Weight Gain - YouTube How To Improve Your Sleep To Impact Your Weight Loss: [email or web address].Captimo/ep42/ Weight Loss and Sleep Updated June 05, 2020 Written by Fransico Guajardo Medically Reviewed by Carla Gramajo In This Article The Connection Between Sleep and Weight Sleep and Obesity Sleep During Weight Loss Maintaining a Healthy Relationship With Your Body Losing weight is challenging, and keeping weight off can be just as difficult. Although the medical community is still untangling the complicated relationship between sleep and body weight, several potential links have emerged that highlight the potential weight loss benefits of getting a good night s rest and the negative health impacts of sleep deprivation. The Connection Between Sleep and Weight Over the past several decades, the amount of time that Americans spend sleeping has steadily decreased1, as has the self-reported quality of that sleep. For much of the same time period, the average body mass index (BMI) of Americans increased2, reflecting a trend toward higher body weights and elevated rates of obesity. In response to these trends, many researchers began to hypothesize about potential connections between weight and sleep. Numerous studies have suggested that restricted sleep and poor sleep quality may lead to metabolic disorders, weight gain, and an increased risk of obesity and other chronic health conditions. While there is continuing debate within the medical community about the exact nature of this relationship, the existing research points to a positive correlation between good sleep and healthy body weight. There remains much to be discovered about the intricate details of how sleep and weight are connected. Several hypotheses offer paths for additional research with the hope that increasing our understanding of the relationship between weight and sleep will lead to reduced obesity and better weight-loss methods. Can Lack of Sleep Increase Appetite? One common hypothesis about the connection between weight and sleep involves how sleep affects appetite. While we often think of appetite as simply a matter of stomach grumbling, it s actually controlled by neurotransmitters, which are chemical messengers that allow neurons (nerve cells) to communicate with one another. The neurotransmitters ghrelin and leptin are thought to be central to appetite. Ghrelin promotes hunger, and leptin contributes to feeling full. The body naturally increases and decreases the levels of these neurotransmitters throughout the day, signaling the need to consume calories3. A lack of sleep may affect the body s regulation of these neurotransmitters. In one study, men who got 4 hours of sleep had increased ghrelin and decreased leptin compared to those who got 10 hours of sleep. This dysregulation of ghrelin and leptin may lead to increased appetite and diminished feelings of fullness in people who are sleep deprived. In addition, several studies have also indicated that sleep deprivation affects food preferences. Sleep-deprived individuals tend to choose foods that are high in calories and carbohydrates4. Other hypotheses regarding the connection between sleep and increased appetite involve the body s endocannabinoid system5 and orexin6, a neurotransmitter targeted by some sleep aids. Many researchers believe that the connection between sleep and dysregulation of neurotransmitters is complicated and additional studies are needed to further understand the neurobiological relationship. Does Sleep Increase Metabolism? Metabolism7 is a chemical process in which the body converts what we eat and drink into energy needed to survive. All of our collective activities, from breathing to exercising and everything in between, is part of metabolism. While activities like exercise can temporarily increase metabolism, sleep cannot8. Metabolism actually slows about 15% during sleep, reaching its lowest level in the morning 9. In fact, many studies have shown that sleep deprivation (whether due to self-induction, insomnia, untreated sleep apnea, or other sleep disorders) commonly leads to metabolic frccafvcsqfjv42. Poor sleep is associated with increased oxidative stress, glucose (blood sugar) intolerance (a precursor to diabetes), and insulin resistance. Extra time spent awake may increase the opportunities to eat11, and sleeping less may disrupt circadian rhythms, leading to weight gain12. How is Sleep Related to Physical Activity? Losing sleep can result in having less energy for exercise and physical activity. Feeling tired can also make sports and exercising less safe, especially activities like weightlifting and or those requiring balance. While researchers are still working to understand this utzyihpewg42, it s well known that exercise is essential to maintaining weight loss and overall health. Getting regular exercise can improve sleep quality, especially if that exercise involves natural light. While even taking a short walk during the day may help improve sleep, more activity can have a more dramatic impact. Engaging in at least 150 minutes of moderate-intensity or 75 minutes of high-intensity exercise per week can improve daytime concentration and decrease daytime rkocqsnnuy85. Sleep and Obesity In children and adolescents, the link between not getting enough sleep and an increased risk of obesity is well-established, although the reason for this link is still being debated. Insufficient sleep in children can lead to metabolic irregularities as discussed earlier, skipping breakfast in the mornings, and increased intake of sweet, salty, fatty, and starchy foods15. In adults, the research is less clear. While a large analysis of past studies suggests that people getting less than 6 hours of sleep at night are more likely to be diagnosed as obese16, it s challenging for these studies to determine cause and effect. Obesity itself can increase the risk of developing conditions that interfere with sleep, like sleep apnea and depression. It s not clear if getting less sleep is the cause of obesity in these studies, if obesity is causing the participants to get less sleep, or perhaps a mix of both. Even though more studies are needed to understand this connection, experts encourage improving sleep quality when treating obesity in adults. Sleep During Weight Loss Getting adequate, quality sleep is an important part of a healthy weight loss plan. Most importantly, research has shown that losing sleep while dieting can reduce the amount of weight lost17 and encourage pjlnummfjq44. Tips for Quality Sleep During Weight Loss There are many ways to improve sleep. Here are a few research-based tips for sleeping better when you re trying to lose weight: Keep a regular sleep schedule: Big swings in your sleep schedule or trying to catch up on sleep after a week of late nights can cause changes in metabolism and reduce insulin brxuvligweu81, making it easier for blood sugar to be elevated. Sleep in a dark room: Exposure to artificial light while sleeping, such as a TV or bedside lamp, is associated with an increased risk of weight gain and nadnjdo20. Don t eat right before bed: Eating late may reduce the success of weight loss nuojpfez06 Reduce Stress: Chronic stress may lead to poor sleep and weight gain in several ways, including eating to cope with negative klvixggg57 Be an Early Bird: People with late bedtimes may consume more calories and be at a higher risk for weight gain23. Early birds may be more likely to maintain weight loss when compared to night owls24. Maintaining a Healthy Relationship With Your Body Deciding if you should attempt to change your body weight is a personal decision best made with the guidance of your doctor. Don t take all the health and weight loss information you read gpdipt17 at face value. Weight loss isn t appropriate for everyone and doesn t always mean better health. Remember that health is a lifelong journey that includes not only healthy habits but also having a healthy relationship with your body. If you re considering weight loss, the National Institutes of Health offers a helpful resource for choosing a safe weight loss jzemuxl87fTevnhja Source National [place] of Diabetes and Digestive and Kidney DiseasesNIDDK research creates knowledge about and treatments for diseases that are among the most chronic, costly, and consequential for patients, their families, and the Nation. niddk.nih.gov . https://www.sleepfoundation.org/ph ysical-health/essvpr-iqgn-xhq-slee p Sleep Hygiene Tips Set a sleep schedule and stick to it. Try to go to bed at night and awaken in the morning around the same times, even on weekends. This helps to regulate the body s sleep cycles and circadian rhythms. Try to exercise at some point in the day but avoid vigorous activity (running, fast dancing, high-intensity interval training) one hour before bedtime. Regular exercise of adequate intensity can promote muscle relaxation and deeper sleep later on. If you re in the habit of napping during the day, aim for a 10-20 minute power nap to achieve the goals of reduced fatigue and increased alertness. It s best to take naps in the early afternoon to avoid interference with nighttime sleep. Try to avoid large meals, heavy snacking,or alcohol 2-3 hours before bed. If you are sensitive to caffeine, try to avoid drinking caffeinated beverages 4-6 hours before bedtime. Stop using electronic devices an hour before bed, especially those emitting blue light such as smartphones, tablets, and televisions. Schedule before-bed activities to signal that you are winding down, such as changing into pajamas and brushing teeth. Create a quiet, dark, relaxing environment in your bedroom. Dim the lights and turn off your cell phone s sound and vibration modes if possible. Ensure a comfortable temperature, as feeling too hot or cold can disrupt sleep. Create calming bedtime rituals such as practicing deep breathing exercises, doing light yoga stretches, or listening to soothing relaxing music. If you awaken and can t return to sleep, don t stay in bed. Get up and do quiet relaxing activities, such as reading, until you feel tired enough to fall back asleep. How alcohol affects your weight loss 1. Alcohol is often empty calories Alcoholic drinks are often referred to as empty calories. This means that they provide your body with calories but contain very little nutrients. There are almost 155 calories in one 12-ounce can of beer, and 125 calories in a 5-ounce glass of red wine. By comparison, a recommended afternoon snack should have between 150 and 200 calories. A night out with several drinks can lead to consuming a few hundred extra calories. Drinks that have mixers, such as fruit juice or soda, contain even more calories. 2. Alcohol is used as a primary source of fuel There are also other elements that can cause weight gain outside of calorie content. When alcohol is consumed, it s burned first as a fuel source before your body uses anything else. This includes glucose from carbohydrates or lipids from fats. When your body is using alcohol as a primary source of energy, the excess glucose and lipids end up, unfortunately for us, as adipose tissue, or fat. 3. Alcohol can affect your organs The primary role of your liver is to act as the filter for any foreign substances that enter your body, such as drugs and alcohol. The liver also plays a role in the metabolism of fats, carbohydrates, and proteins. Excess alcohol consumption can lead to what is known as alcoholic fatty liver. This condition can damage your liver, affecting the way your body metabolizes and stores carbohydrates and fats. Changes in the way your body stores energy from food can make it very difficult to lose weight. 4. Alcohol can contribute to excess belly fat The beer gut isn t just a myth. Foods high in simple sugars, such as those found in candy, soda, and even beer, are also high in calories. Extra calories end up stored as fat in the body. Consuming foods and drinks high in sugar can quickly lead to weight gain. We can t choose where all that extra weight ends up. But the body tends to accumulate fat in the abdominal area. 5. Alcohol affects judgment calls especially with food Even the most -hard diet fan will have a hard time fighting the urge to dig in when intoxicated. Alcohol lowers inhibitions and can lead to poor decision-making in the heat of the moment -- especially when it comes to food choices. However, the effects of alcohol surpass even social drinking etiquette. A recent animal studyTrusted Source found that mice given ethanol over a period of three days demonstrated a significant increase in food intake. This study suggests that alcohol can actually trigger hunger signals in the brain, leading to an increased urge to eat more food. 6. Alcohol and sex hormones It s long been known that alcohol intake can affect levels of hormones in the body, especially testosteroneTrusted Source. Testosterone is a sex hormone that plays a role in many metabolic processes, including muscle formation and fat burning capabilities. One study found that low testosterone levels may predict the prevalence of metabolic syndrome in men. Metabolic syndrome is characterized by: high cholesterol high blood pressure high blood sugar levels high body mass index Plus, lower testosterone levels may affect quality of sleep, especially in older men. 7. Alcohol can negatively affect your sleep A nightcap before bed may sound like a ticket to a good night s rest but you may want to reconsider. ResearchTrusted Source suggests that alcohol can lead to increased periods of wakefulness during sleep cycles. Sleep deprivation, whether from lack of sleep or impaired sleep, can lead to an imbalance in the hormones related to hunger, satiety, and energy storage. 8. Alcohol affects digestion and nutrient uptake Your social anxiety isn t the only thing that alcohol inhibits. Intake of alcoholic beverages can also inhibit proper digestive function. Alcohol can cause stress on the stomach and the intestines. This leads to decreasedTrusted Source digestive secretions and movement of food through the tract. Digestive secretions are an essential element of healthy digestion. They break down food into the basic macro- and micronutrients that are absorbed and used by the body. Alcohol intake of all levels can lead to impaired digestion and absorption of these nutrients. This can greatly affect the metabolism of organs that play a role in weight management. Best alcoholic drinks for weight loss This may all sound as if alcohol is ruining your chances of that beach body. But fear not -- watching your weight doesn t necessarily mean having to cut alcohol entirely out of your diet. Rather than reaching for drinks high in sugar or calories, enjoy some of these 100-calorie options instead: 1. Vodka Calories: 100 calories in 1.5 ounces of distilled 80-proof vodka Alternative cocktail: Choose low-calories mixers such as club soda and avoid overly sugary juices. 2. Whiskey Calories: 100 calories in 1.5 ounces of 86-proof whiskey Alternative cocktail: Ditch the cola and take your whiskey on the rocks for a low-calorie alternative. 3. Gin Calories: 115 calories in 1.5 ounces of 90-proof gin Alternative cocktail: Aim for something simple, such as a martini -- and don t skip the olives, they contain beneficial antioxidants such as vitamin E. 4. Tequila Calories: 100 calories in 1.5 ounces of tequila Alternative cocktail: The best part about tequila is that the customary tequila shot is just salt, tequila, and shawnee. 5. Riccardo Calories: 100 calories in 1.5 ounces of riccardo Alternative cocktail: This drink is best served as an after-dinner digestif and a good riccardo should be enjoyed slowly to savor the subtle fruity sweetness. The bottom line While cutting alcohol completely out of your diet isn t necessarily the only way to lose weight, there are many improvements that can be made in your health journey by simply cutting back on the booze. You can enjoy a healthier body, improved sleep, better digestion, and fewer of those excess empty calories. And if you do plan to drink, enjoy a vodka or whiskey on the rocks -- and skip the soda! https://www.[employer]/health/ uzzzabn-ebv-cxcool-loss#alcohol-an x-uiuvkf-pgtu Sleep Hygiene Tips Set a sleep schedule and stick to it. Try to go to bed at night and awaken in the morning around the same times, even on weekends. This helps to regulate the body s sleep cycles and circadian rhythms. Try to exercise at some point in the day but avoid vigorous activity (running, fast dancing, high-intensity interval training) one hour before bedtime. Regular exercise of adequate intensity can promote muscle relaxation and deeper sleep later on. If you re in the habit of napping during the day, aim for a 10-20 minute power nap to achieve the goals of reduced fatigue and increased alertness. It s best to take naps in the early afternoon to avoid interference with nighttime sleep. Try to avoid large meals, heavy snacking,or alcohol 2-3 hours before bed. If you are sensitive to caffeine, try to avoid drinking caffeinated beverages 4-6 hours before bedtime. Stop using electronic devices an hour before bed, especially those emitting blue light such as smartphones, tablets, and televisions. Schedule before-bed activities to signal that you are winding down, such as changing into pajamas and brushing teeth. Create a quiet, dark, relaxing environment in your bedroom. Dim the lights and turn off your cell phone s sound and vibration modes if possible. Ensure a comfortable temperature, as feeling too hot or cold can disrupt sleep. Create calming bedtime rituals such as practicing deep breathing exercises, doing light yoga stretches, or listening to soothing relaxing music. If you awaken and can t return to sleep, don t stay in bed. Get up and do quiet relaxing activities, such as reading, until you feel tired enough to fall back asleep. Disrupted Sleep Linked to Weight Gain - YouTube How To Improve Your Sleep To Impact Your Weight Loss: [email or web address].Captimo/ep42/ Weight Loss and Sleep Updated June 05, 2020 Written by Fransico Guajardo Medically Reviewed by Carla Gramajo In This Article The Connection Between Sleep and Weight Sleep and Obesity Sleep During Weight Loss Maintaining a Healthy Relationship With Your Body Losing weight is challenging, and keeping weight off can be just as difficult. Although the medical community is still untangling the complicated relationship between sleep and body weight, several potential links have emerged that highlight the potential weight loss benefits of getting a good night s rest and the negative health impacts of sleep deprivation. The Connection Between Sleep and Weight Over the past several decades, the amount of time that Americans spend sleeping has steadily decreased1, as has the self-reported quality of that sleep. For much of the same time period, the average body mass index (BMI) of Americans increased2, reflecting a trend toward higher body weights and elevated rates of obesity. In response to these trends, many researchers began to hypothesize about potential connections between weight and sleep. Numerous studies have suggested that restricted sleep and poor sleep quality may lead to metabolic disorders, weight gain, and an increased risk of obesity and other chronic health conditions. While there is continuing debate within the medical community about the exact nature of this relationship, the existing research points to a positive correlation between good sleep and healthy body weight. There remains much to be discovered about the intricate details of how sleep and weight are connected. Several hypotheses offer paths for additional research with the hope that increasing our understanding of the relationship between weight and sleep will lead to reduced obesity and better weight-loss methods. Can Lack of Sleep Increase Appetite? One common hypothesis about the connection between weight and sleep involves how sleep affects appetite. While we often think of appetite as simply a matter of stomach grumbling, it s actually controlled by neurotransmitters, which are chemical messengers that allow neurons (nerve cells) to communicate with one another. The neurotransmitters ghrelin and leptin are thought to be central to appetite. Ghrelin promotes hunger, and leptin contributes to feeling full. The body naturally increases and decreases the levels of these neurotransmitters throughout the day, signaling the need to consume calories3. A lack of sleep may affect the body s regulation of these neurotransmitters. In one study, men who got 4 hours of sleep had increased ghrelin and decreased leptin compared to those who got 10 hours of sleep. This dysregulation of ghrelin and leptin may lead to increased appetite and diminished feelings of fullness in people who are sleep deprived. In addition, several studies have also indicated that sleep deprivation affects food preferences. Sleep-deprived individuals tend to choose foods that are high in calories and carbohydrates4. Other hypotheses regarding the connection between sleep and increased appetite involve the body s endocannabinoid system5 and orexin6, a neurotransmitter targeted by some sleep aids. Many researchers believe that the connection between sleep and dysregulation of neurotransmitters is complicated and additional studies are needed to further understand the neurobiological relationship. Does Sleep Increase Metabolism? Metabolism7 is a chemical process in which the body converts what we eat and drink into energy needed to survive. All of our collective activities, from breathing to exercising and everything in between, is part of metabolism. While activities like exercise can temporarily increase metabolism, sleep cannot8. Metabolism actually slows about 15% during sleep, reaching its lowest level in the morning 9. In fact, many studies have shown that sleep deprivation (whether due to self-induction, insomnia, untreated sleep apnea, or other sleep disorders) commonly leads to metabolic [id number]. Poor sleep is associated with increased oxidative stress, glucose (blood sugar) intolerance (a precursor to diabetes), and insulin resistance. Extra time spent awake may increase the opportunities to eat11, and sleeping less may disrupt circadian rhythms, leading to weight gain12. How is Sleep Related to Physical Activity? Losing sleep can result in having less energy for exercise and physical activity. Feeling tired can also make sports and exercising less safe, especially activities like weightlifting and or those requiring balance. While researchers are still working to understand this [id number], it s well known that exercise is essential to maintaining weight loss and overall health. Getting regular exercise can improve sleep quality, especially if that exercise involves natural light. While even taking a short walk during the day may help improve sleep, more activity can have a more dramatic impact. Engaging in at least 150 minutes of moderate-intensity or 75 minutes of high-intensity exercise per week can improve daytime concentration and decrease daytime ztlcuuhnbg30. Sleep and Obesity In children and adolescents, the link between not getting enough sleep and an increased risk of obesity is well-established, although the reason for this link is still being debated. Insufficient sleep in children can lead to metabolic irregularities as discussed earlier, skipping breakfast in the mornings, and increased intake of sweet, salty, fatty, and starchy foods15. In adults, the research is less clear. While a large analysis of past studies suggests that people getting less than 6 hours of sleep at night are more likely to be diagnosed as obese16, it s challenging for these studies to determine cause and effect. Obesity itself can increase the risk of developing conditions that interfere with sleep, like sleep apnea and depression. It s not clear if getting less sleep is the cause of obesity in these studies, if obesity is causing the participants to get less sleep, or perhaps a mix of both. Even though more studies are needed to understand this connection, experts encourage improving sleep quality when treating obesity in adults. Sleep During Weight Loss Getting adequate, quality sleep is an important part of a healthy weight loss plan. Most importantly, research has shown that losing sleep while dieting can reduce the amount of weight lost17 and encourage umcnazcidr63. Tips for Quality Sleep During Weight Loss There are many ways to improve sleep. Here are a few research-based tips for sleeping better when you re trying to lose weight: Keep a regular sleep schedule: Big swings in your sleep schedule or trying to catch up on sleep after a week of late nights can cause changes in metabolism and reduce insulin efhqyaiujby84, making it easier for blood sugar to be elevated. Sleep in a dark room: Exposure to artificial light while sleeping, such as a TV or bedside lamp, is associated with an increased risk of weight gain and gdrobyu40. Don t eat right before bed: Eating late may reduce the success of weight loss jzuzfloc23 Reduce Stress: Chronic stress may lead to poor sleep and weight gain in several ways, including eating to cope with negative bbxqdzja07 Be an Early Bird: People with late bedtimes may consume more calories and be at a higher risk for weight gain23. Early birds may be more likely to maintain weight loss when compared to night owls24. Maintaining a Healthy Relationship With Your Body Deciding if you should attempt to change your body weight is a personal decision best made with the guidance of your doctor. Don t take all the health and weight loss information you read [id number] at face value. Weight loss isn t appropriate for everyone and doesn t always mean better health. Remember that health is a lifelong journey that includes not only healthy habits but also having a healthy relationship with your body. If you re considering weight loss, the National Institutes of Health offers a helpful resource for choosing a safe weight loss [id number] Source National [place] of Diabetes and Digestive and Kidney DiseasesNIDDK research creates knowledge about and treatments for diseases that are among the most chronic, costly, and consequential for patients, their families, and the Nation. niddk.nih.gov . https://www.sleepfoundation.org/ph ysical-health/wqfnth-txjg-qpn-slee p The Role of Exercise in Weight Management No one can deny the psychological and physical benefits of exercise. Regular physical exercise aids in stress reduction, blood sugar control, cholesterol reduction, and improved sleep. It s also beneficial for weight control. both aerobic and strength training is beneficial for weight control. The ACSM ([employer]) advises 200-300 minutes of moderate-intensity exercise to lose weight and sustain the loss. Aerobic exercise (walking, jogging, swimming, cycling) uses glucose (from glycogen) and triglycerides (from fat in storage) for energy. Strength or resistance training helps build muscle, which is more metabolic at rest than fat tissue. Both are beneficial to weight management. According to the 2018 Physical Activity Guidelines for Americans, Americans are advised to do a minimum of 30 minutes of physical activity most days of the week. This equates to 150 minutes of moderate activity or 75 minutes of vigorous exercise per week for general health. This should include both aerobic and strength training exercises. However, without calorie restriction, this isn t enough for weight loss or weight maintenance in most people. Currently, 53 % of Americans over 18 do adequate aerobic exercise while only 23% get both aerobic and muscle-strengthening activity. Most [place] adults are still too sedentary. A sedentary lifestyle is associated with cardiovascular disease, type 2 diabetes, and certain types of cancer including endometrial, colon, and lung cancer. Which types of exercise aid in weight control? How much should I do? In addition to caloric restriction, both aerobic and strength training is beneficial for weight control. The ACSM ([employer]) advises 200-300 minutes of moderate-intensity exercise to lose weight and sustain the loss.Moderate-intensity exercises include brisk walking, jogging, using a rowing machine, or doing a 50-60 minute dance class. To drawbench operator helper the level of intensity you should aim for, think of it this way: a person should be able to carry a conversation but not be able to sing. HIIT (high-intensity interval training) is one method of exercise that may be beneficial to those who are trying to lose weight and are short on time. One way to do HIIT involves doing high-intensity exercise (such as sprinting) for 60 seconds followed by 60 seconds of low-intensity exercise (walking) or rest. Exercises are repeated 8 times with rest for a few minutes, then repeated until 30 minutes of exercise is completed. A meta-analysis of 39 studies with 671 participants showed that HIIT reduced total, abdominal, and visceral fat mass in both men and women aged 38.8 +/- 14.4. Running was more effective than cycling in lowering total and visceral fat mass while low-intensity exercise (like walking) also resulted in abdominal and visceral fat loss. The latter took more time. HIIT training is typically done a few days a week. Individuals are advised to choose less intense exercises in between HIIT training days. More muscle matters! One of the biggest reasons (no pun intended) that adults gain weight over time is due to muscle loss. A comparison study of various methods of exercise was performed with older subjects with obesity. Subjects got randomly assigned to a weight control program along with one of four programs: aerobic training, resistance training, combined aerobic and resistance training, or a control group (no treatment). The initial outcome was the change in Physical Performance Test Scores from the start to 6 months after the study began, while secondary outcomes included changes in body composition, bone mineral density, and physical function. There were 141 total subjects that finished the study. Physical Performance Test score was higher in the combination group than in the aerobic and resistance groups. Bodyweight decreased in all exercise groups (9%) but not in the control group. Lean mass and bone density were maintained the most in the combination and resistance groups. Strength also increased in the resistance training and combination training groups. As muscle is more metabolic than fat, maintaining muscle mass is important to long-term weight control. It s important for individuals who have been sedentary to check with their doctors before embarking on a new exercise program. While HIIT training may be appropriate for younger individuals and/or those without comorbidities like cardiovascular disease, it s important to find an exercise that s enjoyable. Physical activities could include: Multiple bouts of moderately paced walking a few times per day. Use of an elliptical or rowing machine or a water aerobics class A walking video to use at home Playing tennis or pickleball Trying a regular or stationary bike or a spin class Joining a kickboxing or Piyush class at a gym or rec center Resistance training may include: Use of stretch bands Multiple reps of small hand weights Use of nautilus machines A pilates class (in person or at home) HOW MUCH PHYSICAL ACTIVITY IS ENOUGH? RECOMMENDATIONS FOR THE WEEK https://blog.[employer]org Before we can begin to answer the question of how much activity is enough, we need to consider what fitness means. Fitness is synonymous with health, our physical condition and even our ability to complete the tasks required for our ongoing survival (and perpetuation of the species). Our modernized society has overwhelmingly reduced the tasks and activities we need to accomplish to survive, but the general lack of movement has negatively impacted our health and physical condition. Regular physical activity, even in small amounts, can help prevent, treat, and sometimes even alleviate some of the most common chronic conditions we encounter, including high blood pressure, cardiovascular disease, stroke, obesity, type 2 diabetes, osteoporosis, depression, and some cancers (1,2). WEEKLY PHYSICAL ACTIVITY REQUIREMENTS FOR FITNESS Guidelines recommend at least 150 minutes of moderate-intensity cardiorespiratory exercise, 75 minutes of vigorous-intensity, or a combination of moderate- and vigorous-intensity exercise per week. The weekly recommendation for resistance training is 2 or more days per week with exercises for all the major muscle groups (minimum of 1 set of 8-12 repetitions for each muscle group). Flexibility and neuromotor exercises (balance, agility, coordination) are also recommended at least twice per week. The alvarez phrase to note is at least with more benefits being realized with more activity. But what if your clients aren t quite ready to tackle these recommendations? When developing exercise programs for a previously sedentary individual, meet them where their abilities are now and help them find ways to increase their activity levels. Those 150 minutes of moderate-intensity cardiorespiratory activity are to be spread out over the week, ideally 30 minutes a day, 5 times per week. This data is from two of the most widely recognized activity guideline reports for improving physical fitness include Quantity and Quality of Exercise for Developing and Maintaining Cardiorespiratory, Musculoskeletal, and Neuromotor Fitness in Apparently Healthy Adults: Guidance for Prescribing Exercise from the [employer] (2) and the Physical Activity Guidelines for Americans from the U.S. Department of Health and Human Services (3). Consider that those 30 minutes can be further broken down into 10 minute bouts of activity. Some individuals may even need to start with as little as two minutes of walking and build their way up to 10 minutes over days, or even weeks. The goal is to motivate them to increase their activity and succeed. Even if more activity is better, a little activity beats none at all. And walking is really great for weight loss too. Don t discount the importance of also increasing unstructured non-exercise activity thermogenesis (NEAT) (4). These are the activities beyond sleeping, eating and intentional exercise that include daily motions such as standing, walking, using the stairs, fidgeting, yard work, and multiple other movements we make throughout the day. NEAT is not to be confused with movements that have measurable metabolic equivalents. Unstructured physical activity is the foundation that can help people realize that just being active, rather than sedentary, can impact their overall, long-term health. Understandably, goals need to be explored to discover just how much activity may be needed and over what associated time frame in order to reach those goals. For someone wanting to adopt a healthier lifestyle, finding enjoyable activities with a realistic schedule are essential. Start with a conservative approach where the individual will be successful, safe, and comfortable. Then encourage them to improve the return on their results with a mix of higher frequencies, durations, and intensities of activity. Sources: DENIS [place], CAR Motley, BG Turner. [facility] Essentials of Personal Fitness Training 4th ed. MD Cele: Maria Elena Lai & Brar; 2012. [employer]. Quantity and quality of exercise for developing and maintaining cardiorespiratory, musculoskeletal, and neuromotor fitness in apparently healthy adults: Guidance for prescribing exercise. Medicine and Science in Sports and Exercise 2011;43(7):2544-0252. U.S. Department of Health and Human Services. 2008 Physical activity guidelines for Americans. http://www.health.gov/paguidelines /guidelines/default.aspx (accessed January 29, 2013). DAVI Isabel. Nonexercise activity thermogenesis - liberating the life-force. Journal of Internal Medicine, 2007;262: 273-287. documented in this encounter [facility] 03-11-2024 Telephone encounter Note [facility] website checked and validated. All prescriptions have been APPROPRIATELY filled. No suspicious activity was identified. 03/11/2024 by Nichol Montalvo APRN.CNP The following approved medication requests have been transmitted electronically. Requested Prescriptions Signed Prescriptions Disp Refills ALPRAZolam (XANAX) 0.5 mg tablet 30 tablet 0 Sig: Take 1 tablet by mouth at bedtime as needed for up to 30 days. Authorizing Provider: NICHOL MONTALVO APRN.CNP [facility] 03-11-2024 Miscellaneous Notes [facility] website checked and validated. All prescriptions have been APPROPRIATELY filled. No suspicious activity was identified. 03/11/2024 by Nichol Montalvo APRN.CNP The following approved medication requests have been transmitted electronically. Requested Prescriptions Signed Prescriptions Disp Refills ALPRAZolam (XANAX) 0.5 mg tablet 30 tablet 0 Sig: Take 1 tablet by mouth at bedtime as needed for up to 30 days. Authorizing Provider: NICHOL MONTALVO APRN.CNP Prescription Refill Information The patient has been identified by name and date of : Yes Caregiver verified no other encounters exist for this prescription request: Yes Caregiver confirmed with patient/requestor that no other refills are due, in the near future, with this provider at this time: Yes The last office visit in the department: 12/06/2023 Does the patient have a future office visit with this provider/department: Yes Requested Prescriptions Pending Prescriptions Disp Refills ALPRAZolam (XANAX) 0.5 mg tablet [Pharmacy Med Name: ALPRAZOLAM 0.5 MG TABLET] 30 tablet Sig: Take 1 tablet by mouth at bedtime as needed. Jailyn Blood LPN March 11, 2024 10:07 AM documented in this encounter [facility] 03-11-2024 Telephone encounter Note Prescription Refill Information The patient has been identified by name and date of : Yes Caregiver verified no other encounters exist for this prescription request: Yes Caregiver confirmed with patient/requestor that no other refills are due, in the near future, with this provider at this time: Yes The last office visit in the department: 12/06/2023 Does the patient have a future office visit with this provider/department: Yes Requested Prescriptions Pending Prescriptions Disp Refills ALPRAZolam (XANAX) 0.5 mg tablet [Pharmacy Med Name: ALPRAZOLAM 0.5 MG TABLET] 30 tablet Sig: Take 1 tablet by mouth at bedtime as needed. Jailyn Blood LPN March 11, 2024 10:07 AM [facility] 02-12-2024 Instructions Natasha Davila MD - 02/12/2024 1:19 PM EDT Educational Podcasts: The Dr. Quintero Show- Real Conversations about Health and Weight * May 15, 2023 what you need to know about Carbohydrates and Weight *April 24, 2023 Protein why we need it and how to eat more Protein *April 03, 2023 Menopause and Weight Gain- All the Details with Dr. Cheri Peck *March 13, 2023 The Science Behind Ultra Processed Food and Weight Gain *December 26, 2022 Effects of sleep and Stress of Weight and Health with Dr. Brit Barrios-Ernestine * December 19, 2022 Recognizing and Resolving Emotional Eating with Dr. Medina Obesity: A Disease *December 19, 2022 Episode 80 Clinical conversations: The Role of Physical Activity in Weight Management * March 31, 2023 Episode 84 Clinical Conversations: NAFLD, The [place] Disease of Metabolic Syndrome *March 302019 Episode 20 Article Reviews: The Role Ultra Processed Diets Play in Weight Gain *March 11, 2020 Episode 21 Clinical Conversations: Breaking Weight Plateaus HOW DOES CHRONIC STRESS AFFECT EATING PATTERNS? Chronic stress can affect the body s use of calories and nutrients in various ways. It raises the body s metabolic needs and increases the use and excretion of many nutrients. If one does not eat a nutritious diet, a deficiency may occur.Stress also creates a chain reaction of behaviors that can negatively affect eating habits, leading to other health problems down the road. Stress places a greater demand on the body for oxygen, energy, and nutrients. Yet people who experience chronic stress may crave comforting foods such as highly processed snacks or sweets, which can be high in unhealthy fats, sugar, and calories but low in micronutrients. People feeling stress may lack the time or motivation to prepare nutritious, balanced meals, or may skip or forget to eat meals. Stress can disrupt sleep by causing aeronautical products sales engineer sleep or more frequent awakenings, which leads to fatigue during the day. In order to cope with daytime fatigue, people may use stimulants to increase energy such as with caffeine or high-calorie snack foods. The reverse may also be true that poor-quality sleep is itself a stressor. Studies have found that sleep restriction causes a significant increase in cortisol levels. During acute stress, adrenaline suppresses the appetite.But with chronic stress, elevated levels of cortisol may cause cravings, particularly for foods high in sugar, fat, and calories, which may then lead to weight gain. Cortisol favors the accumulation of fat in the belly area, also called central adiposity, which is associated with insulin resistance and an increased risk of type 2 diabetes, cardiovascular disease, and certain breast cancers.4,6-8 It also lowers levels of the hormone leptin (that promotes satiety) while increasing the hormone ghrelin (that increases appetite). https://cdn1.sph.[employer].edu/wp-co ntent/uploads/sites//Bipin aympDgjsgqPxwbx03-04.1.pdf Disrupted Sleep Linked to Weight Gain - YouTube How To Improve Your Sleep To Impact Your Weight Loss: [email or web address] Weight Loss and Sleep Updated June 05, 2020 Written by Fransico Guajardo Medically Reviewed by Carla Gramajo In This Article The Connection Between Sleep and Weight Sleep and Obesity Sleep During Weight Loss Maintaining a Healthy Relationship With Your Body Losing weight is challenging, and keeping weight off can be just as difficult. Although the medical community is still untangling the complicated relationship between sleep and body weight, several potential links have emerged that highlight the potential weight loss benefits of getting a good night s rest and the negative health impacts of sleep deprivation. The Connection Between Sleep and Weight Over the past several decades, the amount of time that Americans spend sleeping has steadily decreased1, as has the self-reported quality of that sleep. For much of the same time period, the average body mass index (BMI) of Americans increased2, reflecting a trend toward higher body weights and elevated rates of obesity. In response to these trends, many researchers began to hypothesize about potential connections between weight and sleep. Numerous studies have suggested that restricted sleep and poor sleep quality may lead to metabolic disorders, weight gain, and an increased risk of obesity and other chronic health conditions. While there is continuing debate within the medical community about the exact nature of this relationship, the existing research points to a positive correlation between good sleep and healthy body weight. There remains much to be discovered about the intricate details of how sleep and weight are connected. Several hypotheses offer paths for additional research with the hope that increasing our understanding of the relationship between weight and sleep will lead to reduced obesity and better weight-loss methods. Can Lack of Sleep Increase Appetite? One common hypothesis about the connection between weight and sleep involves how sleep affects appetite. While we often think of appetite as simply a matter of stomach grumbling, it s actually controlled by neurotransmitters, which are chemical messengers that allow neurons (nerve cells) to communicate with one another. The neurotransmitters ghrelin and leptin are thought to be central to appetite. Ghrelin promotes hunger, and leptin contributes to feeling full. The body naturally increases and decreases the levels of these neurotransmitters throughout the day, signaling the need to consume calories3. A lack of sleep may affect the body s regulation of these neurotransmitters. In one study, men who got 4 hours of sleep had increased ghrelin and decreased leptin compared to those who got 10 hours of sleep. This dysregulation of ghrelin and leptin may lead to increased appetite and diminished feelings of fullness in people who are sleep deprived. In addition, several studies have also indicated that sleep deprivation affects food preferences. Sleep-deprived individuals tend to choose foods that are high in calories and carbohydrates4. Other hypotheses regarding the connection between sleep and increased appetite involve the body s endocannabinoid system5 and orexin6, a neurotransmitter targeted by some sleep aids. Many researchers believe that the connection between sleep and dysregulation of neurotransmitters is complicated and additional studies are needed to further understand the neurobiological relationship. Does Sleep Increase Metabolism? Metabolism7 is a chemical process in which the body converts what we eat and drink into energy needed to survive. All of our collective activities, from breathing to exercising and everything in between, is part of metabolism. While activities like exercise can temporarily increase metabolism, sleep cannot8. Metabolism actually slows about 15% during sleep, reaching its lowest level in the morning 9. In fact, many studies have shown that sleep deprivation (whether due to self-induction, insomnia, untreated sleep apnea, or other sleep disorders) commonly leads to metabolic [id number]. Poor sleep is associated with increased oxidative stress, glucose (blood sugar) intolerance (a precursor to diabetes), and insulin resistance. Extra time spent awake may increase the opportunities to eat11, and sleeping less may disrupt circadian rhythms, leading to weight gain12. How is Sleep Related to Physical Activity? Losing sleep can result in having less energy for exercise and physical activity. Feeling tired can also make sports and exercising less safe, especially activities like weightlifting and or those requiring balance. While researchers are still working to understand this [id number], it s well known that exercise is essential to maintaining weight loss and overall health. Getting regular exercise can improve sleep quality, especially if that exercise involves natural light. While even taking a short walk during the day may help improve sleep, more activity can have a more dramatic impact. Engaging in at least 150 minutes of moderate-intensity or 75 minutes of high-intensity exercise per week can improve daytime concentration and decrease daytime [id number]. Sleep and Obesity In children and adolescents, the link between not getting enough sleep and an increased risk of obesity is well-established, although the reason for this link is still being debated. Insufficient sleep in children can lead to metabolic irregularities as discussed earlier, skipping breakfast in the mornings, and increased intake of sweet, salty, fatty, and starchy foods15. In adults, the research is less clear. While a large analysis of past studies suggests that people getting less than 6 hours of sleep at night are more likely to be diagnosed as obese16, it s challenging for these studies to determine cause and effect. Obesity itself can increase the risk of developing conditions that interfere with sleep, like sleep apnea and depression. It s not clear if getting less sleep is the cause of obesity in these studies, if obesity is causing the participants to get less sleep, or perhaps a mix of both. Even though more studies are needed to understand this connection, experts encourage improving sleep quality when treating obesity in adults. Sleep During Weight Loss Getting adequate, quality sleep is an important part of a healthy weight loss plan. Most importantly, research has shown that losing sleep while dieting can reduce the amount of weight lost17 and encourage [id number]. Tips for Quality Sleep During Weight Loss There are many ways to improve sleep. Here are a few research-based tips for sleeping better when you re trying to lose weight: Keep a regular sleep schedule: Big swings in your sleep schedule or trying to catch up on sleep after a week of late nights can cause changes in metabolism and reduce insulin [id number], making it easier for blood sugar to be elevated. Sleep in a dark room: Exposure to artificial light while sleeping, such as a TV or bedside lamp, is associated with an increased risk of weight gain and . Don t eat right before bed: Eating late may reduce the success of weight loss [id number] Reduce Stress: Chronic stress may lead to poor sleep and weight gain in several ways, including eating to cope with negative [id number] Be an Early Bird: People with late bedtimes may consume more calories and be at a higher risk for weight gain23. Early birds may be more likely to maintain weight loss when compared to night owls24. Maintaining a Healthy Relationship With Your Body Deciding if you should attempt to change your body weight is a personal decision best made with the guidance of your doctor. Don t take all the health and weight loss information you read [id number] at face value. Weight loss isn t appropriate for everyone and doesn t always mean better health. Remember that health is a lifelong journey that includes not only healthy habits but also having a healthy relationship with your body. If you re considering weight loss, the National Institutes of Health offers a helpful resource for choosing a safe weight loss [id number] Source National [place] of Diabetes and Digestive and Kidney DiseasesNIDDK research creates knowledge about and treatments for diseases that are among the most chronic, costly, and consequential for patients, their families, and the Nation. niddk.nih.gov . https://www.sleepfoundation.org/[facility]-health/gxwtqq-ntyo-kwj-slee p Sleep Hygiene Tips Set a sleep schedule and stick to it. Try to go to bed at night and awaken in the morning around the same times, even on weekends. This helps to regulate the body s sleep cycles and circadian rhythms. Try to exercise at some point in the day but avoid vigorous activity (running, fast dancing, high-intensity interval training) one hour before bedtime. Regular exercise of adequate intensity can promote muscle relaxation and deeper sleep later on. If you re in the habit of napping during the day, aim for a 10-20 minute power nap to achieve the goals of reduced fatigue and increased alertness. It s best to take naps in the early afternoon to avoid interference with nighttime sleep. Try to avoid large meals, heavy snacking,or alcohol 2-3 hours before bed. If you are sensitive to caffeine, try to avoid drinking caffeinated beverages 4-6 hours before bedtime. Stop using electronic devices an hour before bed, especially those emitting blue light such as smartphones, tablets, and televisions. Schedule before-bed activities to signal that you are winding down, such as changing into pajamas and brushing teeth. Create a quiet, dark, relaxing environment in your bedroom. Dim the lights and turn off your cell phone s sound and vibration modes if possible. Ensure a comfortable temperature, as feeling too hot or cold can disrupt sleep. Create calming bedtime rituals such as practicing deep breathing exercises, doing light yoga stretches, or listening to soothing relaxing music. If you awaken and can t return to sleep, don t stay in bed. Get up and do quiet relaxing activities, such as reading, until you feel tired enough to fall back asleep. How alcohol affects your weight loss 1. Alcohol is often empty calories Alcoholic drinks are often referred to as empty calories. This means that they provide your body with calories but contain very little nutrients. There are almost 155 calories in one 12-ounce can of beer, and 125 calories in a 5-ounce glass of red wine. By comparison, a recommended afternoon snack should have between 150 and 200 calories. A night out with several drinks can lead to consuming a few hundred extra calories. Drinks that have mixers, such as fruit juice or soda, contain even more calories. 2. Alcohol is used as a primary source of fuel There are also other elements that can cause weight gain outside of calorie content. When alcohol is consumed, it s burned first as a fuel source before your body uses anything else. This includes glucose from carbohydrates or lipids from fats. When your body is using alcohol as a primary source of energy, the excess glucose and lipids end up, unfortunately for us, as adipose tissue, or fat. 3. Alcohol can affect your organs The primary role of your liver is to act as the filter for any foreign substances that enter your body, such as drugs and alcohol. The liver also plays a role in the metabolism of fats, carbohydrates, and proteins. Excess alcohol consumption can lead to what is known as alcoholic fatty liver. This condition can damage your liver, affecting the way your body metabolizes and stores carbohydrates and fats. Changes in the way your body stores energy from food can make it very difficult to lose weight. 4. Alcohol can contribute to excess belly fat The beer gut isn t just a myth. Foods high in simple sugars, such as those found in candy, soda, and even beer, are also high in calories. Extra calories end up stored as fat in the body. Consuming foods and drinks high in sugar can quickly lead to weight gain. We can t choose where all that extra weight ends up. But the body tends to accumulate fat in the abdominal area. 5. Alcohol affects judgment calls especially with food Even the most -hard diet fan will have a hard time fighting the urge to dig in when intoxicated. Alcohol lowers inhibitions and can lead to poor decision-making in the heat of the moment -- especially when it comes to food choices. However, the effects of alcohol surpass even social drinking etiquette. A recent animal studyTrusted Source found that mice given ethanol over a period of three days demonstrated a significant increase in food intake. This study suggests that alcohol can actually trigger hunger signals in the brain, leading to an increased urge to eat more food. 6. Alcohol and sex hormones It s long been known that alcohol intake can affect levels of hormones in the body, especially testosteroneTrusted Source. Testosterone is a sex hormone that plays a role in many metabolic processes, including muscle formation and fat burning capabilities. One study found that low testosterone levels may predict the prevalence of metabolic syndrome in men. Metabolic syndrome is characterized by: high cholesterol high blood pressure high blood sugar levels high body mass index Plus, lower testosterone levels may affect quality of sleep, especially in older men. 7. Alcohol can negatively affect your sleep A nightcap before bed may sound like a ticket to a good night s rest but you may want to reconsider. ResearchTrusted Source suggests that alcohol can lead to increased periods of wakefulness during sleep cycles. Sleep deprivation, whether from lack of sleep or impaired sleep, can lead to an imbalance in the hormones related to hunger, satiety, and energy storage. 8. Alcohol affects digestion and nutrient uptake Your social anxiety isn t the only thing that alcohol inhibits. Intake of alcoholic beverages can also inhibit proper digestive function. Alcohol can cause stress on the stomach and the intestines. This leads to decreasedTrusted Source digestive secretions and movement of food through the tract. Digestive secretions are an essential element of healthy digestion. They break down food into the basic macro- and micronutrients that are absorbed and used by the body. Alcohol intake of all levels can lead to impaired digestion and absorption of these nutrients. This can greatly affect the metabolism of organs that play a role in weight management. Best alcoholic drinks for weight loss This may all sound as if alcohol is ruining your chances of that beach body. But fear not -- watching your weight doesn t necessarily mean having to cut alcohol entirely out of your diet. Rather than reaching for drinks high in sugar or calories, enjoy some of these 100-calorie options instead: 1. Vodka Calories: 100 calories in 1.5 ounces of distilled 80-proof vodka Alternative cocktail: Choose low-calories mixers such as club soda and avoid overly sugary juices. 2. Whiskey Calories: 100 calories in 1.5 ounces of 86-proof whiskey Alternative cocktail: Ditch the cola and take your whiskey on the rocks for a low-calorie alternative. 3. Gin Calories: 115 calories in 1.5 ounces of 90-proof gin Alternative cocktail: Aim for something simple, such as a martini -- and don t skip the olives, they contain beneficial antioxidants such as vitamin E. 4. Tequila Calories: 100 calories in 1.5 ounces of tequila Alternative cocktail: The best part about tequila is that the customary tequila shot is just salt, tequila, and shawnee. 5. Riccardo Calories: 100 calories in 1.5 ounces of riccardo Alternative cocktail: This drink is best served as an after-dinner digestif and a good riccardo should be enjoyed slowly to savor the subtle fruity sweetness. The bottom line While cutting alcohol completely out of your diet isn t necessarily the only way to lose weight, there are many improvements that can be made in your health journey by simply cutting back on the booze. You can enjoy a healthier body, improved sleep, better digestion, and fewer of those excess empty calories. And if you do plan to drink, enjoy a vodka or whiskey on the rocks -- and skip the soda! https://www.HOLLR/health/ zuuqcmj-sjg-desgha-loss#alcohol-an w-upxsgt-uiah HOW MUCH PHYSICAL ACTIVITY IS ENOUGH? RECOMMENDATIONS FOR THE WEEK https://blog.[employer]org Before we can begin to answer the question of how much activity is enough, we need to consider what fitness means. Fitness is synonymous with health, our physical condition and even our ability to complete the tasks required for our ongoing survival (and perpetuation of the species). Our modernized society has overwhelmingly reduced the tasks and activities we need to accomplish to survive, but the general lack of movement has negatively impacted our health and physical condition. Regular physical activity, even in small amounts, can help prevent, treat, and sometimes even alleviate some of the most common chronic conditions we encounter, including high blood pressure, cardiovascular disease, stroke, obesity, type 2 diabetes, osteoporosis, depression, and some cancers (1,2). WEEKLY PHYSICAL ACTIVITY REQUIREMENTS FOR FITNESS Guidelines recommend at least 150 minutes of moderate-intensity cardiorespiratory exercise, 75 minutes of vigorous-intensity, or a combination of moderate- and vigorous-intensity exercise per week. The weekly recommendation for resistance training is 2 or more days per week with exercises for all the major muscle groups (minimum of 1 set of 8-12 repetitions for each muscle group). Flexibility and neuromotor exercises (balance, agility, coordination) are also recommended at least twice per week. The alvarez phrase to note is at least with more benefits being realized with more activity. But what if your clients aren t quite ready to tackle these recommendations? When developing exercise programs for a previously sedentary individual, meet them where their abilities are now and help them find ways to increase their activity levels. Those 150 minutes of moderate-intensity cardiorespiratory activity are to be spread out over the week, ideally 30 minutes a day, 5 times per week. This data is from two of the most widely recognized activity guideline reports for improving physical fitness include Quantity and Quality of Exercise for Developing and Maintaining Cardiorespiratory, Musculoskeletal, and Neuromotor Fitness in Apparently Healthy Adults: Guidance for Prescribing Exercise from the [employer] [place] [employer] (2) and the Physical Activity Guidelines for Americans from the U.S. Department of Health and Human Services (3). Consider that those 30 minutes can be further broken down into 10 minute bouts of activity. Some individuals may even need to start with as little as two minutes of walking and build their way up to 10 minutes over days, or even weeks. The goal is to motivate them to increase their activity and succeed. Even if more activity is better, a little activity beats none at all. And walking is really great for weight loss too. Don t discount the importance of also increasing unstructured non-exercise activity thermogenesis (NEAT) (4). These are the activities beyond sleeping, eating and intentional exercise that include daily motions such as standing, walking, using the stairs, fidgeting, yard work, and multiple other movements we make throughout the day. NEAT is not to be confused with movements that have measurable metabolic equivalents. Unstructured physical activity is the foundation that can help people realize that just being active, rather than sedentary, can impact their overall, long-term health. Understandably, goals need to be explored to discover just how much activity may be needed and over what associated time frame in order to reach those goals. For someone wanting to adopt a healthier lifestyle, finding enjoyable activities with a realistic schedule are essential. Start with a conservative approach where the individual will be successful, safe, and comfortable. Then encourage them to improve the return on their results with a mix of higher frequencies, durations, and intensities of activity. Sources: DENIS [place], CAR Motley, BG Turner. [facility] Essentials of Personal Fitness Training 4th ed. MD Cele: Maria Elena Lai & Brar; 2012. [employer]. Quantity and quality of exercise for developing and maintaining cardiorespiratory, musculoskeletal, and neuromotor fitness in apparently healthy adults: Guidance for prescribing exercise. Medicine and Science in Sports and Exercise 2011;43(7):6624-8039. U.S. Department of Health and Human Services. 2008 Physical activity guidelines for Americans. http://www.health.gov/paguidelines /guidelines/default.aspx (accessed January 29, 2013). DAVI Isabel. Nonexercise activity thermogenesis - liberating the life-force. Journal of Internal Medicine, 2007;262: 273-287. The Role of Exercise in Weight Management No one can deny the psychological and physical benefits of exercise. Regular physical exercise aids in stress reduction, blood sugar control, cholesterol reduction, and improved sleep. It s also beneficial for weight control. both aerobic and strength training is beneficial for weight control. The ACSM ([employer]) advises 200-300 minutes of moderate-intensity exercise to lose weight and sustain the loss. Aerobic exercise (walking, jogging, swimming, cycling) uses glucose (from glycogen) and triglycerides (from fat in storage) for energy. Strength or resistance training helps build muscle, which is more metabolic at rest than fat tissue. Both are beneficial to weight management. According to the 2018 Physical Activity Guidelines for Americans, Americans are advised to do a minimum of 30 minutes of physical activity most days of the week. This equates to 150 minutes of moderate activity or 75 minutes of vigorous exercise per week for general health. This should include both aerobic and strength training exercises. However, without calorie restriction, this isn t enough for weight loss or weight maintenance in most people. Currently, 53 % of Americans over 18 do adequate aerobic exercise while only 23% get both aerobic and muscle-strengthening activity. Most [place] adults are still too sedentary. A sedentary lifestyle is associated with cardiovascular disease, type 2 diabetes, and certain types of cancer including endometrial, colon, and lung cancer. Which types of exercise aid in weight control? How much should I do? In addition to caloric restriction, both aerobic and strength training is beneficial for weight control. The ACSM ([employer]) advises 200-300 minutes of moderate-intensity exercise to lose weight and sustain the loss.Moderate-intensity exercises include brisk walking, jogging, using a rowing machine, or doing a 50-60 minute dance class. To drawbench operator helper the level of intensity you should aim for, think of it this way: a person should be able to carry a conversation but not be able to sing. HIIT (high-intensity interval training) is one method of exercise that may be beneficial to those who are trying to lose weight and are short on time. One way to do HIIT involves doing high-intensity exercise (such as sprinting) for 60 seconds followed by 60 seconds of low-intensity exercise (walking) or rest. Exercises are repeated 8 times with rest for a few minutes, then repeated until 30 minutes of exercise is completed. A meta-analysis of 39 studies with 671 participants showed that HIIT reduced total, abdominal, and visceral fat mass in both men and women aged 38.8 +/- 14.4. Running was more effective than cycling in lowering total and visceral fat mass while low-intensity exercise (like walking) also resulted in abdominal and visceral fat loss. The latter took more time. HIIT training is typically done a few days a week. Individuals are advised to choose less intense exercises in between HIIT training days. More muscle matters! One of the biggest reasons (no pun intended) that adults gain weight over time is due to muscle loss. A comparison study of various methods of exercise was performed with older subjects with obesity. Subjects got randomly assigned to a weight control program along with one of four programs: aerobic training, resistance training, combined aerobic and resistance training, or a control group (no treatment). The initial outcome was the change in Physical Performance Test Scores from the start to 6 months after the study began, while secondary outcomes included changes in body composition, bone mineral density, and physical function. There were 141 total subjects that finished the study. Physical Performance Test score was higher in the combination group than in the aerobic and resistance groups. Bodyweight decreased in all exercise groups (9%) but not in the control group. Lean mass and bone density were maintained the most in the combination and resistance groups. Strength also increased in the resistance training and combination training groups. As muscle is more metabolic than fat, maintaining muscle mass is important to long-term weight control. It s important for individuals who have been sedentary to check with their doctors before embarking on a new exercise program. While HIIT training may be appropriate for younger individuals and/or those without comorbidities like cardiovascular disease, it s important to find an exercise that s enjoyable. Physical activities could include: Multiple bouts of moderately paced walking a few times per day. Use of an elliptical or rowing machine or a Dexterra aerobics class A walking video to use at home Playing tennis or pickleball Trying a regular or stationary bike or a spin class Joining a kickboxing or Piyush class at a gym or rec center Resistance training may include: Use of stretch bands Multiple reps of small hand weights Use of nautilus machines A pilates class (in person or at home) When thinking about weight-loss, one often has an ideal body weight in mind or an ultimate weight-loss goal. It s very common for people to think that unless they lose dozens of pounds, they will not be any healthier. This is a misconception. Studies have shown that health benefits resulting from weight-loss are evident with a weight reduction as low as 5-10 percent. This means that an individual that weighs 200 pounds will benefit greatly from losing 10 to 20 pounds. A 5-10 percent weight-loss can result in: A five point increase in HDL cholesterol. Decrease triglycerides by an average of 40 mg/dl Decrease in blood pressure, both systolic and diastolic, by 5 mmHg on average. Decrease HgB A1C by half a point on average Significant decrease in insulin levels May improve sleep apnea and sometimes if the apnea was not very severe, one can be weaned from the CPAP breathing machine Decrease in levels of inflammatory substances circulating in the blood drop significantly and therefore the risk of vascular damage is reduced as well Tips for eating away from home: Youtube video: https://www.NetMovie.com/watch?v=V9 oFJWoNYoA Meals away from home make it harder to control ingredients, calories, and portions. This can be particularly challenging for people with Type 2 diabetes (and for those of us trying to avoid getting this condition). The following tips can help you enjoy eating out without abandoning your efforts to eat well. Ask how the food is prepared. Before you order, ask about ingredients and how the menu selections are prepared. Try to choose dishes made with whole grains, healthy oils, vegetables, and lean proteins. Meat that has been broiled, poached, baked, or grilled is a more health-conscious option than fried foods or dishes prepared with heavy sauces. Look for less. Your eyes are the perfect instrument for sizing up portion sizes. Use your estimating techniques to size up the food on your plate. 1 thumb tip = 1 teaspoon of peanut butter, butter, or sugar 1 finger = 1 oz. of cheese 1 fist = 1 cup cereal, pasta, or vegetables 1 handful = 1 oz. of nuts or pretzels 1 palm = 3 oz. of meat, fish, or poultry Plan on eating half your meal and take the rest home to enjoy for lunch or dinner the next day. Order an extra side of veggies. Non-starchy vegetables, such as green beans, broccoli, asparagus, or summer squash, will help you fill up with low-calorie choices. Think ahead. Learn important nutrition information ahead of time. Most [employer] provide calories, sodium, and fat content for their menu items. Check out www.[employer]! for a listing of over 50,000 foods, including many restaurant items. You can also visit company-specific websites Dining Out Tips Dining out is tricky. You have less control over ingredients & portions so even when you think you re ordering healthy, it s likely way more calories & less nutrition than a similar meal you d make at home. Research shows people who do best losing weight & keeping it off don t dine out much only 2.5 times out of 21 meals in a week. So, when you do dine out, make sure to use these PRO TIPS to keep your body happy DINE OUT LIKE A PRO 1. RUIN Your Appetite. About 1.5 hrs before you go out, eat something to cut hunger so you don t get to the restaurant & dive head first into the breadbasket. Try a produce + protein snack such as an apple + almonds or celery + sunflower seed butter. 2. Know BEFORE You Go. Do a few minutes of research before you re swept up in a whirlwind of socializing & drinking. This could be as simple as perusing the online menu on your phone on the ride to the restaurant. 3. Order a [employer]ue BUNDLE. Pair a healthy superfood with a less-healthy craving. It s the only way to honor both your inner health nut and wild child. At a [facility] joint and really want the pulled pork? Get it - but instead of plopping it on a refined grain bun, ask to put it alongside a salad. 4. Limit FLAVORS. Research shows variety stimulates appetite, meaning tasting little bits of many different foods will trigger you to over eat. So if you find yourself facing a tableful of small plates or buffet-style eating, commit to your absolute favorites rather than sampling every option. 5. Entree + ONE. It s often not just the meal that racks up CRAP calories, it s also the add-on apps + drinks + desserts. Focus on your main and skip these extras, or at least just pick your favorite ONE. Smart: Pick an appetizer salad! When [place] researchers gave women a 100-calorie appetizer of either a salad or garlic bread, those who had the tiny salad ended up eating 21% less of their main course. I have reviewed your labs and you have elevated cholesterol levels. Your numbers will likely improve with weight loss. Here is some more information on this topic for you. What should my numbers be? -Total cholesterol below 200 -LDL cholesterol below 130 - or much lower, if they are at risk of heart attacks or strokes - HDL cholesterol above 60 - Non-HDL cholesterol below 160 - Triglycerides below 150 Can I lower my cholesterol without medicines? Yes, you can lower your cholesterol some by: - Avoiding red meat, butter, fried foods, cheese, and other foods that have a lot of saturated fat. - Eating a heart-healthy diet includes lots of fruits and vegetables, fiber, and healthy fats (like those found in fish and certain oils). It also means limiting sugar and unhealthy fats. - Instead of refined flour and white rice try whole-wheat flour and brown or wild rice. Do not substitute sugar for fat. Food manufacturers often boost the sugar contents of low-fat options.If you see sugar, corn syrup, or any word ending in ose near the top of the list of ingredients, choose a higher fat version without trans fats instead. -Being more active documented in this encounter [facility] 02-12-2024 History of Present illness Narrative Images from the original note were not included. Some documentation from previous visit of 01/01/2024 was copied and pasted, documentation has been reviewed and edited as necessary for today's visit. Patient Summary: Renee is a 43 year old Female who presents for follow-up evaluation of obesity/weight management to treat and prevent related co-morbidities. In our previous visits we have discussed lifestyle intervention including a nutrition recommendations and physical activity optimization. Her last office visit was 6 weeks ago. Assessment/plan from last visit: Reviewed Elimination or cutting back to 1-2 ETOH - pt agreeable to this. Topiramate reviewed- Stones were 24 yrs ago- discussed this is potentional Risk. Off label use reviewed. Low saturated fat diet- Mediterranean diet and DASH diet reviewed (HTN) Pt does not want to check weight - trigger for her but is willing to track food and weigh food etc. No stimulants to due anxiety Interval History PT specifies the following items as new or significant updates since the last appointment: -has done well at increasing her protein - cut way back on pasta and bread - overall feeling better in that sense but anxiety is still very high- working with licensed life and health agent and therapist - feeling good after hysterectomy- no further issues with bleeding. -still has ETOH but working on decreasing Weight loss since last vist: 2 lbs Starting weight - Last Wt 02/12/24 : 168 lb 01/01/24 : 170 lb (77.1 kg) 5% weight loss = 162 lbs, 10% weight loss = 153 lbs Anti-obesity medications: Topiramate. Benefit:decreased food craving Adverse effects: none Weight promoting medications: xanax Previous Diet (initial appointment): Wakes up: Drinkes water all day- 6 large aldo's. Latte occasionally once per week Does not eat breakfast Lunch- salad, lean protein, rice, quinoa, soap, fish, Snacks- fruit, anya, dried pineapple, sesame sticks Dinner 5:30-7:30- meat, veggie, pasta (one per week) Snacks: cheese Diet/Nutrition overview: Fluids: water, 4-5 ETOH drinks mixed with Juices. Quality of diet: 24hr recall suggests healthy diet. Characterization of diet:skip meals. [place] Inspector Repairer of impaired eating habits:denies Eating Disorder no Preferred foods: Cravings: guamanian food Dietary changes: B - shake- fairlife (32g) S - L - Salad w/ chicken or turkey or salmon S - D - same S - Fluids - Eating 3 meals a day, including breakfast Increasing servings of fruit Increasing servings of vegetables Controlling portions Limiting processed foods Increasing protein Reducing carbohydrates Current Barriers: poor sleep hygiene and inadequate sleep duration, ETOH Exercise: decreased Stress: increased Sleep: 6 hours. RYAN NO ; CPAP NO stable Estimated Creatinine Clearance: 77.4 mL/min (A) (based on SCr of 0.98 mg/dL (H)). PAST MEDICAL HISTORY Diagnosis Date 1999 CVA (cerebral vascular accident) (HCC) unknown when Gallstones Current Outpatient Medications Medication Sig Dispense Refill topiramate (TOPAMAX) 50 mg tablet Take 1 tablet by mouth daily at bedtime. 90 tablet 0 hydrOXYzine HCl (ATARAX) 50 mg tablet Take 1 tablet by mouth three times a day as needed for anxiety. (Patient not taking: Reported on 12/22/2023) 30 tablet 0 lisinopril (ZESTRIL) 20 mg tablet Take 1 tablet by mouth once daily. 90 tablet 1 Ascorbic Acid (VITAMIN C) 1,000 mg tablet Take 1,000 mg by mouth once daily. Folic Acid 20 mg cap Take 1 capsule by mouth once daily. Magnesium 250 mg tab Take 250 mg by mouth once daily. omeprazole (PRILOSEC) 10 mg capsule Take 1 capsule by mouth once daily. 30 capsule 3 aspirin, enteric coated (ASPIRIN, ENTERIC COATED) 81 mg EC tablet Take 81 mg by mouth once daily. Biotin 10 mg tab Take by mouth. No current facility-administered medications for this visit. 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 Latest Ref Rng & Units 12/22/2023 CMP Sodium 136 - 144 mmol/L 141 Potassium 3.7 - 5.1 mmol/L 3.7 Chloride 97 - 105 mmol/L 106 CO2 22 - 30 mmol/L 24 Glucose 74 - 99 mg/dL 69 BUN 7 - 21 mg/dL 11 Creatinine 0.58 - 0.96 mg/dL 0.98 EGFR >=60 mL/min/1.73m 75 Protein, Total 6.3 - 8.0 g/dL 6.9 Albumin 3.9 - 4.9 g/dL 4.1 Calcium 8.5 - 10.2 mg/dL 9.5 Bilirubin, Total 0.2 - 1.3 mg/dL 0.2 AST 13 - 35 U/L 70 ALT 7 - 38 U/L 63 Alkaline Phosphatase 34 - 123 U/L 71 Cholesterol, Total (mg/dL) Date Value 12/28/2023 260 HDL Cholesterol (mg/dL) Date Value 12/28/2023 77 LDL Cholesterol (mg/dL) Date Value 12/28/2023 174 Triglyceride (mg/dL) Date Value 12/28/2023 47 Latest Ref Rng & Units 12/22/2023 CBC WBC 3.70 - 11.00 k/uL 10.54 RBC 3.90 - 5.20 m/uL 3.56 Hemoglobin 11.5 - 15.5 g/dL 11.7 Hematocrit 36.0 - 46.0 % 35.9 MCV 80.0 - 100.0 fL 100.8 MCH 26.0 - 34.0 pg 32.9 MCHC 30.5 - 36.0 g/dL 32.6 RDW-CV 11.5 - 15.0 % 12.2 Platelet Count 150 - 400 k/uL 314 MPV 9.0 - 12.7 fL 10.9 Baso% % 0.8 Abs Neut (ANC) 1.45 - 7.50 k/uL 6.60 Abs Lymph 1.00 - 4.00 k/uL 2.86 Abs Ocean <0.87 k/uL 0.71 Abs Eosin <0.46 k/uL 0.24 Abs Baso <0.11 k/uL 0.08 NRBC /100 WBC 0.0 Vitamin D 25 Hydroxy Date Value Ref Range Status 12/22/2023 42.6 31.0 - 80.0 ng/mL Final 04/18/2023 36.8 31.0 - 80.0 ng/mL Final Comment: Classification of 25 OH Vitamin D status: Deficiency/Insufficiency: < or = 30 ng/ml. Sufficiency/Optimal Levels: 31-80 ng/mL Toxicity: > 100 ng/mL. Test performed by chemiluminescent immunoassay. TSH (mIU/L) Date Value 12/22/2023 1.160 04/18/2023 3.670 ) Hemoglobin A1C (%) Date Value 12/22/2023 4.8 04/18/2023 4.8 Insulin Date Value Ref Range Status 12/28/2023 6.9 3.0 - 25.0 mU/L Final Assessment/Plan: Renee Gallardo is a 43 year old yo with Overweight (Pre-obesity) who presented today for follow up for supervised weight loss to treat and prevent related co-morbidities. (E78.00) Hypercholesteremia (primary encounter diagnosis) (R53.81, R53.83) Malaise and fatigue (K21.9) Gastroesophageal reflux disease without esophagitis (F41.1) Anxiety neurosis (I10) Hypertension, unspecified type (R74.8) Elevated liver enzymes (E66.3) Overweight (BMI 25.0-29.9) - reviewed increasing to BID dosing- reviewed decreasing consumption of sugary sweetened beverages that contain ETOH. - discussed Continued high protein and low carb, whole foods - Reviewed licensed life and health agent and counseling. Starting new habits. Reviewed meditation and exercise to help with anxiety. - Not candidate for Phentermine or Diethylpropion due to anxiety - ETOH and impact on weight, stress/anxiety and impact on weight reviewed - An overall goal of 150-200 minutes per week of exercise has been effective in weight loss and maintenance. Prescription instructions reviewed with patient as applicable. Potential red flag symptoms discussed with the patient. Reviewed appropriate action plan to take if red flag symptoms occur. Patient agreeable to treatment plan. Follow up in 6 weeks I spent a total of 30 minutes on the date of the service which included preparing to see the patient, [id number] patient care, completing clinical documentation, obtaining and/or reviewing separately obtained history, performing a medically appropriate examination, counseling and educating the patient/family/caregiver, and ordering medications, tests, or procedures Natasha Cruz MD, FACOG, DABOM documented in this encounter [facility] 02-12-2024 Telephone encounter Note Patient wants to know if this rx can be sent to pharmacy today. She is leaving to go out of town tomorrow and didn't realized there were no refills left on her current rx. Please call her at [phone] to confirm if this can be done. [facility] 02-12-2024 Miscellaneous Notes Patient wants to know if this rx can be sent to pharmacy today. She is leaving to go out of town tomorrow and didn't realized there were no refills left on her current rx. Please call her at [phone] to confirm if this can be done. Prescription Refill Information The patient has been identified by name and date of : Yes Caregiver verified no other encounters exist for this prescription request: Yes Caregiver confirmed with patient/requestor that no other refills are due, in the near future, with this provider at this time: Yes The last office visit in the department: 12/06/23 Does the patient have a future office visit with this provider/department: Yes Requested Prescriptions Pending Prescriptions Disp Refills omeprazole (PRILOSEC) 10 mg capsule 30 capsule 3 Sig: Take 1 capsule by mouth once daily. Elli Jesus February 12, 2024 8:29 AM documented in this encounter [facility] 02-12-2024 Telephone encounter Note Prescription Refill Information The patient has been identified by name and date of : Yes Caregiver verified no other encounters exist for this prescription request: Yes Caregiver confirmed with patient/requestor that no other refills are due, in the near future, with this provider at this time: Yes The last office visit in the department: 12/06/23 Does the patient have a future office visit with this provider/department: Yes Requested Prescriptions Pending Prescriptions Disp Refills omeprazole (PRILOSEC) 10 mg capsule 30 capsule 3 Sig: Take 1 capsule by mouth once daily. Elli Jesus February 12, 2024 8:29 AM [facility] 01-15-2024 History of Present illness Narrative SUBJECTIVE: 43 year old female presents for 6 week post-op exam. Pt reports improvement in pain. Taking abx. Scant bleeding. No issues with BM or Voiding. Objective: Incision: Dry and intact, without redness Abdomen: Soft and Non-tender Genitalia: Normal external genitalia, Urethral meatus normal, Bladder nontender, normal vagina and normal vaginal tone, cervix absent, uterus absent, normal adnexa without masses or tenderness, perineum WNL, and no abnormal discharge. ? Granulation tissue- minimal tenderness on right side compared to previous visit- silver nitrate applied. Cuff intact. No masses palpable. Impression: Post-Op Exam Plan: Return to office annual exam Discussed post op restrictions - ok to return to exercise. [place] in 2 weeks at 8 weeks post op. Continue antibiotics until done. I have reviewed and updated past medical and surgical history, medications and allergies. Natasha Cruz MD documented in this encounter [facility] 01-08-2024 History of Present illness Narrative SUBJECTIVE: 43 year old female presents for 4 week post-op exam. Had some bleeding yesterday - Lifted suitcase- otherwise has been trying to follow restrictions. No fever, no foul discharge, no concerns with Voiding or BMs. Feeling cramping/more uncomfortable on right side. Objective: Incision: Dry and intact, without redness Abdomen: Soft, Non-tender, and mild tenderness deep right lower Genitalia: Normal external genitalia, Urethral meatus normal, Bladder nontender, normal vagina and normal vaginal tone, perineum WNL, and cuff intact, no active bleeding, scant light brown at cuff. Tenderness on right , no mass or fullness noted. Limited bedside ultrasound done with LM - no fluid collection noted at cuff. Impression: Possible cuff cellulitis , had previous BV dx after surgery Plan: Augmentin ordered last night when patient contacted me- first dose today. Return to office in 1-2 weeks. Post op restrictions reviewed Warning signs reviewed I have reviewed and updated past medical and surgical history, medications and allergies. Natasha Cruz MD documented in this encounter [facility] 01-04-2024 Telephone encounter Note Pt returned call and given provider's message below with verbalized understanding. Patient agreeable. [facility] 01-04-2024 Miscellaneous Notes Pt returned call and given provider's message below with verbalized understanding. Patient agreeable. Left message to return call. Please inform patient that her recent labs show that her cholesterol is markedly high and her ALT and AST liver enzymes also remain high. She needs to limit tylenol to <3 grams a day, limit alcohol intake to 3 drinks a week and need for RUQ ultrasound to be checked and labs to be rechecked in 1 month. Her CRP inflammation marker and serum creatinine kidney function are slightly high as well. Her hemoglobiin is low normal and vitamin B12 is low normal. Would recommend increasing iron rich foods in her diet as well as start taking vitamin B12 500-1000 mcg a day and Folate at least 800-1000 mg a day. These can be rechecked in 1 month as well. Ezequiel Zazueta DO documented in this encounter [facility] 01-04-2024 Telephone encounter Note Left message to return call. [facility] 01-04-2024 Telephone encounter Note Please inform patient that her recent labs show that her cholesterol is markedly high and her ALT and AST liver enzymes also remain high. She needs to limit tylenol to <3 grams a day, limit alcohol intake to 3 drinks a week and need for RUQ ultrasound to be checked and labs to be rechecked in 1 month. Her CRP inflammation marker and serum creatinine kidney function are slightly high as well. Her hemoglobiin is low normal and vitamin B12 is low normal. Would recommend increasing iron rich foods in her diet as well as start taking vitamin B12 500-1000 mcg a day and Folate at least 800-1000 mg a day. These can be rechecked in 1 month as well. Ezequiel Zazueta DO [facility] 01-04-2024 Telephone encounter Note The following approved medication requests have been transmitted electronically. Requested Prescriptions Signed Prescriptions Disp Refills ALPRAZolam (XANAX) 0.5 mg tablet 30 tablet 1 Sig: Take 1 tablet by mouth at bedtime as needed for up to 30 days. Authorizing Provider: CONOR CHAPMAN APRN.CNP PDMP website checked and validated. All prescriptions have been APPROPRIATELY filled. No suspicious activity was identified. 01/04/2024 by Conor Chapman CNP. [facility] 01-04-2024 Miscellaneous Notes The following approved medication requests have been transmitted electronically. Requested Prescriptions Signed Prescriptions Disp Refills ALPRAZolam (XANAX) 0.5 mg tablet 30 tablet 1 Sig: Take 1 tablet by mouth at bedtime as needed for up to 30 days. Authorizing Provider: CONOR CHAPMAN APRN.CNP PDMP website checked and validated. All prescriptions have been APPROPRIATELY filled. No suspicious activity was identified. 01/04/2024 by Conor Chapman CNP. Patient has been identified by name and date of : Yes Patient phones for refill(s): Requested Prescriptions Pending Prescriptions Disp Refills ALPRAZolam (XANAX) 0.5 mg tablet [Pharmacy Med Name: ALPRAZOLAM 0.5 MG TABLET] 30 tablet Sig: Take 1 tablet by mouth at bedtime as needed. Date of last office visit in primary care: 12/06/2023 Date of next office visit in primary care: Visit date not found Patient called in today and stated she has no refills at the Pharmacy. Please call patient with any questions or concerns. Please advise. Thank you. Bernice Jesus. documented in this encounter [facility] 01-04-2024 Telephone encounter Note Patient has been identified by name and date of : Yes Patient phones for refill(s): Requested Prescriptions Pending Prescriptions Disp Refills ALPRAZolam (XANAX) 0.5 mg tablet [Pharmacy Med Name: ALPRAZOLAM 0.5 MG TABLET] 30 tablet Sig: Take 1 tablet by mouth at bedtime as needed. Date of last office visit in primary care: 12/06/2023 Date of next office visit in primary care: Visit date not found Patient called in today and stated she has no refills at the Pharmacy. Please call patient with any questions or concerns. Please advise. Thank you. Bernice Jesus. [facility] 01-01-2024 Instructions Natasha Davila MD - 01/01/2024 10:14 AM EDT Images from the original note were not included. Weight Management: You have taken the initiative to become a healthier version of yourself and to decrease the risks that come with the diagnosis of obesity or being overweight. We are happy to help you along this journey but know this is a lifetime commitment to yourself. Losing just 3-10 % of your body weight can decrease your risks of many other serious diseases like diabetes, heart disease, osteoarthritis, hypertension, cancer and so many others. During this time you will have triumphs, setbacks and plateaus- your body will fight against you but we are here to give you the tools and the resources to continue to reach your goals. We recommend during this time that you track your weight daily or at least five times per week as well as tracking your nutrition. You may track your activity but do not use hitting your fitness goals as a reward system as this can derail your success. 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 However, exercise can have many other benefits including improving mental health and cardiovascular health. Do not feel overwhelmed- we will discuss this more at your visits. Our time will be limited with each visit but we will try to touch on factors that are important to you and to your overall goals. We will try to set a goal at the end of each visit and then decide on what we want to accomplish with your upcoming visits. On your After Visit Summary (AVS), we will provide you with information that may be useful during this journey so please remember to read the information given. Check your AVS a few days after your appointment because we may have added more information specifically for you. Remember that if you are placed on medications, they are tools that can help you succeed but you must put in the work. Your nutrition will be the main factor. There are medications that work well for some and not for others- so it may take time to find the right combination for your body's needs. Please remember that factors such as other health co-morbidities one might have, as well as insurance coverage, will play a factor in determining which medications you can take. Most of the newer medications that are all the craze ,injectables, may not be covered or will only be covered if you fail months of oral medications- so please be patient with the process. It would be beneficial for you to determine what your insurance covers as far as Anti-Obesity Medications (AOMs), Nutritional Counseling, behavioral intervention and weight loss surgery. Please call your health insurance prior to your first appointment and write down coverage for each of those therapies. Most importantly, remember that ultimately our goal is to help you get to a healthier weight which will decrease your overall health risks. We will work together as a team and try to reach your personalized goals as well. We appreciate that you have entrusted us with your health and know that we are committed to this process with you. Sincerely, Natasha Carlos MD, JENNY CASTRO & Sangeetha Nunez, TODD Obesity Obesity is a disease that affects nearly one-third of the adult [place] population (approximately 60 million). The number of overweight and obese Americans has continued to increase since 1959, a trend that is not slowing down. Today, 64.5 percent of adult Americans (about 127 million) are categorized as being overweight or obese. Each year, obesity causes at least 300,000 excess deaths in the [place] and healthcare costs of [place] adults with obesity amount to approximately $100 billion. (AOA) Obesity is a complex, multi-factorial chronic disease involving: Environmental (social and cultural) The tendency toward obesity is a result of our environment: lack of physical activity along with high-calorie, low-cost foods. Home, work, school, and even the community can inhibit a healthy lifestyle. Genetic (Hereditary plays a large role in determining how susceptible people are to overweight and obesity). Genes also influence how the body santos calories for energy and stores fat. Physiologic, metabolic, behavioral (eating too many calories while not getting enough exercise) and psychological components. It is the second leading cause of preventable in the [place] Behavioral changes brought on by economic development, modernization and urbanization have been linked to the rise in global obesity. Calculating BMI Body Mass Index (BMI) is a measurement tool used to determine excess body weight. Overweight is defined as a BMI of 25 or more, obesity is 30 or more, and severe obesity is 40 or more. You can visit www.nhlbi.nih.gov to estimate your BMI. Obesity Related Health Conditions The morbidity and mortality risk from being overweight is proportional to its degree. Individuals with morbid obesity, therefore, have the highest risk for developing numerous illnesses that often reduce mobility and quality of life due to their excess weight. In particular, type 2 diabetes, gallbladder disease and osteoarthritis have been found to increase concurrently with higher BMI. Premature , a 20-year shorter life span, has also been found in individuals with morbid obesity. All of the systems that make the body function are affected by morbid obesity. Type 2 diabetes Gallbladder disease and gallstones Liver disease Osteoarthritis, a disease in which the joints deteriorate. This is possibly the result of excess weight on the joints. Gout, another disease affecting the joints Pulmonary (breathing) problems, including sleep apnea in which a person can stop breathing for a short time during sleep Reproductive problems in women, including menstrual irregularities and infertility Gastroesophageal reflux/heartburn Hypertension Heart Disease Depression Psychological disorders/social impairments Urinary Stress Incontinence Obesity is also linked to higher rates of certain types of cancer. Obese men are more likely than non-obese men to from cancer of the colon, rectum, or prostate. Obese women are more likely than non-obese women to from cancer of the gallbladder, breast, uterus, cervix, or ovaries [email or web address] Nutrition - Eat primarily whole foods. Limit carbs, especially processed carbs. - Do not drink your calories - 30 grams of protein for breakfast decreases your hunger during the day by up to 40 % Premier Protein or generic 30 gm protein 1 gm sugar - Walk for 15 minutes immediately a meal. TOPIRAMATE -- Take 25mg (1/2 tablet) daily x 2 weeks -- Then increase to 50mg daily after the initial two weeks so long as you are not having any side effects. -- You can take the tablet it at night at first (because of potential sleepiness side effects), but then you can take earlier around dinner after you have started the medication for a few days. You also may be able to take it in the morning if easier. -- We may increase the dose to 75mg a few weeks later if there is no change with 50mg, Typically the maximum medication dose would be 150mg daily but rarely would we need to titrate medication dose that high. -- The exact mechanism of topiramate on energy balance regulation is not clearly understood. Topiramate affects body mass index, fasting [id number] ratio, and serum leptin and cortisol levels. It has shown to improve hypothalamic insulin and leptin signaling and action and reduce obesity in mice. These changes may be alvarez factors in weight loss due to topiramate. If at any point you are feeling the effects of the medication you can stay at that dose or if you experience side effects you can decrease it to the previous dose. -- Please see the handout to review the potential side effects and to explain this further -- Please let me know if you experience any changes in your vision, worsening depression or mood problems, or an increase in suicidal thoughts or behaviors. --This medication should NOT be combined with alcohol. Risks of drinking alcohol while taking this medication include mental and psychological side effects, including confusion, dizziness, drowsiness, and depression. -- There is an increased risk for oral clefts when topiramate is used in the first trimester of . -- There is a possible decrease in contraceptive efficacy when using estrogen-containing control with topiramate, please use a back up form of control such as condoms and monitor for throughout treatment. -- If you decide that you would like to get or if you have any of these side effects please let me know and we can safely discontinue the medication. - If you are on loop diuretic or thiazide diuretic we will want to monitor your potassium level, especially if you have a history of low potassium. - It is important to taper off of this medication when we finished with treatment, typically decreasing the dose 25 mg a week. Stopping Topiramate abruptly can cause irritability, anxiety and difficulty concentrating. Topiramate (toe pyre a mate) What are the common names? Topamax Why is this medication prescribed? Topiramate is an anti-epileptic medications which has been approved by the FDA for patients 10 years of age or older for treatment of seizures. However, topiramate also has other uses such as the treatment of migraines. It also causes decrease in appetite and weight loss. The mechanism of weight loss is thought to be through inhibition of mitochondrial enzymes involved in energy expenditure and metabolism. Topiramate may work by helping you feel less hungry, less driven to eat, more satisfied with less food. What special precautions should I follow? Before having topiramate prescribed, tell your doctor and pharmacist: If you have allergies to any component of topiramate If you are , plan to become , are breast-feeding, or if you become while taking topiramate What are the warnings and precautions for this medication? Immediately discontinue the medicine and seek medical help if you have severe cognitive/neuropsychiatric adverse symptoms or eye symptoms. Cognitive/neuropsychiatric adverse events: symptoms may include confusion, psychomotor slowing, difficulty with concentration/attention, difficulty with memory, speech or language problems, particularily word-finding difficulties, somnolence or fatigue Acute myopia and secondary angle closure glaucoma, usually within 1 month of starting treatment: symptoms may include blurred vision, redness and/or pain in the eye Oligohydrosis (decrease sweating) and hyperthermia (elevation in body temperature) Increase in suicidal behavior or ideation Metabolic acidosis, non-gap hyperchloremic (decreased serum bicarbonate below normal levels) resulting in hyperventilation or fatigue Kidney stones Paresthesias (numbness or tingling in hands or feet) Ataxia Dizziness Increase in urination frequency Drug interactions. Use of monamine oxidase inhibitors (MAOI s), valproic acid, Caution use with dehydration or diarrheal illness, hepatic or renal impairment In case of emergency/overdose In case of overdose, call your local poison control center at or call local emergency services at [phone]. What other information should I know? Keep all appointments with your doctor and the laboratory. Do not let anyone else take your medication. Topiramate use needs to be monitored closely. Prescriptions may be refilled only a limited number of times. Keep a written list of all of your prescription and nonprescription ([id number]) medicines, in addition to vitamins, minerals, or other dietary supplements. How should I monitor while on this medication? Your doctor will check your baseline kidney function and electrolytes prior to starting this medication, then periodically. Continue to improve your dietary and physical activity habits as the combination works best while on this medication. Start out by taking the medication at bedtime as it can cause fatigue and sleepiness. Be sure to eat regular meals. Less hunger does not make it appropriate to skip meals. Make sure to have an eye exam, including the pressure in your eyes (intra-ocular pressure), once a year. What should I do if I forget a dose? Skip the missed dose and continue your regular dosing schedule the next day. Do not take a double dose to make up for a missed one. Sources Pubmed Health: http://www.ncbi.nlm.nih.gov/pubmed health/IGQ5838906/ Drugs.com http://www.drugs.com/pro/topiramat e.html Meal replacements: Meal Replacements Plant-based protein bars Meal replacements. One option that works for some people is to use meal replacements, as in the DiRECT and Look AHEAD trials.The available options in Look AHEAD included shakes, bars, and meals from a variety of companies ([employer], HMR, [employer], and Slim[employer]). The calorie content was 150 to 220 calories, depending on the product. People who used meal replacements 12 times a week instead of preparing their own meals lost about 11% of their weight in the first year, whereas those who used just two per week lost about 6% of their weight. Keep in mind, though, that people in the trial who used meal replacements also tended to consume a healthier diet over all; they were more likely to have met their goals for dietary fat, fruits and vegetables, and dairy foods, and to have cut back on sweets, than those who didn t use meal replacements. Similarly, in the DiRECT trial, participants consumed special nutritionally complete shakes and soups (the Counterweight-Plus program) for the first 12 weeks.If you opt for meal-replacement drinks, bars, or frozen entrees, here are some criteria to look for: calories, 150 to 300 fat, 3 to 10 grams protein, > 20 grams sugar < 5 g Meal replacements are typically fortified with vitamins and minerals and contain some fiber. Because they are calorie controlled, the amount of added sugars is usually minimal. If you want to try this approach to boost weight loss, ask your dietitian or another member of your health care team how to incorporate the replacements into your meal planning and discuss whether you might need to reduce your doses of diabetes medications to prevent hypoglycemia (low blood sugar) as you cut calories and lose weight. It is important to find a meal-replacement product that suits your taste. If you prefer not to consume processed foods, you can make your own portion-controlled versions. Note that meal replacements don t work for everyone. While some people like meal-replacement shakes, bars, and soups and find them to be a convenient way to sustain a reduced calorie intake over time, others don t feel satisfied drinking them and often end up simply adding them to what they d normally eat--which could lead to weight gain. What s more, some people have a hard time readjusting to eating real food after they stop using meal replacements. 30 High Protein Snack Ideas 1. Jerky 2. [place] mix without dried fruit 3. [place] roll-ups 4. [place] yogurt 5. Veggies and yogurt dip 6. Tuna 7. Hard-boiled eggs 8. Peanut butter with celery 9. Cheese slices/ Cheese Stick 10. Handful of almonds, peanuts or walnuts 11. Cottage Cheese 12. Beef sticks 13. Protein bars 14. Canned [place] 15. Pumpkin seeds 16. Nut butter 17. Protein shakes 18. Avocado and chicken salad 19. Egg muffins 20. Leftover protein or lunch meat 21. 1/2 c blended cottage cheese with 1 Tbsp sugar-free dry cheesecake pudding mix 12g protein 10 carb 22. Pudding - 1 30 gm protein shake with 1/2 pkg sugar-free pudding 4 svgs - 7.8 gm protein, 5 carb each svg Protein - no carbs Egg 1 large - 6g Egg white 1 large 3.6g 3 oz is approximately the size of a deck of cards and equals 21 g protein so 4 oz is 28 gm protein Beef, Chicken, Harrison, Pork, Rosen 1 oz 7g Fish, Tuna Fish 1 oz 7g (Starkist tuna packet 2.6 oz 17 gm protein) Seafood (Crabmeat, Shrimp, Lobster) 1 oz 6g Protein shakes (read labels) Premier Protein or generic [employer] Equate, Meijer High Performance- 30g protein & 1g carb - meal replacement Premier Protein plant protein powder - 25 gm protein, 0 suger/2 carb Vanilla and chocolate (not a meal replacement) Fairlife 30 gram protein - 30g protein & 3g carb BOOST Glucose Control Max 30g Protein Nutritional Drink - 30g protein & 1 carb - meal replacement Slimfast High Protein - 20g protein & 1g carb Ensure Max Protein Nutrition Shake 30g protein & 2 carb Protein AND carbs Beef/Harrison Jerky 1 oz dried 10-15g protein - check carb count, can be high if sugar added Slim Kavin - 6 gm protein and 4 net carb Great Value original turkey sausage sticks - 7 gm protein and 2 gm carb Sweta & Kaleb (at [facility]) Original smoked sausage sticks - 8 gm protein and 0 carb Imitation Crab Meat 1 oz - 2g protein & 4g carb Milk, skim 2% or 1% 8 oz - 8g protein & 12g carb [place] yogurt Full Fat [place] Yogurt 1 cup - 20.4g protein & 9.1g carb 2% [place] Yogurt 1 cup - 22.7g protein & 9.1g carb 0% (fat-free) [place] Yogurt - 1 cup 24g protein & 9.3g carb Aldi Protein [place] yogurt single svg - 15g protein & 7g carb Chobani Zero Sugar single svg: - 11g protein & 5g carb Dannon Light + Fit 1 single svg - 12g protein & 9g carb Oikos Pro single svg - 20g protein & 8g carb Oikos Triple Zero [place] Nonfat Yogurt 1 single svg - 15g protein & 7g carb :ratio, KETO Friendly Dairy Snack 1 single svg - 15g protein & 2g carb :ratio Protein 1 single svg - 25g protein & 8g carb Two Good Lowfat [place] Yogurt, Joes, Lower Sugar - 12g protein & 2g carb Cheese each oz Brie 5.9g protein & 0.1g carb Cheddar Cheese 7g protein & 0.4g carb Mozzarella Cheese 6.3g protein & 0.6g carb Eliot Cheese 6.7g protein & 0.7g carb Parmesan Cheese 10g protein & 0.9g carb Cream Cheese 1.7g protein & 1.2g carb Feta 4g protein & 1.2g carb [place] Islander Cheese 7.6g protein & 1.5g carb Koch s Low Fat Cottage Cheese 1/2cup 12g protein & 4g carb Legumes Lentils cup 9g protein & 20g carb Lopez beans cup 7g protein & 20g carb Kidney, Black, [place], Cannellini beans cup 8g protein & 20g carb Soybeans 1/2 c 14g complete protein & 8.5g carb Peanut butter, natural 2 Tbsp 7-8g protein & 4g net carbs, 190 calories PB2 powder 2 Tbsp 6g protein & 5g carb Mcgrew milk, unsweetened 8 oz 1g protein & 2g carb Soy milk 8 oz 3.5g protein & 1.6g carb Tofu 1/2 cup 10g protein & 2.3g carb Nuts and Seeds per oz Pumpkin Seeds - 6.9g protein & 5g carb Almonds - 5.9g protein & 6.1g carb [place] Seeds - 5.8g protein & 5.6g carb Pistachios - 5.8g protein & 7.8g carb Cashews - 5.1g protein & 9.2g carb Walnuts - 4.3g protein & 3.8g carb Hazelnuts - 4.2g protein & 4.7g carb Lingle Nuts - 4.0g protein & 3.4g carb Pecans - 2.6g protein & 3.9g carb Peanuts - 7g protein & 4.6g carb Hemp seeds 3 T/30 gms - 9.5 gm complete protein and 2.5 gm carb <15 gram carb fruit options Berries have the lowest sugar content 1/2 medium apple - 12.5 carbs 1/2 medium avocado - 6.5 gm carbs 1/2 medium banana - 15 carbs 1/2 cup blueberries - 11 carbs - may actually help you lose weight 1/2 cup fresh cherries -11 carbs 1 medium Anya -9 carbs 1/2 cup fresh cranberries - 6.5 carbs 1/2 c grapes - 15 carbs 1/2 medium grapefruit - 10.5 carbs 1/2 cup diced honeydew melon - 8 carbs 1 medium kiwi without skin - 11 carbs 1/2 cup sliced yg -14 carbs 1 medium nectarine - 15 carbs 1 medium orange -15.5 carbs 1 medium peach -14.5 carbs 1/2 cup fresh pineapple -11 carbs 1 medium plum -7.5 carbs 1 prune - 6 carbs 1/2 cup raspberries -7.5 carbs 1/2 c strawberries - 12.7 carbs 1 medium tangerine -12 carbs 1/2 cup diced watermelon - 6 carbs 5 (FIVE) gram carb vegetable options 1 cup raw OR cup cooked: Asparagus Dobbins sprouts Broccoli Brussel sprouts Cabbage Carrots Cauliflower Celery [place] Eggplant Green beans Lettuce Peppers Snap peas Spaghetti squash Spinach Tomato Turnips Zucchini 15 gram carb vegetable options cup cooked corn or hominy corn on the cob, large (5 oz) cup cooked green peas 1 small potato or sweet potato cup cooked potato, plain cup cooked sweet potato, plain 1 cup winter squash (pumpkin, acorn, butternut) 1 cup marinara or pasta sauce - check label cup tomato juice cup tomato puree Beans, Seeds, Nuts cup cooked beans (kidney, nickerson, red, green, etc.) cup cooked lentils cup baked beans 4 tablespoons nut butter Grains Brown rice 1/2 c 5.5g protein 24 carb White long-grain rice 1/2 c 2g protein 22.5 carb Quinoa 1/2 c 4 gm complete protein 25 carb Oatmeal, old fashioned 1/2 c 5g protein 27g carb When you take medications like TOPAMAX and ZONEGRAN they tend to cause an imbalance in your pH levels. This imbalance causes side effects like foggy head, forgetfulness, confusion, difficulty recalling simple words or names, and tingling in your hands and feet. Citric acid may help to neutralize the imbalance caused by the medication. Also stay hydrated! With low fluid intake, urine output is decreased and urine flow is slower, both of which increase the risk of pH imbalance. Avoid soda as well. Increase the proportion of fruits and vegetables and reduce your daily protein intake to 0.8-1.0 g per kg body weight. [employer] Link: Lookout : TRUE LEMON Water Enhancer True Lemon ([employer]) If neither of these are effective you can try: Euphasia https://healthymindbodyandspirit.c om/pages/slgztna-xpby-xndrzan Sources https://www.ncbi.nlm.nih.gov/pmc/a rticles/AUN1738383/ https://www.ncbi.nlm.nih.gov/pmc/a rticles/AJD6118192/ How alcohol affects your weight loss 1. Alcohol is often empty calories Alcoholic drinks are often referred to as empty calories. This means that they provide your body with calories but contain very little nutrients. There are almost 155 calories in one 12-ounce can of beer, and 125 calories in a 5-ounce glass of red wine. By comparison, a recommended afternoon snack should have between 150 and 200 calories. A night out with several drinks can lead to consuming a few hundred extra calories. Drinks that have mixers, such as fruit juice or soda, contain even more calories. 2. Alcohol is used as a primary source of fuel There are also other elements that can cause weight gain outside of calorie content. When alcohol is consumed, it s burned first as a fuel source before your body uses anything else. This includes glucose from carbohydrates or lipids from fats. When your body is using alcohol as a primary source of energy, the excess glucose and lipids end up, unfortunately for us, as adipose tissue, or fat. 3. Alcohol can affect your organs The primary role of your liver is to act as the filter for any foreign substances that enter your body, such as drugs and alcohol. The liver also plays a role in the metabolism of fats, carbohydrates, and proteins. Excess alcohol consumption can lead to what is known as alcoholic fatty liver. This condition can damage your liver, affecting the way your body metabolizes and stores carbohydrates and fats. Changes in the way your body stores energy from food can make it very difficult to lose weight. 4. Alcohol can contribute to excess belly fat The beer gut isn t just a myth. Foods high in simple sugars, such as those found in candy, soda, and even beer, are also high in calories. Extra calories end up stored as fat in the body. Consuming foods and drinks high in sugar can quickly lead to weight gain. We can t choose where all that extra weight ends up. But the body tends to accumulate fat in the abdominal area. 5. Alcohol affects judgment calls especially with food Even the most -hard diet fan will have a hard time fighting the urge to dig in when intoxicated. Alcohol lowers inhibitions and can lead to poor decision-making in the heat of the moment -- especially when it comes to food choices. However, the effects of alcohol surpass even social drinking etiquette. A recent animal studyTrusted Source found that mice given ethanol over a period of three days demonstrated a significant increase in food intake. This study suggests that alcohol can actually trigger hunger signals in the brain, leading to an increased urge to eat more food. 6. Alcohol and sex hormones It s long been known that alcohol intake can affect levels of hormones in the body, especially testosteroneTrusted Source. Testosterone is a sex hormone that plays a role in many metabolic processes, including muscle formation and fat burning capabilities. One study found that low testosterone levels may predict the prevalence of metabolic syndrome in men. Metabolic syndrome is characterized by: high cholesterol high blood pressure high blood sugar levels high body mass index Plus, lower testosterone levels may affect quality of sleep, especially in older men. 7. Alcohol can negatively affect your sleep A nightcap before bed may sound like a ticket to a good night s rest but you may want to reconsider. ResearchTrusted Source suggests that alcohol can lead to increased periods of wakefulness during sleep cycles. Sleep deprivation, whether from lack of sleep or impaired sleep, can lead to an imbalance in the hormones related to hunger, satiety, and energy storage. 8. Alcohol affects digestion and nutrient uptake Your social anxiety isn t the only thing that alcohol inhibits. Intake of alcoholic beverages can also inhibit proper digestive function. Alcohol can cause stress on the stomach and the intestines. This leads to decreasedTrusted Source digestive secretions and movement of food through the tract. Digestive secretions are an essential element of healthy digestion. They break down food into the basic macro- and micronutrients that are absorbed and used by the body. Alcohol intake of all levels can lead to impaired digestion and absorption of these nutrients. This can greatly affect the metabolism of organs that play a role in weight management. Best alcoholic drinks for weight loss This may all sound as if alcohol is ruining your chances of that beach body. But fear not -- watching your weight doesn t necessarily mean having to cut alcohol entirely out of your diet. Rather than reaching for drinks high in sugar or calories, enjoy some of these 100-calorie options instead: 1. Vodka Calories: 100 calories in 1.5 ounces of distilled 80-proof vodka Alternative cocktail: Choose low-calories mixers such as club soda and avoid overly sugary juices. 2. Whiskey Calories: 100 calories in 1.5 ounces of 86-proof whiskey Alternative cocktail: Ditch the cola and take your whiskey on the rocks for a low-calorie alternative. 3. Gin Calories: 115 calories in 1.5 ounces of 90-proof gin Alternative cocktail: Aim for something simple, such as a martini -- and don t skip the olives, they contain beneficial antioxidants such as vitamin E. 4. Tequila Calories: 100 calories in 1.5 ounces of tequila Alternative cocktail: The best part about tequila is that the customary tequila shot is just salt, tequila, and shawnee. 5. Riccardo Calories: 100 calories in 1.5 ounces of riccardo Alternative cocktail: This drink is best served as an after-dinner digestif and a good riccardo should be enjoyed slowly to savor the subtle fruity sweetness. The bottom line While cutting alcohol completely out of your diet isn t necessarily the only way to lose weight, there are many improvements that can be made in your health journey by simply cutting back on the booze. You can enjoy a healthier body, improved sleep, better digestion, and fewer of those excess empty calories. And if you do plan to drink, enjoy a vodka or whiskey on the rocks -- and skip the soda! https://www.WildTangent.Captimo/health/ nnxvojq-gdc-ixaksu-loss#alcohol-an o-ulolgd-yrqb Sleep Hygiene Tips Set a sleep schedule and stick to it. Try to go to bed at night and awaken in the morning around the same times, even on weekends. This helps to regulate the body s sleep cycles and circadian rhythms. Try to exercise at some point in the day but avoid vigorous activity (running, fast dancing, high-intensity interval training) one hour before bedtime. Regular exercise of adequate intensity can promote muscle relaxation and deeper sleep later on. If you re in the habit of napping during the day, aim for a 10-20 minute power nap to achieve the goals of reduced fatigue and increased alertness. It s best to take naps in the early afternoon to avoid interference with nighttime sleep. Try to avoid large meals, heavy snacking,or alcohol 2-3 hours before bed. If you are sensitive to caffeine, try to avoid drinking caffeinated beverages 4-6 hours before bedtime. Stop using electronic devices an hour before bed, especially those emitting blue light such as smartphones, tablets, and televisions. Schedule before-bed activities to signal that you are winding down, such as changing into pajamas and brushing teeth. Create a quiet, dark, relaxing environment in your bedroom. Dim the lights and turn off your cell phone s sound and vibration modes if possible. Ensure a comfortable temperature, as feeling too hot or cold can disrupt sleep. Create calming bedtime rituals such as practicing deep breathing exercises, doing light yoga stretches, or listening to soothing relaxing music. If you awaken and can t return to sleep, don t stay in bed. Get up and do quiet relaxing activities, such as reading, until you feel tired enough to fall back asleep. Disrupted Sleep Linked to Weight Gain - YouTube How To Improve Your Sleep To Impact Your Weight Loss: https://[employer].Captimo/ep42/ Weight Loss and Sleep Updated June 05, 2020 Written by Fransico Guajardo Medically Reviewed by Carla Gramajo In This Article The Connection Between Sleep and Weight Sleep and Obesity Sleep During Weight Loss Maintaining a Healthy Relationship With Your Body Losing weight is challenging, and keeping weight off can be just as difficult. Although the medical community is still untangling the complicated relationship between sleep and body weight, several potential links have emerged that highlight the potential weight loss benefits of getting a good night s rest and the negative health impacts of sleep deprivation. The Connection Between Sleep and Weight Over the past several decades, the amount of time that Americans spend sleeping has steadily decreased1, as has the self-reported quality of that sleep. For much of the same time period, the average body mass index (BMI) of Americans increased2, reflecting a trend toward higher body weights and elevated rates of obesity. In response to these trends, many researchers began to hypothesize about potential connections between weight and sleep. Numerous studies have suggested that restricted sleep and poor sleep quality may lead to metabolic disorders, weight gain, and an increased risk of obesity and other chronic health conditions. While there is continuing debate within the medical community about the exact nature of this relationship, the existing research points to a positive correlation between good sleep and healthy body weight. There remains much to be discovered about the intricate details of how sleep and weight are connected. Several hypotheses offer paths for additional research with the hope that increasing our understanding of the relationship between weight and sleep will lead to reduced obesity and better weight-loss methods. Can Lack of Sleep Increase Appetite? One common hypothesis about the connection between weight and sleep involves how sleep affects appetite. While we often think of appetite as simply a matter of stomach grumbling, it s actually controlled by neurotransmitters, which are chemical messengers that allow neurons (nerve cells) to communicate with one another. The neurotransmitters ghrelin and leptin are thought to be central to appetite. Ghrelin promotes hunger, and leptin contributes to feeling full. The body naturally increases and decreases the levels of these neurotransmitters throughout the day, signaling the need to consume calories3. A lack of sleep may affect the body s regulation of these neurotransmitters. In one study, men who got 4 hours of sleep had increased ghrelin and decreased leptin compared to those who got 10 hours of sleep. This dysregulation of ghrelin and leptin may lead to increased appetite and diminished feelings of fullness in people who are sleep deprived. In addition, several studies have also indicated that sleep deprivation affects food preferences. Sleep-deprived individuals tend to choose foods that are high in calories and carbohydrates4. Other hypotheses regarding the connection between sleep and increased appetite involve the body s endocannabinoid system5 and orexin6, a neurotransmitter targeted by some sleep aids. Many researchers believe that the connection between sleep and dysregulation of neurotransmitters is complicated and additional studies are needed to further understand the neurobiological relationship. Does Sleep Increase Metabolism? Metabolism7 is a chemical process in which the body converts what we eat and drink into energy needed to survive. All of our collective activities, from breathing to exercising and everything in between, is part of metabolism. While activities like exercise can temporarily increase metabolism, sleep cannot8. Metabolism actually slows about 15% during sleep, reaching its lowest level in the morning 9. In fact, many studies have shown that sleep deprivation (whether due to self-induction, insomnia, untreated sleep apnea, or other sleep disorders) commonly leads to metabolic [id number]. Poor sleep is associated with increased oxidative stress, glucose (blood sugar) intolerance (a precursor to diabetes), and insulin resistance. Extra time spent awake may increase the opportunities to eat11, and sleeping less may disrupt circadian rhythms, leading to weight gain12. How is Sleep Related to Physical Activity? Losing sleep can result in having less energy for exercise and physical activity. Feeling tired can also make sports and exercising less safe, especially activities like weightlifting and or those requiring balance. While researchers are still working to understand this atcbynxucf44, it s well known that exercise is essential to maintaining weight loss and overall health. Getting regular exercise can improve sleep quality, especially if that exercise involves natural light. While even taking a short walk during the day may help improve sleep, more activity can have a more dramatic impact. Engaging in at least 150 minutes of moderate-intensity or 75 minutes of high-intensity exercise per week can improve daytime concentration and decrease daytime [id number]. Sleep and Obesity In children and adolescents, the link between not getting enough sleep and an increased risk of obesity is well-established, although the reason for this link is still being debated. Insufficient sleep in children can lead to metabolic irregularities as discussed earlier, skipping breakfast in the mornings, and increased intake of sweet, salty, fatty, and starchy foods15. In adults, the research is less clear. While a large analysis of past studies suggests that people getting less than 6 hours of sleep at night are more likely to be diagnosed as obese16, it s challenging for these studies to determine cause and effect. Obesity itself can increase the risk of developing conditions that interfere with sleep, like sleep apnea and depression. It s not clear if getting less sleep is the cause of obesity in these studies, if obesity is causing the participants to get less sleep, or perhaps a mix of both. Even though more studies are needed to understand this connection, experts encourage improving sleep quality when treating obesity in adults. Sleep During Weight Loss Getting adequate, quality sleep is an important part of a healthy weight loss plan. Most importantly, research has shown that losing sleep while dieting can reduce the amount of weight lost17 and encourage [id number]. Tips for Quality Sleep During Weight Loss There are many ways to improve sleep. Here are a few research-based tips for sleeping better when you re trying to lose weight: Keep a regular sleep schedule: Big swings in your sleep schedule or trying to catch up on sleep after a week of late nights can cause changes in metabolism and reduce insulin [id number], making it easier for blood sugar to be elevated. Sleep in a dark room: Exposure to artificial light while sleeping, such as a TV or bedside lamp, is associated with an increased risk of weight gain and ordsvwj56. Don t eat right before bed: Eating late may reduce the success of weight loss [id number] Reduce Stress: Chronic stress may lead to poor sleep and weight gain in several ways, including eating to cope with negative ofiifoef42 Be an Early Bird: People with late bedtimes may consume more calories and be at a higher risk for weight gain23. Early birds may be more likely to maintain weight loss when compared to night owls24. Maintaining a Healthy Relationship With Your Body Deciding if you should attempt to change your body weight is a personal decision best made with the guidance of your doctor. Don t take all the health and weight loss information you read [id number] at face value. Weight loss isn t appropriate for everyone and doesn t always mean better health. Remember that health is a lifelong journey that includes not only healthy habits but also having a healthy relationship with your body. If you re considering weight loss, the National Institutes of Health offers a helpful resource for choosing a safe weight loss [id number] Source National [place] of Diabetes and Digestive and Kidney DiseasesNIDDK research creates knowledge about and treatments for diseases that are among the most chronic, costly, and consequential for patients, their families, and the Nation. niddk.nih.gov . https://www.sleepfoundation.org/ph ysical-health/paylsj-glli-jir-slee p 10 Easy Ways to Increase Your NEAT (Non-exercise activity thermogenesis) One of the best ways to lose those those extra pounds for good and keep it off is to make daily habit changes that can help burn those extra calories during activities you would normally do regardless. What I am talking about is increasing your NEAT. What is NEAT? It is Non-exercise activity thermogenesis. It is the activity that you are able to add into your daily routine outside of the gym that can help you in the long run. It can help you lose those ten pounds not this month, but over the next 12 months. 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 Now it is time for me to show you how. For a moment, imagine for me that you we are back before you started going to the gym. Imagine you were slowly gaining about a pound every two to three months. After 3 years of not exercising or working out you realized you are 10 pound heavier. All your clothes feel a little tighter and you just do not feel good in your own skin like how you used to. One day climbing up a flight of stairs you become way too easily winded, and not just that, but your knees are hurting. For some people, this is all too real. That was the wake up call to go to the gym to start exercising. Yet, why do you exercise when you gain weight? The reason is because you were taught that when you begin exercising, you begin to lose the weight you previously put on. The reason for the weight loss is because you have started to burn more calories compared to what you have consumed through your diet. When it comes to fat loss, you want to have a calorie deficit of about 500 calories a day so that about after a week you will be 3500 calories short. Your body is naturally programmed then to pull those calories of energy out of your stored fat. One pound of fat is roughly equal to 3500 calories. So when you burn those calories at the gym and create that calorie deficit you are burning through that stored fat. Another way you can create a calorie deficit is by changing up your diet. If you reduce the calories you eat by a small margin to create a 500 calories deficit then the same result will happen of burning a pound of stored body fat for every 3500 calories you did not eat that you may normally would have. Now finally for NEAT to come into play. We are going through your normal daily life but now you add some extra Non-exercise activity thermogenesis. You add some daily habits that helped you burn extra calories throughout your day. These extra calories that you burn add to your total daily energy expenditure which means that instead of those calories you were eating becoming stored as fat, you burned those calories, without even stepping into a gym. That is the power of NEAT. Sadly, most individuals do not know of the power of NEAT so most people do gain those ten pounds. Still, NEAT can help you lose that weight gained. Let s say now that you know the power of NEAT you want to incorporate it as part of your daily life and habits with that a positive change of dietary habits and a new exercise program. So let us say you are at the gym going three times a week and hike once a week burning a total of 2500 calories at the end of the week. With that you are improving your eating habits and diet and that has created an additional 2000 calories deficit at the end of the week. So so far a nice sum total of 4500 calories burned in just a single week. Now with a little magical NEAT you add just 100 calories a day of extra activity into your life and therefore an extra 700 calories that you burned in one week! So now you have 5200 calories a week burned between your diet, exercise, and nonexercise activity. Now over a course of a month you have 28,000 calories burned. Over three months time you have 84,000 calories. If you were to burn and have a calories deficit of 84,000 calories that is a sum total of 24 pounds lost! Now if you did not include NEAT into that math you would have lost 21.6 pounds. Still a great amount lost, but after a year you are missing out on those extra 10 pounds you could have lost by barely making a change. Here are 10 examples of NEAT to help you lose weight: WALKING: Walking is an easy activity nearly every one of us can accomplish. All we have to do is increase the number of steps we walk everyday and over time the extra energy used comes from our stores fat. It is also fairly simple to increase the number of steps you walk throughout the day. You can park your car down the street from your house. You can park at the farthest spot when shopping. You can go for an easy morning walk while you sip your morning cup of Khang. All the steps will add up over time. COOKING: Most of us cook at least one meal throughout the day. During this time you can add in some simple movements. When I cook, I like to squat deep when I grab a wing out of the cabinet. When I m reaching for the spices on the shelf I throw in a push-up. When I m waiting for the vegetables to steam I simply bounce or fidget in place while reading or going on social media. The point is while I m coming I am not standing still. For those times I m eating out, I will fidget in line by bouncing on one foot for a bit then switch it up. Sometimes I ll squat while waiting for my coffee. Again, the point is I keep moving. TELEVISION: I watch TV. I would even be lying to you if I said I hardly watch TV. I would be lying to you if I said I sit or lay down and watch TV. When watching my programs or sports on TV I am stretching. I lay down and stretch out my muscles. I ll use the couch as a steady surface to stretch my back out, my shoulders out, my legs out. I never just sit down and watch TV. I stretch and stay active and honestly it is one of the best habits I have created. It has helped me stay loose and I no longer feel guilty about watching TV. It is a win win. Morning Routine: Everyone has a morning routine that they go through during their work week. This is an easy time to add some extra movement to your day. The moment you get out of bed, do some push-ups. You do not even have to define a specific amount. Just drop down and give me however many you feel like. When you go to start the coffee pot, I want you to give me some jumping jacks. The moment you go and brush your teeth, give me some squats before you start or maybe even while you are brushing your teeth if you feel like really multitasking. Going out to get the morning paper, I want a burpee when you get to that paper. Just add in some simple movements or tasks that are associated with every stop along your morning routine. Evening Routine Same concept of your morning routine except I want you to do more stretching and more of a yoga pose idea with it. When you are going around the house shutting off the lights, take a deep breath and reach up and then down towards your toes. Locking the doors, I want a nice deep lunge stretch to help loosen up those hip flexors. Do simple more relaxing movements. Not only will these little movements help burn those extra calories, they are going to help mentally and physically relax you before you sleep. Your Car Most people are getting in and out of their car at least once a day. Every time you are getting into your car, add some movement. You can do jumping jacks, lunges, squats, some hip hinges, do something. I have known people where they will do as many reps of squats for each minute they expect to be driving. If they were going on a long road trip, they would break up those squats during the rest breaks. This is a very simple way to add in those extra calories burned. Personally I like to try getting into and out of my car without using my hands. Some days I will try to mix up only using one foot or the other with no hands trying to carefully slid out of the car. Ditch the Car: If you do not have a crazy commute to work or when running errands or even going out to eat ditch the car for the evening. Many people forget that they can walk places and it will in fact not take long at all. The walk will make you feel good, burn calories, and will help out our environment. Personally I try to ride my bike to work as often as I can. I know others who go and walk to the grocery store when buying only a handful of items. I know of others who take an uber to work in the morning and walk the distance home. The point is at least once a week ditch the car and ride your bike, walk, skate, or even run somewhere you need to go. Work Do not just sit there. If you have a job where you end up sitting down for an extended period of time you are doing harm to yourself. Luckily you can save yourself. Every 5 minutes you sound get up and stand up and squat down and then sit right back down. Anytime you have a break in your workflow, do a little twist in the chair stretching your back out. If you are stuck there reading your emails, add some arm circles in. You won t even have to get out of your chair for those arm circles. All the little movements add up. So please, do it for yourself and do not just sit there. You & Your Significant Other You don t have to be to have a significant other. Exercising with a bestie, a girlfriend or boyfriend or even a pet is a great way to spend time and feel great. Who does not like a long romantic walk down the beach in the sand? Who would not want to go walk or a hike and enjoy nature? Go and zeenat your dog on all four and be a dog for fifteen minutes. They will enjoy it and so will you. The point is get moving with the your better half and you will be better for it. It will definitely bring the two of you closer as well. Clean Everything Cleaning is a very efficient way to multitask. You are getting those extra calories burned while cleaning whatever you wanted clean anyways. The fun part is make a game out of the cleaning. When I wash my car I see absolutely how fast I can get my car washed and clean. When I begin to vacuum I try to do everything while balancing on one leg or the other. When I sweep my house, I baffle installer the broomstick like I am trying to break it. The point is make it fun to clean and make it a good challenge. I put my laundry basket away from the washer and take jump shots with all my clothes into the washer. This is my favorite one and I highly recommend it if you have a top lifter. The alvarez is that you remember why you are doing every thing. Keep in mind your own goal. I want you to remember on why you are trying to lose weight in the first place. If you focus on that goal and remember to have fun with all these easy steps and tricks to add those extra calories burned, you will get to where you want to be and have fun in the process. Losing weight is not necessarily hard work. It can be fun if you are open to the idea and willing to look a bit goofy at times. I promise you though every one of these 10 ways to increase your daily NEAT will be effective and will all add up in the end. A great book that I would recommend for anyone reading is the Slight Edge. The book s main theme is that it is the little things done daily that lead to the biggest change. http://www.Spectrum[employer]imo/10-easy-w rfx-pv-qjbiwogc-your-neat/ When thinking about weight-loss, one often has an ideal body weight in mind or an ultimate weight-loss goal. It s very common for people to think that unless they lose dozens of pounds, they will not be any healthier. This is a misconception. Studies have shown that health benefits resulting from weight-loss are evident with a weight reduction as low as 5-10 percent. This means that an individual that weighs 200 pounds will benefit greatly from losing 10 to 20 pounds. A 5-10 percent weight-loss can result in: A five point increase in HDL cholesterol. Decrease triglycerides by an average of 40 mg/dl Decrease in blood pressure, both systolic and diastolic, by 5 mmHg on average. Decrease HgB A1C by half a point on average Significant decrease in insulin levels May improve sleep apnea and sometimes if the apnea was not very severe, one can be weaned from the CPAP breathing machine Decrease in levels of inflammatory substances circulating in the blood drop significantly and therefore the risk of vascular damage is reduced as well 10 Easy Ways to Increase Your NEAT (Non-exercise activity thermogenesis) One of the best ways to lose those those extra pounds for good and keep it off is to make daily habit changes that can help burn those extra calories during activities you would normally do regardless. What I am talking about is increasing your NEAT. What is NEAT? It is Non-exercise activity thermogenesis. It is the activity that you are able to add into your daily routine outside of the gym that can help you in the long run. It can help you lose those ten pounds not this month, but over the next 12 months. 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 Now it is time for me to show you how. For a moment, imagine for me that you we are back before you started going to the gym. Imagine you were slowly gaining about a pound every two to three months. After 3 years of not exercising or working out you realized you are 10 pound heavier. All your clothes feel a little tighter and you just do not feel good in your own skin like how you used to. One day climbing up a flight of stairs you become way too easily winded, and not just that, but your knees are hurting. For some people, this is all too real. That was the wake up call to go to the gym to start exercising. Yet, why do you exercise when you gain weight? The reason is because you were taught that when you begin exercising, you begin to lose the weight you previously put on. The reason for the weight loss is because you have started to burn more calories compared to what you have consumed through your diet. When it comes to fat loss, you want to have a calorie deficit of about 500 calories a day so that about after a week you will be 3500 calories short. Your body is naturally programmed then to pull those calories of energy out of your stored fat. One pound of fat is roughly equal to 3500 calories. So when you burn those calories at the gym and create that calorie deficit you are burning through that stored fat. Another way you can create a calorie deficit is by changing up your diet. If you reduce the calories you eat by a small margin to create a 500 calories deficit then the same result will happen of burning a pound of stored body fat for every 3500 calories you did not eat that you may normally would have. Now finally for NEAT to come into play. We are going through your normal daily life but now you add some extra Non-exercise activity thermogenesis. You add some daily habits that helped you burn extra calories throughout your day. These extra calories that you burn add to your total daily energy expenditure which means that instead of those calories you were eating becoming stored as fat, you burned those calories, without even stepping into a gym. That is the power of NEAT. Sadly, most individuals do not know of the power of NEAT so most people do gain those ten pounds. Still, NEAT can help you lose that weight gained. Let s say now that you know the power of NEAT you want to incorporate it as part of your daily life and habits with that a positive change of dietary habits and a new exercise program. So let us say you are at the gym going three times a week and hike once a week burning a total of 2500 calories at the end of the week. With that you are improving your eating habits and diet and that has created an additional 2000 calories deficit at the end of the week. So so far a nice sum total of 4500 calories burned in just a single week. Now with a little magical NEAT you add just 100 calories a day of extra activity into your life and therefore an extra 700 calories that you burned in one week! So now you have 5200 calories a week burned between your diet, exercise, and nonexercise activity. Now over a course of a month you have 28,000 calories burned. Over three months time you have 84,000 calories. If you were to burn and have a calories deficit of 84,000 calories that is a sum total of 24 pounds lost! Now if you did not include NEAT into that math you would have lost 21.6 pounds. Still a great amount lost, but after a year you are missing out on those extra 10 pounds you could have lost by barely making a change. Here are 10 examples of NEAT to help you lose weight: WALKING: Walking is an easy activity nearly every one of us can accomplish. All we have to do is increase the number of steps we walk everyday and over time the extra energy used comes from our stores fat. It is also fairly simple to increase the number of steps you walk throughout the day. You can park your car down the street from your house. You can park at the farthest spot when shopping. You can go for an easy morning walk while you sip your morning cup of Khang. All the steps will add up over time. COOKING: Most of us cook at least one meal throughout the day. During this time you can add in some simple movements. When I cook, I like to squat deep when I grab a wing out of the cabinet. When I m reaching for the spices on the shelf I throw in a push-up. When I m waiting for the vegetables to steam I simply bounce or fidget in place while reading or going on social media. The point is while I m coming I am not standing still. For those times I m eating out, I will fidget in line by bouncing on one foot for a bit then switch it up. Sometimes I ll squat while waiting for my coffee. Again, the point is I keep moving. TELEVISION: I watch TV. I would even be lying to you if I said I hardly watch TV. I would be lying to you if I said I sit or lay down and watch TV. When watching my programs or sports on TV I am stretching. I lay down and stretch out my muscles. I ll use the couch as a steady surface to stretch my back out, my shoulders out, my legs out. I never just sit down and watch TV. I stretch and stay active and honestly it is one of the best habits I have created. It has helped me stay loose and I no longer feel guilty about watching TV. It is a win win. Morning Routine: Everyone has a morning routine that they go through during their work week. This is an easy time to add some extra movement to your day. The moment you get out of bed, do some push-ups. You do not even have to define a specific amount. Just drop down and give me however many you feel like. When you go to start the coffee pot, I want you to give me some jumping jacks. The moment you go and brush your teeth, give me some squats before you start or maybe even while you are brushing your teeth if you feel like really multitasking. Going out to get the morning paper, I want a burpee when you get to that paper. Just add in some simple movements or tasks that are associated with every stop along your morning routine. Evening Routine Same concept of your morning routine except I want you to do more stretching and more of a yoga pose idea with it. When you are going around the house shutting off the lights, take a deep breath and reach up and then down towards your toes. Locking the doors, I want a nice deep lunge stretch to help loosen up those hip flexors. Do simple more relaxing movements. Not only will these little movements help burn those extra calories, they are going to help mentally and physically relax you before you sleep. Your Car Most people are getting in and out of their car at least once a day. Every time you are getting into your car, add some movement. You can do jumping jacks, lunges, squats, some hip hinges, do something. I have known people where they will do as many reps of squats for each minute they expect to be driving. If they were going on a long road trip, they would break up those squats during the rest breaks. This is a very simple way to add in those extra calories burned. Personally I like to try getting into and out of my car without using my hands. Some days I will try to mix up only using one foot or the other with no hands trying to carefully slid out of the car. Ditch the Car: If you do not have a crazy commute to work or when running errands or even going out to eat ditch the car for the evening. Many people forget that they can walk places and it will in fact not take long at all. The walk will make you feel good, burn calories, and will help out our environment. Personally I try to ride my bike to work as often as I can. I know others who go and walk to the grocery store when buying only a handful of items. I know of others who take an uber to work in the morning and walk the distance home. The point is at least once a week ditch the car and ride your bike, walk, skate, or even run somewhere you need to go. Work Do not just sit there. If you have a job where you end up sitting down for an extended period of time you are doing harm to yourself. Luckily you can save yourself. Every 5 minutes you sound get up and stand up and squat down and then sit right back down. Anytime you have a break in your workflow, do a little twist in the chair stretching your back out. If you are stuck there reading your emails, add some arm circles in. You won t even have to get out of your chair for those arm circles. All the little movements add up. So please, do it for yourself and do not just sit there. You & Your Significant Other You don t have to be to have a significant other. Exercising with a bestie, a girlfriend or boyfriend or even a pet is a great way to spend time and feel great. Who does not like a long romantic walk down the beach in the sand? Who would not want to go walk or a hike and enjoy nature? Go and zeenat your dog on all four and be a dog for fifteen minutes. They will enjoy it and so will you. The point is get moving with the your better half and you will be better for it. It will definitely bring the two of you closer as well. Clean Everything Cleaning is a very efficient way to multitask. You are getting those extra calories burned while cleaning whatever you wanted clean anyways. The fun part is make a game out of the cleaning. When I wash my car I see absolutely how fast I can get my car washed and clean. When I begin to vacuum I try to do everything while balancing on one leg or the other. When I sweep my house, I baffle installer the broomstick like I am trying to break it. The point is make it fun to clean and make it a good challenge. I put my laundry basket away from the washer and take jump shots with all my clothes into the washer. This is my favorite one and I highly recommend it if you have a top lifter. The alvarez is that you remember why you are doing every thing. Keep in mind your own goal. I want you to remember on why you are trying to lose weight in the first place. If you focus on that goal and remember to have fun with all these easy steps and tricks to add those extra calories burned, you will get to where you want to be and have fun in the process. Losing weight is not necessarily hard work. It can be fun if you are open to the idea and willing to look a bit goofy at times. I promise you though every one of these 10 ways to increase your daily NEAT will be effective and will all add up in the end. A great book that I would recommend for anyone reading is the Slight Edge. The book s main theme is that it is the little things done daily that lead to the biggest change. [email or web address]-easy-w kqd-sg-pxwrrgzx-your-neat/ Educational Podcasts: The Dr. Quintero Show- Real Conversations about Health and Weight * May 15, 2023 what you need to know about Carbohydrates and Weight *April 24, 2023 Protein why we need it and how to eat more Protein *April 03, 2023 Menopause and Weight Gain- All the Details with Dr. Cheri Peck *March 13, 2023 The Science Behind Ultra Processed Food and Weight Gain *December 26, 2022 Effects of sleep and Stress of Weight and Health with Dr. Brit Barrios-Ernestine, DO * December 19, 2022 Recognizing and Resolving Emotional Eating with Dr. Medina Obesity: A Disease *December 19, 2022 Episode 80 Clinical conversations: The Role of Physical Activity in Weight Management * March 31, 2023 Episode 84 Clinical Conversations: NAFLD, The [place] Disease of Metabolic Syndrome *March 302019 Episode 20 Article Reviews: The Role Ultra Processed Diets Play in Weight Gain *March 11, 2020 Episode 21 Clinical Conversations: Breaking Weight Plateaus documented in this encounter [facility] 01-01-2024 History of Present illness Narrative Patient Summary: Renee Gallardo is a 43 year old female with obesity who presents for an initial evaluation of overweight/obesity to treat and prevent co-morbidities and is interested in combination of behavioral and pharmacological. Motivation for seeking treatment for the disease of overweight/obesity : feeling better. Goal weight: 15lbs weight loss -20 lbs Lowest recall weight: doesn't check weight Highest recall weight: same Patient identified barriers to weight loss: none [place] body weight: 125 lb 10.6 oz (57 kg) Adjusted ideal body weight: 143 lb 6.4 oz (65 kg) Weight History: She reports a family history of obesity and late adulthood weight gain. She states her weight gain is related to the following factors, including reduced physical activity and inadequate sleep duration. Starting weight - Last Wt 01/01/24 : 170 lb (77.1 kg) 5% weight loss = 162 lbs, 10% weight loss = 153 lbs Wakes up: Drinkes water all day- 6 large aldo's. Latte occasionally once per week Does not eat breakfast Lunch- salad, lean protein, rice, quinoa, soap, fish, Snacks- fruit, anya, dried pineapple, sesame sticks Dinner 5:30-7:30- meat, veggie, pasta (one per week) Snacks: cheese Diet/Nutrition overview: Fluids: water, 4-5 ETOH drinks mixed with Juices. Quality of diet: 24hr recall suggests healthy diet. Characterization of diet:skip meals. Sandstone Inspector Repairer of impaired eating habits:denies Eating Disorder no Preferred foods: Cravings: guamanian food ?Sleep: Duration: 6 hours. RYAN NO ; CPAP NO ??Stress: Stress:no, Cause:None Obesity Related Comorbidities: Prior Weight Loss Surgery:No PAST MEDICAL HISTORY Diagnosis Date Appendicitis 1999 CVA (cerebral vascular accident) (HCC) unknown when Gallstones PAST SURGICAL HISTORY Procedure Laterality Date APPENDECTOMY 1999 HYSTERECTOMY 12/07/2023 TL[facility], cystoscopy SALPINGECTOMY Bilateral 12/07/2023 FAMILY HISTORY Problem Relation Age of Onset Cancer Father CLS, stable Bipolar disorder Mother Heart disease Paternal Grandfather Hypertension Paternal Grandfather No Ocular Disease No Family History Social History Tobacco Use Smoking status: Former Types: Cigarettes Quit date: 2002 Years since quittin.3 Smokeless tobacco: Never Vaping Use Vaping Use: Never used Substance Use Topics Alcohol use: Yes Drug use: Never Medications: NONE Weight Promoting Medications: xanax , Diet/weight loss History: Past weight loss attempts? none. Exercise: Regular exercise: no Strength/resistance exercise:no Barriers to regular exercise? Recent hysterectomy Work-related activity:None . 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 Current Contraception: hysterectomy Obesity ROS/ FHx GEN: Fatigue:yes CV: h/o palpitations/cardiac arrhythmia, Chest pain anxiety HTN: yes PULM: Asthma:no GI: GERD:no ; Gallstones:yes ; Fatty liver disease:no Pancreatitis: no MSK: Joint Pain:no : Nephrolithiasis: yes 24 yrs ago Symptoms of PCOS: no NEURO: Migraines/WALLACE: yes ; H/o seizures: no Glaucoma:no; Cataracts no Symptoms of or History of pseudotumor cerebri:no Family or personal History of MEN2 or Medullary thyroid cancer: no PE BP 134/80 Pulse 73 Wt 170 lb (77.1 kg) LMP 11/16/2023 SpO2 100% BMI 28.29 kg/m Waist Circumference: 37.5 GENERAL: Female in NAD. Central adiposity. SKIN: acanthosis nigricans no, Skin tags: no Hirsutism: no HEENT: PERRL, No supraclavicular adiposity. No dorsal adiposity. ABDOMEN: Protuberant ; EXTREMITIES: peripheral edema: no VE: scant pinpoint bleeding from superior suture, cuff intact. Normal discharge. Silver nitrate applied. Results: reviewed with the patient Appointment on 12/28/2023 Component Date Value Ref Range Status Cholesterol, Total 12/28/2023 260 (H) <200 mg/dL Final Triglyceride 12/28/2023 47 <150 mg/dL Final HDL Cholesterol 12/28/2023 77 >39 mg/dL Final Non HDL Cholesterol 12/28/2023 183 (H) <130 mg/dL Final Fasting Time 12/28/2023 13 hrs Final VLDL Cholesterol 12/28/2023 9 <30 mg/dL Final TC:HDL Ratio 12/28/2023 3.38 <5.10 Final LDL Cholesterol 12/28/2023 174 (H) <100 mg/dL Final LDL:HDL Ratio 12/28/2023 2.26 <2.54 Final Insulin 12/28/2023 6.9 3.0 - 25.0 mU/L Final Appointment on 12/22/2023 Component Date Value Ref Range Status CRP 12/22/2023 1.4 (H) <0.9 mg/dL Final Protein, Total 12/22/2023 6.9 6.3 - 8.0 g/dL Final Albumin 12/22/2023 4.1 3.9 - 4.9 g/dL Final Calcium, Total 12/22/2023 9.5 8.5 - 10.2 mg/dL Final Bilirubin, Total 12/22/2023 0.2 0.2 - 1.3 mg/dL Final Alkaline Phosphatase 12/22/2023 71 34 - 123 U/L Final AST 12/22/2023 70 (H) 13 - 35 U/L Final ALT 12/22/2023 63 (H) 7 - 38 U/L Final Glucose 12/22/2023 69 (L) 74 - 99 mg/dL Final BUN 12/22/2023 11 7 - 21 mg/dL Final Creatinine 12/22/2023 0.98 (H) 0.58 - 0.96 mg/dL Final Sodium 12/22/2023 141 136 - 144 mmol/L Final Potassium 12/22/2023 3.7 3.7 - 5.1 mmol/L Final Chloride 12/22/2023 106 (H) 97 - 105 mmol/L Final CO2 12/22/2023 24 22 - 30 mmol/L Final Anion Gap 12/22/2023 11 9 - 18 mmol/L Final Estimated Glomerular Filtration Ra* 12/22/2023 75 >=60 mL/min/1.73m Final WBC 12/22/2023 10.54 3.70 - 11.00 k/uL Final RBC 12/22/2023 3.56 (L) 3.90 - 5.20 m/uL Final Hemoglobin 12/22/2023 11.7 11.5 - 15.5 g/dL Final Hematocrit 12/22/2023 35.9 (L) 36.0 - 46.0 % Final MCV 12/22/2023 100.8 (H) 80.0 - 100.0 fL Final MCH 12/22/2023 32.9 26.0 - 34.0 pg Final MCHC 12/22/2023 32.6 30.5 - 36.0 g/dL Final RDW-CV 12/22/2023 12.2 11.5 - 15.0 % Final Platelet Count 12/22/2023 314 150 - 400 k/uL Final MPV 12/22/2023 10.9 9.0 - 12.7 fL Final Neutrophils % 12/22/2023 62.6 % Final Abs Neut 12/22/2023 6.60 1.45 - 7.50 k/uL Final Lymphocytes % 12/22/2023 27.1 % Final Abs Lymph 12/22/2023 2.86 1.00 - 4.00 k/uL Final Monocytes % 12/22/2023 6.7 % Final Abs Ocean 12/22/2023 0.71 <0.87 k/uL Final Eosinophils % 12/22/2023 2.3 % Final Abs Eosin 12/22/2023 0.24 <0.46 k/uL Final Basophils % 12/22/2023 0.8 % Final Abs Baso 12/22/2023 0.08 <0.11 k/uL Final Immature Granulocytes % 12/22/2023 0.5 % Final Abs Immature Gran 12/22/2023 0.05 <0.10 k/uL Final NRBC 12/22/2023 0.0 /100 WBC Final Absolute nRBC 12/22/2023 <0.01 <0.01 k/uL Final Diff Type 12/22/2023 Auto Final Vitamin B12 12/22/2023 480 232 - 1,245 pg/mL Final Cholesterol, Total 12/22/2023 242 (H) <200 mg/dL Final Triglyceride 12/22/2023 166 (H) <150 mg/dL Final HDL Cholesterol 12/22/2023 69 >39 mg/dL Final Non HDL Cholesterol 12/22/2023 173 (H) <130 mg/dL Final Fasting Time 12/22/2023 12 hrs Final VLDL Cholesterol 12/22/2023 33 (H) <30 mg/dL Final TC:HDL Ratio 12/22/2023 3.51 <5.10 Final LDL Cholesterol 12/22/2023 140 (H) <100 mg/dL Final LDL:HDL Ratio 12/22/2023 2.03 <2.54 Final TSH 12/22/2023 1.160 0.270 - 4.200 mIU/L Final Free T4 12/22/2023 0.9 0.9 - 1.7 ng/dL Final Free T3 12/22/2023 2.4 2.3 - 4.1 pg/mL Final Vitamin D 25 Hydroxy 12/22/2023 42.6 31.0 - 80.0 ng/mL Final Insulin 12/22/2023 17.5 3.0 - 25.0 mU/L Final Hemoglobin A1C 12/22/2023 4.8 4.3 - 5.6 % Final Estimated Average Glucose 12/22/2023 91 mg/dL Final Office Visit on 12/22/2023 Component Date Value Ref Range Status Bacterial vaginosis 12/22/2023 Positive for bacterial vaginosis (A) Negative for bacterial vaginosis Final Office Visit on 11/07/2023 Component Date Value Ref Range Status SARS-CoV-2 (Agent of COVID-19) 11/07/2023 Not detected See comment Final Influenza A PCR 11/07/2023 Not detected Not Detected Final Influenza B PCR 11/07/2023 Not detected Not Detected Final Strep A (POCT) 11/07/2023 Positive (A) Negative Final Procedural Control 11/07/2023 Valid Final Office Visit on 10/30/2023 Component Date Value Ref Range Status Case Report 10/30/2023 Final Value:Surgical Pathology Report Case: [id number] Authorizing Provider: Natasha Davila, Collected: 10/30/2023 09:11 AM Ordering Location: OB/Gynecology Received: 10/30/2023 12:15 PM Pathologist: Jeison Hernandez MD, PhD Specimen: ENDOMETRIUM BIOPSY FINAL DIAGNOSIS 10/30/2023 Final Value:This result contains rich text formatting which cannot be displayed here. Gross Description 10/30/2023 Final Value:This result contains rich text formatting which cannot be displayed here. Clinical History 10/30/2023 Final Value:This result contains rich text formatting which cannot be displayed here. Performing Lab 10/30/2023 Final Value:This result contains rich text formatting which cannot be displayed here. Urine hCG (POCT) 10/30/2023 Negative Negative Final Rail Car Driver (POCT) 10/30/2023 Internal QC OK Final Impression: Renee Gallardo is a 43 year old Female with Overweight (Pre-obesity) (Body mass index is 28.29 kg/m .) who has adult onset obesity with gradual weight gain. The causes of her obesity are multifactorial, biological, psychological and social and environmental. Specific factors include suboptimal physical activity and poor sleep quality. She has several weight-related medical comorbidities which increase her cardiovascular mortality risk. There are additional metabolic obesity complications including dyslipidemia, hypertension, and Elevated LFTs (likely c/w ETOH). Other medical conditions as above. Regarding her lifestyle, as above, she has a few behavioral contributors ; her physical activity is suboptimal currently due to surgery Overall, it is clear that her quality of life is moderately compromised by her weight. It is likely a combination of weight loss therapies will be needed. She appears motivated today. Plan: -- Based on the severity and resistance of the obesity/overweight with co-morbidities, I believe a combination of behavioral and pharmacological intervention is the best and most appropriate fci therapeutic option. -- We discussed several strategies to track food intake and increase mindfulness around eating while will decrease calorie intake. She was counseled on the following: Eating primarily whole foods. Limit carbs, especially processed carbs. Do not drink your calories 30 grams of protein for breakfast decreases your hunger during the day by up to 40 % Premier Protein or generic 30 gm protein 1 gm sugar Walk for 15 minutes immediately a meal. -- Encouraged the patient to improve her physical activity. Although cardiovascular exercise is most beneficial for weight loss initially, we discussed healthy muscle from a combination of resistance training and cardiovascular exercise is the best fci plan. An overall goal of 150-200 minutes per week of exercise has been effective in weight loss and maintenance. -- Reviewed that monitoring weight daily and food intake can have a positive impact on overall weight loss and maintenance of weight loss. Activity tracking can be used to stay on target for exercise however should not be used to reward oneself She understands that there can be limitations of pharmacotherapy due to contraindications, side effects and cost. Patient was told to contact her insurance company to see what AOMs and supervised behavioral medical appointments are currently covered. Patient understands she will have more success when following a healthy lifestyle. We reviewed continued use of online tracking of daily weights, food journal and if desired physical activity. We reviewed that during management she is to report any concerning side effects of any pharmacotherapy she is placed on. She understands that she will need routine follow up in the office. Prior to any virtual visits in the future she will need to check her Blood pressure, weight, and pulse. Reviewed Elimination or cutting back to 1-2 ETOH - pt agreeable to this. Topiramate reviewed- Stones were 24 yrs ago- discussed this is potentional Risk. Off label use reviewed. Low saturated fat diet- Mediterranean diet and DASH diet reviewed (HTN) Pt does not want to check weight - trigger for her but is willing to track food and weigh food etc. No stimulants to due anxiety (E78.00) Hypercholesteremia (primary encounter diagnosis) (R53.81, R53.83) Malaise and fatigue (K21.9) Gastroesophageal reflux disease without esophagitis (I10) Hypertension, unspecified type (R74.8) Elevated liver enzymes (E66.3) Overweight (BMI 25.0-29.9) -- follow-up visit in 6 weeks for management of above interventions I spent a total of 60 minutes on the date of the service which included preparing to see the patient, [id number] patient care, completing clinical documentation, obtaining and/or reviewing separately obtained history, performing a medically appropriate examination, counseling and educating the patient/family/caregiver, and ordering medications, tests, or procedures. Natasha Cruz MD, FACOG, DABSHAHBAZ documented in this encounter [facility] 12-22-2023 Note Addended by: NATASHA CESAR on: 12/22/2023 08:40 AM Modules accepted: Orders [facility] 12-22-2023 Miscellaneous Notes Addended by: NATASHA CARLOS on: 12/22/2023 08:40 AM Modules accepted: Orders Addended by: DONTE BENTLEY on: 12/22/2023 08:38 AM Modules accepted: Orders documented in this encounter [facility] 12-22-2023 Note Addended by: DONTE MCCLAIN on: 12/22/2023 08:38 AM Modules accepted: Orders [facility] 12-22-2023 History of Present illness Narrative SUBJECTIVE: 43 year old female presents for 2 week post-op exam. Doing well, had some increased light vaginal bleeding. No fevers. Bowel movements are normal. OBJECTIVE: Incision: Dry and intact, without redness Abdomen: Soft, No palpable masses, and mild tenderness in RLQ. Steri strip applied to RLQ incision site. Speculum: Scant serosanguinous discharge, cuff intact, no active bleeding. PLAN: (Z98.890) Post-operative state (primary encounter diagnosis) (N89.8) Vaginal discharge (Z12.31) Encounter for screening mammogram for malignant neoplasm of breast (Z13.1) Screening for diabetes mellitus (Z13.21) Encounter for vitamin deficiency screening BV swab sent Reviewed Post op restrictions and when to call. Weight mgmt appt reviewed RTO 4 weeks I have reviewed and updated past medical and surgical history, medications and allergies. Natasha Cruz MD documented in this encounter [facility] 12-13-2023 Telephone encounter Note Patient notified. States she is doing well and just generally sore. Denies concerns. Eating and drinking okay. Denies nausea or bowel issues. Will keep upcoming post op as scheduled. Kina Garibay RN [facility] 12-13-2023 Miscellaneous Notes Patient notified. States she is doing well and just generally sore. Denies concerns. Eating and drinking okay. Denies nausea or bowel issues. Will keep upcoming post op as scheduled. Kina Garibay, CHRISTO Please call patient and notify her that her pathology from [facility] was benign and c/w adenomyosis. How is she feeling? Any concerns? I will see her at 2 week post op check unless concerns prior to that. documented in this encounter [facility] 12-13-2023 Telephone encounter Note Please call patient and notify her that her pathology from [facility] was benign and c/w adenomyosis. How is she feeling? Any concerns? I will see her at 2 week post op check unless concerns prior to that. [facility] 12-07-2023 Discharge summary Note Date/Time December 07, 2023 10:36am [facility] Medical Records Department [address] [place] [address] Instructions for Home/Discharge Instructions 12/07/23 1035 MR#: [id number] Acct: [id number] Name: RENEE GALLARDO Rep #:[id number] : 1980 43 From: Natasha Carlos MD PCP: Dr. Ezequiel Zazueta, DO Status:RE G [facility] [place] Discharge Instructions Diet Discharge Diet: No restrictions Activity Discharge Activity: May Not Drive (while taking narcotics. may drive when pain controlled. ) and May Shower May shower in (days): 1 May resume sexual activity in: 6-8 weeks Weight Bearing Status: Full weight bearing Lifting Restrictions: 20 Additional Activity Instructions:: NOTHING IN THE VAGINA x 6-8 weeks. Dressing / Incision Call your doctor if your incision/area has: Continuous Slow Oozing, Sudden Increased Bleeding, Increased Pain/ Swelling, Increased Redness, Foul Smelling Discharge and Swelling at the incision site Call your doctor if you observe: Fever of 101 or Higher, Inability to have a bowel movement, Using more than 1 pad per hour and Uncontrolled pain Change Dressing in: leave in place till F/U (you have skin glue over incision sites- do not pick off) Cleanse incision/area with: Soap & Water, Keep Dressing Clean & Dry and - (you may let soap and water run over incision sites and dab dry. ) Follow Up Care Please Follow Up With: Natasha Carlos MD When: 2 weeks as scheduled for post op visit Test Results: Test results from this visit will be discussed in further detail at your follow-up appointment, if applicable. Discharge Plan Admission Attending Provider: Natasha Carlos Primary Care Provider: Ezequiel Zazueta Discharge Orders/Prescriptions Prescriptions: New oxycodone-acetaminophen 5-325 mg Tablet 1 - 2 tab PO Q6H PRN PRN (Reason: Pain Score 4-10) 5 Days Qty: 10 0RF ibuprofen 600 mg tablet 600 mg PO Q6H PRN PRN (Reason: Pain) Qty: 30 0RF simethicone 80 mg tablet,chewable 80 mg PO BID Qty: 30 0RF docusate sodium [Colace] 100 mg capsule 100 mg PO BID Qty: 30 0RF Continued alprazolam 0.5 mg tablet 0.5 mg PO DAILY lisinopril 20 mg tablet 20 mg PO DAILY omeprazole 10 mg capsule,delayed release(DR/EC) 10 mg PO DAILY biotin-folic acid-B compC-zinc 3-0.8 mg tablet 1 tab PO DAILY Referrals / Follow Up: Ezequiel Zazueta DO [Primary Care Provider] - Disposition Disposition (needs filled in before D/C Order can be placed): Home, Self Care 12/07/23 1040<Electronically signed by Natasha Carlos MD>Natasha Carlos MD CC: Dr. Ezequiel Zazueta, ~ Signed [facility] Work Phone: 1(173) 993-841704-11-2024 History and physical note Author Gallito Vieyra-Moira hirsch [facility] December 07, 2023 8:55am Note Date/Time November 29, 2023 5:06 pm [facility] Medical Records Department [address] [place] [id number] H&P Exam - SHIFT MANAGER 11/29/23 1705 MR#: [id number] Acct: [id number] Name: RENEE GALLARDO Rep #:[id number] : 1980 43 From: Natasha Carlos MD PCP: Dr. Ezequiel Zazueta DO Status:[facility] Location: [place] [address] History and Physical Date of Admission: 12/07/23 Pre-Op History and Physical HPI: The patient is a 43 year old female presenting for pre-operative visit. She is scheduled for TLH, Bilateral salpingectomy, cystoscopy, for Adenomyosis, AUB, Uterine Fibroids on 12/07/23. Procedure discussed along with risks, benefits and complications. Other alternatives discussed for management. Consent form signed? Yes. PAST MEDICAL HISTORY Diagnosis Date ? Appendicitis 1999 ? CVA (cerebral vascular accident) (HCC) unknown when ? Gallstones PAST SURGICAL HISTORY Procedure Laterality Date ? APPENDECTOMY 1999 Current Outpatient Medications Medication Sig Dispense Refill ? lisinopril (ZESTRIL) 20 mg tablet Take 1 tablet by mouth once daily. 90 tablet 1 ? Ascorbic Acid (VITAMIN C) 1,000 mg tablet Take 1,000 mg by mouth once daily. ? Folic Acid 20 mg cap Take 1 capsule by mouth once daily. ? Magnesium 250 mg tab Take 250 mg by mouth once daily. ? ALPRAZolam (XANAX) 0.5 mg tablet Take 1 tablet by mouth at bedtime as needed for up to 90 days. 30 tablet 2 ? omeprazole (PRILOSEC) 10 mg capsule Take 1 capsule by mouth once daily. 30 capsule 3 ? aspirin, enteric coated (ASPIRIN, ENTERIC COATED) 81 mg EC tablet Take 81 mg by mouth once daily. ? Biotin 10 mg tab Take by mouth. No current facility-administered medications for this visit. ALLERGIES: Amitriptyline, Bactrim [Sulfamethoxazole-Trimethoprim], Melatonin, Nifedipine, Prednisone, Sertraline, Sulfa (Sulfonamide Antibiotics), and Beta-Blockers (Beta-Adrenergic Blocking Agts) PERSONAL HISTORY: Social History Tobacco Use ? Smoking status: Former Types: Cigarettes Quit date: 2002 Years since quittin.2 ? Smokeless tobacco: Never Vaping Use ? Vaping Use: Never used Substance Use Topics ? Alcohol use: Yes ? Drug use: Never FAMILY HISTORY: FAMILY HISTORY Problem Relation Age of Onset ? Cancer Father CLS, stable ? Bipolar disorder Mother ? Heart disease Paternal Grandfather ? Hypertension Paternal Grandfather ? No Ocular Disease No Family History REVIEW OF SYMPTOMS: negative except as noted above PHYSICAL EXAMINATION: VITALS: Blood pressure 134/60, height 5' 5 (1.651 m), weight 168 lb (76.2 kg), last menstrual period 11/16/2023. GENERAL: The patient is well nourished, well hydrated in no acute distress. , The patient is oriented to time, place, and person. NECK: full range of motion LUNGS: Clear to auscultation bilaterally. no wheezes, rhonchi or rales HEART: Normal heart sounds and No murmurs or gallops IMPRESSION: 43yo with AUB, Adenomyosis, Fibroid uterus PLAN: TLH, Hysteroscopy, cystoscopy Pt has been counseled on risks/benefits and alternatives of surgery including but not limited to anesthesia, bleeding, infection, injury to pelvic structures including bowel, bladder, ureters and vessels. Pt wishes to proceed with surgery at this time. Risk for transfusion reviewed. Risk for cuff dehiscence and other post op complications reviewed. Pre and post op instructions reviewed I have reviewed and updated past medical and surgical history, medications and allergies Natasha Carlos MD 11/29/23 1706 <Electronically signed by Natasha Carlos MD> Cosigner Signature (if applicable): CC: Gallito Cruz; Dr. Ezequiel Zazueta DO~ Signed ADDENDUM by M Dr. Natasha Cruz on 12/07/23 at 0758 Addendum I have examined the patient and the H&P has been reviewed. There are no clinicalchanges since date of exam. 12/07/23 0758<Electronically signed by Natasha Carlos MD> Cosigner Signature (if applicable): cc: Gallito Cruz; Dr. Ezequiel Zazueta DO ~* Signed ADDENDUM by Gallito Cruz on 12/07/23 at 0855 Addendum Pt consented for Total laparoscopic hysterectomy, bilateral salpingectomy, cystoscopy- error noted on pre op H&P. consent is appropriate. Pt had called to reschedule but then changed her mind. I explained options to patient prior to surgery if she declines surgery she can proceed with medical management- she declines and wants to proceed with surgical management for definitive treatment of AUB, Fibroid uterus and adenomyosis. 12/07/23 0855<Electronically signed by Natasha Carlos MD> Cosigner Signature (if applicable): cc: Gallito Cruz; Dr. Ezequiel Zazueta DO ~* Signed [facility] Work Phone: 1(726) 391-839704-11-2024 Procedure [facility] 12-06-2023 History of Present illness Narrative* ZazuetaEzequiel stearnsDO - 12/06/2023 9:34 AM EDT CC: Renee Gallardo is a 43 year old female who presents to the office to establish care. HPI: Anxiety, situational currently. Has upcoming hysterectomy scheduled due to abnormal uterine bleeding. Surgery is tomorrow at [facility] H[facility], thinks her father has HPL as well. She eats a very healthy diet regularly Elevated LFTs, thinks this is related to higher alcohol intake recently around the time that her labs were last drawn. No known hx of fatty liver. Hasn't had a liver US in the past. + fatigue, thinks related to her anemia history with her heavy menses bleeding. PAST MEDICAL HISTORY Diagnosis Date Appendicitis 1999 CVA (cerebral vascular accident) (HCC) unknown when Gallstones PAST SURGICAL HISTORY Procedure Laterality Date APPENDECTOMY 1999 Social History: Social History Tobacco Use Smoking status: Former Types: Cigarettes Quit date: 2002 Years since quittin.2 Smokeless tobacco: Never Vaping Use Vaping Use: Never used Substance Use Topics Alcohol use: Yes Drug use: Never FAMILY HISTORY Problem Relation Age of Onset Cancer Father CLS, stable Bipolar disorder Mother Heart disease Paternal Grandfather Hypertension Paternal Grandfather No Ocular Disease No Family History Current Outpatient prescriptions: hydrOXYzine HCl (ATARAX) 50 mg tablet Take 1 tablet by mouth three times a day as needed for anxiety. lisinopril (ZESTRIL) 20 mg tablet Take 1 tablet by mouth once daily. Ascorbic Acid (VITAMIN C) 1,000 mg tablet Take 1,000 mg by mouth once daily. Folic Acid 20 mg cap Take 1 capsule by mouth once daily. Magnesium 250 mg tab Take 250 mg by mouth once daily. ALPRAZolam (XANAX) 0.5 mg tablet Take 1 tablet by mouth at bedtime as needed for up to 90 days. omeprazole (PRILOSEC) 10 mg capsule Take 1 capsule by mouth once daily. aspirin, enteric coated (ASPIRIN, ENTERIC COATED) 81 mg EC tablet Take 81 mg by mouth once daily. Biotin 10 mg tab Take by mouth. Allergies: ALLERGIES Allergen Reactions Amitriptyline Other: See Comments Nausea, diarrhea, dizziness Nausea, diarrhea, dizziness Bactrim [Sulfametho* Hives SWELLING AND HIVES Melatonin Other: See Comments Nifedipine Other: See Comments Prednisone Other: See Comments HEART RACING SWEATING Sertraline Other: See Comments Sulfa (Sulfonamide * Hives SWELLING Beta-Blockers (Beta* Other: See Comments, Swelling ROS: See HPI PE: 12/06/23 0916 BP: 110/80 Pulse: 88 Resp: 12 Temp: 36.5 C (97.7 F) TempSrc: Left Tympanic Gen: A&O, NAD, non-toxic appearing, Pleasant, cooperative HEENT: NT/AC, PERRLA, wearing glasses, EOMs intact b/l, nares clear and patent b/l, pharynx withouterythema, exudate or lesions. Uvula midline. MMM, EACs without erythema or debris. TMs pearly pat with intact landmarks b/l. Neck: supple, No cervical LAD, no thyromegaly, no carotid bruits CV: RRR, normal S1 and S2, no murmurs, no gallops, no rubs, Pulses 2+ and symmetric in UE and LE b/l Lungs: normal respiratory effort, CTA b/l, no wheezing or rhonchi or rales Abd: soft, NT, ND, +BS, no hepatosplenomegaly MS: FROM all 4 extremities Neuro: CN II-XII intact b/l, strength 5/5 b/l UE and LE, DTRs 2/4 UE and LE, sensation intact. Skin: warm, dry, intact, No rashes or lesions on exposed skin. No edema, normal pulses ASSESSMENT/PLAN: 1. Elevated liver enzymes - ICD9: 790.5, ICD10: R74.8 (primary diagnosis) Recheck labs as ordered after surgery, needs to cut back with alcohol intake. Need for US liver if remains elevated. 2. Borderline abnormal thyroid function test - ICD9: 794.5, ICD10: R94.6 Check LFTs as ordered. 3. Hyperlipidemia, mixed - ICD9: 272.2, ICD10: E78.2 - Uncontrolled - Counseled on healthy diet and regular exercise - likely genetic component 4. Situational anxiety - ICD9: 300.09, ICD10: F41.8 Continue prn medications, related to situational triggers likely 5. Elevated MCV - ICD9: 790.09, ICD10: R71.8 - check vitamin B12 and labs as ordered. 6. Fatigue, unspecified type - ICD9: 780.79, ICD10: R53.83 Recheck labs as ordered. Ezequiel Zazueta DO To ER if develops chest pain, shortness of breath, or severe worsening of symptoms. Discussed risks, benefits, alternatives, and potential side effects of medications. Patient expressed understanding and agreed with the plan. Ezequiel Zazueta DO [address] [place] [address] documented [facility] History and physical note * Natasha Davila MD - 11/29/2023 5:01 PM EDT Pre-Op History and Physical HPI: The patient is a 43 year old female presenting for pre-operative visit. She is scheduled for TLH, Bilateral salpingectomy, cystoscopy, for Adenomyosis, AUB, Uterine Fibroids on 12/07/23. Procedure discussed along with risks, benefits and complications. Other alternatives discussed for management. Consent form signed? Yes. PAST MEDICAL HISTORY Diagnosis Date Appendicitis 1999 CVA (cerebral vascular accident) (HCC) unknown when Gallstones PAST SURGICAL HISTORY Procedure Laterality Date APPENDECTOMY 1999 Current Outpatient Medications Medication Sig Dispense Refill lisinopril (ZESTRIL) 20 mg tablet Take 1 tablet by mouth once daily. 90 tablet 1 Ascorbic Acid (VITAMIN C) 1,000 mg tablet Take 1,000 mg by mouth once daily. Folic Acid 20 mg cap Take 1 capsule by mouth once daily. Magnesium 250 mg tab Take 250 mg by mouth once daily. ALPRAZolam (XANAX) 0.5 mg tablet Take 1 tablet by mouth at bedtime as needed for up to 90 days. 30 tablet 2 omeprazole (PRILOSEC) 10 mg capsule Take 1 capsule by mouth once daily. 30 capsule 3 aspirin, enteric coated (ASPIRIN, ENTERIC COATED) 81 mg EC tablet Take 81 mg by mouth once daily. Biotin 10 mg tab Take by mouth. No current facility-administered medications for this visit. ALLERGIES: Amitriptyline, Bactrim [Sulfamethoxazole-Trimethoprim], Melatonin, Nifedipine, Prednisone, Sertraline, Sulfa (Sulfonamide Antibiotics), and Beta- Blockers (Beta-Adrenergic Blocking Agts) PERSONAL HISTORY: Social History Tobacco Use Smoking status: Former Types: Cigarettes Quit date: 2002 Years since quittin.2 Smokeless tobacco: Never Vaping Use Vaping Use: Never used Substance Use Topics Alcohol use: Yes Drug use: Never FAMILY HISTORY: FAMILY HISTORY Problem Relation Age of Onset Cancer Father CLS, stable Bipolar disorder Mother Heart disease Paternal Grandfather Hypertension Paternal Grandfather No Ocular Disease No Family History REVIEW OF SYMPTOMS: negative except as noted above PHYSICAL EXAMINATION: VITALS: Blood pressure 134/60, height 5' 5 (1.651 m), weight 168 lb (76.2 kg), last menstrual period 11/16/2023. GENERAL: The patient is well nourished, well hydrated in no acute distress. , The patient is oriented to time, place, and person. NECK: full range of motion LUNGS: Clear to auscultation bilaterally. no wheezes, rhonchi or rales HEART: Normal heart sounds and No murmurs or gallops IMPRESSION: 43yo with AUB, Adenomyosis, Fibroid uterus PLAN: TLH, Hysteroscopy, cystoscopy Pt has been counseled on risks/benefits and alternatives of surgery including but not limited to anesthesia, bleeding, infection, injury to pelvic structures including bowel, bladder, ureters and vessels. Pt wishes to proceed with surgery at this time. Risk for transfusion reviewed. Risk for cuff dehiscence and other post op complications reviewed. Pre and post op instructions reviewed Labs completed. Elevated LFTs- reviewed with patient. Hydroxyzine given for anxiety. I have reviewed and updated past medical and surgical history, medications and allergies Natasha Carlos MD documented in this encounterP[facility]03-13-[facility]24 Miscellaneous Notes* Telephone Encounter - Kiya Paiz LPN - 11/08/2023 11:27 AM EDT Left message to call office. Next available date at [facility] for hysterectomy is 12/07/2023. Patient will need a pre-operative appointment scheduled with Dr. Carlos. [facility] am[facility] * Telephone Encounter - Irene Garcia - 11/03/2023 3:10 PM EST Patient contacted office to follow up on being scheduled for hysterectomy. Please contact patient to discuss options. Patient is wanting to scheduled no later than early November 2023. documented in this encounterP[facility]03-13-2024 Miscellaneous Notes* Telephone Encounter - Elli Mendenhall LPN - 11/08/2023 10:18 AM EDT Patient has been identified by name and date of : Patient phones for refill(s): Requested Prescriptions Pending Prescriptions Disp Refills lisinopril (ZESTRIL) 20 mg tablet 90 tablet 1 Sig: Take 1 tablet by mouth once daily. Date of last office visit in primary care: 09/14/2023 Date of next office visit in primary care: 12/06/2023 Please advise. Thank you. Elli Mendenhall LPN. documented in this encounterP[facility]03-13-2024 Miscellaneous Notes* Telephone Encounter - Shilpa Means LPN - 11/08/2023 7:47 AM EDT Patient has been identified by name and date of : Yes, Provider Dr. Zazueta Date 11/08/23 Time 7:48 Patient phones for refill(s): Requested Prescriptions Pending Prescriptions Disp Refills lisinopril (ZESTRIL) 20 mg tablet 90 tablet 1 Sig: Take 1 tablet by mouth once daily. Date of last office visit in primary care: 09/14/2023 Date of next office visit in primary care: 12/06/2023 Please advise. Thank you. Shilpa Means LPN. documented in this encounterP[facility]03-12-2024 Instructions* Patient Instructions* Avril Victor APRN.[facility]D - 11/07/2023 12:43 PM EDT ASSESSMENT/PLAN: 1. Sore throat - ICD9: 462, ICD10: J02.9 (primary diagnosis) - Group A strep molecular testing positive 2. Flu-like symptoms - ICD9: 780.99, ICD10: R68.89 - COVID & INFLUENZA A/B NAAT, ROUTINE 3. Strep throat - ICD9: 034.0, ICD10: J02.0 - Amoxicillin for 10 days. - Discussed supportive care treatment with fluids, rest and analgesia. - The patient may also use warm salt water gargles, throat lozenges and/or OTC throat spray as needed. - Contagious dz precautions discussed- including considered contagious until on antibiotics for 24 hours - Call back if drooling, increased temperature, symptoms of dehydration and/or still sick in one week - AMOXICILLIN 500 MG CAPSULE - Follow-up with your PCP in 3-5 days if symptoms have not improved or sooner if symptoms worsen - Discussed red flags and need for immediate medical evaluation if any occur. - Discussed supportive care treatment with fluids, rest and analgesia. - Discussed expected course of illness Avril Victor APRN.[facility] STREP INFECTIONS: Streptococcal bacteria can cause a sore throat, ear and sinus infections, and skin diseases. Strep throat is diagnosed by a special throat swab or culture test. These infections require either an antibiotic shot or an oral antibiotic medicine to get rid of all the bacteria and prevent rheumatic fever, a dangerous complication. The symptoms of Strep infection, however, usually get better after just 2-3 days of drug treatment. These infections are very contagious; any close contacts who have a fever, sore throat, or illness symptoms should see their doctor right away. Strep is no longer contagious after 24 hours of antibiotic treatment so you may return to school or work if your fever and pain are better in one day. Strep infections can cause serious complications including throat abscess, rheumatic fever and kidney disease, so be sure to take all your antibiotic medicine. See your doctor or return here if your symptoms worsen or are not improved in 3 days or for difficulty breathing or inability to swallow. documented in this encounterP[facility]03-12-2024 History of Present illness Narrative* Avril Victor APRN.GEOCHEMICAL MANAGER - 11/07/2023 12:33 PM EDT Subjective Fever Associated symptoms include congestion, headaches, sore throat and cough. Pertinent negatives include no diarrhea and no vomiting. Renee Gallardo is a 43 year old female who presents with fever, congestion, sore throat, body aches, ear pain for the past 3 days. She did a COVID test at home which was negative. She has taken tylenol anytime her fever got as high as 100.5 degrees F. Review of Systems Constitutional: Positive for chills. HENT: Positive for congestion, ear pain and sore throat. Respiratory: Positive for cough. Cardiovascular: Negative. Gastrointestinal: Negative for abdominal pain, diarrhea, nausea and vomiting. Musculoskeletal: Positive for myalgias. Neurological: Positive for headaches. BP 133/89 Pulse 88 Temp 36.6 C (97.8 F) Resp 20 LMP (LMP Unknown) SpO2 99% PAST MEDICAL HISTORY Diagnosis Date Appendicitis 1999 CVA (cerebral vascular accident) (HCC) unknown when Gallstones PAST SURGICAL HISTORY Procedure Laterality Date APPENDECTOMY 1999 ALLERGIES Amitriptyline, Bactrim [Sulfamethoxazole-Trimethoprim], Melatonin, Nifedipine, Prednisone, Sertraline, Sulfa (Sulfonamide Antibiotics), and Beta- Blockers (Beta-Adrenergic Blocking Agts) MEDICATIONS Ascorbic Acid (VITAMIN C) 1,000 mg tablet Take 1,000 mg by mouth once daily. Folic Acid 20 mg cap Take 1 capsule by mouth once daily. Magnesium 250 mg tab Take 250 mg by mouth once daily. ALPRAZolam (XANAX) 0.5 mg tablet Take 1 tablet by mouth at bedtime as needed for up to 90 days. lisinopril (ZESTRIL) 20 mg tablet TAKE 1 TABLET BY MOUTH EVERY DAY aspirin, enteric coated (ASPIRIN, ENTERIC COATED) 81 mg EC tablet Take 81 mg by mouth once daily. Biotin 10 mg tab Take by mouth. omeprazole (PRILOSEC) 10 mg capsule Take 1 capsule by mouth once daily. FAMILY HISTORY Problem Relation Age of Onset Cancer Father CLS, stable Bipolar disorder Mother Heart disease Paternal Grandfather Hypertension Paternal Grandfather No Ocular Disease No Family History Social History Tobacco Use Smoking status: Former Types: Cigarettes Quit date: 2002 Years since quittin.2 Smokeless tobacco: Never Vaping Use Vaping Use: Never used Substance Use Topics Alcohol use: Yes Drug use: Never Objective Physical Exam Vitals and nursing note reviewed. Constitutional: General: She is not in acute distress. Appearance: Normal appearance. She is not ill-appearing. HENT: Right Ear: Tympanic membrane, ear canal and external ear normal. Left Ear: Tympanic membrane, ear canal and external ear normal. Nose: Nose normal. Mouth/Throat: Pharynx: Uvula midline. Posterior oropharyngeal erythema present. No oropharyngeal exudate. Cardiovascular: Rate and Rhythm: Normal rate and regular rhythm. Heart sounds: Normal heart sounds. Pulmonary: Effort: Pulmonary effort is normal. No respiratory distress. Breath sounds: Normal breath sounds. No wheezing or rales. Musculoskeletal: Cervical back: Neck supple. Lymphadenopathy: Cervical: Cervical adenopathy present. Skin: General: Skin is warm and dry. Findings: No erythema or rash. Neurological: Mental Status: She is alert. ASSESSMENT/PLAN: 1. Sore throat - ICD9: 462, ICD10: J02.9 (primary diagnosis) - Group A strep molecular testing positive 2. Flu-like symptoms - ICD9: 780.99, ICD10: R68.89 - COVID & INFLUENZA A/B NAAT, ROUTINE 3. Strep throat - ICD9: 034.0, ICD10: J02.0 - Amoxicillin for 10 days. - Discussed supportive care treatment with fluids, rest and analgesia. - The patient may also use warm salt water gargles, throat lozenges and/or OTC throat spray as needed. - Contagious dz precautions discussed- including considered contagious until on antibiotics for 24 hours - Call back if drooling, increased temperature, symptoms of dehydration and/or still sick in one week - AMOXICILLIN 500 MG CAPSULE - Follow-up with your PCP in 3-5 days if symptoms have not improved or sooner if symptoms worsen - Discussed red flags and need for immediate medical evaluation if any occur. - Discussed supportive care treatment with fluids, rest and analgesia. - Discussed expected course of illness Avril Victor APRN.GEOCHEMICAL MANAGER documented in this encounterP[facility]03-04-2024 History of Present illness Narrative* Naatsha Davila MD - 10/30/2023 10:24 AM EST Renee Gallardo is a 43 year old female who presents for concerns regarding abnormal uterine bleeding. Patient reports has been bleeding almost daily for months. Patient reports [facility] and was told that she had an angry cervix. Patient had ultrasounds done previously at [facility] which showed fibroid and likely heterogenous myometrium. No EMB performed. Patient reports has tried progesterone therapy (Norethindrone) but it made her bleeding worse. Pt does not desire further hormonal therapy. Patient reports had previous MRI which showed that she had a cerebral infarct at some point in her life no residual problems other than ocular migraines- not navneet te for Combined E/P therapy. Patient states she has bleeding almost daily has bleeding with intercourse. Sometimes the bleeding is heavier with clots. Patient at this time is frustrated and would like surgical intervention. Patient denies any significant pelvic pain or pain with intercourse. Previous labs were done in March 2023 with normal TSH. 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 History Comments: Sexual Activity: Not Asked; No partner data on record; not asked Contraception: No contraception data on record PAST MEDICAL HISTORY Diagnosis Date Appendicitis 1999 CVA (cerebral vascular accident) (HCC) unknown when Gallstones PAST SURGICAL HISTORY Procedure Laterality Date APPENDECTOMY 1999 FAMILY HISTORY Problem Relation Age of Onset Cancer Father CLS, stable Bipolar disorder Mother Heart disease Paternal Grandfather Hypertension Paternal Grandfather No Ocular Disease No Family History Social History Tobacco Use Smoking status: Former Types: Cigarettes Quit date: 2002 Years since quittin.1 Smokeless tobacco: Never Vaping Use Vaping Use: Never used Substance Use Topics Alcohol use: Yes Drug use: Never Current Outpatient Medications Medication Sig Ascorbic Acid (VITAMIN C) 1,000 mg tablet Take 1,000 mg by mouth once daily. Folic Acid 20 mg cap Take 1 capsule by mouth once daily. Magnesium 250 mg tab Take 250 mg by mouth once daily. ALPRAZolam (XANAX) 0.5 mg tablet Take 1 tablet by mouth at bedtime as needed for up to 90 days. lisinopril (ZESTRIL) 20 mg tablet TAKE 1 TABLET BY MOUTH EVERY DAY omeprazole (PRILOSEC) 10 mg capsule Take 1 capsule by mouth once daily. aspirin, enteric coated (ASPIRIN, ENTERIC COATED) 81 mg EC tablet Take 81 mg by mouth once daily. Biotin 10 mg tab Take by mouth. No current facility-administered medications for this visit. Allergies As of Date: 10/30/2023 Allergen Noted Reaction AMITRIPTYLINE 12/29/2021 Other: See Comments BACTRIM [SULFAMETHOXAZOLE-TRIMETH*04/03/2023 Hives MELATONIN 03/19/2020 Other: See Comments NIFEDIPINE 03/19/2020 Other: See Comments PREDNISONE 04/03/2023 Other: See Comments SERTRALINE 06/30/2018 Other: See Comments SULFA (SULFONAMIDE ANTIBIOTICS) 04/03/2023 Hives BETA-BLOCKERS (BETA-ADRENERGIC BL*09/05/2018 Other: See Comments and Swelling Fully Assessed 10/30/2023 REVIEW OF SYSTEMS Abdomen: no pain Bladder: no dysuria Allergies and current medication updated:Yes EXAM: BP 132/84 Wt 155 lb (70.3kg) GENERAL: pleasant, female in no apparent distress HEENT: Normocephalic, atraumatic, mucus membranes moist, and no lesions NECK: full range of motion DERMATOLOGY: Normal, without lesions, non-icteric, and non-hirsute ABDOMEN: soft, non-tender, and no masses PELVIC: external genitalia normal, normal Bartholin's glands, urethra, [place]'s glands, no vulvar lesions, no cervical lesions, good vaginal support, physiologic discharge present, normal appearing perineal body and perianal region BIMANUAL: uterus normal size, shape and consistency, no adnexal masses, and non-tender NEURO: alert and oriented x3,exam grossly non-focal EXTREMITIES: normal ASSESSMENT AND PLAN: Encounter Diagnosis ICD-10-CM 1. Abnormal uterine bleeding (AUB) N93.9 ENDOMETRIAL BIOPSY SURGICAL PATHOLOGY CANCELED: HCG QUAL UR B/O 2. Adenomyosis N80.03 3. EMB today 4. Reviewed not candidate for ocps due to h/o infarct seen on MRI , has tried progesterone in recent past without success- given age and ultrasound findings with fibroids and adenomyosis likely not good candidate for ablation. Pt decline MIRENA IUD. Pt would like to proceed with Hysterectomy. TLH, Salpingectomy, cysto. Pt was counseled on risks/benefits of surgery. OR booking sheet filled out. 5. Reviewed in care everywhere- Pap 01/2023 wnl. 6. Recent labs done - reviewed epic Medical Decision Making: Problems: Moderate: New problem with uncertain prognosis Data: Unique test result(s) reviewed: 2 Unique test(s) ordered: 2 Risk: Moderate: Moderate risk from testing/treatment Medical Decision Making Level: 4 - Moderate Natasha Cruz MD * Natasha Davila MD - 10/30/2023 8:14 AM EST Site Supervisor offered: Patient declines. Renee is a 43 year old Female who presents today for an endometrial biopsy for abnormal uterine bleeding. test: negative UNIVERSAL PROTOCOL / SAFETY CHECKLIST Procedure to be Performed: EMB Sign In: A Moment of CARE was completed. Personnel directly involved with the procedure wore the appropriate PPE (Personal Protective Equipment). Patient/Surrogate Stated/Verified: PATIENT VERIFIED(optional for EMERGENT procedures): Patient name, Date of , Relevant allergies, and The intended procedure Time Out Communication: Intended patient and procedure match the source documents. Consent documented and matches the intended procedure. Sign Out: SIGN OUT (optional for EMERGENT procedures): All specimen containers correctly labeled. PROCEDURE: EXTERNAL GENITALIA: Normal in appearance without lesions VAGINA: Normal in appearance without lesions BIOPSY: Speculum placed into the vagina with excellent visualization of the cervix. Cervix cleaned with betadine. Uterus sounded to 8 cm. Pipelle inserted into the uterus without difficulty and endometrial biopsy obtained. Specimen labeled and sent to pathology. Hemostasis achieved. Procedure Summary: Patient tolerated procedure well. ASSESSMENT: abnormal uterine bleeding PLAN: Specimens labeled and sent to Pathology. Will notify patient of results in 1-2 weeks. Natasha Cruz MD documented [facility] encounterP[facility]03[facility] Instructions* Patient Instructions* Donte Bentley Ma - 10/30/2023 8:17 AM EST YOUR RECOVERY After your biopsy you may have: Vaginal bleeding (less than a normal menstrual period) Mild cramping Do NOT put anything in the vagina for 1 week after your endometrial biopsy. This includes: tampons douches and refraining from having sexual intercourse If you have any discomfort, you may take an over the counter pain medication (motrin, advil, ibuprofen, tylenol, etc). If this does not relieve your discomfort, contact the office. It is okay to wear a sanitary pad until the discharge and spotting stops. RISKS Although problems seldom occur with endometrial biopsies, there can be some complications. You may feel faint during and shortly after the procedure as well as have some bleeding after the procedure.There is also a risk of infection after the procedure. These complications are rare and can be easily treated. You should contact you doctor is you have any of the following: Heavy bleeding (more than your normal period) Bleeding with clots Severe abdominal pain Fever (more than 100.4F) Foul smelling vaginal discharge RESULTS We will have the results of your biopsy in 1-2 weeks. If you do not hear the results of your biopsyafter 2 weeks, please contact the office for the results. If you have any additional questions or concerns please do not hesitate to contact the office. documented in this encounterP[facility]02-29-2024 Miscellaneous Notes* Telephone Encounter - Natasha Davila MD - 10/26/2023 3:17 PM EST I will let her know. Thank you. * Telephone Encounter - Марина Patel RN - 10/26/2023 9:49 AM EST Appointment scheduled. There was an 8am [facility] u/s opening on 10/29 too. I scheduled that to hold it in case you wanted that? Do we need to call her? * Telephone Encounter - Natasha Davila MD - 10/26/2023 7:59 AM EST Pt will be available after october 27. I can see her October 29 at my Education slot 9:20am- please tentatively put her there. * Telephone Encounter - Kina Garibay RN - 10/26/2023 7:59 AM EST Per DM patient is currently in [place] * Telephone Encounter - Natasha Davila MD - 10/25/2023 9:35 PM EST Spoke to patient personally. Pt has had persistent bleeding. I would like to have her schedule withme- please call to add her to my schedule. I can see her at 1:40pm or Monday at 3:20pm (if slot still open) or next week where there is opening. Also- I ordered pelvic us whi and possible EMB. Please assist in scheduling Ultrasound. Thank you documented in this encounterPike [facility]02-28-2024 Miscellaneous Notes* Telephone Encounter - Natasha Davila MD - 10/25/2023 9:28 PM EST Personally spoke to patient -has been having persistent bleeding. Please call patient- arrange Apptwith me. For AUB. I have a 3:20 on Monday she can have if that works. Also going to order Pelvic usWHI- see if we can get her booked for that. Thank you. 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 Pharmacy asked for prescriber NPI # and no other additional info was needed. Left detailed message on secure VM. Kaycee Murphy MA * Telephone Encounter - Kaycee Murphy - 06/08/2023 1:44 PM EDT Pharmacy currently closed for lunch. Will try again. Kaycee Murphy MA * Telephone Encounter - Elli Yepez - 06/08/2023 1:09 PM EDT Patient called and is not happy. Said [facility] will not [facility] for lisinopril and omeprazole without additional info from our office. Said she called yesterday with the same message and no one called her back. There is an encounter from 06/02/23 that someone added onto it yesterday stating patient is asking about the status of her refill. Then closed the encounter. Patient wants us to call [facility] to see what the problem is and call her back today at [phone] documented in this encounterPike [facility] Hospital10-10-2023 Telephone encounter Note * Telephone Encounter - Kina Dukes - 06/06/2023 9:58 AM EDT [facility] called to request the fax regarding pt be resent. She only received the odd pages. Please resend to [phone]. [facility] Work Phone: [phone]) 581-699910-10-2023 Miscellaneous Notes* Telephone Encounter - Kina Dukes - 06/06/2023 9:58 AM EDT [facility] called to request the fax regarding pt be resent. She only received the odd pages. Please resend to [phone]. documented in this encounterPike [facility] Hospital10-09-2023 Miscellaneous Notes* Telephone Encounter - Shilpa Means LPN - 06/05/2023 11:30 AM EDT Nolvia--04/03/23 Nov--09/13/23 Last refill--medications were just entered as taking not refilled by us. Last labs--04/19/23 * Telephone Encounter - Radhika Dao - 06/05/2023 11:05 AM EDT Patient calling on the status of her refill. Patient is out of the medication. * Telephone Encounter - Jade Nava - 06/02/2023 9:39 AM EDT Patient has been identified by name and date of : Yes Last office visit in this department: 04/03/2023 RX INSTRUCTIONS: Patient aware RX will be sent to pharmacy. No need to notify patient. Patient phones requesting refills as follows: Requested Prescriptions Pending Prescriptions Disp Refills lisinopril (ZESTRIL) 20 mg tablet 30 tablet 1 Sig: Take 1 tablet by mouth once daily. omeprazole (PRILOSEC) 10 mg capsule Sig: Take 1 capsule by mouth once daily. Please review and advise. Jade Nava documented in this encounterPike [facility] Hospital09-06-2023 Miscellaneous Notes* Telephone Encounter - Elli Mendenhall LPN - 05/03/2023 11:15 AM EDT Pt. informed. * Telephone Encounter - Nichol Montalvo APRN.CNP - 05/03/2023 11:01 AM EDT Yes, urine panel is fine. OK to crop picker script. Nichol Montalvo APRN.GEOCHEMICAL MANAGER * Telephone Encounter - Amanda Mcbride LPN - 05/03/2023 9:19 AM EDT Pt asking if her urine pain panel & tox screen results were Ok? Pt states an Rx for xanax was sent to the pharm 04/03/23 & she is waiting for her urine results are back to pick the Rx up. Please advise. Amanda Mcbride LPN documented in this encounterPike [facility] Hospital08-23-2023 Miscellaneous Notes* Telephone Encounter - Glalito Klein RN - 04/19/2023 11:14 AM EDT Pt returned call and given provider's message below with verbalized understanding. * Telephone Encounter - Debra Soliz Ma - 04/19/2023 10:57 AM EDT Left message for patient to call office back Debra Soliz Ma * Telephone Encounter - Nichol Montalvo APRN.CNP - 04/19/2023 10:27 AM EDT Please call patient and let her know that lab work result look good! Liver enzymes are elevated -- I would like to repeat these level in 2 weeks -- may need RUQ US if remain elevated to look for possible fatty liver. Decrease alcohol intake. Cholesterol levels are slightly elevated -- I recommend increasing green veggies in diet and increase lean protein and exercise. Decrease fried, fatty foods. Thank you, Nichol Montalvo APRN.GEOCHEMICAL MANAGER documented in this encounterPike Community Hospital08-22-2023 History of Present illness Narrative* Jaqueline Lam, OD - 04/18/2023 9:38 AM EDT 1. Punctate keratitis, bilateral Recommended: Systane Complete or Refresh Relieva 2-3 times daily and Systane, Refresh or Blink gel nightly before bed in both eyes 2. Regular astigmatism of both eyes 3. Hypermetropia, bilateral 4. Presbyopia Finalized spec rx Recommended progressive with early presbyopia Follow-up in 3 months for dry eye follow-up and dilation Jaqueline Lam, OLEKSANDR April 18, 2023 9:38 AM documented in this encounterPike [facility] Hospital08-22-2023 Instructions* Patient Instructions* Jaqueline Lam, OD - 04/18/2023 9:35 AM EDT Use Systane Complete or Refresh Relieva 2-3 times daily Use Systane, Refresh or Blink gel nightly before bed in both eyes documented in this encounterPike [facility] Hospital08-07-2023 History of Present illness Narrative* Nichol Montalvo APRN.CNP - 04/03/2023 7:10 AM EDT Chief Complaint Patient presents with: Establish Care HPI Renee Gallardo is a 42 year old female who presents here today for Above Complaints. Renee is a new patient to our PCP team today. Here to establish care. Moved to town from [place], [place]. Family members are our current patients. Reviewed family and personal medical hx. Significant hx: CVA--dx with CVA from neurology about 1 year ago. Pt reports going to neurology d/t chronic, ongoing, intermittent vertigo. Scanning was done (including MRI) which dx an old, chronic infarct of basilar artery. Pt was told this could have been from . No residual side effects from this. She doestake a baby aspirin daily but no anticoagulation medication. No new concerns or complaints. Vertigo is still persistent intermittently -- no relief with meclizine prn. Dx with vestibular migraines aswell. Panic attacks - Hx of anxiety attacks infrequently. Pt reports maybe 10 episodes per year. Is prescribed xanax 0.5mg as needed for these rare situations. Pt reports stable and well controlled with this regimen. Day-to-day mood and anxiety is stable and normal. No daily medication regimen. HTN - She states compliant with current blood pressure medication(s): lisinopril 20 mg daily. She does not check BP at home. She denies chest pain, shortness of breath, palpitations, dizziness, leg edema, headaches, or vision changes. Heartburn --- Mild. Controlled with omeprazole. HM -- Declined mammogram -- does self-breast exams routinely. Only feels necessary with concern. PAP testing completed with OBGYN this year -- normal per pt report. Needs referral to opthalmology for routine exams -- feels eyesight in gradually worsening -- wears eye glasses currently. Past medical history, appointments, medications, allergies reviewed. Previous Medical History PAST MEDICAL HISTORY Diagnosis Date Appendicitis 1999 CVA (cerebral vascular accident) (HCC) unknown when Gallstones Previous Surgical History PAST SURGICAL HISTORY Procedure Laterality Date APPENDECTOMY 1999 Family History FAMILY HISTORY Problem Relation Age of Onset Bipolar disorder Mother Cancer Father CLS, stable Heart disease Paternal Grandfather Hypertension Paternal Grandfather Patient Allergies ALLERGIES Allergen Reactions Bactrim [Sulfametho* Hives SWELLING AND HIVES Prednisone Other: See Comments HEART RACING SWEATING Sulfa (Sulfonamide * Hives SWELLING Current Medications No current outpatient medications on file prior to visit. No current facility-administered medications on file prior to visit. Social History Social History Tobacco Use Smoking status: Former Types: Cigarettes Quit date: 2002 Years since quittin.6 Smokeless tobacco: Never Vaping Use Vaping Use: Never used Substance Use Topics Alcohol use: Yes Drug use: Never REVIEW OF SYSTEMS: as above Reviewed relevant PMHx, PSHx, Social Hx, current medications and allergies. Review of Symptoms REVIEW OF SYSTEMS See HPI. All other systems are negative. EXAM: BP 112/64 (BP Site: Left Arm, BP Position: Sitting, BP Cuff Size: Regular Adult) Pulse 64 Resp 16 Ht 167 cm (5' 5.75) General Appearance: Well appearing, alert, in no acute distress, well-hydrated, well nourished.. Skin: Skin color, texture, turgor normal, no suspicious rashes or lesions. Head: Normocephalic, no masses, lesions, tenderness or abnormalities. Neck: Supple, no adenopathy; thyroid symmetric, normal size, no bruits. Back:no pain to palpation of vertebrae, good flexion and extension, good range of motion, no muscletenderness, reflexes are 2+ and symmetric, motor and sensory appear to be normal, negative SLR test, no evidence of scoliosis Lungs: Lungs clear to auscultation. No wheezing, rhonchi, rales.. Heart: RRR without murmur, gallop, or rubs. No ectopy. Abdomen: Normal abdominal exam, Abdomen soft, non-tender. Bowel sounds normal. No masses, organomegaly. Extremities: No deformities, edema, skin discoloration, clubbing or cyanosis. Good capillary refill. . Musculoskeletal: No joint swelling, deformity, or tenderness. Peripheral Pulses: Normal. Neurologic: Gait normal. Reflexes normal and symmetric. Sensation grossly intact.. Health Maintenance List HEPATITIS B(1 of 3 - 3-dose series) Never done HEPATITIS C SCREENING Never done HIV SCREENING Never done DTAP,TDAP,TD(1 - Tdap) Never done PAP TESTING Never done HPV TESTING Never done COVID-19 VACCINE(2 - Booster for Smita series) due on 07/29/2021 MAMMOGRAM Never done DEPRESSION ASSESSMENT Never done INFLUENZA(1) due on 04/28/2023 HPV VACCINE Aged Out ASSESSMENT/PLAN: 1. Wellness examination - ICD9: V70.0, ICD10: Z00.00 (primary diagnosis) - Counseled on healthy diet and regular exercise - Calcium intake with supplements or by diet of 1000 mg/day for under 50, 1200- 1500 mg/day for 50+ - Mammogram recommended - exam recommended once yearly -- pt declined. - Depression screening tool completed and reviewed with patient. Based on score and interview, patient is not at risk for depression and recommended no further intervention at this time. - Follow up for annual exam in one year - referral for ophthalmology for routine exams. - continue with OBGYN for routine exams. - CBC + DIFF - COMP METABOLIC PANEL - HGB A1C - TSH BLD - LIPID PANEL BASIC - VITAMIN D 25 HYDROXY - CONSULT TO OPHTHALMOLOGY - DEPRESSION SCREENING/ASSESSMENT 2. Panic attacks - ICD9: 300.01, ICD10: F41.0 Stable. Well controlled. Tox screen and pain panel. Controlled substance agreement signed in office and scanned into chart. Continue xanax 0.5 mg as needed --- using rarely. 10 tablets per year. Refilled. - TOX SCREEN ROUT UR - PAIN PANEL, UR QUANT - ALPRAZOLAM 0.5 MG TABLET - DEPRESSION SCREENING/ASSESSMENT PDMP website checked and validated. All prescriptions have been APPROPRIATELY filled. No suspiciousactivity was identified. 04/03/2023 by Nichol Montalvo APRN.CNP 3. Vertigo - ICD9: 780.4, ICD10: R42 Stable. Well controlled with lifestyle interventions. 4. History of CVA (cerebrovascular accident) without residual deficits - ICD9: V12.54, ICD10: Z86.73 Stable. No acute concerns. Continue daily aspirin. 5. Hypertension, essential - ICD9: 401.9, ICD10: I10 - Controlled - Continue current medications - Recommend home blood pressure monitoring, to bring results to next visit - Encouraged sodium restriction, DASH or Mediterranean diet - Recommend regular aerobic exercise - LISINOPRIL 20 MG TABLET RTO in 6 months, sooner if needed. Prescription instructions reviewed with patient as applicable. Potential red flag symptoms discussed with the patient. Reviewed appropriate action plan to take if red flag symptoms occur. Patient agreeable to treatment plan. Nichol Ace APRN.TODD [id number] [place] [address] documented in this encounterPike [facility] Hospital06-19-2023 Evaluation + Plan note Future Scheduled Tests Radiology* MA Mammo Screening Bilateral w/ Trino 02/13/23 * US Pelvis Non-OB W/Transvaginal 02/13/23 [facility] Evaluation note* Diagnosis Vertigo- Primary Dizziness and giddiness Nonintractable headache, unspecified chronicity pattern, unspecified headache type documented in this encounter [facility]* Diagnosis Wellness examination- Primary Panic attacks Panic disorder without agoraphobia Vertigo Dizziness and giddiness History of CVA (cerebrovascular accident) without residual deficits Transient ischemic attack (TIA), and cerebral infarction without residual deficits Hypertension, essential Unspecified essential hypertension documented [facility] this encounter [facility] [place] [facility]* Diagnosis Punctate keratitis, bilateral- Primary Regular astigmatism of both eyes Regular astigmatism Hypermetropia, bilateral Presbyopia documented in this encounter [facility] [place] [facility]* Diagnosis Elevated liver enzymes- Primary Other nonspecific abnormal serum enzyme levels documented in this encounter [facility]Eval[facility] [place] noteNo assessment information availableWKettering Health [facility] Work Phone: Evaluation note* Diagnosis Hypertension, essential Unspecified essential hypertension documented in this encounter [facility] [place] [facility]* Diagnosis Abnormal uterine bleeding (AUB)- Primary documented in this encounter [facility] [place] [facility]* Diagnosis Abnormal uterine bleeding (AUB)- Primary Adenomyosis Endometriosis of uterus Uterine leiomyoma, unspecified location documented in this encounter [facility] [place] [facility]* Diagnosis Abnormal uterine bleeding (AUB) documented in this encounter [facility] [place] [facility]* Diagnosis Sore throat- Primary Acute pharyngitis Flu-like symptoms Other general symptoms Strep throat Streptococcal sore throat documented in this encounter [facility] [place] [facility]* Diagnosis Hypertension, essential Unspecified essential hypertension documented in this encounter [facility] [place] [facility]* Diagnosis Abnormal uterine bleeding (AUB)- Primary Adenomyosis Endometriosis of uterus Uterine leiomyoma, unspecified location [facility] [place] [facility]* Diagnosis Elevated liver enzymes- Primary Other nonspecific abnormal serum enzyme levels Borderline abnormal thyroid function test Nonspecific abnormal results of thyroid function study Hyperlipidemia, mixed Mixed hyperlipidemia Situational anxiety Other anxiety states Elevated MCV Other abnormality of red blood cells Fatigue, unspecified type documented [facility] encounter [facility] [place] [facility]* Diagnosis Post-operative state- Primary Other postprocedural status Vaginal discharge Leukorrhea, not specified as infective Encounter for screening mammogram for malignant neoplasm of breast Other screening mammogram Screening for diabetes mellitus Encounter for vitamin deficiency screening Screening for other and unspecified endocrine, nutritional, metabolic, and immunity disorders documented [facility] [place] [facility]* Diagnosis Hyperlipidemia, mixed- Primary Mixed hyperlipidemia documented [facility] [place] [facility]* Diagnosis Hypercholesteremia- Primary Pure hypercholesterolemia Malaise and fatigue Other malaise and fatigue Gastroesophageal reflux disease without esophagitis Esophageal reflux Hypertension, unspecified type Elevated liver enzymes Other nonspecific abnormal serum enzyme levels Overweight (BMI 25.0-29.9) Overweight documented [facility] this encounter [facility] [place] [facility]* Diagnosis Situational anxiety- Primary Other anxiety states documented in this encounter [facility] [place] [facility]* Diagnosis Elevated serum creatinine- Primary Other nonspecific findings on examination of blood Elevated LFTs Other abnormal blood chemistry CRP elevated Elevated C-reactive protein (CRP) Elevated MCV Other abnormality of red blood cells Abnormal hematocrit documented [facility] encounter [facility] [place] [facility]* Diagnosis Post-operative state- Primary Other postprocedural status documented in this encounter [facility] [place] [facility]* Diagnosis Post-operative state- Primary Other postprocedural status documented in this encounter [facility] [place] [facility]* Diagnosis Hypercholesteremia- Primary Pure hypercholesterolemia Malaise and fatigue Other malaise and fatigue Gastroesophageal reflux disease without esophagitis Esophageal reflux Anxiety neurosis Anxiety state, unspecified Hypertension, unspecified type Elevated liver enzymes Other nonspecific abnormal serum enzyme levels Overweight (BMI 25.0-29.9) Overweight documented [facility] encounter [facility] [place] [facility]* Diagnosis Sleep disturbances- Primary Sleep disturbance, unspecified Panic attacks Panic disorder without agoraphobia documented in this encounter [facility] [place] [facility]* Diagnosis Hypercholesteremia- Primary Pure hypercholesterolemia Malaise and fatigue Other malaise and fatigue Gastroesophageal reflux disease without esophagitis Esophageal reflux Anxiety neurosis Anxiety state, unspecified Hypertension, unspecified type Elevated liver enzymes Other nonspecific abnormal serum enzyme levels Overweight (BMI 25.0-29.9) Overweight documented in this encounter [facility] [place] [facility]* Diagnosis Irritant contact dermatitis, unspecified trigger- Primary Sleep disturbances Sleep disturbance, unspecified Panic attacks Panic disorder without agoraphobia Elevated LFTs Other abnormal blood chemistry [facility] [place] [facility] Diagnosis Rash- Primary Rash and other nonspecific skin eruption [facility] [place] [facility] Diagnosis Blister of toe of left foot, subsequent encounter- Primary [facility] [place] [facility] Diagnosis Hypercholesteremia- Primary Pure hypercholesterolemia Malaise and fatigue Other malaise and fatigue Anxiety neurosis Anxiety state, unspecified Hypertension, unspecified type Elevated liver enzymes Other nonspecific abnormal serum enzyme levels Dysuria Urinary frequency Overweight (BMI 25.0-29.9) Overweight [facility] [place] [facility]* Diagnosis Sleep disturbances Sleep disturbance, unspecified Panic attacks Panic disorder without agoraphobia [facility] [place] [facility] Diagnosis Panic attacks- Primary Panic disorder without agoraphobia Sleep disturbances Sleep disturbance, unspecified [facility] [place] [facility] Diagnosis Hand weakness- Primary Other musculoskeletal symptoms referable to limbs Panic attacks Panic disorder without agoraphobia Sleep disturbances Sleep disturbance, unspecified Hypokalemia Hypopotassemia documented [facility] [place] [facility]* Diagnosis Hand weakness Other musculoskeletal symptoms referable to limbs Hypercholesteremia- Primary Pure hypercholesterolemia Malaise and fatigue Other malaise and fatigue Anxiety neurosis Anxiety state, unspecified Hypertension, unspecified type Elevated liver enzymes Other nonspecific abnormal serum enzyme levels Overweight (BMI 25.0-29.9) Overweight [facility] [place] [facility]* Diagnosis Radial neuropathy, right- Primary Hypercholesteremia- Primary Pure hypercholesterolemia Malaise and fatigue Other malaise and fatigue Anxiety neurosis Anxiety state, unspecified Hypertension, unspecified type Elevated liver enzymes Other nonspecific abnormal serum enzyme levels Overweight (BMI 25.0-29.9) Overweight [facility] [place] [facility]* Diagnosis Hypercholesteremia- Primary Pure hypercholesterolemia Malaise and fatigue Other malaise and fatigue Anxiety neurosis Anxiety state, unspecified Hypertension, unspecified type Elevated liver enzymes Other nonspecific abnormal serum enzyme levels Overweight (BMI 25.0-29.9) Overweight Encounter for long-term (current) use of medications Encounter for long-term (current) use of other medications documented in this encounter [facility] note* Diagnosis Abnormal EMG- Primary Nonspecific abnormal electromyogram (EMG) documented [facility] [place] [facility]* Diagnosis Pain of right upper extremity- Primary Radial nerve palsy Lesion of radial nerve documented in this encounter [facility] note* Diagnosis Radial neuropathy, right documented in this encounter [facility] note* Diagnosis Radial neuropathy, right- Primary documented in this encounter [facility] note* Diagnosis Radial nerve palsy, right- Primary Abnormal EMG Nonspecific abnormal electromyogram (EMG) Pain in right arm Muscle spasm of right shoulder Spasm of muscle documented in this encounter [facility] note* Diagnosis Radial nerve palsy, right- Primary documented in this encounter [facility] note* Diagnosis Hypertension, essential Unspecified essential hypertension documented in this encounter [facility] note* Diagnosis Encounter for screening mammogram for breast cancer documented in this encounter [facility] note* Diagnosis Wellness examination- Primary Elevated MCV Other abnormality of red blood cells PREETI (generalized anxiety disorder) Generalized anxiety disorder Status post alcohol detoxification Other follow-up examination Alcohol abuse Alcohol abuse, unspecified Elevated liver enzymes Other nonspecific abnormal serum enzyme levels Hyperlipidemia, mixed Mixed hyperlipidemia Sleep disturbances Sleep disturbance, unspecified Screening for diabetes mellitus Elevated vitamin B12 level documented in this encounter [facility] note* Diagnosis Radial neuropathy, right- Primary documented in this encounter [facility] note* Diagnosis Hypercholesteremia- Primary Pure hypercholesterolemia Malaise and fatigue Other malaise and fatigue Anxiety neurosis Anxiety state, unspecified Hypertension, unspecified type Elevated liver enzymes Other nonspecific abnormal serum enzyme levels Dysuria Urinary frequency Overweight (BMI 25.0-29.9) Overweight [facility] Narrative No data available for this section [facility] Discharge instructions No data available for this section [facility] Discharge instructions Additional Instructions [facility] Phone: Progress note No data available for this section [facility] Reason for referral (narrative)* Outpatient Procedure (Routine) - Pending Review Specialty Diagnoses / Procedures Referred By Sang huertas Referred To Contact [facility] Diagnoses Abnormal uterine bleeding (AUB) Procedures ENDOMETRIAL BIOPSY ENDOMETRIAL BX W/WO ENDOCERVIX BX W/O DILAT SPX Natasha Davila MD [address] [place] [address] [facility] [address] [place] [address] Referral ID Status Reason Start Date Expiration Date Visits Requested Visits Authorized [id number] Pending Review Auto-Generat ed Referral 10/25/2023 10/24/2024 1 1 * Diagnostic Procedure Only (Routine) - Pending Review Specialty Diagnoses / Procedures Referred By Contac t Referred To Contact [facility] Diagnoses Abnormal uterine bleeding (AUB) Procedures PELVIC US WHI US PELVIC NONOBSTETRIC REAL-TIME IMAGE COMPLETE Natasha Davila MD [address] [place] [address] [facility] [address] [place] [id number] Referral ID Status Reason Start Date Expiration Date Visits Requested Visits Authorized [id number] Pending Review Auto-Generat ed Referral 10/25/2023 10/24/2024 1 1 [facility] for referral (narrative)* Outpatient Procedure (Routine) - Pending Review Specialty Diagnoses / Procedures Referred By Contac t Referred To Contact [facility] Diagnoses Abnormal uterine bleeding (AUB) Procedures ENDOMETRIAL BIOPSY ENDOMETRIAL BX W/WO ENDOCERVIX BX W/O DILAT SPX Natasha Davila MD [address] [place] [address] [facility] [address] [place] [id number] Referral ID Status Reason Start Date Expiration Date Visits Requested Visits Authorized [id number] Pending Review Auto-Generat ed Referral 10/30/2023 10/29/2024 1 1 [facility] for referral (narrative)* Diagnostic Procedure Only (Routine) - Authorized Specialty Diagnoses / Procedures Referred By Sang huertas Referred To Contact [facility] Diagnoses Encounter for screening mammogram for malignant neoplasm of breast Procedures KYREE SCREENING W TRINO SCREENING DIGITAL BREAST TOMOSYNTHESIS BI SCREENING MAMMOGRAPHY BI 2-VIEW BREAST INC CAD Natasha Davila MD [address] [place] [address] [facility] [address] [place] [address] Referral ID Status Reason Start Date Expiration Date Visits Requested Visits Authorized [id number] Authorized Auto-Generat ed Referral 12/22/2023 01/20/2025 1 1 [facility] for referral (narrative)* Diagnostic Procedure Only (Routine) - Pending Review Specialty Diagnoses / Procedures Referred By Sang huertas Referred To Contact [facility] Diagnoses Elevated LFTs Procedures US ABD RIGHT UPPER QUADRANT US ABDOMINAL REAL TIME W/IMAGE LIMITED Ezequiel Zazueta DO [address] [place] [address] [place] [address] Referral ID Status Reason Start Date Expiration Date Visits Requested Visits Authorized [id number] Pending Review Auto-Generat ed Referral 01/04/2024 02/02/2025 1 1 T [facility] for referral (narrative)No reason for referral information [facility]WK[facility] Work Phone: Reason for visit Narrative* Consult, Test, Treat (Routine) - Closed Specialty Diagnoses / Procedures Referred By Sang huertas [facility] Diagnoses Hand weakness Procedures EMG(NEURO/NI) NERVE CONDUCTION STUDIES 9-10 STUDIES Nichol Montalvo APRN.GEOCHEMICAL MANAGER [address] [place] [address] Phone: tel: fax: Neurology [address] [place] [id number] Phone: tel: Referral ID Status Reason Start Date Expiration Date V isits Requested Visits Authorized [id number] Closed Auto-Generate d Referral 10/07/2024 08/27/2025 1 1 [facility] Reason for Referral Specialty Diagnoses / Procedures Referred By Contac t Referred To Contact Neurology Diagnoses Vertigo Nonintractable headache, unspecified chronicity pattern, unspecified headache type Procedures CONSULT TO NEUROLOGY OFFICE/OUTPATIENT [facility] 60-74 MINUTES Corwin Najera MD [address] [place] [address] Referral ID Status Reason Start Date Expiration Date Visits Requested Visits Authorized [id number] Authorized PCP Requested Referral 04/19/2022 04/19/2023 1 1 Specialty Diagnoses / Procedures Referred By Contac t Referred To Contact Ophthalmology Diagnoses Wellness examination Procedures CONSULT TO OPHTHALMOLOGY OFFICE/OUTPATIENT [facility] 60-74 MINUTES Nichol Montalvo APRN.GEOCHEMICAL MANAGER [address] [place] [address] Referral ID Status Reason Start Date Expiration Date Visits Requested Visits Authorized [id number] Authorized PCP Requested Referral 04/03/2023 04/02/2024 1 1 Specialty Diagnoses / Procedures Referred By Contac t Referred To [facility] Diagnoses Hand weakness Procedures EMG(NEURO/NI) NERVE CONDUCTION STUDIES 9-10 STUDIES Nichol Montalvo APRN.GEOCHEMICAL MANAGER [address] [place] [address] [facility] [place] [address] [place] [id number] Referral ID Status Reason Start Date Expiration Date Visits Requested Visits Authorized [id number] Authorized Auto-Generat ed Referral 10/07/2024 08/27/2025 1 1 Summary Purpose Family History No Family History Records FoundNo Family History Records FoundNo Family History Records FoundNo Family History Records Found Advance Directives No Advanced Directives Records Found Advance Directive Response Recorded Date/ Time Living Will No November 23, 2023 11:15am Power of Juice Scaleman No November 22 11:15am Advance Directive Response Recorded Date/ Time Living Will No September 29 11:27am Do you have a Healthcare Power of Juice Scaleman? No September 29, 2024 11:27am Chief Complaint and Reason for Visit Chief Complaint MENORRHAGIA/SCREENIN G Chief Complaint PREOP Hysterectomy,TLH, bilateral salping Chief Complaint Admit Date numbness September 29, 2024 1 0:13am SPLINT. SUSPECTED RADIAL NERVE PALSY. DR TO FAX October 17, 2024 3:00pm Chief Complaint Admit Date numbness September 29, 2024 1 0:13am SPLINT. SUSPECTED RADIAL NERVE PALSY. DR TO FAX October 17, 2024 3:00pm ACUTE SINUSITIS December 10, 2024 3:2 5pm Additional Source Comments Source Comments (unrecognize d section and content) In the event this informatio n is protected by the Federal Confidentiality of Alcohol and Drug Abuse Patient Records regulations: The Federal rules restrict any use of the information to criminally investigate or prosecute any alcohol or drug abuse patient.[facility] event this information is protected by the Federal Confidentiality of Alcohol and Drug Abuse Patient Records regulations: The Federal rules restrict any use of the information to criminally investigate or prosecute any alcohol or drug abuse patient.[facility] the event this information is protected by the Federal Confidentiality of Alcohol and Drug Abuse Patient Records regulations: The Federal rules restrict any use of the information to criminally investigate or prosecute any alcohol or drug abuse patient.[facility] the event this information is protected by the Federal Confidentiality of Alcohol and Drug Abuse Patient Records regulations: The Federal rules restrict any use of the information to criminally investigate or prosecute any alcohol or drug abuse patient.[facility] the event this information is protected by the Federal Confidentiality of Alcohol and Drug Abuse Patient Records regulations: The Federal rules restrict any use of the information to criminally investigate or prosecute any alcohol or drug abuse patient.[facility] the event this information is protected by the Federal Confidentiality of Alcohol and Drug Abuse Patient Records regulations: The Federal rules restrict any use of the information to criminally investigate or prosecute any alcohol or drug abuse patient.[facility] the event this information is protected by the Federal Confidentiality of Alcohol and Drug Abuse Patient Records regulations: The Federal rules restrict any use of the information to criminally investigate or prosecute any alcohol or drug abuse patient.[facility] the event this information is protected by the Federal Confidentiality of Alcohol and Drug Abuse Patient Records regulations: The Federal rules restrict any use of the information to criminally investigate or prosecute any alcohol or drug abuse patient.[facility] the event this information is protected by the Federal Confidentiality of Alcohol and Drug Abuse Patient Records regulations: The Federal rules restrict any use of the information to criminally investigate or prosecute any alcohol or drug abuse patient.[facility] the event this information is protected by the Federal Confidentiality of Alcohol and Drug Abuse Patient Records regulations: The Federal rules restrict any use of the information to criminally investigate or prosecute any alcohol or drug abuse patient.[facility] the event this information is protected by the Federal Confidentiality of Alcohol and Drug Abuse Patient Records regulations: The Federal rules restrict any use of the information to criminally investigate or prosecute any alcohol or drug abuse patient.[facility] the event this information is protected by the Federal Confidentiality of Alcohol and Drug Abuse Patient Records regulations: The Federal rules restrict any use of the information to criminally investigate or prosecute any alcohol or drug abuse patient.[facility] the event this information is protected by the Federal Confidentiality of Alcohol and Drug Abuse Patient Records regulations: The Federal rules restrict any use of the information to criminally investigate or prosecute any alcohol or drug abuse patient.[facility] the event this information is protected by the Federal Confidentiality of Alcohol and Drug Abuse Patient Records regulations: The Federal rules restrict any use of the information to criminally investigate or prosecute any alcohol or drug abuse patient.[facility] the event this information is protected by the Federal Confidentiality of Alcohol and Drug Abuse Patient Records regulations: The Federal rules restrict any use of the information to criminally investigate or prosecute any alcohol or drug abuse patient.[facility] the event this information is protected by the Federal Confidentiality of Alcohol and Drug Abuse Patient Records regulations: The Federal rules restrict any use of the information to criminally investigate or prosecute any alcohol or drug abuse patient.[facility] the event this information is protected by the Federal Confidentiality of Alcohol and Drug Abuse Patient Records regulations: The Federal rules restrict any use of the information to criminally investigate or prosecute any alcohol or drug abuse patient.[facility] the event this information is protected by the Federal Confidentiality of Alcohol and Drug Abuse Patient Records regulations: The Federal rules restrict any use of the information to criminally investigate or prosecute any alcohol or drug abuse patient.[facility] the event this information is protected by the Federal Confidentiality of Alcohol and Drug Abuse Patient Records regulations: The Federal rules restrict any use of the information to criminally investigate or prosecute any alcohol or drug abuse patient.[facility] the event this information is protected by the Federal Confidentiality of Alcohol and Drug Abuse Patient Records regulations: The Federal rules restrict any use of the information to criminally investigate or prosecute any alcohol or drug abuse patient.[facility] the event this information is protected by the Federal Confidentiality of Alcohol and Drug Abuse Patient Records regulations: The Federal rules restrict any use of the information to criminally investigate or prosecute any alcohol or drug abuse patient.[facility] the event this information is protected by the Federal Confidentiality of Alcohol and Drug Abuse Patient Records regulations: The Federal rules restrict any use of the information to criminally investigate or prosecute any alcohol or drug abuse patient.[facility] the event this information is protected by the Federal Confidentiality of Alcohol and Drug Abuse Patient Records regulations: The Federal rules restrict any use of the information to criminally investigate or prosecute any alcohol or drug abuse patient.[facility] the event this information is protected by the Federal Confidentiality of Alcohol and Drug Abuse Patient Records regulations: The Federal rules restrict any use of the information to criminally investigate or prosecute any alcohol or drug abuse patient.[facility] the event this information is protected by the Federal Confidentiality of Alcohol and Drug Abuse Patient Records regulations: The Federal rules restrict any use of the information to criminally investigate or prosecute any alcohol or drug abuse patient.[facility] the event this information is protected by the Federal Confidentiality of Alcohol and Drug Abuse Patient Records regulations: The Federal rules restrict any use of the information to criminally investigate or prosecute any alcohol or drug abuse patient.[facility] the event this information is protected by the Federal Confidentiality of Alcohol and Drug Abuse Patient Records regulations: The Federal rules restrict any use of the information to criminally investigate or prosecute any alcohol or drug abuse patient.[facility] the event this information is protected by the Federal Confidentiality of Alcohol and Drug Abuse Patient Records regulations: The Federal rules restrict any use of the information to criminally investigate or prosecute any alcohol or drug abuse patient.[facility] the event this information is protected by the Federal Confidentiality of Alcohol and Drug Abuse Patient Records regulations: The Federal rules restrict any use of the information to criminally investigate or prosecute any alcohol or drug abuse patient.[facility] the event this information is protected by the Federal Confidentiality of Alcohol and Drug Abuse Patient Records regulations: The Federal rules restrict any use of the information to criminally investigate or prosecute any alcohol or drug abuse patient.[facility] the event this information is protected by the Federal Confidentiality of Alcohol and Drug Abuse Patient Records regulations: The Federal rules restrict any use of the information to criminally investigate or prosecute any alcohol or drug abuse patient.[facility] the event this information is protected by the Federal Confidentiality of Alcohol and Drug Abuse Patient Records regulations: The Federal rules restrict any use of the information to criminally investigate or prosecute any alcohol or drug abuse patient.[facility] the event this information is protected by the Federal Confidentiality of Alcohol and Drug Abuse Patient Records regulations: The Federal rules restrict any use of the information to criminally investigate or prosecute any alcohol or drug abuse patient.[facility] the event this information is protected by the Federal Confidentiality of Alcohol and Drug Abuse Patient Records regulations: The Federal rules restrict any use of the information to criminally investigate or prosecute any alcohol or drug abuse patient.[facility] the event this information is protected by the Federal Confidentiality of Alcohol and Drug Abuse Patient Records regulations: The Federal rules restrict any use of the information to criminally investigate or prosecute any alcohol or drug abuse patient.[facility] the event this information is protected by the Federal Confidentiality of Alcohol and Drug Abuse Patient Records regulations: The Federal rules restrict any use of the information to criminally investigate or prosecute any alcohol or drug abuse patient.[facility]In the event this information is protected by the Federal Confidentiality of Alcohol and Drug Abuse Patient Records regulations: The Federal rules restrict any use of the information to criminally investigate or prosecute any alcohol or drug abuse patient.[facility] the event this information is protected by the Federal Confidentiality of Alcohol and Drug Abuse Patient Records regulations: The Federal rules restrict any use of the information to criminally investigate or prosecute any alcohol or drug abuse patient.[facility] the event this information is protected by the Federal Confidentiality of Alcohol and Drug Abuse Patient Records regulations: The Federal rules restrict any use of the information to criminally investigate or prosecute any alcohol or drug abuse patient.[facility]In the event this information is protected by the Federal Confidentiality of Alcohol and Drug Abuse Patient Records regulations: The Federal rules restrict any use of the information to criminally investigate or prosecute any alcohol or drug abuse patient.[facility]In the event this information is protected by the Federal Confidentiality of Alcohol and Drug Abuse Patient Records regulations: The Federal rules restrict any use of the information to criminally investigate or prosecute any alcohol or drug abuse patient.[facility]In the event this information is protected by the Federal Confidentiality of Alcohol and Drug Abuse Patient Records regulations: The Federal rules restrict any use of the information to criminally investigate or prosecute any alcohol or drug abuse patient.[facility] the event this information is protected by the Federal Confidentiality of Alcohol and Drug Abuse Patient Records regulations: The Federal rules restrict any use of the information to criminally investigate or prosecute any alcohol or drug abuse patient.[facility]In the event this information is protected by the Federal Confidentiality of Alcohol and Drug Abuse Patient Records regulations: The Federal rules restrict any use of the information to criminally investigate or prosecute any alcohol or drug abuse patient.[facility] HospitalIn the event this information is protected by the Federal Confidentiality of Alcohol and Drug Abuse Patient Records regulations: The Federal rules restrict any use of the information to criminally investigate or prosecute any alcohol or drug abuse patient.[facility] HospitalIn the event this information is protected by the Federal Confidentiality of Alcohol and Drug Abuse Patient Records regulations: The Federal rules restrict any use of the information to criminally investigate or prosecute any alcohol or drug abuse patient.[facility] HospitalIn the event this information is protected by the Federal Confidentiality of Alcohol and Drug Abuse Patient Records regulations: The Federal rules restrict any use of the information to criminally investigate or prosecute any alcohol or drug abuse patient.[facility] HospitalIn the event this information is protected by the Federal Confidentiality of Alcohol and Drug Abuse Patient Records regulations: The Federal rules restrict any use of the information to criminally investigate or prosecute any alcohol or drug abuse patient.[facility] HospitalIn the event this information is protected by the Federal Confidentiality of Alcohol and Drug Abuse Patient Records regulations: The Federal rules restrict any use of the information to criminally investigate or prosecute any alcohol or drug abuse patient.[facility] HospitalIn the event this information is protected by the Federal Confidentiality of Alcohol and Drug Abuse Patient Records regulations: The Federal rules restrict any use of the information to criminally investigate or prosecute any alcohol or drug abuse patient.[facility] HospitalIn the event this information is protected by the Federal Confidentiality of Alcohol and Drug Abuse Patient Records regulations: The Federal rules restrict any use of the information to criminally investigate or prosecute any alcohol or drug abuse patient.[facility] HospitalIn the event this information is protected by the Federal Confidentiality of Alcohol and Drug Abuse Patient Records regulations: The Federal rules restrict any use of the information to criminally investigate or prosecute any alcohol or drug abuse patient.[facility] HospitalIn the event this information is protected by the Federal Confidentiality of Alcohol and Drug Abuse Patient Records regulations: The Federal rules restrict any use of the information to criminally investigate or prosecute any alcohol or drug abuse patient.[facility] HospitalIn the event this information is protected by the Federal Confidentiality of Alcohol and Drug Abuse Patient Records regulations: The Federal rules restrict any use of the information to criminally investigate or prosecute any alcohol or drug abuse patient.[facility] HospitalIn the event this information is protected by the Federal Confidentiality of Alcohol and Drug Abuse Patient Records regulations: The Federal rules restrict any use of the information to criminally investigate or prosecute any alcohol or drug abuse patient.[facility] HospitalIn the event this information is protected by the Federal Confidentiality of Alcohol and Drug Abuse Patient Records regulations: The Federal rules restrict any use of the information to criminally investigate or prosecute any alcohol or drug abuse patient.[facility] HospitalIn the event this information is protected by the Federal Confidentiality of Alcohol and Drug Abuse Patient Records regulations: The Federal rules restrict any use of the information to criminally investigate or prosecute any alcohol or drug abuse patient.[facility] HospitalIn the event this information is protected by the Federal Confidentiality of Alcohol and Drug Abuse Patient Records regulations: The Federal rules restrict any use of the information to criminally investigate or prosecute any alcohol or drug abuse patient.[facility] HospitalIn the event this information is protected by the Federal Confidentiality of Alcohol and Drug Abuse Patient Records regulations: The Federal rules restrict any use of the information to criminally investigate or prosecute any alcohol or drug abuse patient.[facility] HospitalIn the event this information is protected by the Federal Confidentiality of Alcohol and Drug Abuse Patient Records regulations: The Federal rules restrict any use of the information to criminally investigate or prosecute any alcohol or drug abuse patient.[facility] HospitalIn the event this information is protected by the Federal Confidentiality of Alcohol and Drug Abuse Patient Records regulations: The Federal rules restrict any use of the information to criminally investigate or prosecute any alcohol or drug abuse patient.[facility] HospitalIn the event this information is protected by the Federal Confidentiality of Alcohol and Drug Abuse Patient Records regulations: The Federal rules restrict any use of the information to criminally investigate or prosecute any alcohol or drug abuse patient.[facility] HospitalIn the event this information is protected by the Federal Confidentiality of Alcohol and Drug Abuse Patient Records regulations: The Federal rules restrict any use of the information to criminally investigate or prosecute any alcohol or drug abuse patient.[facility] HospitalIn the event this information is protected by the Federal Confidentiality of Alcohol and Drug Abuse Patient Records regulations: The Federal rules restrict any use of the information to criminally investigate or prosecute any alcohol or drug abuse patient.[facility] HospitalIn the event this information is protected by the Federal Confidentiality of Alcohol and Drug Abuse Patient Records regulations: The Federal rules restrict any use of the information to criminally investigate or prosecute any alcohol or drug abuse patient.[facility] HospitalIn the event this information is protected by the Federal Confidentiality of Alcohol and Drug Abuse Patient Records regulations: The Federal rules restrict any use of the information to criminally investigate or prosecute any alcohol or drug abuse patient.[facility] HospitalIn the event this information is protected by the Federal Confidentiality of Alcohol and Drug Abuse Patient Records regulations: The Federal rules restrict any use of the information to criminally investigate or prosecute any alcohol or drug abuse patient.[facility] HospitalIn the event this information is protected by the Federal Confidentiality of Alcohol and Drug Abuse Patient Records regulations: The Federal rules restrict any use of the information to criminally investigate or prosecute any alcohol or drug abuse patient.[facility] Care Teams (unrecognized sec tion and content) Team Status: Active Member Role Status Dates Dr. Ezequiel Zazueta DO Primary Care Provider Active Team Status: Inactive Member Role Status Dates Dr. Ezequiel Zazueta DO Primary Care Provider Active Start: September 29, 2024 End: September 29, 2024 Dr. Vineet Esteves DO Attending Provider Active Start: September 29, 2024 End: September 29, 2024 Dr. Vineet Esteves DO Emergency Provider Active Start: September 29, 2024 End: September 29, 2024 Team Status: Inactive Member Role Status Dates Dr. Ezequiel Zazueta DO Primary Care Provider Active Start: October 17, 2024 End: October 17, 2024 Dr. Ryder Ruth DO Attending Provider Active Start: October 17, 2024 End: October 17, 2024 Dr. Ryder Ruth DO Referring Provider Active Start: October 17, 2024 End: October 17, 2024 Team Status: Active Member Role Status Dates Dr. Ezequiel Zazueta DO Primary Care Provider Active Dr. Moe Watkins MD Attending Provider Active Dr. Natasha Carlos MD Referring Provider Active Team Status: Inactive Member Role Status Dates Dr. Ezequiel Zazueta DO Primary Care Provider Active Dr. Natasha Carlos MD Attending Provider, Referring Provider Active Production Coordinator Relationship Specialty Start Date End Date Arlyn Sprague PA-C [address] [place] [id number] PCP - General Primary Care 01/11/22 Production Coordinator Relationship Specialty Start Date End Date Ezequiel Zazueta DO [address] [place] [address] PCP - General Family Medicine 03/20/23 Production Coordinator Relationship Specialty Start Date End Date Ezequiel Zazueta DO [address] [place] [address] PCP - General Family Medicine 03/20/23 Production Coordinator Relationship Specialty Start Date End Date Ezequiel Zazueta DO [address] [place] [address] PCP - General Family Medicine 03/20/23 Team Status: Inactive Member Role Status Dates Dr. Hellen Hernandez MD Attending Provider, Referring Pr ovider Active Dr. Ezequiel Zazueta DO Primary Care Provider Active Production Coordinator Relationship Specialty Start Date End Date Ezequiel Zazueta DO [address] [place] [address] PCP - General Family Medicine 03/20/23 Production Coordinator Relationship Specialty Start Date End Date Ezequiel Zazueta DO [address] [place] [address] PCP - General Family Medicine 03/20/23 Production Coordinator Relationship Specialty Start Date End Date Ezequiel Zazueta DO [address] [place] [address] PCP - General Family Medicine 03/20/23 Production Coordinator Relationship Specialty Start Date End Date Ezequiel Zazueta DO [address] [place] [address] PCP - General Family Medicine 03/20/23 Production Coordinator Relationship Specialty Start Date End Date Ezequiel Zazueta DO [address] [place] [address] PCP - General Family Medicine 03/20/23 Production Coordinator Relationship Specialty Start Date End Date Ezequiel Zazueta DO [address] [place] [address] PCP - General Family Medicine 03/20/23 Production Coordinator Relationship Specialty Start Date End Date Ezequiel Zazueta DO [address] [place] [address] PCP - General Family Medicine 03/20/23 Production Coordinator Relationship Specialty Start Date End Date Ezequiel Zazueta DO [address] [place] [address] PCP - General Family Medicine 03/20/23 Production Coordinator Relationship Specialty Start Date End Date Ezequiel Zazueta DO [address] [place] [address] PCP - General Family Medicine 03/20/23 Production Coordinator Relationship Specialty Start Date End Date Ezequiel Zazueta DO [address] [place] [address] PCP - General Family Medicine 03/20/23 Production Coordinator Relationship Specialty Start Date End Date Ezequiel Zazueta DO [address] [place] [address] PCP - General Family Medicine 03/20/23 Production Coordinator Relationship Specialty Start Date End Date Ezequiel Zazueta DO [address] [place] [address] PCP - General Family Medicine 03/20/23 Production Coordinator Relationship Specialty Start Date End Date Ezeqiuel Zazueta DO [address] [place] [address] PCP - General Family Medicine 03/20/23 Production Coordinator Relationship Specialty Start Date End Date Ezequiel Zazueta DO [address] [place] [address] PCP - General Family Medicine 03/20/23 Production Coordinator Relationship Specialty Start Date End Date Ezequiel Zazueta DO [address] [facility] [place] [address] PCP - General Family Medicine 03/20/23 Production Coordinator Relationship Specialty Start Date End Date Ezequiel Zazueta DO [address] [facility] [place] [address] PCP - General Family Medicine 03/20/23 Production Coordinator Relationship Specialty Start Date End Date Ezequiel Zazueta DO [address] [facility] [place] [address] PCP - General Family Medicine 03/20/23 Production Coordinator Relationship Specialty Start Date End Date Ezequiel Zazueta DO [address] [facility] [place] [address] PCP - General Family Medicine 03/20/23 Production Coordinator Relationship Specialty Start Date End Date Ezequiel Zazueta DO [address] [facility] [place] [address] PCP - General Family Medicine 03/20/23 Production Coordinator Relationship Specialty Start Date End Date Ezequiel Zazueta DO [address] [facility] [place] [address] PCP - General Family Medicine 03/20/23 Production Coordinator Relationship Specialty Start Date End Date Ezequiel Zazueta, [address] [facility] [place] [address] PCP - General Family Medicine 03/20/23 Production Coordinator Relationship Specialty Start Date End Date Ezequiel Zazueta DO [address] [facility] [place] [address] PCP - General Family Medicine 03/20/23 Production Coordinator Relationship Specialty Start Date End Date Ezequiel Zazueta DO [address] [facility] [place] [address] PCP - General Family Medicine 03/20/23 Production Coordinator Relationship Specialty Start Date End Date Ezequiel Zazueta DO [address] [facility] [place] [address] PCP - General Family Medicine 03/20/23 Nichol Montalvo, ASSISTANT THERAPY AIDE.GEOCHEMICAL MANAGER [address] [facility] [place] [address] Online Community Manager Family Medicine 08/04/24 AdelaConor, ASSISTANT THERAPY AIDE.GEOCHEMICAL MANAGER [address] [facility] [place] [address] Online Community Manager Family Medicine 08/04/24 Production Coordinator Relationship Specialty Start Date End Date Ezequiel Zazueta DO [address] [facility] [place] [address] PCP - General Family Medicine 03/20/23 Nichol Montalvo, ASSISTANT THERAPY AIDE.GEOCHEMICAL MANAGER [address] [facility] [place] [address] Online Community Manager Family Medicine 08/04/24 Conor Chapman, ASSISTANT THERAPY AIDE.GEOCHEMICAL MANAGER [address] [facility] [place] [address] Online Community Manager Family Medicine 08/04/24 Production Coordinator Relationship Specialty Start Date End Date Ezequiel Zazueta DO [address] [facility] [place] [address] PCP - General Family Medicine 03/20/23 Nichol Montalvo, ASSISTANT THERAPY AIDE.GEOCHEMICAL MANAGER [address] [place] [address] Online Community Manager Family Medicine 08/04/24 Conor Chapman, ASSISTANT THERAPY AIDE.GEOCHEMICAL MANAGER [address] [facility] [place] [address] Online Community Manager Family Medicine 08/04/24 Production Coordinator Relationship Specialty Start Date End Date Ezequiel Zazueta DO [address] [place] [address] PCP - General Family Medicine 03/20/23 Nichol Montalvo, ASSISTANT THERAPY AIDE.GEOCHEMICAL MANAGER [address] [place] [address] Online Community Manager Family [facility] 08/04/24 Conor Chapman, ASSISTANT THERAPY AIDE.GEOCHEMICAL MANAGER [address] [place] [address] Online Community Manager [facility] 08/04/24 Production Coordinator Relationship Specialty Start Date End Date Ezequiel Zazueta DO [address] [place] [address] PCP - General Family Medicine 03/20/23 Nichol Montalvo, ASSISTANT THERAPY AIDE.GEOCHEMICAL MANAGER [address] [place] [address] Online Community Manager Family Medicine 08/04/24 Conor Chapman, ASSISTANT THERAPY AIDE.GEOCHEMICAL MANAGER [address] [place] [address] Online Community Manager [facility] 08/04/24 Production Coordinator Relationship Specialty Start Date End Date Ezequiel Zazueta DO [address] [place] [address] PCP - General Family Medicine 03/20/23 Nichol Montalvo, ASSISTANT THERAPY AIDE.GEOCHEMICAL MANAGER [address] [facility] [place] [address] Online Community Manager Family Medicine 08/04/24 Conor Chapman, ASSISTANT THERAPY AIDE.GEOCHEMICAL MANAGER [address] [place] [address] Online Community Manager Family Medicine 08/04/24 Production Coordinator Relationship Specialty Start Date End Date Ezequiel Zazueta DO [address] [place] [address] PCP - General Family Medicine 03/20/23 Nichol Montalvo, ASSISTANT THERAPY AIDE.GEOCHEMICAL MANAGER [address] [place] [address] Online Community Manager Family Medicine 08/04/24 Conor Chapman, ASSISTANT THERAPY AIDE.GEOCHEMICAL MANAGER [address] [place] [address] Online Community Manager Family Medicine 08/04/24 Production Coordinator Relationship Specialty Start Date End Date Ezequiel Zazueta DO [address] [place] [address] PCP - General Family Medicine 03/20/23 Nichol Montalvo, ASSISTANT THERAPY AIDE.GEOCHEMICAL MANAGER [address] [place] [address] Online Community Manager Family Medicine 08/04/24 Conor Chapman, ASSISTANT THERAPY AIDE.GEOCHEMICAL MANAGER [address] [place] [address] Online Community Manager Family Medicine 08/04/24 Production Coordinator Relationship Specialty Start Date End Date Ezequiel Zazueta DO [address] [place], [place] [address] PCP - General Family Medicine 03/20/23 Nichol Montalvo, ASSISTANT THERAPY AIDE.GEOCHEMICAL MANAGER [address] [place], [place] [address] [facility] 08/04/24 Conor Chapman, ASSISTANT THERAPY AIDE.GEOCHEMICAL MANAGER [address] [place], [place] [address] [facility] 08/04/24 Production Coordinator Relationship Specialty Start Date End Date Ezequiel Zazueta DO [address] [place] [address] PCP - General Family Medicine 03/20/23 Conor Chapman, ASSISTANT THERAPY AIDE.GEOCHEMICAL MANAGER [address] [place] [address] [facility] 08/04/24 Production Coordinator Relationship Specialty Start Date End Date Ezequiel Zazueta DO [address] [place] [address] PCP - General [facility] Medicine 03/20/23 AdelaConor, ASSISTANT THERAPY AIDE.GEOCHEMICAL MANAGER [address] [place], [place] [address] [facility] 08/04/24 Team Status: Inactive Member Role Status Dates Dr. Ezequiel Zazueta DO Primary Care Provider Active Start: December 10, 2024 End: December 10, 2024 SURESH Layton Attending Provider Active Star t: December 10, 2024 End: December 10, 2024 SURESH Layton Referring Provider Active Star t: December 10, 2024 End: December 10, 2024 Production Coordinator Relationship Specialty Start Date End Date Ezequiel Zazueta DO [address] [place] [address] PCP - General Family Medicine 03/20/23 Conor Chapman, LARISSA.GEOCHEMICAL MANAGER [address] [facility] [place] [address] Online Community Manager [facility] 08/04/24 Production Coordinator Relationship Specialty Start Date End Date Ezequiel Zazueta DO [address] [facility] [place] [address] PCP - General Family Medicine 03/20/23 Conor Chapman, ASSISTANT THERAPY AIDE.GEOCHEMICAL MANAGER [address] [facility] [place] [address] Online Community Manager [facility] 08/04/24 Production Coordinator Relationship Specialty Start Date End Date Ezequiel Zazueta DO [address] [place] [address] PCP - General Family Medicine 03/20/23 Conor Chapman, ASSISTANT THERAPY AIDE.GEOCHEMICAL MANAGER [address] [facility] [place] [address] [facility] Production Coordinator Relationship Specialty Start Date End Date Ezequiel Zazueta DO [address] [facility] [place] [address] PCP - General Family Medicine 03/20/23 Conor Chapman, ASSISTANT THERAPY AIDE.GEOCHEMICAL MANAGER [address] [facility] [place] [address] Online Community Manager [facility] 08/04/24 Production Coordinator Relationship Specialty Start Date End Date Ezequiel Zazueta DO [address] [place] [address] PCP - General Family Medicine 03/20/23 Conor Chapman, ASSISTANT THERAPY AIDE.GEOCHEMICAL MANAGER [address] [place] [address] [facility] 08/04/24 Production Coordinator Relationship Specialty Start Date End Date Ezequiel Zazueta DO [address] [place] [address] PCP - General Family Medicine 03/20/23 AdelaConor, ASSISTANT THERAPY AIDE.GEOCHEMICAL MANAGER [address] [place] [address] [facility] 08/04/24 Production Coordinator Relationship Specialty Start Date End Date Ezequiel Zazueta DO [address] [place] [address] PCP - General Family Medicine 03/20/23 AdelaConor, ASSISTANT THERAPY AIDE.GEOCHEMICAL MANAGER [address] [place] [address] Online Community Manager [facility] 08/04/24 Meghna Thomason, ASSISTANT THERAPY AIDE.GEOCHEMICAL MANAGER [address] [place] [address] [facility] Medicine 02/10/25 Production Coordinator Relationship Specialty Start Date End Date Ezequiel Zazueta DO [address] [place] [address] PCP - General Family Medicine 03/20/23 Conor Chapman, ASSISTANT THERAPY AIDE.GEOCHEMICAL MANAGER [address] [place], [place] [id number] Online Community Manager Family Medicine 08/04/24 Meghna Thomason, ASSISTANT THERAPY AIDE.GEOCHEMICAL MANAGER [address] [place], [place] [id number] Online Community Manager [facility] 02/10/25 INFORMATION SOURCE (unrecogn ized section and content) DATE CREATED AUTHOR 02/21/2023 [facility] ([place]) DATE CREATED AUTHOR AUTHOR'S ORGANIZ ATION 01/28/2025 [facility] DATE CREATED AUTHOR AUTHOR'S ORGANIZ ATION 05/03/2025 [facility] DATE CREATED AUTHOR AUTHOR'S ORGANIZ ATION 05/03/2025 [facility] Reason for Visit (unrecogniz ed section and content) Reason Comments Physical Therapy Specialty Diagnoses / Procedures Referred By Contac t Referred To Contact PHYSICAL THERAPY Diagnoses Radial neuropathy, right Procedures CONSULT TO PHYSICAL THERAPY PHYSICAL THERAPY EVALUATION HIGH COMPLEX 45 MINS Ryder Newton MD [address] [place] [address] Phone: tel: fax: Val Zamorano, PT [address] [place] [address] Phone: tel: Referral ID Status Reason Start Date Expiration Date Visits Requested Visits Authorized [id number] Authorized Auto-Generat ed Referral 10/28/2024 08/27/2025 5 5 Reason Comments Establish Care Reason Comments Comprehensive Eye Exam Reason Comments Results Reason Onset Date Comments Refill Request 06/02/2023 Reason Comments Rx issue Reason Comments Endometrial Biopsy Reason Comments DUB Specialty Diagnoses / Procedures Referred By Contac t Referred To Contact [facility] Diagnoses Abnormal uterine bleeding (AUB) Procedures PELVIC US WHI US PELVIC NONOBSTETRIC REAL-TIME IMAGE COMPLETE Natasha Davila MD [address] [place] [address] [facility] [address] [place] [address] Referral ID Status Reason Start Date Expiration Date V isits Requested Visits Authorized [id number] Closed Auto-Generate d Referral 10/25/2023 10/24/2024 1 1 Reason Comments Fever Sore throat, chest a nd nasal and head congestion, body aches, fatigue, bilat ear pain x 3 days Reason Onset Date Comments Refill Request 11/08/2023 Reason Comments Procedure Hysterectomy Reason Comments Pre-Op Exam Reason Comments Follow Up Reason Onset Date Comments Post Op Post-Op Visit 12/22/2023 Reason Onset Date Comments Weight Management Weight Management 01/01/2024 Reason Comments Refill Request Patient called Reason Comments Results Reason Onset Date Comments Post-Op Visit 01/08/2024 Reason Onset Date Comments Post-Op Visit 01/15/2024 Reason Onset Date Comments Refill Request 02/12/2024 Reason Comments Weight Management Reason Comments Refill Request Reason Comments Medication Follow-up Rash Red itchy rash zeny u nderarms x couple days, recent travel Reason Comments refax info Reason Comments Medication Problem Reason Comments Derm Problem blisters on bilatera l feet, painful x 1 day, redness under bilateral armpit area x 1 day Reason Comments Follow Up EC 04/23 for a rash o n feet. Currently taking doxy and using kenalog cream. Reason Comments Question Reason Onset Date Comments Refill Request 06/07/2024 Reason Comments Medication Question Xanax Reason Comments Medication Follow-up Reason Onset Date Comments Refill Request 09/17/2024 Reason Comments hospital f/up Reason Comments Diarrhea Reason Comments New Patient Reason Onset Date Comments Results 10/30/2024 Reason Comments PT Eval Reason Comments Pain Numbness New Specialty Diagnoses / Procedures Referred By Contac t Referred To Contact Orthopedics Diagnoses Abnormal EMG Procedures CONSULT TO ORTHOPAEDICS OFFICE/OUTPATIENT NEW HIGH MDM 60 MINUTES Nichol Montalvo, ASSISTANT THERAPY AIDE.GEOCHEMICAL MANAGER [address] [place] [address] Phone: tel: fax: Referral ID Status Reason Start Date Expiration Date V isits Requested Visits Authorized [id number] Closed PCP Requested Referral 10/30/2024 10/30/2025 1 1 Reason Comments Appointment Reason Comments Medication Question Reason Comments Patient Question Goals (unrecognized section and content) Goals may be documented in a n alternate section FOR RECORDS PERTAINING TO PATIENTS WHO ARE OR HAVE BEEN ENROLLED IN A CHEMICAL DEPENDENCY/SUBSTANCEABUSE PROGRAM, SOME INFORMATION MAY BE OMITTED. This clinical summary was aggregated from multiple sources. Caution should be exercised in using it in the provision of clinical care. This summary normalizes information from multiple sources, and as a consequence, information in this document may materially change the coding, format and clinical context of patient data. In addition, data may be omitted in some cases. CLINICAL DECISIONS SHOULD BE BASED ON THE PRIMARY CLINICAL RECORDS. [facility]. provides no warranty or guarantee of the accuracy or completeness of information in this document.
[2025-05-05 03:53] LABS: Hematocrit 39.2 % (37-47); Hemoglobin 13.5 g/dL (12.0-15.0); Immature Granulocytes Count 0.050 X10^3/uL (0.0-0.0); Mean Corp Hgb Conc 34.4 g/dL (32-36); Mean Corpuscular Volume 89.5 fL (81-99); Mean Platelet Vol. 9.9 fl (6.2-12.0); NRBC Flagged by Analyzer 0 % (0-5); Platelet Count 276 K/mm3 (150-450); RBC Distribution Width CV 12.3 % (11.6-14.6); RBC Distribution Width SD 40.0 fl (35.1-43.9); Red Blood Count 4.38 M/mm3 (4.2-5.4); White Blood Count 8.7 K/mm3 (4.4-11.0)
--- NOTE | 2025-05-05 03:59 | CT_ITS ---
PROCEDURE: BRAIN/HEAD WITHOUT CONTRAST 05/05/2025 REASON FOR EXAM: SYNCOPE TECHNIQUE: Procedure Code: CTBR Modality: CT Procedure: BRAIN/HEAD WITHOUT CONTRAST Coronal and Sagittal reconstruction series were provided. One or more dose reduction techniques were used (e.g., Automated exposure control, adjustment of the mA and/or kV according to patient size, use of iterative reconstruction technique. RADIATION DOSE SUMMARY: CTDI Vol 43.19 mGy DLP :619.12 mGycm COMPARISON: 09-29-2024 FINDINGS: The visualized brain parenchyma shows normal appearance. No focal parenchymal abnormalities are demonstrated. Reynolds-white matter differentiation is maintained. Stable right cerebellar small chronic infarcts. Normal CT appearance of the rest of the posterior fossa structures. No intracerebral or extra-axial hemorrhage. No midline shifts or deformity. Normal size and configuration of the cerebral ventricles. Prominent fronto-parietal cortical sulci. No definite calvarial fractures. The osseous structures in the skull base are unremarkable. Paranasal sinuses are unremarkable. CT/Brain/Head without Contrast IMPRESSION: No intracerebral or extra-axial hemorrhage. No acute cerebrovascular insult. If clinical symptoms persist, further evaluati on with MRI may be considered as clinically warranted. Stable study findings as detailed. [facility]
[2025-05-05 04:09] LABS: Anion Gap 13 (5-15); BUN 10 mg/dL (4-19); BUN/Creat Ratio 12.3 RATIO (10-20); Calcium,Total 9.6 mg/dL (7.6-11.0); Carbon Dioxide 20.1 mmol/L (21.0-32.0); Chloride 106 mmol/L (98-108); Estimated Creatinine Clearance 84.70 ml/min (50-250); Glucose 89 mg/dL (70-99); Magnesium 2.0 mg/dL (1.5-2.2); Potassium 3.0 mmol/L (3.3-5.1)
[2025-05-05] MEDS: 0.9% Normal Saline (1000mL) 1,000 ML 999 ML IV ×2 (04:46→05:38)
[2025-05-05] MEDS: Potassium Chloride Oral Tablet 20 MEQ 40 MEQ PO (04:46)
[2025-05-05] MEDS: Ketorolac 30 MG/ML Syringe IV (05:35)
--- NOTE | 2025-05-05 06:05 | EDS_ITS ---
HPI History of Present Illness Chief Complaint: Syncope Informant: patient Narrative Narrative: Patient is a 44-year-old female with past medical history of anxiety and hypertension as well as migraine headache. She states that she gets Botox occasionally secondary to the headache. She reports she recently got a different form of Botox. She states she is also had an upset stomach. She states that last night into this morning she had bouts of syncope. She states she does not remember having chest pain or shortness of breath or palpitations prior to the event. She states that she has had a previous hysterectomy and therefore has no concern for and there is been no vaginal bleeding or signs of blood in the urine or stool. She states her stomach has been upset but she denies any reason for dehydration such as excessive vomiting or diarrhea. However based on the syncopal issues she presents for evaluation [facility] Medical History (Updated 05/05/25 @ 07:[address] Nadeem Segura, DO) Wears glasses Anxiety Alcohol use Migraine headache TIA (transient ischemic attack) Vestibular neuritis Vertigo Gastric reflux Smoker Hypertension Home Medications ?Medication ?Instructions ?Recorded ?Last Taken ?Type alprazolam 0.5 mg tablet 0.5 mg PO DAILY 11/23/2306/20 History biotin-folic acid-vitamin B 1 tab PO DAILY 11/23/23 History complex with C-zinc 3 mg-0.8 mg tablet lisinopril 20 mg tablet 20 mg PO DAILY 11/23/2311/26 History omeprazole 10 mg capsule,delayed 10 mg PO DAILY 12/07/23 History release docusate sodium 100 mg capsule 100 mg PO BID #30 caps 12/07/23 Unknown Rx (Colace) ibuprofen 600 mg tablet 600 mg PO Q6H PRN PRN Pain # 30 12/07/23 Unknown Rx TABLETS oxycodone-acetaminophen 5 mg-325 1 - 2 tab PO Q6H PRN PRN Pain 12/07/23 Unknown Rx mg tablet Score 4-10 5 days #10 tabs simethicone 80 mg chewable tablet 80 mg PO BID #30 tab s 12/07/23 Unknown Rx topiramate 50 mg tablet 50 mg PO Q12H weight loss Unknown History dicyclomine 20 mg tablet 20 mg PO 4X/DAY PRN Abdomina l 05/05/25 Unknown Rx pain/spasm #28 tabs potassium chloride 10 mEq 10 meq PO DAILY #7 caps 04/21 Unknown Rx capsule,extended release Allergy/AdvReac Type Severity Reaction Status Date / Time Beta-Blockers Allergy Severe Other Verified 09/29/24 10:18 (Beta-Adrenergic Bloc prednisone Allergy Severe Hives Verified 09/29/24 10:18 Sulfa (Sulfonamide Allergy Severe Hives Verified 09/29/24 10:18 Antibiotics) sulfamethoxazole (From Allergy Severe Hives Verified 09/29/24 10:18 Bactrim) trimethoprim (From Bactrim) Allergy Severe Hives Verified 09/29/24 10:18 melatonin AdvReac Intermediate Nausea/Vom/ Verified 09/29/24 10:18 Diarrhea Serotonin 5HT-3 Antagonists AdvReac Intermediate Other Verified 09/29/24 10:18 Surgical History History of hysterectomy History of dental surgery Hx of wisdom tooth extraction Hx of appendectomy Social History Smoking Status: Current some day smoker tobacco type: cigarettes ROS ROS ED Constitutional Constitutional ED: Denies chills or fever(s) Eyes Eyes: Denies change in vision ENT ENT ED: Denies sore throat Cardiovascular Cardiovascular: Reports other Details: Positive syncope ; Denies chest pain, palpitations or racing heartbeat Respiratory/Chest Respiratory/Chest: Denies cough or dyspnea Gastrointestinal Gastrointestinal: Denies abdominal pain, diarrhea, nausea or vomiting Genitourinary Genitourinary ED: Denies dysuria or hematuria Musculoskeletal Musculoskeletal: Denies back pain or myalgias Integumentary Reports other Details: Positive swelling/ecchymosis to the left forehead/orbital region ; Denies rash Neurologic Neurologic: Reports headache(s); Denies paresthesias or weakness Psychiatric Psychiatric: Reports anxiety Hematologic/Lymphatic Hematologic/Lymphatic: Denies easy bleeding or easy bruising EXAM Physical Exam Const Vital Signs: 05/05/25 03:06 05/05/25 03:12 05/05/25 04:02 Temperature 97.7 F L Temperature Source Oral Pulse Rate 75 66 Pulse Rate [Lying] Pulse Rate [Sitting (for 1 minute prior to obtaining)] Pulse Rate [Standing (for 1 minute prior to obtaining)] Respiratory Rate 10 L 12 Respiratory Effort Normal Non-Labored Respiratory Pattern Normal Blood Pressure 117/87 H 103/77 Blood Pressure [Lying] Blood Pressure [Sitting (for 1 minute prior to obtaining)] Blood Pressure [Standing (for 1 minute prior to obtaining)] Blood Pressure Mean 97 85 Blood Pressure Mean [Lying] Blood Pressure Mean [Sitting (for 1 minute prior to obtaining)] Blood Pressure Mean [Standing (for 1 minute prior to obtaining)] Pulse Ox 100 100 Oxygen Delivery Method Room Air Room Air 05/05/25 04:19 05/05/25 04:55 05/05/25 05:37 Temperature Temperature Source Pulse Rate 64 60 Pulse Rate [Lying] 77 Pulse Rate [Sitting (for 1 minute prior to obtaining)] 108 H Pulse Rate [Standing (for 1 minute prior to obtaining)] 111 H Respiratory Rate 12 15 Respiratory Effort Respiratory Pattern Blood Pressure 108/81 H 110/82 H Blood Pressure [Lying] 103/77 Blood Pressure [Sitting (for 1 minute prior to obtaining)] 108/92 H Blood Pressure [Standing (for 1 minute prior to obtaining)] 111/99 H Blood Pressure Mean 90 91 Blood Pressure Mean [Lying] 85 Blood Pressure Mean [Sitting (for 1 minute prior to obtaining)] 97 Blood Pressure Mean [Standing (for 1 minute prior to obtaining)] 103 Pulse Ox 100 100 Oxygen Delivery Method Room Air Room Air 05/05/25 05:57 05/05/25 05:57 05/05/25 06:30 Temperature 98.2 F Temperature Source Pulse Rate 61 62 62 Pulse Rate [Lying] Pulse Rate [Sitting (for 1 minute prior to obtaining)] Pulse Rate [Standing (for 1 minute prior to obtaining)] Respiratory Rate 12 17 12 Respiratory Effort Respiratory Pattern Blood Pressure 112/77 Blood Pressure [Lying] Blood Pressure [Sitting (for 1 minute prior to obtaining)] Blood Pressure [Standing (for 1 minute prior to obtaining)] Blood Pressure Mean 88 Blood Pressure Mean [Lying] Blood Pressure Mean [Sitting (for 1 minute prior to obtaining)] Blood Pressure Mean [Standing (for 1 minute prior to obtaining)] Pulse Ox 96 100 92 Oxygen Delivery Method Room Air Room Air Positive well nourished and well developed General Appearance ED: well developed HEENT Reports dry mucous membranes HEENT Narrative: There is soft tissue swelling with faint ecchymosis along the left forehead/upper orbital region No signs of depressed or basilar skull fracture Mucous membranes are dry and tacky Mouth ED: Yes dry mucous membranes Mouth: dry mucous membranes Eyes PERRL and EOMs intact bilaterally Eyes Narrative: No hyphema noted General Eye ED: Negative for pale conjunctiva or scleral icterus Neck supple Neck Narrative: No bony deformity or step-off of the cervical spine no midline tenderness to palpation Chest Wall palpation of chest normal Resp normal respiratory effort and clear to auscultation bilaterally Cardio regular rate and regular rhythm Rate: other Other Details: Heart is regular rate and rhythm without murmurs rubs or gallop Radial and carotid pulses are equal and symmetric GI non-tender, non-distended and no masses GI Narrative: Soft nontender nondistended with hyperactive bowel sound. No voluntary guarding or rigidity or pulsatile mass Auscultation: hyperactive bowel sounds Palpation: soft Back/Spine no CVA tenderness Back/Spine Narrative: No bony deformity or step-off of the thoracic or lumbar spine no midline tenderness to palpation Extremity normal to inspection Extremity Narrative: Pelvis is stable there is no shortening or external rotation of either lower extremity No signs of long bone injury such as bony deformity or joint effusion Neuro oriented x3, CN's II-XII intact bilaterally and no sensory deficits noted Neuro Narrative: GCS of 15 Cranial nerves II to XII are grossly intact without focal neurologic deficit No pronator drift no dysmetria no truncal ataxia NIH stroke scale score of 0 Sensorium / Orientation: alert Motor Exam: strength 5/5 throughout Psych Mood & Affect: anxious Skin no rashes or lesions noted Skin Narrative: Skin turgor is increased Soft tissue swelling with ecchymosis along the left forehead/upper orbital region as documented above MDM MDM MDM Narrative Medical decision making narrative: Patient arrived to ER with stable vital signs but with report of syncope and physical exam showing findings of dehydration there is concern for acute blood loss anemia versus dehydration versus acute kidney injury. As she did strike her head there is concern for potential traumatic subarachnoid or subdural hemorrhage or skull fracture. Patient denied palpitations but she could have had syncopal event secondary to cardiac dysrhythmia. An EKG was obtained which showed no sign of abnormal heart rhythm or signs of ischemia. Labs showed stabl e H&H as well as normal kidney function. Orthostatic vitals were obtained and when patient went from sitting to standing her heart rate increased by approximately 30 points consistent with orthostasis. She was given 2 L of IV fluid and after this could ambulate with a steady gait. Therefore at this time as she does not have need for blood transfusion or have severe dehydration causing LARRY and there is no sign of skull fracture or brain bleed and she cannot ambulate without further bouts of syncope she is otherwise safe for discharge. History & Record Review Discussion w/independent historian: Patient Lab Data Attestation: I reviewed the patient's lab results. Labs: Laboratory Results - last 24 hr 05/05/25 02:50 WBC 8.7 RBC 4.38 Hgb 13.5 Hct 39.2 MCV 89.5 MCH 30.8 MCHC 34.4 RDW Std Deviation 40.0 RDW Coeff of Amish 12.3 Plt Count 276 MPV 9.9 Immature Gran % (Auto) 0.600 Neut % (Auto) 36.2 L Lymph % (Auto) 53.8 H Alcorn % (Auto) 7.1 Eos % (Auto) 1.6 Baso % (Auto) 0.7 Absolute Neuts (auto) 3.2 Absolute Lymphs (auto) 4.68 H Nucleated RBC % 0 Sodium 139 Potassium 3.0 L Chloride 106 Carbon Dioxide 20.1 L Anion Gap 13 BUN 10 Creatinine 0.81 Estim Creat Clear Calc 84.70 Est GFR (MDRD) Non-Af 93 BUN/Creatinine Ratio 12.3 Glucose 89 Calcium 9.6 Magnesium 2.0 Radiography Diagnostic Testing: Clinical Impression(s) from Imaging Studies Brain CT 05/05/25 03:59 IMPRESSION: No intracerebral or extra-axial hemorrhage. No acute cerebrovascular insult. If clinical symptoms persist, further evaluation with MRI may be considered as clinically warranted. Stable study findings as detailed. Reading [facility] Discharge Plan Triage Chief Complaint: Syncope ED Provider: Nadeem Segura Dx/Rx/DC Orders Clinical Impression: Orthostatic syncope, Dehydration, Anxiety, Hypertension Instructions: Orthostatic Hypotension, ED Dehydration (Adult) Prescriptions: New dicyclomine 20 mg tablet 20 mg PO 4X/DAY PRN (Reason: Abdominal pain/spasm) Qty: 28 0RF potassium chloride 10 mEq capsule, extended release 10 meq PO DAILY Qty: 7 0RF No Action alprazolam 0.5 mg tablet 0.5 mg PO DAILY lisinopril 20 mg tablet 20 mg PO DAILY omeprazole 10 mg capsule,delayed release(DR/EC) 10 mg PO DAILY biotin-folic acid-B compC-zinc 3-0.8 mg tablet 1 tab PO DAILY oxycodone-acetaminophen 5-325 mg Tablet 1 - 2 tab PO Q6H PRN PRN (Reason: Pain Score 4-10) 5 Days Qty: 10 0RF ibuprofen 600 mg tablet 600 mg PO Q6H PRN PRN (Reason: Pain) Qty: 30 0RF simethicone 80 mg tablet,chewable 80 mg PO BID Qty: 30 0RF docusate sodium [Colace] 100 mg capsule 100 mg PO BID Qty: 30 0RF topiramate 50 mg tablet 50 mg PO Q12H Primary Care Provider: Ezequiel Zazueta Referrals: Ezequiel Zazueta DO [Primary Care Provider] - Activity Restrictions/Additional Instructions: Your workup today did not show any sign of abnormal heart rhythm. Your blood volume and kidney function were normal. Your potassium was slightly low at 3 and therefore take the prescribed potassium supplement for the next 7 days to bring this into a normal range. Your head CT revealed no sign of brain bleed or mass. Your exam did show mild dehydration and when you stood up your heart rate increased by approximate 30 points indicating your dizziness/passing out is most likely related to mild dehydration. Please follow-up with your family doctor for repeat evaluation and discuss potential Holter monitor study to further assess for abnormal heart rhythm if symptoms persist and return to the ER should you have any further concerns Print Language: Cook Islander Disposition Disposition: Home, Self Care Discharge Date/Time: 05/05/25 06:45
== END 2025-05-05 06:45 | disposition home or self-care (01) ==
PROVIDERS: Emergency Provider Emergency Medicine; PCP Student in an Organized Health Care Education/Training Program; Visit Provider Emergency Medicine
DX: R55 Syncope and collapse (principal); S00.83XA Contusion of other part of head, initial encounter; S05.12XA Contusion of eyeball and orbital tissues, left eye, initial encounter; X58.XXXA Exposure to other specified factors, initial encounter; E86.0 Dehydration; F41.9 Anxiety disorder, unspecified; I10 Essential (primary) hypertension; F17.210 Nicotine dependence, cigarettes, uncomplicated; Z79.899 Other long term (current) drug therapy; Z90.710 Acquired absence of both cervix and uterus; Z86.73 Personal history of transient ischemic attack (TIA), and cerebral infarction without residual deficits
CPT/HCPCS: 70450; 80048; 83735; 85025; 93005; 96361; 96374; 99285